=== PATIENT | female | born 1990 | race Caucasian/White ===

== ENCOUNTER → 2017-03-31 19:13 | Outpatient (CLI) | payer OTHER, SELFPAY ==
[2017-03-31 21:05] LABS: Group B Strep DNA By PCR POSITIVE (Negative); Probe Check PASS
== END ==
PROVIDERS: Visit Provider Obstetrics & Gynecology
DX: Z34.83 Encounter for supervision of other normal pregnancy, third trimester (principal)
CPT/HCPCS: 87653

== ENCOUNTER 2017-04-21 09:40 | Inpatient (IN) | payer OTHER, SELFPAY ==
[2017-04-21 09:59] VITALS: BMI 30.4
[2017-04-21 10:29] LABS: ROM Internal Control Test YES-OK TO RESULT pt. (Internal QC)
[2017-04-21 10:32] LABS: ROM Patient Test POSITIVE (Negative)
[2017-04-21] MEDS: Lactated Ringers 1,000 ML 50 ML IV ×3 (10:45→18:14)
--- NOTE | 2017-04-21 11:00 | NURSING ---
Patient would like to pump and bottlefeed.
[2017-04-21 11:22] LABS: Hematocrit 35.6 % (37-47); Mean Corp Hgb Conc 33.7 g/gl (32-36); Mean Corpuscular Hgb 32.3 pg (27.0-32.0); Platelet Count 158 K/mm3 (150-450); RBC Distribution Width CV 13.5 % (11.6-14.6); RBC Distribution Width SD 46.6 fl (35.1-43.9); Red Blood Count 3.71 M/mm3 (4.2-5.4); White Blood Count 9.8 K/mm3 (4.4-11.0)
[2017-04-21 11:23] LABS: Scan Indicated on CBC? Y/N NO
[2017-04-21] MEDS: Oxytocin 30 units/NS 500 ml 30 UNITS/500 ML IV.SOLN IV (16:27)
--- NOTE | 2017-04-21 19:32 | PCM.PN.BLA ---
Progress Note LABOR PROGRESS NOTE No complaints. Notes epidural test dose is wearing off. AVSS GEN - NAD, AAO x 3 FHR 120, moderate variability, + accelerations, no decelerations TOCO 3-4/10 min SVE 4/60/-2 per RN Malcolm Simon A/P: 27yo @ 40wga, TOLAC in latent labor, Cat I FHR -Continue pitocin as tolerated by mother and fetus, IUPC in situ - and maternal statuses reassuring -Continue PCN for GBS ppx.
--- NOTE | 2017-04-21 20:46 | PCM.PN.BLA ---
Progress Note LABOR PROGRESS NOTE Contraction are more intense. AVSS GEN - NAD, AAO x 3 FHR 120, moderate variability, + accelerations, no decelerations TOCO 4/10 min SVE 5.5-6/80/-2, forebag present A/P: 27yo @ 40wga, TOLAC in active labor, Cat I FHR -Pitocin augmentation - continue pitocin as tolerated by mother and fetus -IUPC removed, amniotomy performed and IUPC replaced -Maternal and statuses reassuring
--- NOTE | 2017-04-21 22:35 | PCM.PN.BLA ---
Progress Note LABOR PROGRESS NOTE Feels pressure intermittently. AVSS GEN - NAD, AAO x 3 FHR 120, moderate variability, no accelerations, no deceleration, some loss of contact TOCO 4/10 min SVE 8/90/0 A/P: 27yo @ 40wga, TOLAC in active labor on pitocin, Cat I FHR -Continue pitocin as tolerated by mother and fetus -Maternal and statuses overall reassuring
--- NOTE | 2017-04-21 23:43 | PCM.PN.BLA ---
Progress Note LABOR PROGRESS NOTE C/O significant pressure and shaking AVSS GEN - NAD, AAO x 3 FHR 120, moderate variability, + accelerations, no decelerations TOCO 4/10 min SVE FD/+2 station, cephalic A/P: 27yo @ 40wga, TOLAC in active labor, Cat I FHR -Will start pushing given patient discomfort and low station -Maternal and statuses reassuring
[2017-04-22] MEDS: Ondansetron 4 MG/2 ML Vial IV (00:51)
--- NOTE | 2017-04-22 02:41 | PCM.PN.BLA ---
Progress Note LABOR PROGRESS NOTE 27yo @ 40 1/7wga, TOLAC in second stage. Patient pushing with good maternal effort x approximately 2 hours when I arrived to bedside. I pushed with her for 30 minutes and SVE FD/+3 station, direct OA. Cat I-II FHR with moderate variability, overall reassuring. Pushed in dorsal lithotomy and then repositioned into left lateral decubitus with peanut ball. Will continue pushing with this positioning and reassess in 30 minutes.
--- NOTE | 2017-04-22 03:48 | PLAC_PTH ---
PATIENT: ALBERTO BEACH LOC: [facility] U#:[id number] AGE/SX: 27/F ROOM: WP011 RE04/21/[address]: Dr. Layla Pelaez MD : 1990 BED: 1 DIS: 04/23/2017 SPEC #: [id number] RECD: 04/22/17 07:40 STATUS: MYRIAM REMaureen #: [id number] KATHY: 04/22/17 03:[address]: Layla Nelson DEPT: SURGICAL PATHOLOGY RECD BY: Mekhi Amador ENTERED: 04/22/17 09:18 SP TYPE: PLACENTA OTHR DR: No Primary Care Phys Tissues: Placenta, NOS Procedures: Surgery Specimen Level V HEADER OPERATION: Vaginal delivery PRE-OP DIAGNOSIS: GBS positive, TISSUE SUBMITTED: Placenta MICROSCOPIC DIAGNOSIS Placenta: Placental disc - third trimester placenta (514 gm). Membranes ? mild acute chorioamnionitis. Umbilical cord - three blood vessels and no pathologic diagnosis. :elma 04/26/17 MICROSCOPIC DESCRIPTION Slides are reviewed. GROSS DESCRIPTION SPECIMEN: PLACENTA / CLINICAL INFORMATION: A. Weight: 3.293 kg B. Gestational Age: 40 weeks C. Sex: Male PLACENTAL WEIGHT (POST FIXATION): 514 gm PLACENTAL DIMENSIONS: 18 x 18 x 3 cm PLACENTAL SHAPE: Usual ovoid PLACENTAL WEIGHT FOR GESTATIONAL AGE: Within 10-99th percentile MEMBRANES - Present A. Insertion: Marginal B. Site of rupture from edge: At edge of placental disc C. Color of membrane: Arredondo-omalley D. Abnormalities: None UMBILICAL CORD - Present A. Color: Arredondo-omalley B. Insertion: Central C. Length: 30 cm D. Diameter: 1.3 cm E. Number of vessels: Three F. Abnormalities: None PLACENTAL DISC - Present A. Color of surface: Arredondo-omalley B. surface abnormalities: None C. Maternal cotyledons: Intact with minimal tears D. Attached retro placental clot: No clot E. Cut surface: Dark red and spongy F. Lesions: None G. Separate clot: Absent SECTIONS SUBMITTED: 1. Membrane roll 2. Cord, maternal end 3. Cord, end 4. Placental disc, and maternal surfaces 5. Placental disc, and maternal surfaces 6. Placental disc, and maternal surfaces JAH:elma 04/25/17 TC:2 CPT: 49308
[2017-04-22] MEDS: Oxytocin 30 units/NS 500 ml 30 UNITS/500 ML IV.SOLN 334 UNITS IV (03:58)
[2017-04-22] MEDS: Methylergonovine 0.2 MG/ML Ampul IM (04:00)
[2017-04-22] MEDS: Oxytocin 30 units/NS 500 ml 30 UNITS/500 ML IV.SOLN 167 UNITS IV (04:28)
--- NOTE | 2017-04-22 04:32 | PCM.OB.VAG ---
- Problem List (1) (vaginal after ) Status: Acute (2) 40 weeks gestation of Status: Acute Vaginal Delivery Maternal Presentation: Spontaneous Rupture of Membranes Pitocin augmentation Method of Induction: Pitocin Amniotic Membrane Rupture Type: Spontaneous at home Rupture of Membrane time: 04/21/17 0830h Amniotic Fluid Description: Clear Final ALMA: 04/21/17 Final ALMA Source: US <20 weeks Gestational age: 40 Weeks and 1 Days [place] doctor who attended delivery (if requested by OB): Hallie James Date of Procedure: 04/22/17 Pre-Operative Diagnosis: 40 1/7wga, GBS positive, TOLAC Post-Operative Diagnosis: 40 1/7wga, GBS positive, Surgery/ Procedure Performed: Vacuum Assisted Vaginal Delivery, - - VAGINAL AFTER SECTION Anesthesiologist: Calvin Molina Type of Anesthesia: Epidural Description of Procedure: Exam FD/+3 station in direct OA and pt had pushed for approximately 3.5 hours with waning energy. FHR was Cat I. I offered patient vacuum extraction at this time with review of risks including maternal laceration, scalp laceration with subsequent infection, hematoma, subgaleal hemorrhage, retinal vascular hemorrhage, edema and potential for failure; however, given my assessment, there was high success of vaginal delivery. Also discussed proceeding as section as an alternative. Patient and desired to proceed with vacuum extraction. The vacuum was placed at the flexion point and 500mmHg suction applied at 0329h. The patient pushed over 7 contractions to deliver the head. There were no pop-offs and there were 5 pulls. There was a prolonged deceleration with continued descent. The vacuum suction was released at approximately 0347h. The patient pushed to deliver the infant shoulders with ease to reveal a male at 0348h. The infant was placed on the maternal abdomen and further attended by the nursery personnel. The cord was doubly clamped and cut and the passed to the waiting Pediatric Hospitalist. Cord gases were obtained. The placenta delivered spontaneously and appeared intact on inspection. IV pitocin administered. The uterus was atonic without hemorrhage, thus intrauterine exam done with retrieval of scant membranes. IM Methergine given and fundal massage performed with improved tone. Left labial minoral laceration repaired with 3-0 Vicryl rapide. 1st degree perineal laceration repaired with 3-0 Vicryl Rapide. Sponge counts were correct x 2. with cleft lip and palate. Presentation: Vertex Placental Delivery Description: Spontaneous Placenta Disposition: Routine to Lab Cord Vessel Description: 3 Vessels Cord Gases drawn per routine: ABG, VBG Cord Entanglement: None Drain: Helm to straight drain Estimated Blood Loss: 400 A gender: Male (1 minute): 8 (5 minute): 9 Episiotomy Description: None Laceration: Midline, Perineal Extension/lac, 1st degree Medications given after delivery: IV Pitocin, IM Methergin Complications: None
--- NOTE | 2017-04-22 04:53 | OP.PCM_ITS ---
- Problem List (1) (vaginal after ) Status: Acute (2) 40 weeks gestation of Status: Acute Vaginal Delivery Maternal Presentation: Spontaneous Rupture of Membranes Pitocin augmentation Method of Induction: Pitocin Amniotic Membrane Rupture Type: Spontaneous at home Rupture of Membrane time: 04/21/17 0830h Amniotic Fluid Description: Clear Final ALMA: 04/21/17 Final ALMA Source: US <20 weeks Gestational age: 40 Weeks and 1 Days [place] doctor who attended delivery (if requested by OB): Hallie James Date of Procedure: 04/22/17 Pre-Operative Diagnosis: 40 1/7wga, GBS positive, TOLAC Post-Operative Diagnosis: 40 1/7wga, GBS positive, Surgery/ Procedure Performed: Vacuum Assisted Vaginal Delivery, - - VAGINAL AFTER SECTION Anesthesiologist: Calvin Molina Type of Anesthesia: Epidural Description of Procedure: Exam FD/+3 station in direct OA and pt had pushed for approximately 3.5 hours with waning energy. FHR was Cat I. I offered patient vacuum extraction at this time with review of risks including maternal laceration, scalp laceration with subsequent infection, hematoma, subgaleal hemorrhage, retinal vascular hemorrhage, edema and potential for failure; however, given my assessment, there was high success of vaginal delivery. Also discussed proceeding as section as an alternative. Patient and desired to proceed with vacuum extraction. The vacuum was placed at the flexion point and 500mmHg suction applied at 0329h. The patient pushed over 7 contractions to deliver the head. There were no pop-offs and there were 5 pulls. There was a prolonged deceleration with continued descent. The vacuum suction was released at approximately 0347h. The patient pushed to deliver the shoulders with ease to reveal a male infant at 0348h. The infant was placed on the maternal abdomen and further attended by the nursery personnel. The cord was doubly clamped and cut and the passed to the waiting Pediatric Hospitalist. Cord gases were obtained. The placenta delivered spontaneously and appeared intact on inspection. IV pitocin administered. The uterus was atonic without hemorrhage, thus intrauterine exam done with retrieval of scant membranes. IM Methergine given and fundal massage performed with improved tone. Left labial minoral laceration repaired with 3-0 Vicryl rapide. 1st degree perineal laceration repaired with 3-0 Vicryl Rapide. Sponge counts were correct x 2. with cleft lip and palate. Presentation: Vertex Placental Delivery Description: Spontaneous Placenta Disposition: Routine to Lab Cord Vessel Description: 3 Vessels Cord Gases drawn per routine: ABG, VBG Cord Entanglement: None Drain: Helm to straight drain Estimated Blood Loss: 400 Infant A gender: Male (1 minute): 8 (5 minute): 9 Episiotomy Description: None Laceration: Midline, Perineal Extension/lac, 1st degree Medications given after delivery: IV Pitocin, IM Methergin Complications: None
--- NOTE | 2017-04-22 05:01 | DCINST_ITS ---
Discharge Diet: No Restrictions Discharge Activity: Return to Normal Activity, May not drive while taking narcotic pain medications., May Shower May resume sexual activity in: 6 weeks Lifting Restrictions: 20 lb Call your doctor if your incision/area has: Continuous Slow Oozing, Sudden Increased Bleeding, Increased Pain/ Swelling, Increased Redness, Foul Smelling Discharge Call your doctor if you observe: Fever of 101 or Higher, Inability to urinate, Inability to have a bowel movement, Using more than one pad per hour, Shortness of breath, Chest pain, Calf discomfort, Uncontrolled pain Suture Line Care: Avoid Pulling/Pushing Cleanse incision/area with: Soap & Water Additional Instructions: If you experience any of the following, contact your healthcare provider. * Bleeding that soaks a pad every hour for 2 hours * Fever 100.4 or higher * Unrelieved incision or abdominal pain * Swelling, redness, discharge or bleeding from your incision or episiotomy site * Your incision begins to separate * Problems urinating (including inability to urinate or burning while urinating) . * Visual changes * Severe headache * Flu-like symptoms * Pain or redness in one of both of your breasts * Pain, warmth, tenderness or swelling in your legs, especially the calf area * Frequent nausea and vomiting * Symptoms of depression or anxiety If you experience any of the following, call 911 or go to the nearest Emergency Room. * Chest pain * Problems breathing * Seizure activity * Partial or complete paralysis of a body part, slurred speech, weakness or drooping of the face, or a sudden inability to walk or hold your balance Allergies/Adverse Reactions: Allergies No Known Allergies Allergy (Verified 11/21/15 12:21) Medications to take at Discharge Vit No.130/Iron/FA [ Vitamins] 1 each PO DAILY 11/21/15 Diphenhydramine HCl [Unisom] 30 ml PO QHS PRN 04/21/17 Docusate Sodium [Colace] 100 mg PO BID PRN PRN #60 cap 04/22/17 Ibuprofen 800 mg PO TID PRN #30 tab 04/22/17 The following prescriptions were given: Docusate Sodium [Colace] 100 mg PO BID PRN PRN #60 cap PRN Reason: Constipation Ibuprofen 800 mg PO TID PRN #30 tab PRN Reason: Pain Orders to be completed after discharge: Electric breast pump Location: None Selected Please Follow Up With: Layla Noguera MD When: 6 weeks Primary Care Physician: Care Physician,No Primary [Primary Care Provider] -
[2017-04-22 08:30] VITALS: BP 117/70; PULSE 90; RESP 16; TEMP 36.3
[2017-04-22] MEDS: Senna/Docusate Sodium 1 Tablet PO (09:03)
[2017-04-22] MEDS: Ibuprofen 600 MG Tablet PO ×3 (09:03→23:56)
[2017-04-22] MEDS: Dibucaine 30 GM Tube 1 APPLIC TOPICAL (09:04)
[2017-04-22 11:22] VITALS: BP 108/64; PULSE 90; RESP 16; TEMP 36.4
[2017-04-22 16:00] VITALS: BP 114/70; PULSE 90; RESP 16; TEMP 36.4
[2017-04-22 20:20] VITALS: BP 123/60; PULSE 81; RESP 16; TEMP 36.6; O2SAT 98
[2017-04-22] MEDS: Acetaminophen 500 MG Tablet 1000 MG PO (20:31)
[2017-04-23] VITALS: BP 99/59; PULSE 80; RESP 16; TEMP 36.3; O2SAT 97
[2017-04-23 04:31] VITALS: BP 111/62; PULSE 82; RESP 18; TEMP 36.6; O2SAT 97
[2017-04-23] MEDS: Acetaminophen 500 MG Tablet 1000 MG PO (04:36)
[2017-04-23] MEDS: Ibuprofen 600 MG Tablet PO ×2 (07:40→14:58)
[2017-04-23 07:59] VITALS: BP 108/62; PULSE 81; RESP 16; TEMP 36.4
--- NOTE | 2017-04-23 10:50 | PCM.PN.OB ---
Patient Problems: Active and Suspected Problems (vaginal after ) (Acute) Subjective: Patient without complaints. Minimal vaginal bleeding. Pumping as baby has cleft palate. Wants to go home. - Physical Exam Vital Signs AF, VSS Temp Pulse Resp BP Pulse Ox 97.6 F L 81 16 108/62 97 04/23/17 07:59 04/23/17 07:59 04/23/17 07:59 04/23/17 07:59 04/23/17 04:31 Oxygen Delivery Method Room Air Weight: 200 lb 6.403 oz Body Mass Index (BMI) 30.4 Intake and Output for Last 24 Hours 04/21/17 04/22/17 04/23/17 23:59 23:59 23:59 Intake Total 3721 / 3721 4562 / 4562 Output Total 753 / 753 3100 / 3100 Balance 2968 / 2968 1462 / 1462 Assessment/Plan Active and Suspected Problems (vaginal after ) (Acute) Doing well. Will release to home with routine instructions. Follow-up in 6 weeks.
[2017-04-23] MEDS: Dibucaine 30 GM Tube 1 APPLIC TOPICAL (14:58)
[2017-04-26 14:12] LABS: Pathology Specimen OB SEE PATHOLOGY REPORT
== END 2017-04-23 15:35 | disposition home or self-care (01) | DRG 775 ==
PROVIDERS: Admitting Provider Obstetrics & Gynecology; Visit Provider Obstetrics & Gynecology
DX: O34.211 Maternal care for low transverse scar from previous cesarean delivery (principal); O41.1230 Chorioamnionitis, third trimester, not applicable or unspecified; O35.3XX0 Maternal care for (suspected) damage to fetus from viral disease in mother, not applicable or unspecified; O42.02 Full-term premature rupture of membranes, onset of labor within 24 hours of rupture; O99.824 Streptococcus B carrier state complicating childbirth; O70.0 First degree perineal laceration during delivery; Z37.0 Single live birth; Z3A.40 40 weeks gestation of pregnancy
CPT/HCPCS: 59025; 59050; 84112; 85027; 86850; 86900; 88307; 99218; J7120; G0378; J2405

== ENCOUNTER → 2018-06-15 13:43 | Outpatient (CLI) | payer OTHER, SELFPAY ==
[2018-06-19 12:49] LABS: HPV Reflexed? NOT INDICATED
== END ==
PROVIDERS: Visit Provider Obstetrics & Gynecology
DX: Z12.4 Encounter for screening for malignant neoplasm of cervix (principal)
CPT/HCPCS: 88175; G0145

== ENCOUNTER 2018-11-23 20:21 | Emergency (ER) | payer OTHER, SELFPAY ==
[2018-11-23 20:23] VITALS: BP 131/79; PULSE 56; RESP 16; TEMP 36.6; O2SAT 100; BMI 23.6
--- NOTE | 2018-11-23 20:41 | CT_ITS ---
STUDY: CT ABDOMEN AND PELVIS WITH CONTRAST REASON FOR EXAM: Female, 28 years old. Right lower quadrant pain RADIATION DOSAGE (If Supplied By Facility): CTDIvol = ( 13.46 ) mGy, DLP = ( 688.90 ) mGycm TECHNIQUE: Transaxial images were obtained from the dome of the diaphragm to the symphysis pubis without oral contrast. Oral and amp; IV Gastrografin and amp; 100mL Isovue-300 100ML was administered. Sagittal and coronal images were reconstructed. Individualized dose optimization techniques were used for this CT. COMPARISON: None. FINDINGS: The visualized lung bases are unremarkable. Mild pericardial effusion. Normal liver. Normal gallbladder and extrahepatic biliary system. Normal spleen. Normal pancreas. Normal bilateral adrenal glands. Normal right kidney. 2 cm upper pole cyst in the left kidney. Normal visualized stomach. Normal small intestine. Normal colon. The appendix is visualized and appears normal. Normal abdominal aorta. Normal inferior vena cava. Normal retroperitoneum. Normal urinary bladder. Mild pelvic fluid. Normal uterus. Possible 1.2 cm right adnexal cystic nodule. Small fatty umbilical hernia. Normal osseous structures. CT/Abdomen/Pelvis WITH Contrast IMPRESSION: Mild pericardial effusion. Mild pelvic fluid. Small fatty umbilical hernia. Normal appendix. Possible small right adnexal cyst. Left renal cyst. Electronically Signed: Jeramie Maurice DO at 22:39 EDT Tel [phone], Service support ,
[2018-11-23] MEDS: 0.9% Normal Saline 1,000 ML 125 ML IV (20:56)
[2018-11-23 21:09] LABS: Absolute Lymphocyte Count 2.63 X10^3/uL (0.83-4.51); Absolute Neutrophil Count 3.6 X10^3/uL (2.0-7.7); Basophil# 0.03 X10^3/uL; Basophil% 0.4 % (0-1); Eosinophil# 0.09 X10^3/uL; Eosinophils% 1.3 % (0-5); Hematocrit 37.6 % (37-47); Hemoglobin 12.5 g/dL (12.0-15.0); Lymphocyte # 2.63 X10^3/ul (4.0); Lymphocyte % 37.9 % (19-41); Mean Corp Hgb Conc 33.2 g/dL (32-36); Mean Corpuscular Hgb 33.1 pg (27.0-32.0); Mean Corpuscular Volume 99.5 fL (81-99); Mean Platelet Vol. 10.3 fl (6.2-12.0); Monocyte% 8.6 % (0-10); NRBC Flagged by Analyzer 0 % (0-5); Neutrophil # 3.58 X10^3/uL (2.7-7.7); Neutrophil % 51.7 % (47-70); Platelet Count 273 K/mm3 (150-450); RBC Distribution Width CV 12.6 % (11.6-14.6); RBC Distribution Width SD 46.6 fl (35.1-43.9); Red Blood Count 3.78 M/mm3 (4.2-5.4); White Blood Count 6.9 K/mm3 (4.4-11.0)
[2018-11-23 21:13] LABS: Anion Gap 5 (5-15); BUN 15 mg/dL (7-18); BUN/Creat Ratio 24.9 RATIO (10-20); Chloride 110 mmol/L (98-107); EST Glomerular Filtration Rate 127 mL/min (>60); Est Glom Filt Rate - Afr Amer 154 mL/min (>60); Estimated Creatinine Clearance 143.33 ml/min; Glucose 87 mg/dL (74-106); Potassium 4.1 mmol/L (3.5-5.1); Sodium Level 144 mmol/L (136-145)
[2018-11-23 21:29] LABS: Bacteria 0 SEEN /hpf (None Seen); Mucous, Urine 0 SEEN /hpf (<or=2+); Red Blood Cells-Urine 0 SEEN /hpf (0-5)
[2018-11-23 21:31] LABS: Color, Urine Yellow (Yellow); Glucose, Dipstick Normal (Normal); Ketone-Dipstick Negative (Negative); Leukocyte Esterase-Dipstick 100 /ul (Negative); Nitrite-Dipstick Negative (Negative); Occult Blood-Urine 10 /ul (Negative); Protein-Dipstick 15 mg/dl (Negative); Specific Gravity, Urine 1.015 (1.002-1.030); Urine Bilirubin Dipstick Negative (Negative); Urine Clarity Sl. Cloudy (Clear); Urine Urobilinogen Normal (Normal); Urine pH 6.5 (5.0 - 8.0)
[2018-11-23 21:35] LABS: Internal QC Validated? YES +Cl - CLEAR BKGD; Pregnancy, Serum, hCG Quali. NEGATIVE Negative
[2018-11-23 21:37] LABS: Squamous Epithelial Cells - UA 0-5 SEEN /hpf (5-10); White Blood Cells 0-5 SEEN /hpf (0-5)
--- NOTE | 2018-11-23 22:32 | ED.VIS.GI ---
History of Present Illness Chief Complaint: Abd Pain Narrative: Patient presenting for evaluation secondary to abdominal pain. Patient states that she has had abdominal pain over the course of the last 2 days. Its been continuous, and waxing and waning. She states that it is located just to the right and below her bellybutton. She states it has been associated with some nausea but no vomiting. She denies any diarrhea. She denies any urinary signs or symptoms. No vaginal discharge or bleeding. Patient does have a past surgical history of a section in the past. Review of systems otherwise negative. Past Medical History - Allergies and Home Meds Allergies/Adverse Reactions: Allergies No Known Allergies Allergy (Verified 11/23/18 20:22) Primary Care Physician: Care Physician,No Primary [Primary Care Provider] - Past Medical History: - - C section Smoking Status: Never smoker Review of Systems All systems negative except as indicated Gastrointestinal: Reports: Abdominal pain, Nausea Physical Exam Vital Signs/Narrative: Vital Signs Temp Pulse Resp BP Pulse Ox 11/23/18 20:23 97.8 F 56 L 16 131/79 H 100 Inital Vital Signs reviewed: Yes General: Well nourished, Well developed, No Acute Distress Head: Normocephalic, Atraumatic Eyes: Perrl, EOMI ENT: Moist mucous membranes, No rhinorrhea Neck: Supple, Nontender Cardiovascular: Regular rate, Regular rhythm, No murmurs Respiratory: No distress, CTA bilaterally, Chest nontender Abdomen: Soft, Nondistended, Normal bowel sounds, Tender - Tenderness just inferiorly and to the right of the patient's umbilicus. No pain over the pelvis, adnexa, or McBurney's point no guarding or rebound. Back: Nontender, Normal Inspection Extremities: Nontender, No edema Skin: Normal color, No rash Neurological: Alert, Oriented x3, Cranial nerves II-XII grossly intact, Normal Strength, Normal Sensation Psychological: Normal affect, Normal Mood Diagnostic/Tx/Re-eval - Medical Decision Making Patient presented secondary to abdominal pain. IV was established patient was given Toradol Zofran and fluids. CBC chemistry urinalysis and test were found to be unremarkable. CT abdomen and pelvis showed some pelvic free fluid, a small right adnexal ovarian cyst, normal appendix, and a small pericardial effusion. Patient at this point does not have significant etiology causing her abdominal pain. She was informed about her findings on her CT, was recommended follow-up with primary care. She was given signs and symptoms which return. Patient will be discharged with a course of Naprosyn and Zofran. Disposition: Home ED Disposition - Plan for ED Patient: Disposition: Home or Assisted Living Diagnosis: Abdominal pain Instructions: ABDOMINAL PAIN, Unknown Cause, (Female) Prescriptions: Naproxen [Naprosyn] 500 mg PO BID PRN #20 tab Prescription Printed Ondansetron [Zofran Odt] 4 mg PO Q8H PRN PRN #10 tab PRN Reason: Nausea Prescription Printed Referrals: Jaclyn Carlos DO [STAFF PHYSICIAN] - As Needed
[2018-11-23 22:35] VITALS: BP 106/65; PULSE 55; RESP 16; O2SAT 95
[2018-11-23 23:07] VITALS: BP 107/75; PULSE 56; RESP 16; O2SAT 96
== END 2018-11-23 23:08 | disposition home or self-care (01) ==
PROVIDERS: Emergency Provider Emergency Medicine
DX: R10.9 Unspecified abdominal pain (principal); R11.0 Nausea
CPT/HCPCS: 74177; 80048; 81001; 84703; 85025; 96360; 96361; 99282; J7030; Q9967; A4216

== ENCOUNTER → 2019-03-07 15:41 | Outpatient (CLI) | payer OTHER, SELFPAY ==
[2019-03-07 17:55] LABS: Hematocrit 34.6 % (37-47); Hemoglobin 11.6 g/dL (12.0-15.0); Mean Corp Hgb Conc 33.5 g/dL (32-36); Mean Corpuscular Hgb 32.4 pg (27.0-32.0); Mean Corpuscular Volume 96.6 fL (81-99); Mean Platelet Vol. 11.2 fl (6.2-12.0); Platelet Count 229 K/mm3 (150-450); RBC Distribution Width CV 12.3 % (11.6-14.6); RBC Distribution Width SD 43.7 fl (35.1-43.9); Red Blood Count 3.58 M/mm3 (4.2-5.4); White Blood Count 4.6 K/mm3 (4.4-11.0)
[2019-03-07 18:25] LABS: ALB/GLOB Ratio 0.8 RATIO (0.9-2.4); AST(SGOT) 9 U/L (15-37); Alanine Aminotransfer ALT/SGPT 19 U/L (13-56); Albumin, Serum 3.5 g/dL (3.2-5.0); Alkaline Phosphatase 46 U/L (45-117); Anion Gap 3 (5-15); BUN 11 mg/dL (7-18); BUN/Creat Ratio 17.2 RATIO (10-20); Calcium,Total 9.1 mg/dL (8.5-10.1); Chloride 109 mmol/L (98-107); Creatinine, Serum 0.64 mg/dL (0.55-1.02); EST Glomerular Filtration Rate 118 mL/min (>60); Est Glom Filt Rate - Afr Amer 143 mL/min (>60); Globulin 4.2 g/dL (2.2-4.2); Glucose 100 mg/dL (74-106); Potassium 3.7 mmol/L (3.5-5.1); Protein, Total 7.7 g/dL (6.4-8.2); Sodium Level 139 mmol/L (136-145); Total Bilirubin < 0.10 mg/dL (0.20-1.00)
[2019-03-07 20:06] LABS: Chlamydia Trachomatis by PCR Negative (Negative); Neisserai gonorrhoeae by PCR Negative (Negative); Probe Check PASS; Sample Adequacy Control PASS; Specimen Processing Control PASS
[2019-03-09 15:12] LABS: HSV 1 IgG < 0.91 index (0.00-0.90); HSV 2 IgG < 0.91 index (0.00-0.90)
== END ==
PROVIDERS: Visit Provider Obstetrics & Gynecology
DX: R10.9 Unspecified abdominal pain (principal); R50.9 Fever, unspecified
CPT/HCPCS: 36415; 80053; 85027; 86695; 86696; 87491; 87591

== ENCOUNTER → 2020-08-07 09:11 | Outpatient (CLI) | payer SELFPAY ==
[2020-08-07 10:32] LABS: hCG Titer Quant., Serum < 1 mIU/mL (1-3)
[2020-08-07 12:15] LABS: Hematocrit 34.4 % (37-47); Hemoglobin 11.4 g/dL (12.0-15.0); Mean Corp Hgb Conc 33.1 g/dL (32-36); Mean Corpuscular Volume 99.7 fL (81-99); Mean Platelet Vol. 11.2 fl (6.2-12.0); Platelet Count 242 K/mm3 (150-450); RBC Distribution Width CV 12.5 % (11.6-14.6); RBC Distribution Width SD 45.6 fl (35.1-43.9); Red Blood Count 3.45 M/mm3 (4.2-5.4); White Blood Count 4.3 K/mm3 (4.4-11.0)
== END ==
PROVIDERS: Obstetrics & Gynecology; Visit Provider Obstetrics & Gynecology
DX: O20.0 Threatened abortion (principal); Z3A.00 Weeks of gestation of pregnancy not specified
CPT/HCPCS: 36415; 84702; 85027

== ENCOUNTER → 2020-10-11 11:06 | Outpatient (CLI) | payer SELFPAY ==
[2020-10-11 12:39] LABS: hCG Titer Quant., Serum < 1 mIU/mL (1-3)
== END ==
PROVIDERS: Referring Provider Obstetrics & Gynecology; Visit Provider Obstetrics & Gynecology
DX: N91.2 Amenorrhea, unspecified (principal)
CPT/HCPCS: 36415; 84702

== ENCOUNTER → 2022-01-05 | Outpatient (CLI) | payer MEDICAID, SELFPAY ==
[2022-01-05 14:19] LABS: Absolute Lymphocyte Count 1.57 X10^3/uL (0.83-4.51); Absolute Neutrophil Count 6.7 X10^3/uL (2.0-7.7); Basophil# 0.02 X10^3/uL; Basophil% 0.2 % (0-1); Eosinophil# 0.08 X10^3/uL; Eosinophils% 0.9 % (0-5); Hematocrit 31.7 % (37-47); Lymphocyte # 1.57 X10^3/ul (0.83-4.51); Lymphocyte % 17.5 % (19-41); Mean Corp Hgb Conc 34.7 g/dL (32-36); Mean Corpuscular Hgb 33.5 pg (27.0-32.0); Mean Corpuscular Volume 96.6 fL (81-99); Mean Platelet Vol. 9.7 fl (6.2-12.0); Monocyte% 5.6 % (0-10); NRBC Flagged by Analyzer 0 % (0-5); Neutrophil # 6.69 X10^3/uL (2.7-7.7); Neutrophil % 74.8 % (47-70); Platelet Count 216 K/mm3 (150-450); RBC Distribution Width CV 13.2 % (11.6-14.6); RBC Distribution Width SD 46.2 fl (35.1-43.9); Red Blood Count 3.28 M/mm3 (4.2-5.4)
[2022-01-05 15:31] LABS: Glucose Challenge Gest 1H 50g 124 mg/dL (70-140)
== END | disposition home or self-care (01) ==
LOC: WOBLAB 14:05
PROVIDERS: Visit Provider Obstetrics & Gynecology
DX: Z34.82 Encounter for supervision of other normal pregnancy, second trimester (principal)
CPT/HCPCS: 36415; 82950; 85025

== ENCOUNTER 2022-01-08 09:56 | Emergency (ER) | payer MEDICAID, SELFPAY ==
[2022-01-08 09:57] VITALS: BP 106/80; PULSE 90; RESP 18; TEMP 36.6; O2SAT 98; BMI 26.6
[2022-01-08] MEDS: Acetaminophen 500 MG Tablet 1000 MG PO (10:24)
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
[2022-01-08 10:39] VITALS: BP 95/68; PULSE 82; RESP 16; O2SAT 100
== END 2022-01-08 10:43 | disposition home or self-care (01) ==
LOC: ED 10:38
PROVIDERS: Emergency Provider Emergency Medicine; Visit Provider Emergency Medicine
DX: S06.0X0A Concussion without loss of consciousness, initial encounter (principal); O9A.212 Injury, poisoning and certain other consequences of external causes complicating pregnancy, second trimester; O99.891 Other specified diseases and conditions complicating pregnancy; S00.83XA Contusion of other part of head, initial encounter; R51.9 Headache, unspecified; V89.0XXA Person injured in unspecified motor-vehicle accident, nontraffic, initial encounter; Z3A.26 26 weeks gestation of pregnancy
CPT/HCPCS: 99283

== ENCOUNTER → 2022-03-17 | Outpatient (CLI) | payer MEDICAID, SELFPAY ==
[2022-03-17 16:07] LABS: Absolute Lymphocyte Count 1.46 X10^3/uL (0.83-4.51); Absolute Neutrophil Count 8.7 X10^3/uL (2.0-7.7); Basophil# 0.04 X10^3/uL; Basophil% 0.4 % (0-1); Eosinophils% 0.9 % (0-5); Hematocrit 33.9 % (37-47); Hemoglobin 11.3 g/dL (12.0-15.0); Lymphocyte # 1.46 X10^3/ul (0.83-4.51); Lymphocyte % 13.1 % (19-41); Mean Corp Hgb Conc 33.3 g/dL (32-36); Mean Corpuscular Hgb 32.8 pg (27.0-32.0); Mean Corpuscular Volume 98.5 fL (81-99); Mean Platelet Vol. 10.4 fl (6.2-12.0); Monocyte# 0.73 X10^3/uL; Monocyte% 6.5 % (0-10); NRBC Flagged by Analyzer 0 % (0-5); Neutrophil # 8.72 X10^3/uL (2.7-7.7); Neutrophil % 78.2 % (47-70); Platelet Count 247 K/mm3 (150-450); RBC Distribution Width CV 13.1 % (11.6-14.6); RBC Distribution Width SD 46.3 fl (35.1-43.9); Red Blood Count 3.44 M/mm3 (4.2-5.4); White Blood Count 11.2 K/mm3 (4.4-11.0)
[2022-03-17 16:52] LABS: Syphilis Antibodies Non-reactive
== END | disposition home or self-care (01) ==
PROVIDERS: Visit Provider Obstetrics & Gynecology
DX: Z34.83 Encounter for supervision of other normal pregnancy, third trimester (principal)
CPT/HCPCS: 36415; 85025; 86780

== ENCOUNTER 2022-04-03 22:45 | Inpatient (IN) | payer MEDICAID, SELFPAY ==
[2022-04-03 22:16] VITALS: BP 116/79; PULSE 105
[2022-04-03 22:17] VITALS: PULSE 95; O2SAT 98
[2022-04-03 22:18] VITALS: TEMP 36.2
[2022-04-03 22:20] VITALS: BMI 30.7
[2022-04-03 22:41] LABS: ROM Internal Control Test YES-OK TO RESULT pt. (Internal QC); ROM Patient Test POSITIVE (Negative)
[2022-04-03 23:02] LABS: Absolute Lymphocyte Count 2.27 X10^3/uL (0.83-4.51); Absolute Neutrophil Count 7.9 X10^3/uL (2.0-7.7); Basophil# 0.03 X10^3/uL; Basophil% 0.3 % (0-1); Eosinophil# 0.09 X10^3/uL; Eosinophils% 0.8 % (0-5); Hematocrit 32.8 % (37-47); Hemoglobin 11.1 g/dL (12.0-15.0); Lymphocyte # 2.27 X10^3/ul (0.83-4.51); Lymphocyte % 20.7 % (19-41); Mean Corp Hgb Conc 33.8 g/dL (32-36); Mean Corpuscular Hgb 32.8 pg (27.0-32.0); Mean Platelet Vol. 10.1 fl (6.2-12.0); Monocyte# 0.55 X10^3/uL; NRBC Flagged by Analyzer 0 % (0-5); Neutrophil # 7.85 X10^3/uL (2.7-7.7); Neutrophil % 71.5 % (47-70); Platelet Count 247 K/mm3 (150-450); RBC Distribution Width CV 12.8 % (11.6-14.6); RBC Distribution Width SD 45.2 fl (35.1-43.9); Red Blood Count 3.38 M/mm3 (4.2-5.4)
[2022-04-03] MEDS: Lactated Ringers 1,000 ML 50 ML IV (23:09)
--- NOTE | 2022-04-03 23:27 | PCM.HP.BLA ---
History and Physical Date of Admission: 04/03/22 Chief complaint: Leakage of fluid History present illness: 32-year-old at 39 weeks and 0 days with ALMA 04/10/2022 arrives with leakage of clear fluid at 1500. Denies headache, vision changes, chest pain, shortness of breath, nausea vomit, right upper quadrant pain. Patient states good movement. is complicated by history of section desires [place] Obstetric history: G1: 41-week primary section for failure to progress 8 pounds 3 ounce male G2: 40-week 7 pound 7 ounces male G3: SAB G4: Current Past medical history: None Medications: vitamin Past surgical history: section Allergies: No known drug allergies Family history: Denies history DVT or PE Social history: Denies smoking, alcohol use, drug use Review of systems: Besides above pertinent positives a full review of systems was performed and found to be negative Physical exam: Vitals: Blood pressure 116/79 pulse 95 General: Normal-appearing no acute distress HEENT: Normocephalic/atraumatic no cervical lymphadenopathy Cardiac/respiratory: No use of accessory muscles, nonlabored breathing Abdomen: Soft, nontender, gravid Extremities: No peripheral edema normal peripheral pulses Psych: Normal affect, demeanor nonpressured speech Labs: White blood cell count 11, hemoglobin 11.1 hematocrit 32.8% platelets 247. ROM positive Bedside ultrasound: Cephalic Assessment plan: 32-year-old G4, P2 at 39 weeks and 0 days arrives with PROM. SROM at 1500, cervix unchanged from office exam according to nursing. Educated patient on PROM, discussed starting Pitocin. Patient desires to , risk benefits alternatives discussed. Patient states understanding wish to proceed. All questions were answered and consent was signed. Admit labor and delivery CEFM GBS negative Pitocin augmentation Routine orders
[2022-04-03] MEDS: Oxytocin 15 Units/NS 250ml 15 UNITS/250 ML IV.SOLN 2 UNITS IV (23:36)
[2022-04-03 23:43] VITALS: BP 116/71; PULSE 93
[2022-04-03 23:44] VITALS: BP 116/71; TEMP 36.6
[2022-04-04] VITALS (48 sets, daily range): BP systolic 82–125; BP diastolic 46–79; PULSE 70–98; RESP 16; TEMP 36.1–36.7; O2SAT 91–100
[2022-04-04] MEDS: fentaNYL 100 MCG/2 ML Ampul IV (00:53)
[2022-04-04] MEDS: LACTATED RINGERS 500 ML 999 ML IV (02:09)
[2022-04-04] MEDS: Ondansetron 4 MG/2 ML Vial IV (02:46)
[2022-04-04] MEDS: fentaNYL-bupivacaine (epidural) 100 ML BAG EPIDURAL ×2 (03:15→08:14)
[2022-04-04] MEDS: proCHLORPERazine 10 MG/2 ML Vial IV (03:33)
--- NOTE | 2022-04-04 04:57 | PCM.PN.OB ---
Subjective Subjective Comfortable with epidural Objective Data Objective Data Vital Signs: Vital Signs Temp Pulse BP Pulse Ox 97.7 F L 93 103/55 L 99 04/04/22 01:47 04/04/22 03:35 04/04/22 03:35 04/04/22 03:32 Weight: 201 lb 12.8 oz Body Mass Index (BMI) 30.7 Intake & Output: Intake and Output for Last 24 Hours 04/02/22 04/03/22 04/04/22 23:59 23:59 23:59 Intake Total 730.77 / 730.77 Balance 730.77 / 730.77 Lab / Micro Data Result Diagrams: 04/03/22 22:45 Labs: Laboratory Results - last 24 hr 04/03/22 22:25: Vag Amniotic Fld Detect POSITIVE H 04/03/22 22:45: WBC 11.0, RBC 3.38 L, Hgb 11.1 L, Hct 32.8 L, MCV 97.0, MCH 32.8 H, MCHC 33.8, RDW Std Deviation 45.2 H, RDW Coeff of Christopher 12.8, Plt Count 247, MPV 10.1, Immature Gran % (Auto) 1.700 H, Neut % (Auto) 71.5 H, Lymph % (Auto) 20.7, Claiborne % (Auto) 5.0, Eos % (Auto) 0.8, Baso % (Auto) 0.3, Absolute Neuts (auto) 7.9 H, Absolute Lymphs (auto) 2.27, Nucleated RBC % 0 04/03/22 22:45: Blood Type O POSITIVE, Antibody Screen NEGATIVE Physical Exam Const alert, oriented x3, no apparent distress, average body habitus, healthy appearing and well nourished HEENT normocephalic and moist oral mucous membranes Eyes PERRL Neck full ROM Resp normal respiratory effort, no retractions and no use of accessory muscles Narrative: Cervical exam: 10/100/+1 Psych mental status grossly normal, affect normal, speech normal and activity/motor behavior normal Assessment & Plan (1) : PLAN: Called by nursing for delivery. Arrived to room, prepared for delivery. Pushed with patient for nearly 1 hour. Patient feels mentally exhausted and needs break. Discussed laboring down versus continue pushing. Discussed baby's progress and delivery. Patient overall feels she needs a mental break and will restart pushing. To labor down
[2022-04-04] MEDS: Lactated Ringers 1,000 ML 200 ML IV (05:09)
--- NOTE | 2022-04-04 10:11 | EX.PCM.OBRPT ---
Vaginal Delivery Findings Description of Procedure: Normal spontaneous vaginal delivery of a viable female infant, vertex LOP. Head and shoulders delivered with ease. Cord clamped and cut. Baby handed off to patient. Placenta delivered via cord traction and fundal massage, intact. IM Pitocin and IV Pitocin given per protocol. Prophylactic IM Methergine with prolonged second stage of labor given. Left labial laceration hemostatic without repair. EBL 300 cc Apgars 8/9
[2022-04-04] MEDS: Ibuprofen 600 MG Tablet PO ×2 (13:58→20:11)
[2022-04-04] MEDS: Acetaminophen 500 MG Tablet 1000 MG PO ×2 (17:12→23:26)
[2022-04-05 02:55] VITALS: BP 104/67; PULSE 78
[2022-04-05] MEDS: Ibuprofen 600 MG Tablet PO (02:56)
[2022-04-05 02:57] VITALS: BP 104/67; PULSE 78; RESP 16; TEMP 36.3
--- NOTE | 2022-04-05 07:06 | DS.PCM_ITS ---
Discharge Summary Date of Admission: 04/03/22 Date of Discharge: 04/05/22 Summary: Patient arrived on 04/03/2022 with spontaneous rupture of membranes/premature rupture membranes. Patient desired trial of labor after section. Labor was augmented with Pitocin. Patient subsequently delivered via on 04/04/2022. Routine recovery. Patient discharged home on 04/05/2022 Meaningful Use Info Meaningful Use Diagnoses (Choose all that apply): None applicable Discharge Plan Admission Admit Date/Time: 04/03/22 22:45 Primary Reason for Your Visit: Spontaneous rupture of membranes Attending Provider: Catracho Burt Primary Care Provider: Josephine Cardenas Primary Instructions Additional Instructions / Restrictions: Regular diet. Weightbearing as tolerated. Okay to shower. No intercourse for 4 to 6 weeks. Call if fevers, chills, chest pain, shortness of breath. Follow- up 4 to 6 weeks Discharge Orders/Prescriptions Prescriptions: No Action 1 mg Tablet 1 tab PO DAILY Unisom (doxylamine) 25 mcg PO.IVFORM PRN PRN (Reason: sleep aide) Referrals / Follow Up: Care Physician,Josephine Primary [Primary Care Provider] - Disposition Disposition (needs filled in before D/C Order can be placed): Home, Self Care
--- NOTE | 2022-04-05 07:07 | PCM.PN.OB ---
Subjective Subjective No overnight complaints Objective Data Objective Data Vital Signs: Vital Signs Temp Pulse Resp BP Pulse Ox O2 Del Method 97.4 F L 78 16 104/67 100 Room Air 04/05/22 02:57 04/05/22 02:57 04/05/22 02:57 04/05/22 02:57 04/04/22 12:12 04/05/22 02:57 Oxygen Delivery Method Room Air Weight: 201 lb 12.8 oz Body Mass Index (BMI) 30.7 Intake & Output: Intake and Output for Last 24 Hours 04/03/22 04/04/22 04/05/22 23:59 23:59 23:59 Intake Total 2100.73 / 2100.73 Output Total 2700 / 2700 Balance -599.27 / -599.27 Lab / Micro Data Result Diagrams: 04/03/22 22:45 Physical Exam Const alert, oriented x3, no apparent distress, average body habitus, healthy appearing and well nourished HEENT normocephalic and moist oral mucous membranes Eyes PERRL Neck full ROM Resp normal respiratory effort, no retractions and no use of accessory muscles GI GI Narrative: Soft, nontender, uterus firm and below umbilicus Extremity normal to inspection, full ROM and no clubbing, cyanosis or edema Neuro moves all extremities and no focal motor deficits Psych mental status grossly normal, affect normal, speech normal and activity/motor behavior normal Assessment & Plan (1) (vaginal after ): PLAN: day 1 status post . Breast-feeding. Pain well controlled. Okay to discharge home today if okay with kitchen utility associate
[2022-04-05 08:13] VITALS: BP 105/62; BP 105/64; PULSE 92; RESP 16; TEMP 36.4
[2022-04-05] MEDS: Acetaminophen 500 MG Tablet 1000 MG PO (08:29)
[2022-04-05 13:29] VITALS: BP 117/69; PULSE 90; RESP 16; TEMP 36.3
[2022-04-05 13:32] VITALS: BP 117/69; PULSE 90
[2022-04-05] MEDS: FLU VACC QS2022-23(6MOS UP)/PF 60 MCG/0.5 ML SYRINGE IM (13:49)
== END 2022-04-05 14:45 | disposition home or self-care (01) | DRG 560 ==
LOC: WP 22:46 → WPOUT 04-05 11:07
PROVIDERS: Admitting Provider Obstetrics & Gynecology; Visit Provider Obstetrics & Gynecology
DX: O34.219 Maternal care for unspecified type scar from previous cesarean delivery (principal); Z37.0 Single live birth; O42.92 Full-term premature rupture of membranes, unspecified as to length of time between rupture and onset of labor; Z3A.39 39 weeks gestation of pregnancy; O70.0 First degree perineal laceration during delivery; O75.81 Maternal exhaustion complicating labor and delivery; Z87.59 Personal history of other complications of pregnancy, childbirth and the puerperium
CPT/HCPCS: 59025; 59050; 76815; 84112; 85025; 86850; 86900; 86901; 99221; J7120; 90686; G0378; J2405

== ENCOUNTER 2023-09-18 19:52 | Inpatient (IN) | payer MEDICAID, SELFPAY ==
--- NOTE | 2023-09-18 19:49 | PCM.HP.OB ---
HPI - General General Date of Admission: 09/18/23 Date of Service: 09/18/23 Chief Complaint: demise HPI Narrative ALBERTO BEACH, is a 33 F who presents 5 para 3-0-1-3 who presents at 20 weeks gestation with EDC of 01/30/2024 at approximately 20-6/7 weeks gestation with 17 weeks size demise. She denies any gross vaginal bleeding or leaking of fluid. No fevers or chills. No abdominal pain. No contractions. Maternal Data Information Final ALMA: 01/30/24 Gestational age: 20 6/7 [facility] Medical History (Updated 09/18/23 @ 19:[address] Elham Easton MD) Vaginal after Home Medications ?Medication ?Instructions ?Recorded ?Last Taken ?Type Unisom (doxylamine) 25 mcg PO.IVFORM PRN PRN sleep aide 04/03/22 04/02/22 History [id number] 1 mg 1 tab PO DAILY 04/03/22 04/02/22 20:00 History tablet Allergy/AdvReac Type Severity Reaction Status Date / Time No Known Allergies Allergy Verified 01/08/22 10:00 Surgical History (Updated 09/18/23 @ 19:[address] Elham Easton MD) Previous section Social History Smoking Status: Smoker, status unknown History Elective abortions Hx Para 2 Spontaneous abortions Hx # Term Pregnancies Ectopic pregnancies Hx # Pregnancies Multiple births # of living children ROS Constitutional Constitutional: Denies fatigue, fever(s) or malaise Eyes Eyes: Denies change in vision ENT HEENT: Denies dizziness or headache(s) Cardiovascular Cardiovascular: Denies chest pain, dyspnea or lightheadedness Respiratory/Chest Respiratory/Chest: Denies cough or dyspnea Gastrointestinal Gastrointestinal: Denies change in bowel habits Genitourinary Genitourinary: Denies burning urination or genital lesions Integumentary Integumentary: Denies rash Neurologic Neurologic: Denies confusion, dizziness, headache(s), numbness or weakness Labs Labs Labs: Blood Type O POSITIVE Antibody Screen NEGATIVE Hct 32.8 % (37-47) L Hgb 11.1 g/dL (12.0-15.0) L Syphilis Total Ab Non-reactive VZV IgG Antibody 156 index (Immune >165) L Rubella IgG Antibody 240.5 IU/mL Hep Bs Antigen Negative (Negative) Hepatitis C Ab (EIA) <0.1 s/co ratio (0.0-0.9) Glucose 1 Hr 50 gm 124 mg/dL (70-140) Group B Strep DNA POSITIVE (Negative) H Rhogam given: No Miscellaneous Test Assessment & Plan (1) 20 weeks gestation of : (2) IUFD (intrauterine ): (3) Previous delivery affecting : PLAN: 33-year-old female with 21-week demise 17 weeks size fetus. I discussed with the patient risk benefits and alternatives to induction for expectant management of vaginal delivery versus a D&E. Patient elects for induction. Would like genetic studies but not an autopsy of the fetus. Will give high-dose Cytotec vaginally. May have epidural or IV pain medications as needed. May use other routine labor pain medications as needed.
[2023-09-18 20:02] VITALS: BMI 27.7
[2023-09-18 20:15] VITALS: BP 110/70; PULSE 85; PULSE 91; O2SAT 97
[2023-09-18 20:16] VITALS: RESP 16; TEMP 36.8
[2023-09-18] MEDS: Lactated Ringers 1,000 ML 50 ML IV (20:25)
[2023-09-18 20:43] LABS: Absolute Lymphocyte Count 2.25 X10^3/uL (0.83-4.51); Absolute Neutrophil Count 4.9 X10^3/uL (2.0-7.7); Basophil# 0.03 X10^3/uL; Basophil% 0.4 % (0-1); Eosinophils% 1.3 % (0-5); Lymphocyte # 2.25 X10^3/ul (0.83-4.51); Lymphocyte % 29.1 % (19-41); Mean Corp Hgb Conc 36.4 g/dL (32-36); Mean Corpuscular Hgb 34.5 pg (27.0-32.0); Mean Corpuscular Volume 94.8 fL (81-99); Mean Platelet Vol. 10.8 fl (6.2-12.0); Monocyte% 5.2 % (0-10); NRBC Flagged by Analyzer 0 % (0-5); Neutrophil # 4.92 X10^3/uL (2.7-7.7); Neutrophil % 63.7 % (47-70); Platelet Count 230 K/mm3 (150-450); RBC Distribution Width CV 12.8 % (11.6-14.6); RBC Distribution Width SD 43.8 fl (35.1-43.9); Red Blood Count 3.48 M/mm3 (4.2-5.4); White Blood Count 7.7 K/mm3 (4.4-11.0)
[2023-09-18 20:53] VITALS: BP 105/59; PULSE 84
[2023-09-18 20:54] VITALS: PULSE 107; PULSE 80; O2SAT 81; O2SAT 98
[2023-09-18 20:55] VITALS: RESP 16; TEMP 37
[2023-09-18 20:57] LABS: Prothrombin Time (Protime)PT. 13.2 SECONDS (11.7-14.9)
[2023-09-18 20:58] LABS: Fibrinogen 369 mg/dl (203-444)
[2023-09-18] MEDS: miSOPROStol 200 MCG Tablet VAGINAL (21:12)
[2023-09-18 21:15] LABS: Syphilis Antibodies Non-reactive
[2023-09-19] VITALS (91 sets, daily range): BP systolic 79–144; BP diastolic 48–92; PULSE 56–100; RESP 16–17; TEMP 36.2–37.2; O2SAT 69–100
[2023-09-19] MEDS: HYDROmorphone 1 MG/ML Syringe IV ×3 (01:30→05:11)
[2023-09-19] MEDS: 0.9% Saline Lock 10 ML Syringe IV ×2 (01:31→05:12)
[2023-09-19] MEDS: miSOPROStol 200 MCG Tablet 400 MCG VAGINAL (01:44)
--- NOTE | 2023-09-19 03:41 | PCM.PN.BLA ---
Progress Note Called by RN as pt feels pressure and on RN exam BBOW palpated. Pt reports pressure and ctx's q 1-2 min. Some bloody show. Assessment & Plan Assessment/Plan (1) Previous delivery affecting : (2) IUFD (intrauterine ): PLAN: BBOW palpated on exam with bloody show noted, and membranes were incidentally ruptured during exam for bloody-clear fluid. Cvx 2 cm and no parts palpated. Pt now comfortable and does not have pressure. She declines epidural at this time and wishes to continue with Dilaudid for pain control. (3) 20 weeks gestation of : (4) Vaginal after :
--- NOTE | 2023-09-19 04:42 | PCM.PN.BLA ---
Progress Note Called for bleeding. At bedside to examine pt. She offers no complaints at this time. Denies fevers, chills. Denies increased pain. Pain is well controlled and she describes pain as contractions when she does have it. Having vaginal bleeding. No additional pressure. Physical Exam Const alert and no apparent distress General Appearance: comfortable GI soft to palpation, non-tender and non-distended GI Narrative: Non acute Narrative: No parts palpated vaginally with digital exam. Anterior lip of cervix palpated and possibly the edge of the placenta palpated posteriorly. Current pad without blood present. Several small blood clots palpated in vaginal vault. No heavy bleeding at this time. Assessment & Plan Assessment/Plan (1) Previous delivery affecting : (2) IUFD (intrauterine ): PLAN: Patient has received 1 dose of 200 mcg Cytotec and 1 dose of 400 mcg Cytotec. Vaginal bleeding noted on exam. Bedside TAUS performed showing non viable fetus in transverse position within the uterus and uterus appears intact. Abdominal exam unremarkable. No evidence of infection. Will place second IV and check CBC with coags. Continue to closely monitor bleeding and wait for labs at this time. (3) 20 weeks gestation of : (4) Vaginal after :
[2023-09-19 05:17] LABS: Absolute Lymphocyte Count 2.05 X10^3/uL (0.83-4.51); Absolute Neutrophil Count 4.6 X10^3/uL (2.0-7.7); Basophil# 0.02 X10^3/uL; Basophil% 0.3 % (0-1); Eosinophil# 0.07 X10^3/uL; Hematocrit 32.5 % (37-47); Lymphocyte # 2.05 X10^3/ul (0.83-4.51); Lymphocyte % 28.6 % (19-41); Mean Corp Hgb Conc 33.8 g/dL (32-36); Mean Corpuscular Hgb 32.2 pg (27.0-32.0); Mean Platelet Vol. 10.4 fl (6.2-12.0); Monocyte# 0.36 X10^3/uL; NRBC Flagged by Analyzer 0 % (0-5); Neutrophil # 4.62 X10^3/uL (2.7-7.7); Neutrophil % 64.5 % (47-70); Platelet Count 198 K/mm3 (150-450); RBC Distribution Width CV 12.8 % (11.6-14.6); RBC Distribution Width SD 44.5 fl (35.1-43.9); Red Blood Count 3.42 M/mm3 (4.2-5.4); White Blood Count 7.2 K/mm3 (4.4-11.0)
[2023-09-19 05:30] LABS: Prothrombin Time (Protime)PT. 13.5 SECONDS (11.7-14.9)
[2023-09-19 05:31] LABS: Partial Thromboplast Time 32.8 Seconds (24.1-36.2)
[2023-09-19 05:32] LABS: Fibrinogen 332 mg/dl (203-444)
[2023-09-19] MEDS: Lactated Ringers 1,000 ML 999 ML IV (06:10)
--- NOTE | 2023-09-19 06:34 | PN_ITS ---
Progress Note Delay entry. Patient continues to have vaginal bleeding. She offers no complaints. Nursing staff has been weighing pads and EBL about 1 L at this time. Assessment & Plan Assessment/Plan (1) Previous delivery affecting : PLAN: S/p 2 doses of Cytotec. EBL about 1 L. On exam large blood clots present in vaginal vault, and vagina continues to fill with blood clots. Unable to palpate cervix or parts. Hgb 11 from 12. Second IV placed and IVF bolus gi britney. Labs reviewed. Multiple calls placed to [facility] [place] and spoke with MFM precision instrument maker and repairer regarding D&E, however not every provider is able to perform a D&E. Given patient's continued bleeding, concern that she is not stable for transport. Dr. Easton called and evaluated patient at bedside as well for another opinion. Discussed r/b/a exploratory laparotomy, evacuation of uterine contents, possible hysterotomy, possible hysterectomy with patient and she desires to proceed. Discussed procedure in detail and questions answered. Discussed need for a section with future pregnancies. (2) IUFD (intrauterine ): (3) 20 weeks gestation of : (4) Vaginal after :
[2023-09-19] MEDS: TRANEXAMIC ACID 1,000 MG in 0.9% Normal Saline (100mL Bag) 100 ML 440 MG IV (06:50)
--- NOTE | 2023-09-19 07:04 | PRE.ANES_ITS ---
ASA Classification* ASA Classification ASA Classification: 3 and E Assessment & Plan Anesthesia* Anesthesia Assessment Anesthesia Assessment: Discussed sedation and/or anesthesia options, risks, benefits, and alternatives with patient/parents/legal guardian/POA. Questions invited. The patient/parents/legal guardian/POA seems to understand and agrees to proceed with anesthesia plan. Reviewed the physical assessment, medical history, allergy history and patient home medications list prior to surgery/procedure/anesthetic and documented any changes. Performed airway and anesthesia risk assessments. Anesthesia Type Anesthesia Type: General Anesthesia Focused Assessment* Temperature: 98.3 F Pulse Rate: 77 Blood Pressure: 99/71 Respiratory Rate: 16 Pulse Ox: 99 Airway Assessment Mouth opens: >3 cm Mallampati Score: II Focused Labs Anesthesia Preop lab: CBC WBC 7.2 K/mm3 (4.4-11.0) 09/19/23 04:55 RBC 3.42 M/mm3 (4.2-5.4) L 09/19/23 04:55 Hgb 11.0 g/dL (12.0-15.0) L 09/19/23 04:55 Hct 32.5 % (37-47) L 09/19/23 04:55 Plt Count 198 K/mm3 (150-450) 09/19/23 04:55 CHEMISTRY Potassium 3.7 mmol/L (3.5-5.1) 03/07/19 15:45 Sodium 139 mmol/L (136-145) 03/07/19 15:45 BUN 11 mg/dL (7-18) 03/07/19 15:45 Creatinine 0.64 mg/dL (0.55-1.02) 03/07/19 15:45 Glucose 100 mg/dL (74-106) 03/07/19 15:45 TSH 0.64 uIU/mL (0.358-3.74) 09/13/16 15:36 COAG PT 13.5 SECONDS (11.7-14.9) 09/19/23 04:55 HCG, Quant < 1 mIU/mL (1-3) 10/11/20 11:18 Pre-Assessment Diagnosis/Proposed Procedure Planned Operative Procedure(s): exp Laparoscopy Anesthesia History 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 When Was Last Pacemaker Check QUESTION #4 FULL TEXT: You/Your Family Experience fever (hyperthermia) with Anesthesia Last Oral Intake Last Oral intake: Last Oral Intake NPO since Meds taken in AM with sips of water? Meds patient instructed to take am of surgery PONV PONV - optical effects camera operator: PONV - optical effects camera operator Female HX of Motion Sickness HX of N/V After Surgery Non-Smoker Duration of Surgery greater than 60 minutes Number of Risk Factors PONV Score Height & Weight Height & Weight: Anesthesia: Height & Weight Height 5 ft 8 in 09/18/23 20:02 Weight: 82.645 kg 09/18/23 20:02 Body Mass Index (BMI) 27.7 09/18/23 20:02 Respiratory Assessment Respiratory Assessment - optical effects camera operator: Respiratory Tract Infection Hx - optical effects camera operator Hx Respiratory Tract Infection STOP Sleep Apnea STOP Sleep Apnea - optical effects camera operator: STOP Sleep Apnea - optical effects camera operator Hx Hypertension Hx Sleep Apnea CPAP BIPAP Do you snore loudly (louder than talking or can be heard Do you often feel tired/ fatigued/ sleepy during daytime? Has anyone observed you stop breathing during sleep? STOP Results QUESTION #5 FULL TEXT : Do you snore loudly (louder than talking or can be heard through closed doors)? 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 Specify any problems Hx of Preganancy in last 3 Months Nurse Filling Out Transfusion & Questions: Date: Time: Patient unable to answer at this time (ie. confused, unrespo /Reproduction History /Reproductive History - optical effects camera operator: /Reproductive Hx- optical effects camera operator Hx Now Gestational Age (in weeks): 20 09/18/23 20:03 EDC: 01/30/24 09/18/23 20:03 Hx 4 09/18/23 20:03 Hx Para 3 09/18/23 20:03 Hx Section SAB 0 09/18/23 20:03 Yes 04/09/22 06:36 Active Medications Active Medications: Current Medications Generic Name Dose Route Start Last Admin Trade Name Freq PRN Reason Stop Dose Admin Acetaminophen 500 - 1,000 mg 09/18/23 19:52 Acetaminophen 500 Mg Tablet PO Q6H PRN PRN Pain Score 1-3 Al Hydrox/Mg Hydrox/Simethicone 15 - 30 ml 09/18/23 19:52 Mag /Aluminum/Simeth Wch Udc 30 Ml Oral.Susp PO Q4H PRN PRN INDIGESTION Carboprost Tromethamine 250 mcg 09/18/23 19:52 Carboprost Tromethamine 250 Mcg/Ml Ampul IM X1 PRN Provider Request Citric Acid/Sodium Citrate 30 ml 09/18/23 19:52 Sodium Citrate/Citric Acid 30 Ml Udc PO X1 PRN Section Fentanyl Citrate 25 - 50 mcg 09/18/23 19:52 Fentanyl 100 Mcg/2 Ml Ampul IV Q2H PRN PRN Pain Score 4-10 Hydromorphone HCl 1 mg 09/18/23 19:48 09/19/23 05:11 Hydromorphone 1 Mg/Ml Syringe IV 1 mg Q2H PRN PRN Administration severe pain Oxytocin/Sodium Chloride 15 units in 250 mls @ 334 mls/hr 09/18/23 19:52 IV .Q45M PRN Post Vaginal Delivery Lactated Ringer's 1,000 mls @ 999 mls/hr 09/18/23 19:52 IV .Q1H1M PRN Epidural Placement Lactated Ringer's 500 mls @ 999 mls/hr 09/18/23 19:52 Lactated Ringers IV .Q31M PRN Corrective Measures Lactated Ringer's 1,000 mls @ 50 mls/hr 09/18/23 20:00 IV .Q20H KARLENE Lactated Ringer's 1,000 mls @ 999 mls/hr 09/19/23 06:15 09/19/23 06:10 IV 09/19/23 07:15 999 mls/hr .Q1H1M KARLENE Administration Lidocaine HCl 0 ml 09/18/23 19:52 Lidocaine 1% (20 Ml Mdv) 20 Ml Vial INFILT X1 PRN Provider Request Methylergonovine Maleate 0.2 mg 09/18/23 19:52 Methylergonovine 0.2 Mg/Ml Ampul IM X1 PRN Provider Request Misoprostol 1,000 mcg 09/18/23 19:52 Misoprostol 200 Mcg Tablet RC X1 PRN Provider Request Misoprostol 400 mcg 09/19/23 00:00 09/19/23 01:44 Misoprostol 200 Mcg Tablet VAGINAL 400 mcg Q6 KARLENE Administration Ondansetron HCl 4 mg 09/18/23 19:52 Ondansetron 4 Mg/2 Ml Vial IV Q4H PRN PRN NAUSEA Oxytocin 10 units 09/18/23 19:52 Oxytocin 10 Units/Ml Vial IM X1 PRN Post Vaginal Delivery Prochlorperazine Edisylate 10 mg 09/18/23 19:52 Prochlorperazine 10 Mg/2 Ml Vial IV Q6H PRN PRN NAUSEA Sodium Chloride 10 - 40 ml 09/18/23 19:52 09/19/23 05:12 0.9% Saline Lock 10 Ml Syringe IV 10 ml X1 PRN Administration SALINE FLUSH PFSH Medical History (Updated 09/18/23 @ 19:[address] Elham Easton MD) Vaginal after Home Medications ?Medication ?Instructions ?Recorded ?Last Taken ?Type kacrvvpv-frg-Bn-FA 1 mg 1 tab PO DAILY 04/03/22 04/02/22 20:00 History tablet Allergy/AdvReac Type Severity Reaction Status Date / Time No Known Allergies Allergy Verified 09/18/23 20:01 Surgical History (Updated 09/18/23 @ 20:14 by Eva Hernandez) History of surgery Previous section Social History Smoking Status: Never smoker Review of Systems (Anesthesia) ROS Narrative System reviewed and no additional complaints, except as documented.
[2023-09-19] MEDS: Cefazolin 2 GM in 0.9% Normal Saline (100mL Bag) 100 ML IV (07:22)
--- NOTE | 2023-09-19 08:00 | POC_PTH ---
PATIENT: ALBERTO BEACH LOC: WP U#:[id number] AGE/SX: 33/F ROOM: WP021 RE09/18/[address]: Dr. Elham Easton MD : 1990 BED: 1 DIS: 09/19/2023 SPEC #: [id number] RECD: 09/19/23 08:51 STATUS: MYRIAM REMaureen #: [id number] KATHY: 09/19/23 08:[address]: Elham Easton DEPT: SURGICAL PATHOLOGY RECD BY: Maryann Aponte ENTERED: 09/19/23 10:10 SP TYPE: PROD CONC OTHR DR: No Primary Care Phys Tissues: Product of conception, NOS Procedures: Surgery Specimen Level IV HEADER OPERATION: Suction D&C PRE-OP DIAGNOSIS: 20 weeks gestation of , intrauterine , previous delivery affecting TISSUE SUBMITTED: Products of conception for Anora testing MICROSCOPIC DIAGNOSIS Products of conception: Placental disc- Immature placenta (115gm), disrupted. Membranes- No pathologic diagnosis. Umbilical cord- Three vessels and no pathologic diagnosis. SJ/mr 09/20/2023 COMMENT Sample for Anora testing was taken by Dr. Mcfarland. Results will be reported as an addendum. MICROSCOPIC DESCRIPTION Slides are reviewed. GROSS DESCRIPTION Received without fixative in one container labeled with the patient's name and designated Products of conception- Anora testing. PLACENTAL WEIGHT (POST FIXATION): 115 gm PLACENTAL DIMENSIONS: 11.0 x 11.0 x 2.5cm PLACENTAL SHAPE: Multiple pieces (largest piece ovoid) PLACENTAL WEIGHT FOR GESTATIONAL AGE: Within 10-99th percentile MEMBRANES - Present A. Insertion: Marginal B. Site of rupture from edge: Membranes are fragmented, distance of rupture cannot be assessed C. Color of membrane: Arredondo-omalley D. Abnormalities: None UMBILICAL CORD - Present A. Color: Dusky and macerated B. Insertion: Central C. Length: 41.0 cm D. Diameter: 0.5 cm E. Number of vessels: Three F. Abnormalities: None PLACENTAL DISC - Present A. Color of surface: Arredondo-omalley B. surface abnormalities: None C. Maternal cotyledons: Disrupted, completeness of placenta cannot not be assessed D. Attached retro placental clot: No clot E. Cut surface: [place], red F. Lesions: None G. Separate clot: Weighs 30gm and measures in aggregate 7.0 x 5.5 x 2.0cm. SECTIONS SUBMITTED: (6 cassettes) 1. Cord, maternal end 2. Cord, end 3. Membrane roll 4. Placental disc, and maternal surfaces 5. Placental disc, and maternal surfaces 6. Placental disc, and maternal surfaces CPT:64331 / 09/19/2023 TC:5 ADDENDUM ADDENDUM ADDENDUM ADDENDUM ADDENDUM ADDENDUM ADDENDUM ADDENDUM ADDENDUM 10/06/2023 08:41 ADDENDUM 10/06/2023 08:41 ADDENDUM 10/06/2023 08:41 ADDENDUM 10/06/2023 08:41 ADDENDUM 10/06/2023 08:41 ANORA MICROARRAY CHROMOSOME ANALYSIS WITH PARENTAL SUPPORT RESULT: Normal female MICROARRAY RESULT: arr (1-22,X)x2 CLINICAL INTERPRETATION: Normal female result. Maternal cell contamination has been ruled out. Please see complete report in e-chart or EMR
[2023-09-19] MEDS: miSOPROStol 200 MCG Tablet 1000 MCG RC (08:20)
[2023-09-19] MEDS: Methylergonovine 0.2 MG/ML Ampul IM (08:20)
[2023-09-19] MEDS: Carboprost Tromethamine 250 MCG/ML Ampul IM (08:20)
--- NOTE | 2023-09-19 08:26 | PCM.POST.ANE ---
Anesthesia: Postop Eval I Current Vital Signs Temperature: 97.2 F Pulse Rate: 66 Blood Pressure: 110/75 Respiratory Rate: 16 Pulse Ox: 100 Oxygen Delivery Method: Room Air Assessment Airway patent: Yes Spontaneous unlabored respirations: Yes Mental status: Awake and Calm nausea: No Vomiting: No Anesthesia Complication: No Fluid Hydration Crystalloid volume administer (ml): 900 Blood Product volume administered (ml): 650 Total IV fluid infused: 1,550 Progress Note Anesthesia document: Postop Eval 1 completed: Yes
--- NOTE | 2023-09-19 08:34 | PCM.OPRPT ---
Problems Associated Problem List Diagnoses (1) Previous delivery affecting : (2) IUFD (intrauterine ): (3) Hemorrhage: Report of Operation Date of Procedure: 09/19/23 Pre-Operative Diagnosis: IUFD measuring 17 week gestation, induction of labor planned, vaginal bleeding with hemorrhage Post-Operative Diagnosis: As above Surgery/Procedure Performed:: Suction D&E under ultrasound guidance Description of Surgical Findings:: Enlarged uterus with demised fetus. Cervix 3 cm dilated Surgeon: Genie Fatima jacquard lace weaver: Elham Easton Type of Anesthesia: General Special Medications: None Specimen's removed: Fetus and placenta Drains: Helm Estimated Blood Loss (mL): 800 Fluids Replaced: See anesthesia record Description of Procedure: The patient was taken back to the operating room where general anesthesia was induced. A vaginal exam was performed and about 500 cc of blood and blood clot were manually removed from the vagina. The cervix was palpated to be 3 cm dilated and parts palpated on exam. Bedside TAUS performed showing a skull measuring about 3 cm in diameter. A called was placed to a complex family production planning manager with [facility] to consult. The decision was made to proceed with a D&E under ultrasound guidance. The patient was prepped and draped in dorsal lithotomy position using yellow fin stirrups. A weighted speculum was placed in the vagina to expose the cervix. A tenaculum was placed on the anterior lip of the cervix. A ring forcep was inserted and the placenta and cord were grasped and removed from the uterus. The ring forcep was inserted under ultrasound guidance and the body of the fetus was removed from the uterus and brought into the vagina. Next the head of the fetus was grasped with a ring forcep under ultrasound guidance and delivered. The demised fetus was delivered intact. A size 16 suction curettage was then used to perform additional passes until no tissue was noted. A sharp curettage was performed along the anterior uterus wall and tissue was noted. At this point Dr. Easton used a size 12 suction curettage to perform additional passes to remove tissue. She then performed a sharp curettage along all uterine millard for a good uterine cry. Ultrasound was performed showing no remaining tissue. Pitocin, Methergine, Hemabate and Cytotec were given at the end of the case. Patient was taken to recovery room in stable condition Dr. Easton was present for the entire procedure and assisted with ultrasound guidance and suction D&E. Grafts/Implants Used: None Complications None Admit VTE Documentation VTE Present on Admission: No VTE Mechan Device Prophylaxis: SCD's
[2023-09-19] MEDS: Oxytocin 15 Units/NS 250ml 15 UNITS/250 ML IV.SOLN 334 UNITS IV (09:19)
--- NOTE | 2023-09-19 09:23 | PCM.POSTANE2 ---
Anesthesia Postop Eval I Sum Postop Eval Completion status Anesthesia document: Postop Eval 1 completed: Yes Anesthesia Postop Eval I Summary Anesthesia Postop Eval I Summary: Anesthesia Postop Eval I: Assessment Summary Airway patent Yes 09/19/23 08:29 Spontaneous unlabored Yes 09/19/23 08:29 respirations Mental status Awake,Calm 09/19/23 08:29 nausea No 09/19/23 08:29 Vomiting No 09/19/23 08:29 Anesthesia Postop Eval I: Fluid Summary Crystalloid volume administer 900 09/19/23 08:29 (ml) Colloids volume administered ( ml) Blood Product volume 650 09/19/23 08:29 administered (ml) Total IV fluid infused 1,550 09/19/23 08:29 Anesthesia Postop Eval I: Summary Notes Anesthesia Complication No 09/19/23 08:29 Anesthesia Complication Comment: Post-operative progress note Anesthesia: Postop Eval II Evaluation Mental status: Awake Pain Level: 0 nausea: No Vomiting: No Complications Anesthesia Complication: No
[2023-09-19 09:43] LABS: Hematocrit 33.1 % (37-47); Hemoglobin 11.2 g/dL (12.0-15.0); Mean Corp Hgb Conc 33.8 g/dL (32-36); Mean Corpuscular Hgb 31.7 pg (27.0-32.0); Mean Corpuscular Volume 93.8 fL (81-99); Mean Platelet Vol. 10.7 fl (6.2-12.0); Platelet Count 184 K/mm3 (150-450); RBC Distribution Width CV 13.5 % (11.6-14.6); RBC Distribution Width SD 46.3 fl (35.1-43.9); Red Blood Count 3.53 M/mm3 (4.2-5.4); White Blood Count 11.7 K/mm3 (4.4-11.0)
[2023-09-19] MEDS: Oxytocin 15 Units/NS 250ml 15 UNITS/250 ML IV.SOLN 83 UNITS IV (09:50)
[2023-09-19 10:09] LABS: International Normalized Ratio 1.1; Partial Thromboplast Time 28.2 Seconds (24.1-36.2); Prothrombin Time (Protime)PT. 14.3 SECONDS (11.7-14.9)
[2023-09-19 10:52] LABS: Fibrinogen 301 mg/dl (203-444)
[2023-09-19 13:50] LABS: Absolute Lymphocyte Count 1.38 X10^3/uL (0.83-4.51); Basophil# 0.03 X10^3/uL; Basophil% 0.2 % (0-1); Eosinophil# 0.01 X10^3/uL; Eosinophils% 0.1 % (0-5); Hematocrit 31.4 % (37-47); Hemoglobin 10.7 g/dL (12.0-15.0); Lymphocyte # 1.38 X10^3/ul (0.83-4.51); Lymphocyte % 10.6 % (19-41); Mean Corp Hgb Conc 34.1 g/dL (32-36); Mean Corpuscular Hgb 31.7 pg (27.0-32.0); Mean Corpuscular Volume 92.9 fL (81-99); Mean Platelet Vol. 10.7 fl (6.2-12.0); Monocyte% 4.6 % (0-10); NRBC Flagged by Analyzer 0 % (0-5); Neutrophil # 10.96 X10^3/uL (2.7-7.7); Platelet Count 206 K/mm3 (150-450); RBC Distribution Width CV 13.9 % (11.6-14.6); RBC Distribution Width SD 47.3 fl (35.1-43.9); Red Blood Count 3.38 M/mm3 (4.2-5.4)
--- NOTE | 2023-09-19 15:50 | NURSING ---
infant weight obained - 90grams, 3.2 oz; length - 18cm; head circumference - 2 1/4cm
[2023-09-19] MEDS: Acetaminophen 500 MG Tablet 1000 MG PO (17:20)
[2023-09-19] MEDS: Ibuprofen 600 MG Tablet PO (18:14)
--- NOTE | 2023-09-19 19:08 | DS.PCM_ITS ---
Providers Date of Admission: 09/18/23 Primary Care Physician: No Primary Care Phys Reason For Visit: INDUCTION/ DEMISE Diagnosis Discharge Diagnosis (1) Previous delivery affecting : Status: Acute Code(s): O34.219 - Maternal care for unspecified type scar from previous delivery Plan: 33-year-old female with 21-week demise 17 weeks size fetus. I discussed with the patient risk benefits and alternatives to induction for expectant management of vaginal delivery versus a D&E. Patient elects for induction. Would like genetic studies but not an autopsy of the fetus. Will give high-dose Cytotec vaginally. May have epidural or IV pain medications as needed. May use other routine labor pain medications as needed. (2) IUFD (intrauterine ): Status: Acute (3) Hemorrhage: Status: Acute Code(s): R58 - Hemorrhage, not elsewhere classified Medications at Discharge Home Medications [id number] 1 mg tablet 1 tab PO DAILY 04/03/22 Hospital Course Operations - (Suction D&E ) Procedures None Summary of Care Provided Minutes Spent on Discharge: 22 Hospital Course: 33 YOF multigravida presented for Cytotec induction for 20 and 6 weeks intrauterine demise on 09/18/2023. On 09/19/2023 at 21 weeks gestation she started to hemorrhage. She had lost enough blood that it was not possible to transfer her for an emergent D&E. Ilia Ojeda called for the OR team to prep the patient for hysterotomy. However in the interim she continued to have an significant amount of bleeding. 2 units of packed red blood cells were brought up and taken to the OR for the patient. When the patient was placed under anesthesia and her legs were placed in stirrups she was found to be 3-1/2 cm dilated. Decision was made to proceed with D&E. Under ultrasound guidance this was performed. Ultrasound guidance confirmed endometrial stripe present. There is no active bleeding at the end of the procedure. Patient was transferred back to labor and delivery where she received 1 additional unit of blood. Her coags, blood count and vitals were stable. She not had any significant bleeding in 12 hours. Patient desired discharge home 09/19/2023 with routine pain control measures with [id number] medications and follow-up in the office in 1 to 2 weeks or as needed. ANORA testing was sent for chromosome analysis. Physical Exam Narrative Awake, alert, no acute distress Skin warm dry and intact, good color Abdomen soft nondistended minimal tenderness, uterus firm and very very low in the pelvis. Weight / BMI Weight Weight: 82.645 kg Body Mass Index (BMI) 27.7 ABG / Lab / Microbiology Data 09/19/23 13:15 Laboratory: Laboratory Results - last 24 hr 09/18/23 20:25: WBC 7.7, RBC 3.48 L, Hgb 12.0, Hct 33.0 L, MCV 94.8, MCH 34.5 H, MCHC 36.4 H, RDW Std Deviation 43.8, RDW Coeff of Christopher 12.8, Plt Count 230, MPV 10.8, Immature Gran % (Auto) 0.300, Neut % (Auto) 63.7, Lymph % (Auto) 29.1, [place] % (Auto) 5.2, Eos % (Auto) 1.3, Baso % (Auto) 0.4, Absolute Neuts (auto) 4.9, Absolute Lymphs (auto) 2.25, Nucleated RBC % 0, PT 13.2, INR 1.0, APTT 31.0, Fibrinogen 369, Syphilis Total Ab Non-reactive, Blood Type O POSITIVE, Antibody Screen NEGATIVE, Crossmatch See Detail 09/19/23 04:55: WBC 7.2, RBC 3.42 L, Hgb 11.0 L, Hct 32.5 L, MCV 95.0, MCH 32.2 H, MCHC 33.8 D, RDW Std Deviation 44.5 H, RDW Coeff of Christopher 12.8, Plt Count 198, MPV 10.4, Immature Gran % (Auto) 0.600, Neut % (Auto) 64.5, Lymph % (Auto) 28.6, [place] % (Auto) 5.0, Eos % (Auto) 1.0, Baso % (Auto) 0.3, Absolute Neuts (auto) 4.6, Absolute Lymphs (auto) 2.05, Nucleated RBC % 0, PT 13.5, INR 1.0, APTT 32.8, Fibrinogen 332 09/19/23 09:30: WBC 11.7 H, RBC 3.53 L, Hgb 11.2 L, Hct 33.1 L, MCV 93.8, MCH 31.7, MCHC 33.8, RDW Std Deviation 46.3 H, RDW Coeff of Christopher 13.5, Plt Count 184, MPV 10.7, PT 14.3, INR 1.1, APTT 28.2, Fibrinogen 301 09/19/23 13:15: WBC 13.0 H, RBC 3.38 L, Hgb 10.7 L, Hct 31.4 L, MCV 92.9, MCH 31.7, MCHC 34.1, RDW Std Deviation 47.3 H, RDW Coeff of Christopher 13.9, Plt Count 206, MPV 10.7, Immature Gran % (Auto) 0.500, Neut % (Auto) 84.0 H, Lymph % (Auto) 10.6 L, [place] % (Auto) 4.6, Eos % (Auto) 0.1, Baso % (Auto) 0.2, Absolute Neuts (auto) 11.0 H, Absolute Lymphs (auto) 1.38, Nucleated RBC % 0, PT Cancelled, INR Cancelled, APTT Cancelled, Fibrinogen Cancelled D/C Instructions May shower in (days): 1 May resume sexual activity in: 4 weeks Please Follow Up With: Elham Easton MD When: Follow up with our office in approximately 2 weeks. [phone]. Call or send a Nala message with nonemergent questions Meaningful Use Info Meaningful Use Meaningful Use Diagnoses (Choose all that apply): None applicable Ischemic Stroke Statin Dosing Therapy Reference: STATIN DOSE THERAPY REFERENCE: * Patients > 75 years receive moderate or high dose statin therapy. * Patients 75 years or YOUNGER should receive HIGH intensity statin dose unless contraindicated. You will be required to document reason for non-treatment if statin daily dose does not meet guidelines. HIGH DOSE STATIN THERAPY DAILY Atorvastatin > than or = to 40 mg Rosuvastatin > than or = to 20 mg Amlodipine + Atorvastatin > than or = to 2.5/40 mg Ezetimibe + Simvastatin 10/80 mg Simvastatin 80mg Discharge Plan Admission Admit Date/Time: 09/18/23 19:52 Primary Reason for Your Visit: 21 week loss with dilation and evacuation Attending Provider: Elham Easton Primary Care Provider: Care Physician,No Primary Discharge Orders/Prescriptions Prescriptions: No Action 1 mg Tablet 1 tab PO DAILY Referrals / Follow Up: Care Physician,No Primary [Primary Care Provider] - Disposition Disposition (needs filled in before D/C Order can be placed): Home, Self Care
[2023-09-19 19:38] LABS: Absolute Lymphocyte Count 1.76 X10^3/uL (0.83-4.51); Absolute Neutrophil Count 7.1 X10^3/uL (2.0-7.7); Basophil# 0.02 X10^3/uL; Basophil% 0.2 % (0-1); Eosinophil# 0.05 X10^3/uL; Eosinophils% 0.5 % (0-5); Hematocrit 31.2 % (37-47); Hemoglobin 10.9 g/dL (12.0-15.0); Lymphocyte # 1.76 X10^3/ul (0.83-4.51); Lymphocyte % 18.5 % (19-41); Mean Corp Hgb Conc 34.9 g/dL (32-36); Mean Corpuscular Hgb 31.3 pg (27.0-32.0); Mean Corpuscular Volume 89.7 fL (81-99); Mean Platelet Vol. 10.3 fl (6.2-12.0); Monocyte# 0.53 X10^3/uL; Monocyte% 5.6 % (0-10); NRBC Flagged by Analyzer 0 % (0-5); Neutrophil # 7.06 X10^3/uL (2.7-7.7); Neutrophil % 74.5 % (47-70); Platelet Count 194 K/mm3 (150-450); RBC Distribution Width CV 14.1 % (11.6-14.6); RBC Distribution Width SD 46.2 fl (35.1-43.9); Red Blood Count 3.48 M/mm3 (4.2-5.4); White Blood Count 9.5 K/mm3 (4.4-11.0)
--- NOTE | 2023-09-19 21:20 | NURSING ---
2119- IBCLC at bedside to review after loss information. Options reviewed, and pt plans to dry her milk up. IBCLC reviewed use of ice packs to the breasts as needed, avoiding breast stimulation, wearing a snug fitting bra with no underwire, and turning away from heat in the shower. Family verbalized understanding of teaching. Pt. questioned if she should pump if she ever feels full, IBCLC shared information on minimal hand expression as needed if she is having more severe engorgement, but to try to avoid stimulation as much as possible. Primary RN Tata gave this IBCLC RN pt's discharge paperwork and instructions that were reviewed with pt. and FOB. Family denied questions or concerns at this time. Pt requesting to spend more time, and will call out when they are ready for discharge. Encouragement and support given.
--- NOTE | 2023-09-19 22:30 | NURSING ---
no education charted for care due to demise.
[2023-09-21 06:01] LABS: Pathology Specimen OB SEE PATHOLOGY REPORT
== END 2023-09-19 22:25 | disposition home or self-care (01) | DRG 560 ==
PROVIDERS: Obstetrics & Gynecology; Admitting Provider Obstetrics & Gynecology; Referring Provider Obstetrics & Gynecology; Visit Provider Obstetrics & Gynecology
PROC: 0UT90ZZ Resection of Uterus, Open Approach (ICD-10-PCS; CPT 58150; principal; 2023-09-19 07:40)
DX: O36.4XX0 Maternal care for intrauterine death, not applicable or unspecified (principal); Z37.1 Single stillbirth; O34.219 Maternal care for unspecified type scar from previous cesarean delivery; Z3A.20 20 weeks gestation of pregnancy; O67.9 Intrapartum hemorrhage, unspecified
CPT/HCPCS: 59050; 85025; 85027; 85384; 85610; 85730; 86780; 86850; 86900; 86901; 86920; 88305; J7120; P9016; A4216; J2405

== ENCOUNTER 2025-02-07 19:20 | Outpatient (CLI) | payer MEDICAID, SELFPAY ==
[2025-02-07 19:50] VITALS: BP 122/76; PULSE 86; PULSE 88; TEMP 36.8; O2SAT 96
[2025-02-07 20:09] VITALS: BMI 32.8
[2025-02-07 20:35] LABS: ROM Internal Control Test YES-OK TO RESULT pt. (Internal QC); ROM Patient Test Negative (Negative); Record Kit Lot#, ROM+ K3607
--- NOTE | 2025-02-08 02:16 | OB.TRI.HP_ITS ---
HPI - General HPI Narrative ALBERTO BEACH, is a 35 F who presents to r/o SROM and decreased FM PFSH PFSH Medical History (Updated 02/08/25 @ 02:[address] Adrianne Kearney MD) IUFD (intrauterine ) Vaginal after Home Medications ?Medication ?Instructions ?Recorded ?Last Taken ?Type tqjminwp-yds-[id number]-FA 1 mg 1 tab PO DAILY pregna ncy 04/03/22 02/07/25 History tablet Allergy/AdvReac Type Severity Reaction Status Date / Time No Known Allergies Allergy Verified 02/07/25 20:02 Surgical History (Updated 09/27/23 @ 00:01 by Risa Limon) History of surgery Previous section Social History Smoking Status: Never smoker History Elective abortions Hx Para 3 Spontaneous abortions Hx # Term Pregnancies Ectopic pregnancies Hx # Pregnancies Multiple births # of living children NST FHR Rate Baby A Baseline: 125 Variability:: Moderate Accelerations:: 15 x 15 Decelerations:: None NST Reactive:: Yes FHR Category:: Category I Uterine Activity:: 2-10min mild per patient Assessment & Plan (1) 39 weeks gestation of : (2) Intact amniotic membranes: (3) False labor: PLAN: Plan @ 39 weeks - r/o SROM and decreased fm 1) NST reactive and reassuring 2) SROM was negative 3) dc home
== END 2025-02-07 20:47 | disposition home or self-care (01) ==
LOC: WPOUT 19:22 → WP 19:24
PROVIDERS: Visit Provider Obstetrics & Gynecology
DX: O47.1 False labor at or after 37 completed weeks of gestation (principal); Z3A.39 39 weeks gestation of pregnancy
CPT/HCPCS: 59025; 59050; 84112; G0378 ×2; 99221

== ENCOUNTER 2025-02-09 07:36 | Inpatient (IN) | payer MEDICAID, SELFPAY ==
[2025-02-09] VITALS (42 sets, daily range): BP systolic 95–176; BP diastolic 54–99; PULSE 76–99; RESP 14–18; TEMP 36.2–36.9; O2SAT 90–100; BMI 32.7
--- OUTSIDE RECORDS SUMMARY | 2025-02-09 07:36 | XMS RPT_ITS | CCD ---
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 minutes contractions, then once she stopped walking, they stopped. C/o A lot of movement. Has felt dizzy since 10am, but only about 10 seconds long. Pt describes weird abdominal pain as feeling more of a queasiness, cannot pinpoint a certain location. Denies vomiting. Denies that anyone else in household being sick. Pt reports just not feeling well. Pt is more so concerned d/t the incident today where she felt like she was going to pass out and hx of IUFD. Pt denies having felt this way in past pregnancies. 1 HR gtt WNL. Pt advised to continue to stay hydrated (advised Pt to try candie tea or add liquid IV stick to water for electrolyte replacement), monitor for movement 6-10 kicks per hr (advised Pt we are concerned with decreased movement and are happy with a moving baby), rest as much as possible, advised her that she may take Immodium for 24 hrs only, AND that message would be routed to [facility] AND if any additional guidance is needed, we would call her. Next OB appt 11/30/24. GERSON Rice Jessica, APRN.CNM 11/20/2024 2:04 PM Signed [facility] go to [facility] as [facility] is full right now. Would recommend further evaluation if she is feeling the contractions, dehydration and GI upset. HARRISON Worthy Trisha, RN 11/20/2024 2:36 PM Signed Patient notified. Marcy Oconnell RN Allergies As of Date: 11/20/2024 Noted Allergy Reaction PENICILLINS 06/16/2023 14 - Other: See Comments Comments: childhood reaction-pt unaware of reaction type Date Reviewed: 11/15/2024 Reviewed by: Albin Putnam LPN - Fully Assessed Reason for Visit: Diarrhea [35] Dizziness [36] Prescriptions as of 11/20/2024 - vitamin D3-folic acid 125 mcg (5,000 unit)-1 mg tab Take by mouth once daily. - VIT 35-TZMF-GYFNM-DHA ORAL Take 1 tablet by mouth once daily. - acetaminophen (TYLENOL) 325 mg cap Take by mouth every 6 hours as needed for pain. 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 History of section [Z98.891] 07/28/2023 History of [Z98.891] 07/28/2023 Family history of breast cancer [Z80.3] 05/24/2024 Encounter for supervision of normal i*07/05/2024 History of intrauterine , currently *07/05/2024 Palpitations [R00.2] 09/20/2024 Encounter Status:Closed by MARCY OCONNELL on 11/20/24 Normal [facility] CBC panel Auto (Bld)on 11-15 Erythrocyte distribution width (RBC) [Ratio] 13.0 % Normal 11.5-15.0 [facility] Comment on above: Order Comment: Speci men Type: BLOOD SPECIMENOrdering Facility: [facility] Address: [address] [place] [address] Performed By: #### 5 8410-2 ####[facility] HIRAMCOLPMIGDALIALIA [id number] [place] [address] [place] Hematocrit (Bld) [Volume fraction] 31.1 % Low 36.0-46.0 [facility] Comment on above: Order Comment: Speci men Type: BLOOD SPECIMENOrdering Facility: [facility] Address: [address] [place] [address] Performed By: #### 5 8410-2 ####[facility] [id number] [place] [address] [place] Hemoglobin (Bld) [Mass/Vol] 11.0 g/dL Low 11.5-15.5 [facility] Comment on above: Order Comment: Speci men Type: BLOOD SPECIMENOrdering Facility: [facility] Address: [address] [place] [address] Performed By: #### 5 8410-2 ####[facility] [id number] [place] [address] [place] MCH (RBC) [Entitic mass] 33.2 pg Normal 26.0-34.0 [facility] Comment on above: Order Comment: Speci men Type: BLOOD SPECIMENOrdering Facility: [facility] Address: [address] [place] [address] Performed By: #### 5 8410-2 ####[facility] HOSPITALLIA [id number] [place] [address] [place] MCHC (RBC) [Mass/Vol] 35.4 g/dL Normal 30.5-36.0 [facility] Comment on above: Order Comment: Speci men Type: BLOOD SPECIMENOrdering Facility: [facility] Address: [address] [place] [address] Performed By: #### 5 8410-2 ####[facility] [id number] [place] [address] [place] MCV (RBC) [Entitic vol] 94.0 fL Normal 80.0-100.0 [facility] Comment on above: Order Comment: Speci men Type: BLOOD SPECIMENOrdering Facility: [facility] Address: [address] [place] [address] Performed By: #### 5 8410-2 ####[facility] HIRAMCOLPRITA [id number] [place] [address] [place] Nucleated RBC (Bld) [#/Vol] 10*3/uL Normal <0.01 [facility] Comment on above: Order Comment: Speci men Type: BLOOD SPECIMENOrdering Facility: [facility] Address: [address] [place] [address] Performed By: #### 5 8410-2 ####[facility] [id number] [place] [address] [place] Platelet mean volume (Bld) [Entitic vol] 9.7 fL Normal 9.0-12.7 [facility] Comment on above: Order Comment: Speci men Type: BLOOD SPECIMENOrdering Facility: [facility] Address: [address] [place] [address] Performed By: #### 5 8410-2 ####[facility] HIRAMCOLPANAA [id number] [place] [address] [place] Platelets (Bld) [#/Vol] 181 10*3/uL Normal 150-400 [facility] Comment on above: Order Comment: Speci men Type: BLOOD SPECIMENOrdering Facility: [facility] Address: [address] [place] [address] Performed By: #### 5 8410-2 ####[facility]ARDNCLIA [id number] [place] [address] [place] RBC (Bld) [#/Vol] 3.31 10*6/uL Low 3.90-5.20 [facility] Comment on above: Order Comment: Speci men Type: BLOOD SPECIMENOrdering Facility: [facility] Address: [address] [place] [address] Performed By: #### 5 8410-2 ####[facility] [id number] [place] [address] [place] WBC (Bld) [#/Vol] 8.23 10*3/uL Normal 3.70-11.00 [facility] Comment on above: Order Comment: Speci men Type: BLOOD SPECIMENOrdering Facility: [facility] Address: [address] [place] [address] Performed By: #### 5 8410-2 ####[facility] [id number] [place] [address] [place] GESTATIONAL GLUCOSE SCREEN, 1-HOUR, 50 GRAM, NON-FASTINGon 11-15-2024 Glucose [Mass/Vol] 125 mg/dL Normal 74-134 [facility] Comment on above: Order Comment: Speci men Type: BLOOD SPECIMENOrdering Facility: [facility] Address: [address] [place] [address] Result Comment: er [facility] Congress of Obstetricians and Gynecologists (Montano/Pavel) guidelines state a gestational diabetes mellitus positive screen is made, in women not previously diagnosed with overt diabetes, when the 1 hr plasma glucose level is equal to or above 140 mg/dL. The [facility] [employer] [facility] [place] recommends a 135 mg/dL cutoff. Performed By: #### G LTGST ####[facility] [id number] [place] [address] [place] Reagin and Treponema pallidu m IgG and IgM [Interp]on 11-15-2024 T. pallidum IgG+IgM IA Ql (S) Non-Reactive Normal Nonreactive [facility] Comment on above: Order Comment: Speci men Type: BLOOD SPECIMENOrdering Facility: [facility] Address: [address] [place] [address] Performed By: #### 7 3752-8 ####[facility] LABCLIA [id number] [place] [address] [place] Reagin+T pallidum IgG+IgM Se rPl-Impon 11-15-2024 Reagin and Treponema pallidum IgG and IgM [Interp] Cannot exclude recent Treponemal infection if specimen collected within 7-10 days after appearance of suspect lesions or 2-3 weeks after an exposure. Clinical correlation is required. Normal [facility] Comment on above: Order Comment: Speci men Type: BLOOD SPECIMENOrdering Facility: [facility] Address: [address] [place] [address] Performed By: #### 7 3752-8 ####[facility] LABCLIA [id number] [place] [id number] [place] [facility] ALBERTO WHITAKER ([id number]) 1990 F Date Time Provider Department 11/09/24 RISA OLIVARES OBAPRIL During your visit today, we recorded the following information about you: Risa Parrish, GERSON 11/09/2024 8:53 AM Signed 26w3d Patient called with c/o bilateral pitting edema in her feet the last 2 days. She will experience a few moments of nausea the last 2 days too. Had a HATFIELD that woke her up on Tuesday night and took Tylenol. Denies any further HATFIELD, vision changes, or pain. Inquired about her water intake. Reports that she hasn't been drinking enough water. [place] and [place] her [place]. Recommended patient push fluids, limit sodium, elevated feet while sitting and wear compression socks when possible. Please advise. GERSON Mackey Jennifer, MD 11/09/2024 10:40 AM Signed Agree with given advice Marcy Oconnell RN 11/09/2024 10:48 AM Signed Patient notified. Marcy Oconnell RN Allergies As of Date: 11/09/2024 Noted Allergy Reaction PENICILLINS 06/16/2023 14 - Other: See Comments Comments: childhood reaction-pt unaware of reaction type Date Reviewed: 10/18/2024 Reviewed by: Risa Olivares MD - Fully Assessed Reason for Visit: OB Edema [Other] Prescriptions as of 11/09/2024 - vitamin D3-folic acid 125 mcg (5,000 unit)-1 mg tab Take by mouth once daily. - VIT 90-LXFQ-JOEGJ-DHA ORAL Take 1 tablet by mouth once daily. - acetaminophen (TYLENOL) 325 mg cap Take by mouth every 6 hours as needed for pain. 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 History of section [Z98.891] 07/28/2023 History of [Z98.891] 07/28/2023 Family history of breast cancer [Z80.3] 05/24/2024 Encounter for supervision of normal i*07/05/2024 History of intrauterine , currently *07/05/2024 Palpitations [R00.2] 09/20/2024 Encounter Status:Closed by MARCY OCONNELL on 11/09/24 Normal [facility] Bacteria Ur Culton Bacteria identified Cx Nom (U) CULTURE, URINE: No growth (<1,000 CFU/ml) Normal [facility] Comment on above: Performed By: #### 6 30-4 ####[facility] LABCLIA [id number] [address] [place] UA DIP, URINE (POC)on 2024 BILIRUBIN UA (POCT) Negative Negative [facility] CLARITY UA (POCT) Clear [facility] COLOR UA (POCT) Yellow [facility] GLUCOSE UA (POCT) Negative Negative mg/dL [facility] Hemoglobin Ql (U) Negative Negative [facility] KETONE UA (POCT) Negative Negative mg/dL [facility] LEUKOCYTES UA (POCT) Negative Negative [facility] NITRITE UA (POCT) Negative Negative [facility] PH UA (POCT) 6.5 4.5 - 8.0 [facility] Protein Ql (U) Negative Negative mg/dL [facility] SPECIFIC GRAVITY UA (POCT) 1.010 1.005 - 1.030 [facility] UROBILINOGEN UA (POCT) 0.2 Normal E.U./dL [facility] Location:[facility], [address], [place], [place], [id number] [place] [address] POINT OF CARE [facility] CNPLynn 10-09-2024 [facility] BHUPENDRAALBERTO FUENTES ([id number]) 1990 F Date Time Provider Department 10/09/24 ALEXANDRA PÉREZ During your visit today, we recorded the following information about you: Marcy Oconnell RN 10/09/2024 3:13 PM Signed 22w0d Calling c/o spotting that started last night. Originally was pink in color and now is brown. Only notices with wiping. Last night for 1-2 hours she felt her abdomen was tight like angel goss, but none since. No pain or cramping today. Has h/o 21 week loss, so she is anxious. No available openings today or tomorrow morning. Can we add her on somewhere? GERSON Bowen Karmon, MD 10/09/2024 4:16 PM Signed Please add on to open spot on CP schedule tomorrow. MD Zachary Sims Trisha, GERSON 10/09/2024 4:27 PM Signed Patient notified. She declined appt now. She started feeling a lot more movement since previous phone call. She will call back if she changes her mind. GERSON Bowen Tara, RN 10/10/2024 9:57 AM Signed Pt called stating she is still really crampy this morning, still has slight spotting-light brown in color, has only had a few movements since being up since 5:30am. Pt states she can be to office by 11am. Pt scheduled for NST/OB at 11am with CP. Bianca Larkin RN Allergies As of Date: 10/09/2024 Noted Allergy Reaction PENICILLINS 06/16/2023 14 - Other: See Comments Comments: childhood reaction-pt unaware of reaction type Date Reviewed: 09/20/2024 Reviewed by: Amanda Carrillo MA - Fully Assessed Reason for Visit: OB spotting [Other] Prescriptions as of 10/10/2024 - aspirin, enteric coated (ECOTRIN LOW STRENGTH) 81 mg EC tablet Take 1 tablet by mouth once daily. - vitamin D3-folic acid 125 mcg (5,000 unit)-1 mg tab Take by mouth once daily. - VIT 92-JXSG-CHDPW-DHA ORAL Take 1 tablet by mouth once daily. - acetaminophen (TYLENOL) 325 mg cap Take by mouth every 6 hours as needed for pain. 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 - Single, live, intrauterine . - biometry is consistent with the established gestational age. - No malformations were visualized on a complete detailed anatomic survey. - The amniotic fluid volume is normal amount. - The placenta is posterior, fundal. - The Transabdominal cervical length measures 35.9 mm with no evidence of funneling or other dynamic changes. - Not all structural malformations can be detected by ultrasound examination. Recommendations Additional follow-up as clinically indicated. Maternal Assessment Height 173 cm Height (ft) 5 ft Height (in) 8 in Physical Exam Initial weight (lb) 170 lb Initial BMI 25.85 kg/m Maternal assessment other: 6 Para 3 REMOTE READ Method Transabdominal ultrasound examination. View: Suboptimal view: limited by position Tavarez . Number of fetuses: 1 Dating LMP on: 05/08/2024 GA by LMP 19 w + 2 d ALMA by LMP: 02/12/2025 GA by prior assessment 19 w + 2 d ALMA by prior assessment: 02/12/2025 Ultrasound examination on: 09/20/2024 GA by U/S based upon: AC, BPD, Femur, HC GA by U/S 19 w + 3 d ALMA by U/S: 02/11/2025 Assigned: based on stated ALMA, selected on 09/20/2024 Assigned GA 19 w + 2 d Assigned ALMA: 02/12/2025 General Evaluation Cardiac activity present. FHR 133 bpm. movements: present. Presentation: cephalic Placenta: Placental site: posterior, fundal Umbilical cord: Cord vessels: 3 vessel cord Amniotic fluid: Amount of AF: normal amount. MVP 4.5 cm Growth Overview Exam date GA BPD (mm) HC (mm) AC (mm) FL (mm) HL (mm) EFW (g) 09/20/2024 19w 2d 42.6 33% 162.1 39% 146.8 68% 31.4 80% 29.5 65% 308 69% Biometry Standard BPD 42.6 mm 18w 6d 33% Hadlock OFD 57.4 mm 18w 6d 51% Nicolaides HC 162.1 mm 18w 6d 39% Andrew Cerebellum tr 20.7 mm 19w 5d 73% Hill Nuchal fold 4.5 mm AC 146.8 mm 20w 0d 68% Hadlock Femur 31.4 mm 19w 6d 80% Andrew Humerus 29.5 mm 19w 4d 65% Andrew EFW 308 g 19w 4d 69% Hadlock EFW (lb) 0 lb EFW (oz) 11 oz EFW by: Hadlock (HC-AC-FL) Extended [employer] 8.8 mm CM 4.1 mm 27% Nicolaides Extremities / Bony Struc FL / HC 0.19 78% Hadlock Other Structures FHR 133 bpm Anatomy Cranium: normal Lateral ventricles: normal Choroid plexus: normal Midline falx: normal Cavum septi pellucidi: normal Cerebellum: normal Cisterna magna: normal Head / Neck Vermis: normal Neck: normal Nuchal fold: normal Lips: normal Profile: normal Nose: normal Face Maxilla: normal Mandible: normal Orbits: normal Lens: normal 4-chamber view: normal RVOT view: normal LVOT view: normal 3-vessel view: normal 0-vrfoxc-hebvqrf view: normal Heart / Thorax Situs: situs solitus (normal) Aortic arch view: normal SVC: normal IVC: normal Cardiac axis: normal Rt lung: normal Lt lung: normal Diaphragm: normal Cord insertion: normal Stomach: normal Kidneys: normal Bladder: normal Genitals: normal Abdomen Abdom. wall: normal Cervical spine: normal Thoracic spine: normal Lumbar spine: normal Sacral spine: normal Arms: normal Legs: normal Rt upper arm: normal Rt forearm: normal Rt hand: normal Rt fingers: normal Lt upper arm: normal Lt forearm: normal Lt hand: normal Lt fingers: normal Rt upper leg: normal Rt lower leg: normal Rt foot: normal Lt upper leg: normal Lt lower leg: normal Lt foot: normal Gender: Unspecified Wants to know sex: no Maternal Structures Uterus / Cervix Uterus: Visualized Cervix: Visualized Approach: Transabdominal Cervical length 35.9 mm Other: Patient declined transvaginal ultrasound for cervical length. Ovaries / Tubes / Adnexa Rt ovary: Visualized Lt ovary: Visualized Performed By: Chela Park RDMS, RVT Read By: Macy Welch M.D. MATERNAL MEDICINE [facility] Radiology Study observation (narrative) [facility] Bacteria identifiedon 2024 Bacteria identified Cx Nom (U) Test: Urine Culture Specimen Source: Clean Catch/Voided Specimen Type: Urine Specimen Date: 09/01/20241834 Result Date: 09/03/2024653 Result Status: Final result Abnormal: No Resulting Lab: [facility] [address] [place] [address] CULTURE Clinically insignificant growth based on current clinical standards. Normal [facility] Comment on above: Performed By: #### 6 30-4 ####TONIE Vanessa ([id number])[facility] ([facility])[address] [address] CBC W Auto Differential pane l (Bld)on 09-01-2024 Basophils (Bld) [#/Vol] 0.01 x10*3/uL Normal 0.00-0.10 [facility] Comment on above: Performed By: #### 5 7021-8 #### ANKUSH SANABRIA ([id number]) [facility] ([facility]) [address] [place] [address] Basophils/100 WBC (Bld) 0.2 % Normal 0.0-2.0 [facility] Comment on above: Performed By: #### 5 7021-8 #### ANKUSH SANABRIA ([id number]) [facility] ([facility]) [address] [place] [address] Eosinophils (Bld) [#/Vol] 0.00 x10*3/uL Normal 0.00-0.70 [facility] Comment on above: Performed By: #### 5 7021-8 #### ANKUSH SANABRIA ([id number]) [facility] ([facility]) [address] [place] [address] Eosinophils/100 WBC (Bld) 0.0 % Normal 0.0-6.0 [facility] Comment on above: Performed By: #### 5 7021-8 #### ANKUSH SANABRIA ([id number]) [facility] ([facility]) [address] [place] [address] Erythrocyte distribution width (RBC) [Ratio] 13.0 % Normal 11.5-14.5 [facility] Comment on above: Performed By: #### 5 7021-8 #### ANKUSH SANABRIA ([id number]) [facility] ([facility]) [address] [place] [address] Hematocrit (Bld) [Volume fraction] 32.0 % Low 36.0-46.0 [facility] Comment on above: Performed By: #### 5 7021-8 #### ANKUSH SANABRIA ([id number]) [facility] ([facility]) [address] [place] [address] Hemoglobin (Bld) [Mass/Vol] 11.2 g/dL Low 12.0-16.0 [facility] Comment on above: Performed By: #### 5 7021-8 #### ANKUSH SANABRIA ([id number]) [facility] ([facility]) [address] [place], [place] [id number] Immature granulocytes (Bld) [#/Vol] 0.03 x10*3/uL Normal 0.00-0.70 [facility] Comment on above: Performed By: #### 5 7021-8 #### ANKUSH SANABRIA ([id number]) [facility] ([facility]) [address] [place], [place] [id number] Immature granulocytes/100 WBC (Bld) 0.5 % Normal 0.0-0.9 [facility] Comment on above: Result Comment: Rafaela ture Granulocyte Count (IG) includes promyelocytes, myelocytes and metamyelocytes but does not include bands. Percent differential counts (%) should be interpreted in the context of the absolute cell counts (cells/UL). Performed By: #### 5 7021-8 #### ANKUSH SANABRIA ([id number]) [facility] ([facility]) [address] [place] [address]96[address] Lymphocytes (Bld) [#/Vol] 0.37 x10*3/uL Low 1.20-4.80 [facility] Comment on above: Performed By: #### 5 7021-8 #### ANKUSH SANABRIA ([id number]) [facility] ([facility]) [address] [place] [address] Lymphocytes/100 WBC (Bld) 5.6 % Normal 13.0-44.0 [facility] Comment on above: Performed By: #### 5 7021-8 #### ANKUSH SANABRIA ([id number]) [facility] ([facility]) [address] [place] [address] 27211 MCH (RBC) [Entitic mass] 33.1 pg Normal 26.0-34.0 [facility] Comment on above: Performed By: #### 5 7021-8 #### ANKUSH SANABRIA ([id number]) [facility] ([facility]) [address] [place] [address] 48695 MCHC (RBC) [Mass/Vol] 35.0 g/dL Normal 32.0-36.0 [facility] Comment on above: Performed By: #### 5 7021-8 #### ANKUSH SANABRIA ([id number]) [facility] ([facility]) [address] [place] [address] 30213 MCV (RBC) [Entitic vol] 95 fL Normal 80-100 [facility] Comment on above: Performed By: #### 5 7021-8 #### ANKUSH SANABRIA ([id number]) [facility] ([facility]) [address] [place] [address]1971 Monocytes (Bld) [#/Vol] 0.23 x10*3/uL Normal 0.10-1.00 [facility] Comment on above: Performed By: #### 5 7021-8 #### ANKUSH SANABRIA ([id number]) [facility] ([facility]) [address] [place] [address] 24047 Monocytes/100 WBC (Bld) 3.5 % Normal 2.0-10.0 [facility] Comment on above: Performed By: #### 5 7021-8 #### ANKUSH SANABRIA ([id number]) [facility] ([facility]) [address] [place] [address]287 Neutrophils (Bld) [#/Vol] 5.91 x10*3/uL Normal 1.20-7.70 [facility] Comment on above: Result Comment: Perc ent differential counts (%) should be interpreted in the context of the absolute cell counts (cells/uL). Performed By: #### 5 7021-8 #### ANKUSH SANABRIA ([id number]) [facility] ([facility]) [address] [place] [address] 33024 Neutrophils/100 WBC (Bld) 90.2 % Normal 40.0-80.0 [facility] Comment on above: Performed By: #### 5 7021-8 #### ANKUSH SANABRIA ([id number]) [facility] ([facility]) [address] [place] [address] 04344 Nucleated RBC/100 WBC (Bld) [Ratio] 0.0 /100 WBCs Normal 0.0-0.0 [facility] Comment on above: Performed By: #### 5 7021-8 #### ANKUSH SANABRIA ([id number]) [facility] ([facility]) [address] [place] [address] 82208 Platelets (Bld) [#/Vol] 149 x10*3/uL Low 150-450 [facility] Comment on above: Performed By: #### 5 7021-8 #### ANKUSH SANABRIA ([id number]) [facility] ([facility]) [address] [place] [address] 63223 RBC (Bld) [#/Vol] 3.38 x10*6/uL Low 4.00-5.20 [facility] Comment on above: Performed By: #### 5 7021-8 #### ANKUSH SANABRIA ([id number]) [facility] ([facility]) [address] [place] [address] 00990 WBC (Bld) [#/Vol] 6.6 x10*3/uL Normal 4.4-11.3 [facility] Comment on above: Performed By: #### 5 7021-8 #### ANKUSH SANABRIA ([id number]) [facility] ([facility]) [address] [place] [address] 28284 Comprehensive metabolic 2000 panelon 09-01-2024 Albumin BCP dye [Mass/Vol] 3.6 g/dL Normal 3.4-5.0 [facility] Comment on above: Performed By: #### 2 4323-8 #### ANKUSH SANABRIA ([id number]) [facility] ([facility]) [address] [place] [address] ALP [Catalytic activity/Vol] 38 U/L Normal 33-110 [facility] Comment on above: Performed By: #### 2 432-8 #### ANKUSH SANABRIA ([id number]) [facility] ([facility]) [address] [place] [address] ALT With P-5'-P [Catalytic activity/Vol] 13 U/L Normal 7-45 [facility] Comment on above: Result Comment: Ondina ents treated with Sulfasalazine may generate falsely decreased results for ALT. Performed By: #### 2 432-8 #### ANKUSH SANABRIA ([id number]) [facility] ([facility]) [address] [place] [address] Anion gap [Moles/Vol] 11 mmol/L Normal 10-20 [facility] Comment on above: Performed By: #### 2 4323-8 #### ANKUSH SANABRIA ([id number]) [facility] ([facility]) [address] [place] [address] 31921 AST With P-5'-P [Catalytic activity/Vol] 12 U/L Normal 9-39 [facility] Comment on above: Performed By: #### 2 4323-8 #### ANKUSH SANABRIA ([id number]) [facility] ([facility]) [address] [place] [address] 54591 Bilirubin [Mass/Vol] 0.5 mg/dL Normal 0.0-1.2 [facility] Comment on above: Performed By: #### 2 4323-8 #### ANKUSH SANABRIA ([id number]) [facility] ([facility]) [address] [place] [address] 29145 Calcium [Mass/Vol] 8.1 mg/dL Low 8.6-10.3 [facility] Comment on above: Performed By: #### 2 4323-8 #### ANKUSH SANABRIA ([id number]) [facility] ([facility]) [address] [place] [address] 13136 Chloride [Moles/Vol] 105 mmol/L Normal 98-107 [facility] Comment on above: Performed By: #### 2 4323-8 #### ANKUSH SANABRIA ([id number]) [facility] ([facility]) [address] [place] [address] 87578 CO2 [Moles/Vol] 21 mmol/L Normal 21-32 [facility] Comment on above: Performed By: #### 2 4323-8 #### ANKUSH SANABRIA ([id number]) [facility] ([facility]) [address] [place] [address] 35719 Creatinine [Mass/Vol] 0.39 mg/dL Low 0.50-1.05 [facility] Comment on above: Performed By: #### 2 4323-8 #### ANKUSH SANABRIA ([id number]) [facility] ([facility]) [address] [place] [address] 23164 GFR/1.73 sq M.predicted MDRD (S/P/Bld) [Vol rate/Area] mL/min/{1.73_m2} Normal >60 [facility] Comment on above: Result Comment: Calc ulations of estimated GFR are performed using the 2020 CKD-EPI Study Refit equation without the race variable for the IDMS-Traceable creatinine methods. https://jasn.asnjournals.org/content/early/ASN.34771558 88 Performed By: #### 2 4323-8 #### ANKUSH SANABRIA ([id number]) [facility] ([facility]) [address] [place] [address] 42871 Glucose [Mass/Vol] 93 mg/dL Normal 74-99 [facility] Comment on above: Performed By: #### 2 4323-8 #### ANKUSH SANABRIA ([id number]) [facility] ([facility]) [address] [place] [address] 33715 Potassium [Moles/Vol] 3.3 mmol/L Low 3.5-5.3 [facility] Comment on above: Performed By: #### 2 4323-8 #### ANKUSH SANABRIA ([id number]) [facility] ([facility]) [address] [place] [address] Protein [Mass/Vol] 6.3 g/dL Low 6.4-8.2 [facility] Comment on above: Performed By: #### 2 4323-8 #### ANKUSH SANABRIA ([id number]) [facility] ([facility]) [address] [place] [address] 27710 Sodium [Moles/Vol] 134 mmol/L Low 136-145 [facility] Comment on above: Performed By: #### 2 4323-8 #### ANKUSH SANABRIA ([id number]) [facility] ([facility]) [address] [place] [address] 93677 Urea nitrogen [Mass/Vol] 12 mg/dL Normal 6-23 [facility] Comment on above: Performed By: #### 2 4323-8 #### ANKUSH SANABRIA ([id number]) [facility] ([facility]) [address] [place] [address] 01179 ECG 12-LEADon 09-01-2024 ECG 12-LEAD Ventricular Rate 104 Atrial Rate 104 P-R Interval 168 QRS Duration 80 Q-T Interval 356 QTC Calculation(Bazett) 468 P [place] 57 R [place] 81 T [place] 22 QRS Count 17 Q Onset 220 P Onset 136 P Offset 188 T Offset 398 QTC Fredericia 427 Diagnosis Sinus tachycardia Otherwise normal ECG No previous ECGs available See ED provider note for full interpretation and clinical correlation Confirmed by Jen Gleason ([id number]) on 09/05/2024 12:15:20 PM Normal [facility] FLUAV and FLUBV RNA MATTHEW+prob e Nom (Unsp spec)on 09-01-2024 FLUAV RNA MATTHEW+probe Ql (Resp) Not detected Normal Not Detected [facility] Comment on above: Order Comment: This assay is an in vitro diagnostic multiplex nucleic acid amplification test for the detection and discrimination of Influenza A & B from nasopharyngeal specimens, and has been validated for use at [facility]. Negative results do not preclude Influenza A/B infections, and should not be used as the sole basis for diagnosis, treatment, or other management decisions. If Influenza A/B and RSV PCR results are negative, testing for Parainfluenza virus, Adenovirus and Metapneumovirus is routinely performed for [facility] pediatric oncology and intensive care inpatients, and is available on other patients by placing an add-on request. Performed By: #### 4 8509-4 ####ANKUSH SANABRIA ([id number])[facility] ([facility])[address] [place], [place] [address] FLUBV RNA MATTHEW+probe Ql (Resp) Not detected Normal Not Detected [facility] Comment on above: Order Comment: This assay is an in vitro diagnostic multiplex nucleic acid amplification test for the detection and discrimination of Influenza A & B from nasopharyngeal specimens, and has been validated for use at [facility]. Negative results do not preclude Influenza A/B infections, and should not be used as the sole basis for diagnosis, treatment, or other management decisions. If Influenza A/B and RSV PCR results are negative, testing for Parainfluenza virus, Adenovirus and Metapneumovirus is routinely performed for [facility] pediatric oncology and intensive care inpatients, and is available on other patients by placing an add-on request. Performed By: #### 4 8509-4 ####ANKUSH SANABRIA ([id number])[facility] ([facility])[address] [place] [address] 10885 Fibrin D-dimer FEUon 09-01-2 025 Fibrin D-dimer FEU (PPP) [Mass/Vol] 545 ng/mL FEU High <=500 [facility] Comment on above: Order Comment: The V TE Exclusion D-Dimer assay is reported in ng/mL Fibrinogen Equivalent Units (FEU). Per public works laborer's instructions for use, a value of less than 500 ng/mL (FEU) may help to exclude DVT or PE in outpatients when the assay is used with a clinical pretest probability assessment.(AEMR must utilize and document eCalc 'Wells Score Deep Vein Thrombosis Risk' for DVT exclusion only. Emergency Department should utilize Guidelines for Emergency Department Use of the VTE Exclusion D-Dimer and Clinical Pretest probability assessment model for DVT or PE exclusion.) Performed By: #### 4 8065-7 #### ANKUSH SANABRIA ([id number]) [facility] ([facility]) [address] [place] [address] Magnesiumon 09-01-2024 Magnesium [Mass/Vol] 1.55 mg/dL Low 1.60-2.40 [facility] Comment on above: Performed By: #### 1 9123-9 #### ANKUSH SANABRIA ([id number]) [facility] ([facility]) [address] [place] [address] Natriuretic peptide B [Mass/ Vol]on 09-01-2024 Natriuretic peptide B (Bld) [Mass/Vol] 33 pg/mL Normal 0-99 [facility] Comment on above: Order Comment: <100 pg/mL - Heart failure unlikely 100-299 pg/mL - Intermediate probability of acute heart failure exacerbation. Correlate with clinical context and patient history. >=300 pg/mL - Heart Failure likely. Correlate with clinical context and patient history. BNP testing is performed using different testing methodology at [facility] than at [facility]. Direct result comparisons should only be made within the same method. Performed By: #### 3 0934-4 #### ANKUSH SANABRIA ([id number]) [facility] ([facility]) [address] [place] [address] SARS coronavirus 2 RNAon SARS-CoV-2 (COVID-19) RNA MATTHEW+probe Ql (Resp) Not detected Normal Not Detected [facility] Comment on above: Order Comment: This assay is an FDA-cleared, in vitro diagnostic nucleic acid amplification test for the qualitative detection and differentiation of SARS CoV-2 from nasopharyngeal specimens collected from individuals with signs and symptoms of respiratory tract infections, and has been validated for use at [facility]. Negative results do not preclude COVID-19 infections and should not be used as the sole basis for diagnosis, treatment, or other management decisions. Testing for SARS CoV-2 is recommended only for patients who meet current clinical and/or epidemiological criteria defined by federal, state, or local public health directives. Performed By: #### 9 4500-6 ####ANKUSH SANABRIA ([id number])[facility] ([facility])[address] [place] [address] 01597 Troponin I.cardiac panelon 0 09-01-2024 Tropinin I.cardiac panel High sensitivity method <3 Normal 0-13 [facility] Comment on above: Order Comment: Less than 99th percentile of normal range cutoff- Female and children under 18 years old <14 ng/L; Male <21 ng/L: Negative Repeat testing should be performed if clinically indicated. Female and children under 18 years old 14-50 ng/L; Male 21-50 ng/L: Consistent with possible cardiac damage and possible increased clinical risk. Serial measurements may help to assess extent of myocardial damage. >50 ng/L: Consistent with cardiac damage, increased clinical risk and myocardial infarction. Serial measurements may help assess extent of myocardial damage. NOTE: Children less than 1 year old may have higher baseline troponin levels and results should be interpreted in conjunction with the overall clinical context. NOTE: Troponin I testing is performed using a different testing methodology at [facility] than at other legacy [facility]. Direct result comparisons should only be made within the same method. Performed By: #### 8 9577-1 #### ANKUSH SANABRIA ([id number]) [facility] ([facility]) [address] [place] [address] 19545 Urinalysis complete W Reflex Culture panel (U)on 09-01-2024 Appearance (U) Turbid Normal Clear [facility] Comment on above: Performed By: #### 5 8077-9 #### ANKUSH SANABRIA ([id number]) [facility] ([facility]) [address] [place] [address] 29634 Bilirubin (U) [Mass/Vol] Negative Normal NEGATIVE [facility] Comment on above: Performed By: #### 5 8077-9 #### ANKUSH SANABRIA ([id number]) [facility] ([facility]) [address] [place] [address] 90372 Color (U) Yellow Normal Light-Yellow, Yellow, Dark-Yellow [facility] Comment on above: Performed By: #### 5 8077-9 #### ANKUSH SANABRIA ([id number]) [facility] ([facility]) [address] [place] [address] 89391 Glucose Auto test strip (U) [Mass/Vol] Normal Normal Normal [facility] Comment on above: Performed By: #### 5 8077-9 #### ANKUSH SANABRIA ([id number]) [facility] ([facility]) [address] [place] [address] 91800 Ketones (U) [Mass/Vol] 10 (1+) Abnormal NEGATIVE [facility] Comment on above: Performed By: #### 5 8077-9 #### ANKUSH SANABRIA ([id number]) [facility] ([facility]) [address] [place] [address] Leukocyte esterase Auto test strip Ql (U) 75 [place]/uL Abnormal NEGATIVE [facility] Comment on above: Performed By: #### 5 8077-9 #### ANKUSH SANABRIA ([id number]) [facility] [place] [address] Nitrite Auto test strip Ql (U) Negative Normal NEGATIVE [facility] Comment on above: Performed By: #### 5 8077-9 #### ANKUSH SANABRIA ([id number]) [facility] ([facility]) [address] [place] [address] 15656 pH (U) 6.0 [pH] Normal 5.0, 5.5, 6.0, 6.5, 7.0, 7.5, 8.0 [facility] Comment on above: Performed By: #### 5 8077-9 #### ANKUSH SANABRIA ([id number]) [facility] ([facility]) [address] [place] [address] 36412 Protein (U) [Mass/Vol] 30 (1+) Abnormal NEGATIVE, 10 (TRACE), 20 (TRACE) [facility] Comment on above: Performed By: #### 5 8077-9 #### ANKUSH SANABRIA ([id number]) [facility] ([facility]) [address] [place] [address] 49079 RBC (U) [#/Vol] Negative Normal NEGATIVE [facility] Comment on above: Performed By: #### 5 8077-9 #### ANKUSH SANABRIA ([id number]) [facility] ([facility]) [address] [place] [address] Specific gravity (U) [Rel density] 1.033 Normal 1.005-1.035 [facility] Comment on above: Performed By: #### 5 8077-9 #### ANKUSH SANABRIA ([id number]) [facility] ([facility]) [address] [place] [address] Urobilinogen (U) [Mass/Vol] Normal Normal Normal [facility] Comment on above: Performed By: #### 5 8077-9 #### ANKUSH SANABRIA ([id number]) [facility] ([facility]) [address] [place] [address] Urinalysis microscopic panel Auto Ql (U)on 09-01-2024 Epithelial cells.squamous Auto (Urine sed) [#/Area] 1-9 (SPARSE) Normal Reference range not established. [facility] Comment on above: Performed By: #### 5 3315-8 #### ANKUSH SANABRIA ([id number]) [facility] ([facility]) [address] [place] [address] Mucus Auto (Urine sed) [#/Area] 3+ /LPF Normal Reference range not established. [facility] Comment on above: Performed By: #### 5 3315-8 #### ANKUSH SANABRIA ([id number]) [facility] ([facility]) [address] [place] [address] RBC Auto (Urine sed) [#/Area] 1-2 Normal NONE, 1-2, 3-5 [facility] Comment on above: Performed By: #### 5 3315-8 #### ANKUSH SANABRIA ([id number]) [facility] ([facility]) [address] [place] [address] WBC Auto (Urine sed) [#/Area] 1-5 Normal 1-5, NONE [facility] Comment on above: Performed By: #### 5 3315-8 #### ANKUSH SANABRIA ([id number]) [facility] ([facility]) [address] [place] [address] XR CHEST 1 VIEWon 09-01-2024 XR CHEST 1 VIEW Interpreted By: Donny Bateman, STUDY: XR CHEST 1 VIEW; 09/01/2024 5:40 pm INDICATION: Signs/Symptoms:SOB. COMPARISON: 02/08/2024 ACCESSION NUMBER(S): [id number] ORDERING CLINICIAN: ERICH KESSLER FINDINGS: CARDIOMEDIASTINAL SILHOUETTE: Cardiomediastinal silhouette is normal in size and configuration. LUNGS: Lungs are clear. ABDOMEN: No remarkable upper abdominal findings. BONES: No acute osseous changes. IMPRESSION: 1. No evidence of acute cardiopulmonary process. MACRO: None Signed by: Donny Au 09/01/2024 5:54 PM Dictation workstation: [id number] [facility] UA DIP, URINE (POC)on 2024 BILIRUBIN UA (POCT) Negative Negative [facility] CLARITY UA (POCT) Clear [facility] COLOR UA (POCT) Yellow [facility] GLUCOSE UA (POCT) Negative Negative mg/dL [facility] Hemoglobin Ql (U) Negative Negative [facility] KETONE UA (POCT) Negative Negative mg/dL [facility] LEUKOCYTES UA (POCT) Negative Negative [facility] NITRITE UA (POCT) Negative [facility] PH UA (POCT) 6.5 4.5 - 8.0 [facility] Protein Ql (U) Negative Negative mg/dL [facility] SPECIFIC GRAVITY UA (POCT) 1.015 1.005 - 1.030 [facility] UROBILINOGEN UA (POCT) 0.2 Normal E.U./dL [facility] Location:[facility], [address], [place], [id number] [place] [address] POINT OF CARE [facility] CBC W Auto Differential pane l (Bld)on 08-09-2024 Basophils (Bld) [#/Vol] 0.03 10*3/uL Normal <0.11 [facility] Comment on above: Order Comment: Speci men Type: BLOOD SPECIMENOrdering Facility: [facility] Address: [address] [place] [address] Performed By: #### 5 7021-8 ####[facility] [id number] [place] [address] [place] Basophils/100 WBC (Bld) 0.4 % Normal [facility] Comment on above: Order Comment: Speci men Type: BLOOD SPECIMENOrdering Facility: [facility] Address: [address] [place] [address] Performed By: #### 5 7021-8 ####[facility] [id number] [place] [address] [place] Differential cell count method Nom (Bld) Auto Normal [facility] Comment on above: Order Comment: Speci men Type: BLOOD SPECIMENOrdering Facility: [facility] Address: [address] [place] [address] Performed By: #### 5 7021-8 ####[facility] [id number] [place] [address] [place] Eosinophils (Bld) [#/Vol] 0.06 10*3/uL Normal <0.46 [facility] Comment on above: Order Comment: Speci men Type: BLOOD SPECIMENOrdering Facility: [facility] Address: [address] [place] [address] Performed By: #### 5 7021-8 ####[facility] [id number] [place] [address] [place] Eosinophils/100 WBC (Bld) 0.8 % Normal [facility] Comment on above: Order Comment: Speci men Type: BLOOD SPECIMENOrdering Facility: [facility] Address: [address] [place] [address] Performed By: #### 5 7021-8 ####[facility] [id number] [place] [address] [place] Erythrocyte distribution width (RBC) [Ratio] 12.8 % Normal 11.5-15.0 [facility] Comment on above: Order Comment: Speci men Type: BLOOD SPECIMENOrdering Facility: [facility] Address: [address] [place] [address] Performed By: #### 5 7021-8 ####[facility] [id number] [place] [address] [place] Hematocrit (Bld) [Volume fraction] 32.7 % Low 36.0-46.0 [facility] Comment on above: Order Comment: Speci men Type: BLOOD SPECIMENOrdering Facility: [facility] Address: [address] [place] [address] Performed By: #### 5 7021-8 ####[facility] BOULEVARDANAIlan [id number] [place] [address] [place] Hemoglobin (Bld) [Mass/Vol] 11.4 g/dL Low 11.5-15.5 [facility] Comment on above: Order Comment: Speci men Type: BLOOD SPECIMENOrdering Facility: [facility] Address: [address] [place] [address] Performed By: #### 5 7021-8 ####[facility]ARDANAIlan [id number] [place] [address] [place] Immature granulocytes (Bld) [#/Vol] 10*3/uL Normal <0.10 [facility] Comment on above: Order Comment: Speci men Type: BLOOD SPECIMENOrdering Facility: [facility] Address: [address] [place] [address] Performed By: #### 5 7021-8 ####[facility] HIRAMCOLPMIGDALIALIA [id number] [place] [address] [place] Immature granulocytes/100 WBC (Bld) 0.3 % Normal [facility] Comment on above: Order Comment: Speci men Type: BLOOD SPECIMENOrdering Facility: [facility] Address: [address] [place] [address] Performed By: #### 5 7021-8 ####[facility] [id number] [place] [address] [place] Lymphocytes (Bld) [#/Vol] 1.81 10*3/uL Normal 1.00-4.00 [facility] Comment on above: Order Comment: Speci men Type: BLOOD SPECIMENOrdering Facility: [facility] Address: [address] [place] [address] Performed By: #### 5 7021-8 ####[facility] [id number] [place] [address] [place] Lymphocytes/100 WBC (Bld) 24.5 % Normal [facility] Comment on above: Order Comment: Speci men Type: BLOOD SPECIMENOrdering Facility: [facility] Address: [address] [place] [address] Performed By: #### 5 7021-8 ####[facility] [id number] [place] [address] [place] MCH (RBC) [Entitic mass] 32.7 pg Normal 26.0-34.0 [facility] Comment on above: Order Comment: Speci men Type: BLOOD SPECIMENOrdering Facility: [facility] Address: [address] [place] [address] Performed By: #### 5 7021-8 ####[facility] [id number] [place] [address] [place] MCHC (RBC) [Mass/Vol] 34.9 g/dL Normal 30.5-36.0 [facility] Comment on above: Order Comment: Speci men Type: BLOOD SPECIMENOrdering Facility: [facility] Address: [address] [place] [address] Performed By: #### 5 7021-8 ####[facility] B[facility]ARDNCLI [id number] [place] [address] [place] MCV (RBC) [Entitic vol] 93.7 fL Normal 80.0-100.0 [facility] Comment on above: Order Comment: Speci men Type: BLOOD SPECIMENOrdering Facility: [facility] Address: [address] [place] [address] Performed By: #### 5 7021-8 ####[facility] [id number] [place] [address] [place] Monocytes (Bld) [#/Vol] 0.42 10*3/uL Normal <0.87 [facility] [facility] Comment on above: Order Comment: Speci men Type: BLOOD SPECIMENOrdering Facility: [facility] Address: [address] [place] [address] Performed By: #### 5 7021-8 ####[facility] [id number] [place] [address] [place] Monocytes/100 WBC (Bld) 5.7 % Normal [facility] Comment on above: Order Comment: Speci men Type: BLOOD SPECIMENOrdering Facility: [facility] Address: [address] [place] [address] Performed By: #### 5 7021-8 ####[facility] [id number] [place] [address] [place] Neutrophils (Bld) [#/Vol] 5.06 10*3/uL Normal 1.45-7.50 [facility] Comment on above: Order Comment: Speci men Type: BLOOD SPECIMENOrdering Facility: [facility] Address: [address] [place] [address] Performed By: #### 5 7021-8 ####[facility] [id number] [place] [address] [place] Neutrophils/100 WBC (Bld) 68.3 % Normal [facility] Comment on above: Order Comment: Speci men Type: BLOOD SPECIMENOrdering Facility: [facility] Address: [address] [place] [address] Performed By: #### 5 7021-8 ####[facility] XAVINCBONA [id number] [place] [address] [place] Nucleated RBC (Bld) [#/Vol] 10*3/uL Normal <0.01 [facility] Comment on above: Order Comment: Speci men Type: BLOOD SPECIMENOrdering Facility: [facility] Address: [address] [place] [address] Performed By: #### 5 7021-8 ####[facility] [id number] [place] [address] [place] Nucleated RBC/100 WBC (Bld) [Ratio] 0.0 /100 WBC Normal [facility] Comment on above: Order Comment: Speci men Type: BLOOD SPECIMENOrdering Facility: [facility] Address: [address] [place] [address] Performed By: #### 5 7021-8 ####[facility]ARDNCLIA [id number] [place] [address] [place] Platelet mean volume (Bld) [Entitic vol] 10.0 fL Normal 9.0-12.7 [facility] Comment on above: Order Comment: Speci men Type: BLOOD SPECIMENOrdering Facility: [facility] Address: [address] [place] [address] Performed By: #### 5 7021-8 ####[facility]ARDNCLIA [id number] [place] [address] [place] Platelets (Bld) [#/Vol] 218 10*3/uL Normal 150-400 [facility] Comment on above: Order Comment: Speci men Type: BLOOD SPECIMENOrdering Facility: [facility] Address: [address] [place] [address] Performed By: #### 5 7021-8 ####[facility]ARDMIGDALIAA [id number] [place] [address] [place] RBC (Bld) [#/Vol] 3.49 10*6/uL Low 3.90-5.20 [facility] Comment on above: Order Comment: Speci men Type: BLOOD SPECIMENOrdering Facility: [facility] [place] Address: [address] [place] [address] Performed By: #### 5 7021-8 ####[facility] HRIAMMETHODIST HOSPITALSBONA [id number] [place] [address] [place] WBC (Bld) [#/Vol] 7.40 10*3/uL Normal 3.70-11.00 [facility] Comment on above: Order Comment: Speci men Type: BLOOD SPECIMENOrdering Facility: [facility] Address: [address] [place] [address] Performed By: #### 5 7021-8 ####[facility] HIRAMMETHODIST HOSPITALSFRANCISCO [id number] [place] [address] [place] Examination level ultrasound on 08-09-2024 Indication First trimester anatomic survey Impression REMOTE READ The patient is referred for a first trimester anatomy scan including nuchal translucency measurement as clinically indicated. - Single, live, intrauterine . - Hardy rump length measurement is consistent with the established gestational age. - A qualitative screen of the nuchal translucency and other anatomic structures was unremarkable on a complete first trimester anatomic assessment. - Not all structural malformations can be detected by ultrasound examination. - An anatomic survey at 18-20 weeks is recommended given no identified risk factors. Recommendations - An anatomic survey at 18-20 weeks given no identified risk factors. - Additional follow up as clinically indicated. Maternal Assessment Height 173 cm Height (ft) 5 ft Height (in) 8 in Physical Exam Initial weight (lb) 170 lb Initial BMI 25.85 kg/m Method Transabdominal ultrasound examination Tavarez . Number of fetuses: 1 Dating LMP on: 05/08/2024 GA by LMP 13 w + 2 d ALMA by LMP: 02/12/2025 Ultrasound examination on: 08/09/2024 GA by U/S based upon: CRL GA by U/S 13 w + 4 d ALMA by U/S: 02/10/2025 Assigned: based on the LMP, selected on 07/05/2024 Assigned GA 13 w + 2 d Assigned ALMA: 02/12/2025 General Evaluation Cardiac activity present Placenta: posterior Cord vessels: 3 vessel cord Amniotic fluid: normal amount Biometry Standard FHR 149 bpm CRL 74.2 mm 13w 4d 63% [facility]lock First Trimester Anatomy Calvarium: normal Falx cerebri: normal Choroid plexus: normal Profile: normal Nasal bone: normal Retronasal triangle: normal Maxilla: normal Mandible: normal Nuchal translucency: Unremarkable Situs: normal Cardiac position: normal Cardiac axis: normal 4-chamber view: normal 4-chamber view with color: normal 7-iutvip-mpwajza view: normal Abdominal cord insertion: normal Stomach: normal Kidneys: normal Color doppler of renal vessels: normal Bladder: normal Color doppler of perivesical umbilical arteries: normal Vertebral alignment: normal Arms: normal Hands: normal Legs: normal Feet: normal Maternal Structures Uterus / Cervix Uterus: Visualized Ovaries / Tubes / Adnexa Rt ovary: Visualized Lt ovary: Visualized Performed By: Jannette Fournier RDMS Read By: Comfort Washington M.D. MATERNAL MEDICINE [facility] Radiology Study observation (narrative) [facility] HBV surface Ag Ser Qlon 07-22 HBV surface Ag Ql (S) Negative Normal Negative [facility] Comment on above: Order Comment: Speci men Type: BLOOD SPECIMENOrdering Facility: [facility] Address: [address] [place] [address] Performed By: #### 5 195-3, 02925-6, 27309-0 ####[facility] LABCLIA [id number] [address] [place] HCV Ab Ser Qlon 08-09-2024 HCV Ab Ql (S) Negative Normal Negative [facility] Comment on above: Order Comment: Speci men Type: BLOOD SPECIMENOrdering Facility: [facility] Address: [address] [place] [address] Result Comment: The result suggests no evidence of infection with Hepatitis C virus. Should recent infection be suspected, repeat testing may be considered 4-6 weeks after this draw. Performed By: #### 1 6128-1 ####[facility] LABIA [id number] [place] [address] [place] HIV 1+2 Ab IA Qlon 5 HIV 1 and 2 Ab IA.rapid Nom (S/P/Bld) Normal [facility] Comment on above: Order Comment: Speci men Type: BLOOD SPECIMENOrdering Facility: [facility] Address: [address] [place] [address] Result Comment: Test not indicated. Performed By: #### 5 195-3, 81787-7, 73958-1 ####[facility] [id number] [address] [place] HIV 1+2 Ab+HIV1 p24 Ag IA Ql Non-Reactive Normal Nonreactive [facility] Comment on above: Order Comment: Speci men Type: BLOOD SPECIMENOrdering Facility: [facility] Address: [address] [place] [address] Performed By: #### 5 195-3, 38565-1, 68840-3 ####[facility] [id number] [address] [place] HIV immunoassay testing algorithm interpretation (S/P/Bld) [Interp] Normal [facility] Comment on above: Order Comment: Speci men Type: BLOOD SPECIMENOrdering Facility: [facility] Address: [address] [place] [address] Result Comment: No e vidence of HIV-1 or HIV-2 infection. Should recent infection be suspected, repeat testing may be considered 2-3 weeks after this draw. [place] Rev. Code 3701.243(E): This information has been disclosed to you from confidential records protected from disclosure by state law. You shall make no further disclosure of this information without the specific, written, and informed release of the individual to whom it pertains or as otherwise permitted by state law. A general authorization for the release of medical or other information is not sufficient for the purpose of the release of HIV test results or diagnoses. Performed By: #### 5 195-3, 94298-7, 97622-8 ####[facility] [id number] [address] [place] HbA1c (Bld)on 08-09-2024 Average glucose Estimated from glycated hemoglobin (Bld) [Mass/Vol] 85 mg/dL Normal [facility] Comment on above: Order Comment: Speci men Type: BLOOD SPECIMENOrdering Facility: [facility] Address: [address] [place] [address] Result Comment: eAG: (Estimated average glucose) is a calculated value from HgbA1c and is medicare sales representative of the average blood glucose level in the last 2-3 month period. Performed By: #### 5 5454-3 ####[facility] [id number] [address] [place] [facility] HbA1c (Bld) [Mass fraction] 4.6 % Normal 4.3-5.6 [facility] Comment on above: Order Comment: Speci men Type: BLOOD SPECIMENOrdering Facility: [facility] Address: [address] [place] [address] Result Comment: Amer ican Diabetes Association guidelines indicate that patients with HgbA1c in the range 5.7-6.4% are at increased risk for development of diabetes, and intervention by lifestyle modification may be beneficial. HgbA1c greater or equal to 6.5% is considered diagnostic of diabetes. Performed By: #### 5 5454-3 ####[facility] [id number] [place] [id number] [place] [id number] PLUSon 08-09-2024 Cell-free DNA./Cell-free DNA.total Dosage of chromosome-specific cfDNA (cfDNA) [Molar fraction] 20% Normal [facility] Comment on above: Order Comment: Speci men Type: BLOOD SPECIMENOrdering Facility: [facility] Address: [address] [place] [address] Performed By: #### M AT21 ####[facility] LABCLIA [id number] [place] [address] Chr 13+18+21+X+Y aneuploidy Dosage of chromosome-specific cfDNA Ql (cfDNA) Negative Normal [facility] Comment on above: Order Comment: Speci men Type: BLOOD SPECIMENOrdering Facility: [facility] Address: [address] [place] [address] Performed By: #### M AT21 ####[facility] LABCLIA [id number] [place] [address] Chr 21 trisomy Dosage of chromosome-specific cfDNA Ql (cfDNA) Negative Normal [facility] Comment on above: Order Comment: Speci men Type: BLOOD SPECIMENOrdering Facility: [facility] Address: [address] [place] [address] Performed By: #### M AT21 ####[facility] LABCLIA [id number] [place] [address] Chr X and Y aneuploidy risk Sequencing Ql (cfDNA) [Interp] Not detected Normal [facility] Comment on above: Order Comment: Speci men Type: BLOOD SPECIMENOrdering Facility: [facility] Address: [address] [place] [address] Result Comment: Not Detected Not Detected Performed By: #### M AT21 ####[facility] LABCLIA [id number] [place] [address] Citation Javid (Reference lab test) Comment Normal [facility] Comment on above: Order Comment: Speci men Type: BLOOD SPECIMENOrdering Facility: [facility] Address: [address] [place] [address] Result Comment: 1. P reyes LE, et al. Bailey Med. 2012;14(3):296-305. 2. Carlos GRANT et al. Prenat Diag. 2013;33(6):591-597. 3. Joel C et al. Clin Chem. 2015 Apr;61(4):608-616. 4. Irlanda LE, et al. Bailey Med. 2011;13(11):913-920. 5. ACOG/SMFM Practice Bulletin No. 226, Nov 2019. Performed By: #### M AT21 ####[facility] LABCLIA [id number] [place] [address] Gestational age Estimated from conception date Tavarez Normal [facility] Comment on above: Order Comment: Speci men Type: BLOOD SPECIMENOrdering Facility: [facility] Address: [address] [place] [address] Performed By: #### M AT21 ####[facility] LABCLIA [id number] [place] [address] GESTATIONALAGE AGE > OR = 9W Yes Normal [facility] Comment on above: Order Comment: Speci men Type: BLOOD SPECIMENOrdering Facility: [facility] Address: [address] [place] [address] Performed By: #### M AT21 ####[facility] LABCLIA [id number] [place] [id number] Laboratory comment Javid (Report) Comment Normal [facility] Comment on above: Order Comment: Speci men Type: BLOOD SPECIMENOrdering Facility: [facility] Address: [address] [place] [address] Result Comment: The MaterniT(R) 21 PLUS laboratory-developed test (LDT) analyzes circulating cell-free DNA from a maternal blood sample. This test is used for screening purposes and not diagnostic. Clinical correlation is recommended. Validation data on twin pregnancies is limited and the ability of this test to detect aneuploidy in higher multiple gestations has not yet been validated. Performed By: #### M AT21 ####[facility] LABCLIA [id number] [place] [address] director software development name Nom (Provider) Comment Normal [facility] Comment on above: Order Comment: Speci men Type: BLOOD SPECIMENOrdering Facility: [facility] Address: [address] [place] [address] Result Comment: This specimen showed an expected representation of chromosome 21, 18 and 13 material. Clinical correlation is suggested. Comment José Miguel Haskins MD, PhD, Director, [employer] Performed By: #### M AT21 ####[facility] LABCLIA [id number] [place] [address] LIMITATIONS OF THE TEST Comment Normal [facility] Comment on above: Order Comment: Speci men Type: BLOOD SPECIMENOrdering Facility: [facility] Address: [address] [place] [address] Result Comment: Kaitlynn irwin the results of these tests are highly reliable, discordant results, including inaccurate sex prediction, may occur due to placental, maternal, or mosaicism or neoplasm; vanishing twin; prior maternal organ transplant; or other causes. These tests are screening tests and not diagnostic; they do not replace the accuracy and precision of diagnosis with CVS or amniocentesis. A patient with a positive test result should be referred for genetic counseling and offered invasive diagnosis for confirmation of test results.[5] The results of this testing, including the benefits and limitations, should be discussed with a qualified healthcare provider. management decisions, including termination of the , should not be based on the results of these tests alone. The healthcare provider is responsible for the use of this information in the management of their patient. Sex chromosomal aneuploidies are not reportable for known multiple gestations. A negative result does not ensure an unaffected nor does it exclude the possibility of other chromosomal abnormalities or defects which are not a part of these tests. An uninformative result may be reported, the causes of which may include, but are not limited to, insufficient sequencing coverage, noise or artifacts in the region, amplification or sequencing bias, or insufficient fraction. These tests are not intended to identify pregnancies at risk for neural tube defects or ventral wall defects. Testing for whole chromosome abnormalities (including sex chromosomes) and for subchromosomal abnormalities could lead to the potential discovery of both and maternal genomic abnormalities that could have major, minor, or no, clinical significance. Evaluating the significance of a positive or a non-reportable result may involve both invasive testing and additional studies on the mother. Such investigations may lead to a diagnosis of maternal chromosomal or subchromosomal abnormalities, which on occasion may be associated with benign or malignant maternal neoplasms. These tests may not accurately identify triploidy, balanced rearrangements, or the precise location of subchromosomal duplications or deletions; these may be detected by diagnosis with CVS or amniocentesis. The ability to report results may be impacted by maternal BMI, maternal weight, maternal systemic lupus erythematosus (SLE) and/or by certain pharmaceutical agents such as low molecular weight heparin (for example: Lovenox(R), Xaparin(R), Clexane(R) and Fragmin(R)). Performed By: #### M AT21 ####[facility] LABCLIA [id number] [place] [address] Monosomy X risk Dosage of chromosome-specific cfDNA Ql (Plasma cell-free+WBC DNA) [Interp] Not detected Normal [facility] Comment on above: Order Comment: Laurel garcia Type: BLOOD SPECIMENOrdering Facility: [facility] Address: [address] [place] [address] Performed By: #### M AT21 ####[facility] LABCLIA [id number] [place] [address] NEGATIVE PREDICTIVE VALUE Note Normal [facility] Comment on above: Order Comment: Laurel garcia Type: BLOOD SPECIMENOrdering Facility: [facility] Address: [address] [place] [address] Result Comment: The Negative Predictive Value (NPV) for trisomy 21, 18, and 13 is greater than 99%. The NPV for SCA and ESS cannot be calculated as SCA and ESS are only reported when an abnormality is detected. Performed By: #### M AT21 ####[facility] LABCLIA [id number] [place] [address] PERFORMANCE CHARACTERISTICS Note Normal [facility] Comment on above: Order Comment: Laurel garcia Type: BLOOD SPECIMENOrdering Facility: [facility] Address: [address] [place] [address] Result Comment: ! Sex ! Accuracy: 99.4% ! ! ! ! Region (associated syndrome) ! Est. Sens# ! Est. Spec ! ! ! ! Trisomy 21 (Down Syndrome) ! 99.1% ! 99.9% ! ! ! ! Trisomy 18 (Hummel Syndrome) ! >99.9% ! 99.6% ! ! ! ! Trisomy 13 (Patau Syndrome) ! 91.7% ! 99.7% ! ! ! ! Sex Chromosome Aneuploidies## ! 96.2% ! 99.7% ! ! ! * As reported in [facility] database nstd37 [https://www.ncbi.nlm.nih.gov/dbvar/studies/nstd37/ ] # Estimated Sensitivity. Sensitivity estimated across the observed size distribution of each syndrome [per ISCA database nstd37] and across the range of fractions observed in routine clinical NIPT. Actual sensitivity can also be influenced by other factors such as the size of the event, total sequence counts, amplification bias, or sequence bias. ## Tavarez gestation only. Performed By: #### M AT21 ####[facility] LABCLIA [id number] [place] [address] POSITIVE PREDICTIVE VALUE N/A Normal [facility] Comment on above: Order Comment: Speci men Type: BLOOD SPECIMENOrdering Facility: [facility] Address: [address] [place] [address] Performed By: #### M AT21 ####[facility] LABCLIA [id number] [place] [id number] Reference Lab Test Method Comment Normal [facility] Comment on above: Order Comment: Speci men Type: BLOOD SPECIMENOrdering Facility: [facility] Address: [address] [place] [address] Result Comment: See Notes Circulating cell-free DNA was purified from the plasma component of maternal blood. The extracted DNA was then converted into a genomic DNA library for aneuploidy analysis of chromosomes 21, 18, and 13 via next generation sequencing.[1] Optional findings based on the test order include sex chromosome aneuploidy (SCA)[2], and enhanced sequencing series (ESS)[3], which will only be reported on as an additional finding when an abnormality is detected. SCA testing includes information on X and Y representation, while ESS testing includes deletions in selected regions (22q, 15q, 11q, 8q, 5p, 4p, 1p) and trisomy of chromosomes 16 and 22. Performed By: #### M AT21 ####[facility] LABCLIA [id number] [place] [address] Service comment (Unsp spec) [Interp] Comment Normal [facility] Comment on above: Order Comment: Speci men Type: BLOOD SPECIMENOrdering Facility: [facility] Address: [address] [place] [address] Result Comment: See Notes [employer] is a subsidiary of [employer], using the brand [employer]. This test was developed and its performance characteristics determined by [employer]. It has not been cleared or approved by the Food and Drug Administration. This laboratory is certified under the Clinical Laboratory Improvement Amendments (CLIA) as qualified to perform high complexity clinical laboratory testing and accredited by the [employer] ([employer]). If there is future clinical need for adding MaterniT GENOME testing, this specimen will be available until term. [facility] samples will not be retained beyond [address] [facility] patients will have to send a new sample for re-sequencing ([facility] Test Code: 378480). Performed By: #### M AT21 ####[facility] LABCLIA [id number] [place] [address] Sex Dosage of chromosome-specific cfDNA Nom (cfDNA) Comment Normal [facility] Comment on above: Order Comment: Speci men Type: BLOOD SPECIMENOrdering Facility: [facility] Address: [address] [place] [address] Result Comment: Cons istent with Female Performed By: #### M AT21 ####[facility] LABCLIA [id number] [place] [address] Test performance information Javid (Unsp spec) Comment Normal [facility] Comment on above: Order Comment: Speci men Type: BLOOD SPECIMENOrdering Facility: [facility] Address: [address] [place] [address] Result Comment: The performance characteristics of the MaterniT(R) 21 PLUS laboratory-developed test (LDT) have been determined in a clinical validation study with women at increased risk for chromosomal aneuploidy.[1-4] Performed By: #### M AT21 ####[facility] LABCLIA [id number] [place] [address] Trisomy 13 risk Dosage of chromosome-specific cfDNA Ql (cfDNA) [Interp] Negative Normal [facility] Comment on above: Order Comment: Speci men Type: BLOOD SPECIMENOrdering Facility: [facility] Address: [address] [place] [address] Performed By: #### M AT21 ####[facility] LABCLIA [id number] [place] [address] Trisomy 18 risk Dosage of chromosome-specific cfDNA Ql (Plasma cell-free+WBC DNA) [Interp] Negative Normal [facility] Comment on above: Order Comment: Speci men Type: BLOOD SPECIMENOrdering Facility: [facility] Address: [address] [place] [address] Performed By: #### M AT21 ####[facility] LABCLIA [id number] [place] [address] RUBELLA IGG ANTIBODYon 08-09 RUBELLA IGG AB, QUAL Positive Normal Positive [facility] Comment on above: Order Comment: Speci men Type: BLOOD SPECIMENOrdering Facility: [facility] Address: [address] [place] [address] Result Comment: The result suggests recent or past exposure to Rubella virus or history of Rubella vaccination. Positive result may also be seen due to presence of passively-transferred antibodies. Please correlate with patient's history. Performed By: #### R UBIGG ####[facility] LABCLIA [id number] [place] [address] [place] Reagin and Treponema pallidu m IgG and IgM [Interp]on 08-09-2024 T. pallidum IgG+IgM IA Ql (S) Non-Reactive Normal Nonreactive [facility] Comment on above: Order Comment: Speci men Type: BLOOD SPECIMENOrdering Facility: [facility] Address: [address] [place] [address] Performed By: #### 5 195-3, 61752-7, 94631-8 ####[facility] LABCLIA [id number] [place] [address] [place] Reagin+T pallidum IgG+IgM Se rPl-Impon 08-09-2024 Reagin and Treponema pallidum IgG and IgM [Interp] Cannot exclude recent Treponemal infection if specimen collected within 7-10 days after appearance of suspect lesions or 2-3 weeks after an exposure. Clinical correlation is required. Normal [facility] Comment on above: Order Comment: [facility] Type: BLOOD SPECIMENOrdering Facility: [facility] Address: [address] [place] [address] Performed By: #### 5 195-3, 34310-0, 48720-3 ####[facility] LABCLIA [id number] [place] [address] [place] TYPE + SCREEN PRENATALon ABO O Normal [facility] Comment on above: Order Comment: Speci men Type: BLOOD SPECIMENOrdering Facility: [facility] Address: [address] [place] [address] Performed By: #### T SPN ####CC [facility] BLOOD BANKIA [id number] [place] [address] [place] Rh Nom (Bld) Positive Normal [facility] Comment on above: Order Comment: Speci men Type: BLOOD SPECIMENOrdering Facility: [facility] Address: [address] [place] [address] Result Comment: Jessica ected result: Previously reported as Invalid on 08/09/2024 at 8:07 PM EDT. Performed By: #### T SPN ####CC [facility] BLOOD BANKIA [id number] [place] [address] [place] TYPE AND SCREEN EXPIRATION 08/12/2024 23:59 Normal [facility] Comment on above: Order Comment: Speci men Type: BLOOD SPECIMENOrdering Facility: [facility] Address: [address] [place] [address] Performed By: #### T SPN ####CC [facility] BLOOD BANKCLIA [id number] [place] [address] [place] Bacteria Ur Culton 5 Bacteria identified Cx Nom (U) ORGANISM ID: 1 10,000 -<50,000 CFU/ml Normal urogenital debra Normal [facility] Comment on above: Performed By: #### 6 30-4 ####[facility] LABCLIA [id number] [place] [address] [place] C. trachomatis+N. gonorrhoea e DNA MATTHEW+probe Ql (Unsp spec)on 07-05-2024 C. trachomatis rRNA MATTHEW+probe Ql (Unsp spec) Not detected Normal Not detected [facility] Comment on above: Order Comment: Speci men Type: SWABOrdering Facility: [facility] Address: [address] [place] [address] Performed By: #### T RVAMP, 00884-0 ####[facility] LABCLIA [id number] [address] N. gonorrhoeae rRNA MATTHEW+probe Ql (Unsp spec) Not detected Normal Not detected [facility] Comment on above: Order Comment: Speci men Type: SWABOrdering Facility: [facility] Address: [address] [place] [address] Performed By: #### T RVAMP, 05479-2 ####[facility] LABCLIA [id number] [address] OF [facility] Kwame 07-05-2024 YUDI Telephone (OBGYWM) -- ALBERTO WHITAKER ([id number]) 1990 F Date Time Provider Department 07/05/24 NOEMI AIKEN OBJACQUELINEWRichard During your visit today, we recorded the following information about you: Bianca Larkin RN 07/05/2024 10:48 AM Signed Anatomy US pending. Please file and will sent to PSS to contact Pt to get scheduled as PSS (Kelle as spot on hold for Pt). GERSON Rice Renee, APRN.CNP 07/05/2024 11:13 AM Signed Order filed. SHRUTHI Enamorado Tara, RN 07/05/2024 11:15 AM Signed PSS notified order is entered and scheduled.Bianca Larkin RN Allergies As of Date: 07/05/2024 Noted Allergy Reaction PENICILLINS 06/16/2023 14 - Other: See Comments Comments: childhood reaction-pt unaware of reaction type Date Reviewed: 07/05/2024 Reviewed by: Kaykay Jarrett LPN - Fully Assessed Reason for Visit: Orders [681] Primary Visit Diagnosis:Encounter for supervision of normal in multigravida (HCC) [Z34.80] Order(s):OBSTETRIC ULTRASOUND [facility] [[id number]] Order #: [id number]: 1 FUTURE Prescriptions as of 07/05/2024 - aspirin, enteric coated (ECOTRIN LOW STRENGTH) 81 mg EC tablet Take 1 tablet by mouth once daily. - vitamin D3-folic acid 125 mcg (5,000 unit)-1 mg tab Take by mouth once daily. - VIT 55-BJGA-SODZZ-DHA ORAL Take 1 tablet by mouth once daily. - acetaminophen (TYLENOL) 325 mg cap Take by mouth every 6 hours as needed for pain. 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 Confirmation of intrauterine . Confirmation of cardiac activity. Estimation of gestational age Impression cardiac activity is visualized, CRL is appropriate for clinical dates, corresponding to ALMA 02/12/25 Recommendations Follow up for 1st Trimester Anatomy with Nuchal Translucency as clinically indicated if desired. Method Transvaginal ultrasound examination. View: Adequate visualization Tavarez . Number of embryos: 1 Dating LMP on: 05/08/2024 GA by LMP 8 w + 2 d ALMA by LMP: 02/12/2025 Ultrasound examination on: 07/05/2024 GA by U/S based upon: CRL GA by U/S 8 w + 1 d ALMA by U/S: 02/13/2025 Assigned: based on the LMP, selected on 07/05/2024 Assigned GA 8 w + 2 d Assigned ALMA: 02/12/2025 Biometry Standard FHR 159 bpm CRL 16.8 mm 8w 1d 55% Hadlock Assessment Gestational sac: visualized Location: intrauterine Yolk sac: visualized Embryo: visualized CRL 16.8 mm 8w 1d 55% Hadlock Cardiac activity: present FHR 159 bpm General Evaluation Cardiac activity present. FHR 159 bpm Performed By: Noemi Aiken CNP Read By: Noemi Aiken CNP MATERNAL MEDICINE [facility] Radiology Study observation (narrative) [facility] TRICHOMONAS VAGINALIS NAATon 07-05-2024 T. vaginalis DNA MATTHEW+probe Ql (Unsp spec) Not detected Normal Not detected [facility] Comment on above: Order Comment: Speci men Type: SWABOrdering Facility: [facility] Address: [address] [place] [address] Performed By: #### T RVAMP, 21712-4 ####[facility] LABCLIA [id number] [place] [address] [place] 25(OH)D3 [facility]-ncon 2024 25-hydroxyvitamin D3 [Mass/Vol] 34.0 ng/mL Normal 31.0-80.0 [facility] Comment on above: Order Comment: Speci men Type: BLOOD SPECIMENOrdering Facility: [facility] Address: [address] [place] [address] Result Comment: Clas sification of 25 [place] Vitamin D status: Deficiency/Insufficiency: < or = 30 ng/ml. Sufficiency/Optimal Levels: 31-80 ng/mL Toxicity: > 100 ng/mL. Test performed by chemiluminescent immunoassay. Performed By: #### 1 989-3 ####[facility] LABCLIA [id number] [address] [address] [place] B-[facility]CG [facility] HCG.beta subunit Qn m[IU]/mL Normal <5.0 [facility] Comment on above: Order Comment: Speci men Type: BLOOD SPECIMENOrdering Facility: [facility] Address: [address] [place] [address] Result Comment: Negilan tianastasia Performed By: #### 2 1198-7 ####[facility] LABCLIA [id number] [place] SHERIFF [id number] [place] [address] CNOVon 05-24-2024 CNOV Office Visit (OBGYWM ) -- ALBERTO WHITAKER ([id number]) 1990 F Date Time Provider Department 05/24/24 2:45 PM RAMÓN SNYDER OBGYWM During your visit today, we recorded the following information about you: Blood pressure Weight Height Last Period 114 78.5 kg 1.727 m 05/08/24 Ramón Snyder APRN.ELECTRONICS TECHNOLOGY DEPARTMENT CHAIR 05/24/2024 3:38 PM Signed Project Leader offered: Patient declines. Alberto is a 34 year old who presents for an annual gynecologic exam without complaints. Had an episode of bleeding for 26 consecutive days in March - flow ranging from light to moderate. Last 2 cycles were normal. Recently graduated from [employer]. Working at [employer] in [employer]. Had loss around 17 weeks gestation - Usama. Wants to become again. Still get period: Yes LMP: 05/08/2024 Menses: cycles every 30 days and 5-6 days of flow Menstrual flow: Moderate Bleeding amount bothersome: No Bleeding between periods: Yes, 1 episode of AUB in March Sexually active: Yes Contraception: None HPV vaccine: No HPV:N/A Last pap smear: 09/23/2021 normal History of abnormal pap: Yes Colposcopy: Yes Bothersome pelvic pain: No Last mammogram: never OB History Gravida5 Para4 Term3 Preterm1 AB1 Living3 SAB1 IAB0 Ectopic0 Multiple0 Live Births3 FAMILY HISTORY Problem Relation Age of Onset Breast Cancer Mother 52 No Known Problems Father No Known Problems Sister No Known Problems Brother Breast Cancer Maternal Grandmother 70 No Known Problems Maternal Grandfather No Known Problems Paternal Grandmother No Known Problems Paternal Grandfather No Known Problems Son No Known Problems Son No Known Problems Daughter SOCIAL HISTORY Social History Tobacco Use Smoking status: Never Smokeless tobacco: Never Vaping Use Vaping status: Never Used Substance Use Topics Alcohol use: Not Currently Drug use: Never REVIEW OF SYSTEMS Abdomen: No abdominal pain, nausea, vomiting, diarrhea, or constipation. No bloating, early satiety, indigestion, or increased flatulence. Bladder: No dysuria, gross hematuria, urinary frequency, urinary urgency, or incontinence. Breast: No breast lumps, nipple d/c, overlying skin changes, redness or skin retraction. Allergies and current medication updated:Yes SENSITIVE EXAM: The sensitive examination was discussed with the Patient or Patient's Authorized Phlebotomy Services Technician. As applicable, any other physician, advance practice provider, medical student, or other health professional student that will be observing or involved in the sensitive examination for educational or training purposes was discussed with the Patient or Authorized Phlebotomy Services Technician. The Patient or Authorized Phlebotomy Services Technician has agreed to proceed with the sensitive examination. (Sensitive examination includes inspection and/or palpation of the breasts, pelvis, prostate and anorectal regions). EXAM: BP 114/62 Ht 5' 8 (1.73m) Wt 173 lb (78.5kg) LMP 05/08/2024 BMI 26.31 kg/(m2). GENERAL: pleasant, female in no apparent distress HEENT: Normocephalic, atraumatic, mucus membranes moist, and no lesions NECK: Supple, full range of motion, no adenopathy, and thyroid normal DERMATOLOGY: Normal, without lesions, non-icteric, and non-hirsute BREAST: soft, non-tender, symmetric, no dominant mass, normal nipple-areolar complex, no lymphadenopathy, and no nipple discharge CHEST: Normal inspiratory effort ABDOMEN: soft, non-tender, and no masses PELVIC: external genitalia normal, normal Bartholin's glands, urethra, Brimfield's glands, no vulvar lesions, no cervical lesions, good vaginal support, physiologic discharge present, normal appearing perineal body and perianal region BIMANUAL: uterus normal size, shape and consistency, no adnexal masses, and non-tender RECTOVAGINAL: deferred. NEURO: alert and oriented x3,exam grossly non-focal EXTREMITIES: normal ASSESSMENT/PLAN: 1) Health maintenance: Pap done with HPV. Mammogram starting age 40. Nutrition, exercise and routine health maintenance exams reviewed. HPV vaccine: completed series 2) Contraception: none. Contraceptive options reviewed and information provided. 3) STD screening: Declined STD check. 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 Normal [facility] HIGH RISK HUMAN PAPILLOMA JIMENA (HPV), PCR FOR DETECTION AND GENOTYPINGon 05-24-2024 HPV 16 Ag Ql (Unsp spec) Not detected Normal Not detected [facility] Comment on above: Order Comment: Speci men Type: FLUID SPECIMENOrdering Facility: [facility] Address: [address] [place] [address] Performed By: #### H PVHRT ####[facility] LABCLIA [id number] [place] [address] [place] HPV 18 Ag Ql (Unsp spec) Not detected Normal Not detected [facility] Comment on above: Order Comment: Speci men Type: FLUID SPECIMENOrdering Facility: [facility] Address: [address] [place] [address] Performed By: #### H PVHRT ####[facility] LABCLIA [id number] [place] [address] [place] HPV 31+33+35+39+45+51+5 2+56+58+59+66+68 DNA MATTHEW+probe Ql (Cvx) Not detected Normal Not detected [facility] Comment on above: Order Comment: Speci men Type: FLUID SPECIMENOrdering Facility: [facility] Address: [address] [place] [address] Result Comment: High Risk HPV Other Type includes HPV types 31, 33, 35, 39, 45, 51, 52, 56, 58, 59, 66 and 68. Performed By: #### H PVHRT ####[facility] LABIA [id number] [address] OF [place] HbA1c (Bld)on 05-24-2024 Average glucose Estimated from glycated hemoglobin (Bld) [Mass/Vol] 97 mg/dL Normal [facility] Comment on above: Order Comment: Speci men Type: BLOOD SPECIMENOrdering Facility: [facility] Address: [address] [place] [address] Result Comment: eAG: (Estimated average glucose) is a calculated value from HgbA1c and is medicare sales representative of the average blood glucose level in the last 2-3 month period. Performed By: #### 5 5454-3 ####[facility] LABIA [id number] [address] STATES OF [facility] HbA1c (Bld) [Mass fraction] 5.0 % Normal 4.3-5.6 [facility] Comment on above: Order Comment: Speci men Type: BLOOD SPECIMENOrdering Facility: [facility] Address: [address] [place] [address] Result Comment: Amer [place] Diabetes Association guidelines indicate that patients with HgbA1c in the range 5.7-6.4% are at increased risk for development of diabetes, and intervention by lifestyle modification may be beneficial. HgbA1c greater or equal to 6.5% is considered diagnostic of diabetes. Performed By: #### 5 5454-3 ####[facility] LABCLIA [id number] [address] [place] [address] [place] PAP TESTon 05-24-2024 ADEQUACY Normal [facility] Comment on above: Order Comment: Speci men Type: FLUID SPECIMENOrdering Facility: [facility] Address: [address] [place] [address] Result Comment: Sati sfactory for interpretation. Obscuring inflammation Transformation zone present Performed By: #### L [id number] ####[facility] LABCLIA [id number] [address] [place] [address] [place] CASE REPORT Normal [facility] Comment on above: Order Comment: Speci men Type: FLUID SPECIMENOrdering Facility: [facility] Address: [address] [place] [address] Result Comment: Gyne cologic Cytology Report Case: [id number] Authorizing Provider: Ramón Snyder APRN.ELECTRONICS TECHNOLOGY DEPARTMENT CHAIR Collected: 05/24/2024 03:26 PM Ordering Location: OB/Gynecology Received: 05/24/2024 04:37 PM First Screen: Aramouni, Neha, CT, ASCP Specimen: Pap Test, ThinPrep, Cervix Performed By: #### L [id number] ####[facility] LABCLIA [id number] [address] [place] [address] [place] CLINICAL HISTORY, CYTOLOGY, CREDIT ASSOCIATE Routine Exam Normal [facility] Comment on above: Order Comment: Speci men Type: FLUID SPECIMENOrdering Facility: [facility] Address: [address] [place] [address] Performed By: #### L [id number] ####[facility] LABCLIA [id number] [address] [place] [address] [place] FINAL PERFORMING LAB Normal [facility] Comment on above: Order Comment: Speci men Type: FLUID SPECIMENOrdering Facility: [facility] Address: [address] [place] [address] Result Comment: Tech nical component, quality assurance consultant screening performed at [facility], [facility] [place] [address] CLIA# [id number] Diagnostic interpretation performed at [facility], [address] [place], [place] [address] CLIA# [id number] Services Program Manager: Vasquez Dejesus M.D. Performed By: #### L [id number] ####[facility] LABCLIA [id number] [place] [id number] [place] INTERPRETATION, CYTOLOGY, CREDIT ASSOCIATE Normal [facility] Comment on above: Order Comment: Speci men Type: FLUID SPECIMENOrdering Facility: [facility] Address: [address] [place] [address] Result Comment: Nega tive for intraepithelial lesion or malignancy. at 0748 EDT Performed By: #### L [id number] ####[facility] LABCLIA [id number] [place] [address] [place] LMP 05/08/2024 Normal [facility] Comment on above: Order Comment: Speci men Type: FLUID SPECIMENOrdering Facility: [facility] Address: [address] [place] [address] Performed By: #### L [id number] ####[facility] LABCLIA [id number] [place] [id number] [place] PAP DISCLAIMER COMMENT The Pap Smear is a screening test for cervical cancer. False negative results occur with all screening tests, emphasizing the need for rescreening at recommended intervals, and clinical correlation. Normal [facility] Comment on above: Order Comment: Speci men Type: FLUID SPECIMENOrdering Facility: [facility] Address: [address] [place] [address] Performed By: #### L [id number] ####[facility] LABCLIA [id number] [place] [id number] [place] TSH SerPl-aCncon 05-24-2024 TSH Qn 1.030 m[IU]/L Normal 0.270-4.200 [facility] Comment on above: Order Comment: Speci men Type: BLOOD SPECIMENOrdering Facility: [facility] Address: [address] [place] [address] Result Comment: If t he patient is , TSH reference range varies by gestational period: First Trimester (weeks 9-12): 0.180-2.990 mIU/L Second Trimester: 0.110-3.980 mIU/L Third Trimester: 0.480-4.710 mIU/L Jefferson Vanessa et al. A Practical Approach for the Verifications and Determination of Site- and Trimester-Specific Reference Intervals for Thyroid Function tests in . Thyroid, 2019:29:3:412-420. Rupesh Irwin et al. 2017 Guidelines of the [place] Thyroid Association for the Diagnosis and Management of Thyroid Disease during and the . Thyroid, 2017:27:3:315-389. Performed By: #### 3 016-3 ####[facility] LABCLIA [id number] [place] [address] [place] POCT SARS-COV-2/FLU/RSV PCR SYMPTOMATIC manually resultedon 02-08-2024 FLUAV RNA MATTHEW+probe Ql (Resp) Not detected Not Detected [facility] Work Phone: FLUBV RNA MATTHEW+probe Ql (Resp) Not detected Not Detected [facility] Work Phone: Interpretation and review of laboratory results Normal [facility] Work Phone: RSV RNA MATTHEW+probe Ql (Resp) Not detected Not Detected [facility] Work Phone: SARS-CoV-2 (COVID-19) RNA MATTHEW+probe Ql (Resp) Not detected Not Detected [facility] Work Phone: [facility] Work Phone: XR CHEST 2 VIEWSon 4 XR CHEST 2 VIEWS Interpreted By: Donny Bateman, STUDY: XR CHEST 2 VIEWS; 02/08/2024 11:49 am INDICATION: Signs/Symptoms:cough. ,R05.1 Acute cough COMPARISON: None. ACCESSION NUMBER(S): [id number] ORDERING CLINICIAN: JEANETTE ALBARRAN FINDINGS: CARDIOMEDIASTINAL SILHOUETTE: Cardiomediastinal silhouette is normal in size and configuration. LUNGS: Lungs are clear. ABDOMEN: No remarkable upper abdominal findings. BONES: No acute osseous changes. IMPRESSION: 1. No evidence of acute cardiopulmonary process. MACRO: None Signed by: Donny Au 02/08/2024 12:53 PM Dictation workstation: [id number] [facility] XR Chest 2 Viewson 4 1. No evidence of ac med cardiopulmonary process. MACRO: None Signed by: Donny Au 02/08/2024 12:53 PM Dictation workstation: [id number] MMODAL Interpreted By: Donny Bateman, STUDY: XR CHEST 2 VIEWS; 02/08/2024 11:49 am INDICATION: Signs/Symptoms:cough. ,R05.1 Acute cough COMPARISON: None. ACCESSION NUMBER(S): [id number] ORDERING CLINICIAN: JEANETTE ALBARRAN FINDINGS: CARDIOMEDIASTINAL SILHOUETTE: Cardiomediastinal silhouette is normal in size and configuration. LUNGS: Lungs are clear. ABDOMEN: No remarkable upper abdominal findings. BONES: No acute osseous changes. [facility] MMODAL Donny Au MD - 02/08/2024 Interpreted By: Donny Au, STUDY: XR CHEST 2 VIEWS; 02/08/2024 11:49 am INDICATION: Signs/Symptoms:cough. ,R05.1 Acute cough COMPARISON: None. ACCESSION NUMBER(S): [id number] ORDERING CLINICIAN: JEANETTE ALBARRAN FINDINGS: CARDIOMEDIASTINAL SILHOUETTE: Cardiomediastinal silhouette is normal in size and configuration. LUNGS: Lungs are clear. ABDOMEN: No remarkable upper abdominal findings. BONES: No acute osseous changes. IMPRESSION: 1. No evidence of acute cardiopulmonary process. MACRO: None Signed by: Donny Au 02/08/2024 12:53 PM Dictation workstation: [id number] [facility] Work Phone: Radiology Study observation (narrative) [facility] Work Phone: XR Chest 2 ViewsOrdered By: Donny Au on 02-08-2024 [facility] Work Phone: Pathology Specimen OBon - PATH. Spec OB SEE PATHOLOGY REPORT Normal [facility] Comment on above: Order Comment: REDRA W. PREVIOUS SPECIMEN REJECTED DUE TO QNS. 09/19/23 1354 Haleigh Valdes. Result Comment: Spec imen submitted to Anatomical Pathology Department for testing. Performed By: #### L 300.3900 #### [facility] [address] [place], [address] CBC W/Diff, Automatedon - Absolute Lymph 1.76 X10 3/uL Normal 0.83-4.51 [facility] Comment on above: Performed By: #### L 100.0100 #### [facility] [address] [place], [address] Absolute Neut 7.1 X10 3/uL Normal 2.0-7.7 [facility] Comment on above: Performed By: #### L 100.0100 #### [facility] [address] [place], [address] Basophils/100 WBC (Bld) 0.2 % Normal 0-1 [facility] Comment on above: Performed By: #### L 100.0100 #### [facility] [address] [place], [address] Eosinophils/100 WBC (Bld) 0.5 % Normal 0-5 [facility] Comment on above: Performed By: #### L 100.0100 #### [facility] [address] [place], [address] Erythrocyte distribution width (RBC) [Ratio] 14.1 % Normal 11.6-14.6 [facility] Comment on above: Performed By: #### L 100.0100 #### [facility] [address] [place], [address] Hematocrit (Bld) [Volume fraction] 31.2 % Low 37-47 [facility] Comment on above: Performed By: #### L 100.0100 #### [facility] [address] [place], [address] Hemoglobin (Bld) [Mass/Vol] 10.9 g/dL Low 12.0-15.0 [facility] Comment on above: Performed By: #### L 100.0100 #### [facility] [address] [place], [address] IG% 0.700 Normal 0.0-0.9 [facility] Comment on above: Result Comment: IG% - Immature Granulocytes (promyelocytes, myelocytes and metamyelocytes) > 1% indicates that a LEFT SHIFT is Present. Performed By: #### L 100.0100 #### [facility] [address] [place], [address] Lymphocytes/100 WBC (Bld) 18.5 % Low 19-41 [facility] Comment on above: Performed By: #### L 100.0100 #### [facility] [address] [place], [address] MCH (RBC) [Entitic mass] 31.3 pg Normal 27.0-32.0 [facility] Comment on above: Performed By: #### L 100.0100 #### [facility] [address] [place], [address] MCHC (RBC) [Mass/Vol] 34.9 g/dL Normal 32-36 [facility] Comment on above: Performed By: #### L 100.0100 #### [facility] [address] [place], [address] MCV (RBC) [Entitic vol] 89.7 fL Normal 81-99 [facility] Comment on above: Performed By: #### L 100.0100 #### [facility] [address] [place], [address] Monocytes/100 WBC (Bld) 5.6 % Normal 0-10 [facility] Comment on above: Performed By: #### L 100.0100 #### [facility] [address] [place], [address] Neutrophils/100 WBC (Bld) 74.5 % High 47-70 [facility] Comment on above: Performed By: #### L 100.0100 #### [facility] [address] [place], [address] Nucleated RBC (Bld) [#/Vol] 0 10*3/uL Normal 0-5 [facility] Comment on above: Performed By: #### L 100.0100 #### [facility] [address] [place], [address] Platelet mean volume (Bld) [Entitic vol] 10.3 fL Normal 6.2-12.0 [facility] Comment on above: Performed By: #### L 100.0100 #### [facility] [address] [place], [address] Platelets (Bld) [#/Vol] 194 10*3/uL Normal 150-450 [facility] Comment on above: Performed By: #### L 100.0100 #### [facility] [address] [place], [address] RBC (Bld) [#/Vol] 3.48 10*6/uL Low 4.2-5.4 [facility] Comment on above: Performed By: #### L 100.0100 #### [facility] [address] [place], [address] RDW SD 46.2 fl High 35.1-43.9 [facility] Comment on above: Performed By: #### L 100.0100 #### [facility] [address] [place], [address] WBC (Bld) [#/Vol] 9.5 10*3/uL Normal 4.4-11.0 [facility] Comment on above: Performed By: #### L 100.0100 #### [facility] [address] [place], [address] Absolute Lymph 1.38 X10 3/uL Normal 0.83-4.51 [facility] Comment on above: Performed By: #### L 300.3900 #### [facility] [address] [place], [address] Absolute Neut 11.0 X10 3/uL High 2.0-7.7 [facility] Comment on above: Performed By: #### L 300.3900 #### [facility] [place], [address] Basophils/100 WBC (Bld) 0.2 % Normal 0-1 [facility] Comment on above: Performed By: #### L 300.3900 #### [facility] [address] [place], [address] Eosinophils/100 WBC (Bld) 0.1 % Normal 0-5 [facility] Comment on above: Performed By: #### L 300.3900 #### [facility] [address] [place], [address] Erythrocyte distribution width (RBC) [Ratio] 13.9 % Normal 11.6-14.6 [facility] Comment on above: Performed By: #### L 300.3900 #### [facility] [address] [place], [address] Hematocrit (Bld) [Volume fraction] 31.4 % Low 37-47 [facility] Comment on above: Performed By: #### L 300.3900 #### [facility] [address] [place], [address] Hemoglobin (Bld) [Mass/Vol] 10.7 g/dL Low 12.0-15.0 [facility] Comment on above: Performed By: #### L 300.3900 #### [facility] [address] [place], [address] IG% 0.500 Normal 0.0-0.9 [facility] Comment on above: Result Comment: IG% - Immature Granulocytes (promyelocytes, myelocytes and metamyelocytes) > 1% indicates that a LEFT SHIFT is Present. Performed By: #### L 300.3900 #### [facility] [address] [place], [address] Lymphocytes/100 WBC (Bld) 10.6 % Low 19-41 [facility] Comment on above: Performed By: #### L 300.3900 #### [facility] [address] [place], [address] MCH (RBC) [Entitic mass] 31.7 pg Normal 27.0-32.0 [facility] Comment on above: Performed By: #### L 300.3900 #### [facility] [address] [place], [address] MCHC (RBC) [Mass/Vol] 34.1 g/dL Normal 32-36 [facility] Comment on above: Performed By: #### L 300.3900 #### [facility] [address] [place], [address] MCV (RBC) [Entitic vol] 92.9 fL Normal 81-99 [facility] Comment on above: Performed By: #### L 300.3900 #### [facility] [address] [place], [address] Monocytes/100 WBC (Bld) 4.6 % Normal 0-10 [facility] Comment on above: Performed By: #### L 300.3900 #### [facility] [address] [place], [address] Neutrophils/100 WBC (Bld) 84.0 % High 47-70 [facility] Comment on above: Performed By: #### L 300.3900 #### [facility] [address] [place], [address] Nucleated RBC (Bld) [#/Vol] 0 10*3/uL Normal 0-5 [facility] Comment on above: Performed By: #### L 300.3900 #### [facility] [address] [place], [address] Platelet mean volume (Bld) [Entitic vol] 10.7 fL Normal 6.2-12.0 [facility] Comment on above: Performed By: #### L 300.3900 #### [facility] [address] [place], [address] Platelets (Bld) [#/Vol] 206 10*3/uL Normal 150-450 [facility] Comment on above: Performed By: #### L 300.3900 #### [facility] [address] [place], [address] RBC (Bld) [#/Vol] 3.38 10*6/uL Low 4.2-5.4 [facility] Comment on above: Performed By: #### L 300.3900 #### [facility] [address] [place], [address] RDW SD 47.3 fl High 35.1-43.9 [facility] Comment on above: Performed By: #### L 300.3900 #### [facility] [address] [place], [address] WBC (Bld) [#/Vol] 13.0 10*3/uL High 4.4-11.0 [facility] Comment on above: Performed By: #### L 300.3900 #### [facility] [address] [place], [address] Absolute Neut Normal 2.0-7.7 [facility] Comment on above: Result Comment: Canc elled via OM: Order edited - Discontinuing original order Performed By: #### L 300.3900 #### [facility] [address] [place], [address] HCT Normal 37-47 [facility] Comment on above: Result Comment: Canc elled via OM: Order edited - Discontinuing original order Performed By: #### L 300.3900 #### [facility] [address] [place], [address] HGB Normal 12.0-15.0 [facility] Comment on above: Result Comment: Canc elled via OM: Order edited - Discontinuing original order Performed By: #### L 300.3900 #### [facility] [address] [place], [address] MCH Normal 27.0-32.0 [facility] Comment on above: Result Comment: Canc elled via OM: Order edited - Discontinuing original order Performed By: #### L 300.3900 #### [facility] [address] [place], [address] MCHC Normal 32-36 [facility] Comment on above: Result Comment: Canc elled via OM: Order edited - Discontinuing original order Performed By: #### L 300.3900 #### [facility] [address] [place], [address] MCV Normal 81-99 [facility] Comment on above: Result Comment: Canc elled via OM: Order edited - Discontinuing original order Performed By: #### L 300.3900 #### [facility] [address] [place], [address] NEUT% Normal 47-70 [facility] Comment on above: Result Comment: Canc elled via OM: Order edited - Discontinuing original order Performed By: #### L 300.3900 #### [facility] [address] [place], [address] PLT Normal 150-450 [facility] Comment on above: Result Comment: Canc elled via OM: Order edited - Discontinuing original order Performed By: #### L 300.3900 #### [facility] [address] [place], [address] RBC Normal 4.2-5.4 [facility] Comment on above: Result Comment: Canc elled via OM: Order edited - Discontinuing original order Performed By: #### L 300.3900 #### [facility] [address] [place], [address] RDW CV Normal 11.6-14.6 [facility] Comment on above: Result Comment: Canc elled via OM: Order edited - Discontinuing original order Performed By: #### L 300.3900 #### [facility] [address] [place], [address] RDW SD Normal 35.1-43.9 [facility] Comment on above: Result Comment: Canc elled via OM: Order edited - Discontinuing original order Performed By: #### L 300.3900 #### [facility] [address] [place], [address] WBC Normal 4.4-11.0 [facility] Comment on above: Result Comment: Canc elled via OM: Order edited - Discontinuing original order Performed By: #### L 300.3900 #### [facility] [address] [place], [address] Absolute Neut Normal 2.0-7.7 [facility] Comment on above: Result Comment: DUPL ICATE ORDER Performed By: #### L 300.3900 #### [facility] [address] [place], [address] HCT Normal 37-47 [facility] Comment on above: Result Comment: DUPL ICATE ORDER Performed By: #### L 300.3900 #### [facility] [address] [place], [address] HGB Normal 12.0-15.0 [facility] Comment on above: Result Comment: DUPL ICATE ORDER Performed By: #### L 300.3900 #### [facility] [address] [place], [address] MCH Normal 27.0-32.0 [facility] Comment on above: Result Comment: DUPL ICATE ORDER Performed By: #### L 300.3900 #### [facility] [address] [place], [address] MCHC Normal 32-36 [facility] Comment on above: Result Comment: DUPL ICATE ORDER Performed By: #### L 300.3900 #### [facility] [address] [place], [address] MCV Normal 81-99 [facility] Comment on above: Result Comment: DUPL ICATE ORDER Performed By: #### L 300.3900 #### [facility] [address] [place], [address] NEUT% Normal 47-70 [facility] Comment on above: Result Comment: DUPL ICATE ORDER Performed By: #### L 300.3900 #### [facility] [address] [place], [address] PLT Normal 150-450 [facility] Comment on above: Result Comment: DUPL ICATE ORDER Performed By: #### L 300.3900 #### [facility] [address] [place], [address] RBC Normal 4.2-5.4 [facility] Comment on above: Result Comment: DUPL ICATE ORDER Performed By: #### L 300.3900 #### [facility] [address] [place], [address] RDW CV Normal 11.6-14.6 [facility] Comment on above: Result Comment: DUPL ICATE ORDER Performed By: #### L 300.3900 #### [facility] [address] [place], [address] RDW SD Normal 35.1-43.9 [facility] Comment on above: Result Comment: DUPL ICATE ORDER Performed By: #### L 300.3900 #### [facility] [address] [place], [address] WBC Normal 4.4-11.0 [facility] Comment on above: Result Comment: DUPL ICATE ORDER Performed By: #### L 300.3900 #### [facility] [address] [place], [address] Absolute Lymph 2.05 X10 3/uL Normal 0.83-4.51 [facility] Comment on above: Performed By: #### L 300.3900 #### [facility] [address] [place], [address] Absolute Neut 4.6 X10 3/uL Normal 2.0-7.7 [facility] Comment on above: Performed By: #### L 300.3900 #### [facility] [address] [place], [address] Basophils/100 WBC (Bld) 0.3 % Normal 0-1 [facility] Comment on above: Performed By: #### L 300.3900 #### [facility] [address] [place], [address] Eosinophils/100 WBC (Bld) 1.0 % Normal 0-5 [facility] Comment on above: Performed By: #### L 300.3900 #### [facility] [address] [place], [address] Erythrocyte distribution width (RBC) [Ratio] 12.8 % Normal 11.6-14.6 [facility] Comment on above: Performed By: #### L 300.3900 #### [facility] [address] [place], [address] Hematocrit (Bld) [Volume fraction] 32.5 % Low 37-47 [facility] Comment on above: Performed By: #### L 300.3900 #### [facility] [address] [place], [address] Hemoglobin (Bld) [Mass/Vol] 11.0 g/dL Low 12.0-15.0 [facility] Comment on above: Performed By: #### L 300.3900 #### [facility] [address] [place], [address] IG% 0.600 Normal 0.0-0.9 [facility] Comment on above: Result Comment: IG% - Immature Granulocytes (promyelocytes, myelocytes and metamyelocytes) > 1% indicates that a LEFT SHIFT is Present. Performed By: #### L 300.3900 #### [facility] [address] [place], [address] Lymphocytes/100 WBC (Bld) 28.6 % Normal 19-41 [facility] Comment on above: Performed By: #### L 300.3900 #### [facility] [address] [place], [address] MCH (RBC) [Entitic mass] 32.2 pg High 27.0-32.0 [facility] Comment on above: Performed By: #### L 300.3900 #### [facility] [address] [place], [address] MCHC (RBC) [Mass/Vol] 33.8 g/dL Normal 32-36 [facility] Comment on above: Performed By: #### L 300.3900 #### [facility] [address] [place], [address] MCV (RBC) [Entitic vol] 95.0 fL Normal 81-99 [facility] Comment on above: Performed By: #### L 300.3900 #### [facility] [address] [place], [address] Monocytes/100 WBC (Bld) 5.0 % Normal 0-10 [facility] Comment on above: Performed By: #### L 300.3900 #### [facility] [place], [address] Neutrophils/100 WBC (Bld) 64.5 % Normal 47-70 [facility] Comment on above: Performed By: #### L 300.3900 #### [facility] [address] [place], [address] Nucleated RBC (Bld) [#/Vol] 0 10*3/uL Normal 0-5 [facility] Comment on above: Performed By: #### L 300.3900 #### [facility] [address] [place], [address] Platelet mean volume (Bld) [Entitic vol] 10.4 fL Normal 6.2-12.0 [facility] Comment on above: Performed By: #### L 300.3900 #### [facility] [address] [place], [address] Platelets (Bld) [#/Vol] 198 10*3/uL Normal 150-450 [facility] Comment on above: Performed By: #### L 300.3900 #### [facility] [address] [place], [address] RBC (Bld) [#/Vol] 3.42 10*6/uL Low 4.2-5.4 [facility] Comment on above: Performed By: #### L 300.3900 #### [facility] [address] [place], [address] RDW SD 44.5 fl High 35.1-43.9 [facility] Comment on above: Performed By: #### L 300.3900 #### [facility] [address] [place], [address] WBC (Bld) [#/Vol] 7.2 10*3/uL Normal 4.4-11.0 [facility] Comment on above: Performed By: #### L 300.3900 #### [facility] [address] [place], [address] CBC-Complete Blood Cnt No Di ffon 09-19-2023 Erythrocyte distribution width (RBC) [Ratio] 13.5 % Normal 11.6-14.6 [facility] Comment on above: Performed By: #### L 300.4310, L300.3900, L100.0500, L300.4700 #### [facility] [address] [place], [address] Hematocrit (Bld) [Volume fraction] 33.1 % Low 37-47 [facility] Comment on above: Performed By: #### L 300.4310, L300.3900, L100.0500, L300.4700 #### [facility] [address] [place], [address] Hemoglobin (Bld) [Mass/Vol] 11.2 g/dL Low 12.0-15.0 [facility] Comment on above: Performed By: #### L 300.4310, L300.3900, L100.0500, L300.4700 #### [facility] [address] [place], [address] MCH (RBC) [Entitic mass] 31.7 pg Normal 27.0-32.0 [facility] Comment on above: Performed By: #### L 300.4310, L300.3900, L100.0500, L300.4700 #### [facility] [address] [place], [address] MCHC (RBC) [Mass/Vol] 33.8 g/dL Normal 32-36 [facility] Comment on above: Performed By: #### L 300.4310, L300.3900, L100.0500, L300.4700 #### [facility] [address] [place], [address] MCV (RBC) [Entitic vol] 93.8 fL Normal 81-99 [facility] Comment on above: Performed By: #### L 300.4310, L300.3900, L100.0500, L300.4700 #### [facility] [address] [place], [address] Platelet mean volume (Bld) [Entitic vol] 10.7 fL Normal 6.2-12.0 [facility] Comment on above: Performed By: #### L 300.4310, L300.3900, L100.0500, L300.4700 #### [facility] [address] [place], [address] Platelets (Bld) [#/Vol] 184 10*3/uL Normal 150-450 [facility] Comment on above: Performed By: #### L 300.4310, L300.3900, L100.0500, L300.4700 #### [facility] [address] [place], [address] RBC (Bld) [#/Vol] 3.53 10*6/uL Low 4.2-5.4 [facility] Comment on above: Performed By: #### L 300.4310, L300.3900, L100.0500, L300.4700 #### [facility] [address] [place], [address] RDW SD 46.3 fl High 35.1-43.9 [facility] Comment on above: Performed By: #### L 300.4310, L300.3900, L100.0500, L300.4700 #### [facility] [address] [place], [address] WBC (Bld) [#/Vol] 11.7 10*3/uL High 4.4-11.0 [facility] Comment on above: Performed By: #### L 300.4310, L300.3900, L100.0500, L300.4700 #### [facility] [address] [place], [address] Fibrinogenon 09-19-2023 FIBRINOGEN 301 mg/dl Normal 203-4 [facility] Comment on above: Performed By: #### L 300.3900 #### [facility] [address] [place], [address] FIBRINOGEN 332 mg/dl Normal 203-4 [facility] Comment on above: Performed By: #### L 300.4700, L300.3900, L300.4310 #### [facility] [address] [place], [address] MR/POSTOP.ANEon 09-19-2023 MR/POSTOP.ANE [facility] Medical Records Department [address] [place] [address] Anesthesia Postop Eval I 09/19/23 0826 MR#: [id number] Acct: [id number] Name: ALBERTO WHITAKER Rep #: [id number] : 1990 33 From: Rashaad Hayward MD PCP: Care Physician,No Primary Status:ADM IN Y Race: C Location: [place] [address] Anesthesia: Postop Eval I Current Vital Signs Temperature: 97.2 F Pulse Rate: 66 Blood Pressure: 110/75 Respiratory Rate: 16 Pulse Ox: 100 Oxygen Delivery Method: Room Air Assessment Airway patent: Yes Spontaneous unlabored respirations: Yes Mental status: Awake and Calm nausea: No Vomiting: No Anesthesia Complication: No Fluid Hydration Crystalloid volume administer (ml): 900 Blood Product volume administered (ml): 650 Total IV fluid infused: 1,550 Progress Note Anesthesia document: Postop Eval 1 completed: Yes 09/19/23829 Date Rashaad Hayward MD Cosigner Signature: Date CC: Signed Normal [facility]/[id number] 09-19-2023 [facility] Medical Records Department [address] [place] [address] Anesthesia Postop Eval II 09/19/23922 MR#: [id number] Acct: [id number] Name: ALBERTO WHITAKER Rep #: [id number] : 1990 33 From: James Morrow MD PCP: Care Physician,No Primary Status:ADM IN Y Race: C Location: [place] [address] Anesthesia Postop Eval I Sum Postop Eval Completion status Anesthesia document: Postop Eval 1 completed: Yes Anesthesia Postop Eval I Summary Anesthesia Postop Eval I Summary: Anesthesia Postop Eval I: Assessment Summary Airway patent Yes 09/19/23 08:29 Spontaneous unlabored Yes 09/19/23 08:29 respirations Mental status Awake,Calm 09/19/23 08:29 nausea No 09/19/23 08:29 Vomiting No 09/19/23 08:29 Anesthesia Postop Eval I: Fluid Summary Crystalloid volume administer 900 09/19/23 08:29 (ml) Colloids volume administered ( ml) Blood Product volume 650 09/19/23 08:29 administered (ml) Total IV fluid infused 1,550 09/19/23 08:29 Anesthesia Postop Eval I: Summary Notes Anesthesia Complication No 09/19/23 08:29 Anesthesia Complication Comment: Post-operative progress note Anesthesia: Postop Eval II Evaluation Mental status: Awake Pain Level: 0 nausea: No Vomiting: No Complications Anesthesia Complication: No 09/19/23 0924 Date James Spain Signature: Date CC: Signed Normal [facility] Operative Reporton 4 Operative Report [facility] Medical Records Department [address] [place] [address] Operative Report 09/19/23 0834 MR#: [id number] Acct: [id number] Name: ALBERTO WHITAKER Rep #: [id number] : 1990 33 From: Aparna Fatima DO PCP: Care Physician,No Primary Status:ADM IN Location: [place] [id number] Problems Associated Problem List Diagnoses (1) Previous delivery affecting : (2) IUFD (intrauterine ): (3) Hemorrhage: Report of Operation Date of Procedure: 09/19/23 Pre-Operative Diagnosis: IUFD measuring 17 week gestation, induction of labor planned, vaginal bleeding with hemorrhage Post-Operative Diagnosis: As above Surgery/Procedure Performed:: Suction D E under ultrasound guidance Description of Surgical Findings:: Enlarged uterus with demised fetus. Cervix 3 cm dilated Surgeon: Aparna Fatima crm technical lead: Javid Starr Type of Anesthesia: General Special Medications: None Specimen's removed: Fetus and placenta Drains: Helm Estimated Blood Loss (mL): 800 Fluids Replaced: See anesthesia record Description of Procedure: The patient was taken back to the operating room where general anesthesia was induced. A vaginal exam was performed and about 500 cc of blood and blood clot were manually removed from the vagina. The cervix was palpated to be 3 cm dilated and parts palpated on exam. Bedside TAUS performed showing a skull measuring about 3 cm in diameter. A called was placed to a complex family business planning analyst with [facility] to consult. The decision was made to proceed with a D E under ultrasound guidance. The patient was prepped and draped in dorsal lithotomy position using yellow fin stirrups. A weighted speculum was placed in the vagina to expose the cervix. A tenaculum was placed on the anterior lip of the cervix. A ring forcep was inserted and the placenta and cord were grasped and removed from the uterus. The ring forcep was inserted under ultrasound guidance and the body of the fetus was removed from the uterus and brought into the vagina. Next the head of the fetus was grasped with a ring forcep under ultrasound guidance and delivered. The demised fetus was delivered intact. A size 16 suction curettage was then used to perform additional passes until no tissue was noted. A sharp curettage was performed along the anterior uterus wall and tissue was noted. At this point Dr. Starr used a size 12 suction curettage to perform additional passes to remove tissue. She then performed a sharp curettage along all uterine millard for a good uterine cry. Ultrasound was performed showing no remaining tissue. Pitocin, Methergine, Hemabate and Cytotec were given at the end of the case. Patient was taken to recovery room in stable condition Dr. Starr was present for the entire procedure and assisted with ultrasound guidance and suction D E. Grafts/Implants Used: None Complications None Admit VTE Documentation VTE Present on Admission: No VTE Mechan Device Prophylaxis: SCD's 09/19/23 0811 Cosigner Signature (if applicable): CC: Dr. Javid Starr MD; Dr. Aparna Fatima, DO; No Primary Care Physician Signed Normal [facility] Partial Thromboplast Timeon 09-19-2023 aPTT Coag (Bld) [Time] 28.2 s Normal 24.1-36.2 [facility] Comment on above: Performed By: #### L 593.2374 #### [facility] [place], [address] aPTT Coag (Bld) [Time] 32.8 s Normal 24.1-36.2 [facility] Comment on above: Performed By: #### L 300.4700, L300.3900, L300.4310 #### [facility] [address] [place], [address] Prothrombin Time w/INRon INR Normal [facility] Comment on above: Result Comment: PT D IS. Performed By: #### L 300.3900 #### [facility] [address] [place], [address] Order Comment: REDRA W. PREVIOUS SPECIMEN REJECTED DUE TO QNS. 09/19/23 1354 Haleigh Valdes. Result Comment: DUPL ICATE Result Comment: Canjuan elled via OM: Order edited - Discontinuing original order Result Comment: This specimen has been REJECTED due to Laboratory criteria: Quanity Not Sufficient. SUN has been notified of need of recollection. 09/19/23 1353 Haleigh Valdes PROTIME Normal 11.7-14.9 [facility] Comment on above: Result Comment: PT D IS. Performed By: #### L 300.3900 #### [facility] [address] [place], [address] Order Comment: REDRA W. PREVIOUS SPECIMEN REJECTED DUE TO QNS. 09/19/23 1354 Haleigh Valdes. Result Comment: DUPL ICATE Result Comment: Manuel elled via OM: Order edited - Discontinuing original order Result Comment: This specimen has been REJECTED due to Laboratory criteria: Quanity Not Sufficient. SUN has been notified of need of recollection. 09/19/23 1353 Haleigh Valdes INR Coag (PPP) [Relative time] 1.1 {INR} Normal [facility] Comment on above: Performed By: #### L 300.4310, L300.3900, L100.0500, L300.4700 #### [facility] [address] [place], [address] PT Coag (PPP) [Time] 14.3 s Normal 11.7-14.9 [facility] Comment on above: Performed By: #### L 300.4310, L300.3900, L100.0500, L300.4700 #### [facility] [address] [place], [place], [address] INR Coag (PPP) [Relative time] 1.0 {INR} Normal [facility] Comment on above: Performed By: #### L 300.4700, L300.3900, L300.4310 #### [facility] [address] [place], [place], [id number] PT Coag (PPP) [Time] 13.5 s Normal 11.7-14.9 [facility] Comment on above: Performed By: #### L 300.4700, L300.3900, L300.4310 #### [facility] [address] [place], [place], [id number] Surgery Specimen Level Fabian 09-19-2023 Surgery Specimen Level IV Patient Age/Sex Location Account Attending Physician ALBERTO WHITAKER / [id number] Dr. Jvaid Starr MD Specimen: [id number] Received: 09/19/23 Status: MYRIAM Che Num: [id number] Spec Type: PROD CONC Subm Dr: Dr. Javid Starr MD HEADER OPERATION: Suction D C PRE-OP DIAGNOSIS: 20 weeks gestation of , intrauterine , previous delivery affecting TISSUE SUBMITTED: Products of conception for Anora testing MICROSCOPIC DIAGNOSIS Products of conception: Placental disc- Immature placenta (115gm), disrupted. Membranes- No pathologic diagnosis. Umbilical cord- Three vessels and no pathologic diagnosis. SJ/ 09/20/2023 COMMENT Sample for Anora testing was taken by Dr. Mcfarland. Results will be reported as an addendum. MICROSCOPIC DESCRIPTION Slides are reviewed. GROSS DESCRIPTION Received without fixative in one container labeled with the patient's name and designated Products of conception- Anora testing. PLACENTAL WEIGHT (POST FIXATION): 115 gm PLACENTAL DIMENSIONS: 11.0 x 11.0 x 2.5cm PLACENTAL SHAPE: Multiple pieces (largest piece ovoid) PLACENTAL WEIGHT FOR GESTATIONAL AGE: Within 10-99th percentile MEMBRANES - Present A. Insertion: Marginal B. Site of rupture from edge: Membranes are fragmented, distance of rupture cannot be assessed C. Color of membrane: Arredondo-omalley D. Abnormalities: None UMBILICAL CORD - Present A. Color: Dusky and macerated B. Insertion: Central C. Length: 41.0 cm D. Diameter: 0.5 cm Patient Age/Sex Location Account Attending Physician ALBERTO WHITAKER [id number] Dr. Javid Starr MD E. Number of vessels: Three F. Abnormalities: None PLACENTAL DISC - Present A. Color of surface: Arredondo-omalley B. surface abnormalities: None C. Maternal cotyledons: Disrupted, completeness of placenta cannot not be assessed D. Attached retro placental clot: No clot E. Cut surface: Ethridge, red F. Lesions: None G. Separate clot: Weighs 30gm and measures in aggregate 7.0 x 5.5 x 2.0cm. SECTIONS SUBMITTED: (6 cassettes) 1. Cord, maternal end 2. Cord, end 3. Membrane roll 4. Placental disc, and maternal surfaces 5. Placental disc, and maternal surfaces 6. Placental disc, and maternal surfaces CPT:24552 JAH/ 09/19/2023 TC:5 ADDENDUM Addendum 1 Entered: 10/06/23 [facility] MICROARRAY CHROMOSOME ANALYSIS WITH PARENTAL SUPPORT RESULT: Normal female MICROARRAY RESULT: arr (1-22,X)x2 CLINICAL INTERPRETATION: Normal female result. Maternal cell contamination has been ruled out. Please see complete report in e-chart or EMR Addendum Signed (signature on file) Dr. Demar Mcclendon MD 10/06/23 0900 Patient Age/Sex Location Account Attending Physician ALBERTO WHITAKER [id number] Dr. Javid Starr MD Signed (signature on file) Dr. Demar Mcclendon MD 09/20/23 1045 Normal [facility] Comment on above: Performed By: #### L 300.3900 #### [facility] [address] [place], [place], [id number] BRCon 09-18-2023 RC Normal [facility] Comment on above: Result Comment: [id number] OP RC PRSMD TRFSD 09/19/23 0706 [id number] OP RC NOT AVAILABLE [id number] OP RC PRSMD TRFSD 09/19/23 0709 [id number] OP RC TRANSFUSED 09/19/23 1246 Performed By: #### L 300.3900 #### [facility] [address] [place], [address] CBC W/Diff, Automatedon 08-22 Absolute Lymph 2.25 X10 3/uL Normal 0.83-4.51 [facility] Comment on above: Performed By: #### L 300.3900 #### [facility] [address] [place], [address] Absolute Neut 4.9 X10 3/uL Normal 2.0-7.7 [facility] Comment on above: Performed By: #### L 300.3900 #### [facility] [address] [place], [address] Basophils/100 WBC (Bld) 0.4 % Normal 0-1 [facility] Comment on above: Performed By: #### L 300.3900 #### [facility] [address] [place], [address] Eosinophils/100 WBC (Bld) 1.3 % Normal 0-5 [facility] Comment on above: Performed By: #### L 300.3900 #### [facility] [address] [place], [address] Erythrocyte distribution width (RBC) [Ratio] 12.8 % Normal 11.6-14.6 [facility] Comment on above: Performed By: #### L 300.3900 #### [facility] [address] [place], [address] Hematocrit (Bld) [Volume fraction] 33.0 % Low 37-47 [facility] Comment on above: Performed By: #### L 300.3900 #### [facility] [address] [place], [address] Hemoglobin (Bld) [Mass/Vol] 12.0 g/dL Normal 12.0-15.0 [facility] Comment on above: Performed By: #### L 300.3900 #### [facility] [address] [place], [address] IG% 0.300 Normal 0.0-0.9 [facility] Comment on above: Result Comment: IG% - Immature Granulocytes (promyelocytes, myelocytes and metamyelocytes) > 1% indicates that a LEFT SHIFT is Present. Performed By: #### L 300.3900 #### [facility] [address] [place], [address] Lymphocytes/100 WBC (Bld) 29.1 % Normal 19-41 [facility] Comment on above: Performed By: #### L 300.3900 #### [facility] [address] [place], [address] MCH (RBC) [Entitic mass] 34.5 pg High 27.0-32.0 [facility] Comment on above: Performed By: #### L 300.3900 #### [facility] [address] [place], [address] MCHC (RBC) [Mass/Vol] 36.4 g/dL High 32-36 [facility] Comment on above: Performed By: #### L 300.3900 #### [facility] [address] [place], [address] MCV (RBC) [Entitic vol] 94.8 fL Normal 81-99 [facility] Comment on above: Performed By: #### L 300.3900 #### [facility] [address] [place], [address] Monocytes/100 WBC (Bld) 5.2 % Normal 0-10 [facility] Comment on above: Performed By: #### L 300.3900 #### [facility] [address] [place], [address] Neutrophils/100 WBC (Bld) 63.7 % Normal 47-70 [facility] Comment on above: Performed By: #### L 300.3900 #### [facility] [address] [place], [address] Nucleated RBC (Bld) [#/Vol] 0 10*3/uL Normal 0-5 [facility] Comment on above: Performed By: #### L 300.3900 #### [facility] [address] [place], [address] Platelet mean volume (Bld) [Entitic vol] 10.8 fL Normal 6.2-12.0 [facility] Comment on above: Performed By: #### L 300.3900 #### [facility] [address] [place], [address] Platelets (Bld) [#/Vol] 230 10*3/uL Normal 150-450 [facility] Comment on above: Performed By: #### L 300.3900 #### [facility] [address] [place], [address] RBC (Bld) [#/Vol] 3.48 10*6/uL Low 4.2-5.4 [facility] Comment on above: Performed By: #### L 300.3900 #### [facility] [address] [place], [address] RDW SD 43.8 fl Normal 35.1-43.9 [facility] Comment on above: Performed By: #### L 300.3900 #### [facility] [address] [place], [address] WBC (Bld) [#/Vol] 7.7 10*3/uL Normal 4.4-11.0 [facility] Comment on above: Performed By: #### L 300.3900 #### [facility] [address] [place], [address] Fibrinogenon 09-18-2023 FIBRINOGEN 369 mg/dl Normal 203-444 [facility] Comment on above: Performed By: #### L 300.3900 #### [facility] [address] [place], [address] H AND P Exam - OB/GYNon 08-22 H&P Exam - CASE TECHNICIAN [facility] Medical Records Department [address] [place] [address] H P Exam - CASE TECHNICIAN 09/18/231948 MR#: [id number] Acct: [id number] Name: ALBERTO WHITAKER Rep #: [id number] : 1990 33 From: Javid Starr MD PCP: Care Physician,No Primary Status:ADM IN Location: [id number] HPI - General General Date of Admission: 09/18/23 Date of Service: 09/18/23 Chief Complaint: demise HPI Narrative ALBERTO WHITAKER, is a 33 F who presents 5 para 3-0-1-3 who presents at 20 weeks gestation with EDC of 01/30/2024 at approximately 20-6/7 weeks gestation with 17 weeks size demise. She denies any gross vaginal bleeding or leaking of fluid. No fevers or chills. No abdominal pain. No contractions. Maternal Data Information Final ALMA: 01/30/24 Gestational age: 20 6/7 PFSH [facility] Medical History (Updated 09/18/23 @ 19:[address] Javid Starr MD) Vaginal after Home Medications ???Medication ???Instructions ???Recorded ???Last Taken ???Type Unisom (doxylamine) 25 mcg PO.IVFORM PRN PRN sleep aide 04/03/22 04/02/22 History iirktmop-nyr-Py-FA 1 mg 1 tab PO DAILY 04/03/22 04/02/22 20:00 History tablet Allergy/AdvReac Type Severity Reaction Status Date / Time No Known Allergies Allergy Verified 01/08/22 10:00 Surgical History (Updated 09/18/23 @ 19:[address] Javid Starr MD) Previous section Social History Smoking Status: Smoker, status unknown History Elective abortions Hx Para 2 Spontaneous abortions Hx # Term Pregnancies Ectopic pregnancies Hx # Pregnancies Multiple births # of living children ROS Constitutional Constitutional: Denies fatigue, fever(s) or malaise Eyes Eyes: Denies change in vision ENT HEENT: Denies dizziness or headache(s) Cardiovascular Cardiovascular: Denies chest pain, dyspnea or lightheadedness Respiratory/Chest Respiratory/Chest: Denies cough or dyspnea Gastrointestinal Gastrointestinal: Denies change in bowel habits Genitourinary Genitourinary: Denies burning urination or genital lesions Integumentary Integumentary: Denies rash Neurologic Neurologic: Denies confusion, dizziness, headache(s), numbness or weakness Labs Labs Labs: Blood Type O POSITIVE Antibody Screen NEGATIVE Hct 32.8 % (37-47) L Hgb 11.1 g/dL (12.0-15.0) L Syphilis Total Ab Non-reactive VZV IgG Antibody 156 index (Immune >165) L Rubella IgG Antibody 240.5 IU/mL Hep Bs Antigen Negative (Negative) Hepatitis C Ab (EIA) <0.1 s/co ratio (0.0-0.9) Glucose 1 Hr 50 gm 124 mg/dL (70-140) Group B Strep DNA POSITIVE (Negative) H Rhogam given: No Miscellaneous Test Assessment Plan (1) 20 weeks gestation of : (2) IUFD (intrauterine ): (3) Previous delivery affecting : PLAN: 33-year-old female with 21-week demise 17 weeks size fetus. I discussed with the patient risk benefits and alternatives to induction for expectant management of vaginal delivery versus a D E. Patient elects for induction. Would like genetic studies but not an autopsy of the fetus. Will give high-dose Cytotec vaginally. May have epidural or IV pain medications as needed. May use other routine labor pain medications as needed. 09/18/231952 Cosigner Signature (if applicable): CC: Dr. Javid Starr MD; No Primary Care Physician Signed Normal [facility] L509.8000on 09-18-2023 Syphilis Abs Non-Reactive Normal [facility] Comment on above: Performed By: #### L 509.8000 #### [facility] [address], [address] Partial Thromboplast Timeon 09-18-2023 aPTT Coag (Bld) [Time] 31.0 s Normal 24.1-36.2 [facility] Comment on above: Performed By: #### L 300.3900 #### [facility] [address] [place], [address] Prothrombin Time w/INRon INR Coag (PPP) [Relative time] 1.0 {INR} Normal [facility] Comment on above: Performed By: #### L 300.3900 #### [facility] [address] [place], [address] PT Coag (PPP) [Time] 13.2 s Normal 11.7-14.9 [facility] Comment on above: Performed By: #### L 300.3900 #### [facility] [address] [place], [place], [id number] Type AND Screenon 09-18-2023 Ab SCREEN GEL Negative Normal [facility] Comment on above: Order Comment: Labor Performed By: #### L 300.3900 #### [facility] [address] [place], [address] ABO and Rh group Nom (Bld) Blood group O Rh(D) positive Normal [facility] Comment on above: Order Comment: Labor Performed By: #### L 300.3900 #### [facility] [address] [place], [place], [id number] Examination level ultrasound on 09-16-2023 Indication Standard anatomic survey Impression REMOTE READ Single intrauterine with no cardiac activity Recommendations Results communicated to patient in office Additional follow-up as clinically indicated. Maternal Assessment Height 173 cm Height (ft) 5 ft Height (in) 8 in Physical Exam Initial weight (lb) 174 lb Initial BMI 26.46 kg/m Maternal assessment other: 5 Para 3 Method Transabdominal ultrasound examination. View: Adequate visualization Tavarez . Number of fetuses: 1 Dating LMP on: 04/25/2023 GA by LMP 20 w + 4 d ALMA by LMP: 01/30/2024 GA by prior assessment 20 w + 4 d ALMA by prior assessment: 01/30/2024 Ultrasound examination on: 09/16/2023 GA by U/S based upon: Femur GA by U/S 17 w + 0 d ALMA by U/S: 02/24/2024 Assigned: based on the LMP, selected on 06/23/2023 Assigned GA 20 w + 4 d Assigned ALMA: 01/30/2024 General Evaluation Cardiac activity absent. FHR 0 bpm. movements: absent. Presentation: cephalic Amniotic fluid: Amount of AF: normal amount Growth Overview Exam date GA BPD (mm) HC (mm) AC (mm) FL (mm) HL (mm) EFW (g) 09/16/2023 20w 4d 23.1 <1% Biometry Standard Femur 23.1 mm 17w 0d <1% Andrew EFW by: Hadlock (HC-AC-FL) Other Structures FHR 0 bpm Performed By: Chela Park RDMS, RVT Read By: Macy eWlch M.D. MATERNAL MEDICINE [facility] Radiology Study observation (narrative) [facility] CBC panel Auto (Bld)on 08-18 Erythrocyte distribution width (RBC) [Ratio] 13.0 % 11.5 - 15.0 % [facility] Hematocrit (Bld) [Volume fraction] 32.9 % Low 36.0 - 46.0 % [facility] Hemoglobin (Bld) [Mass/Vol] 11.4 g/dL Low 11.5 - 15.5 g/dL [facility] Interpretation and review of laboratory results Abnormal [facility] MCH (RBC) [Entitic mass] 32.9 pg 26.0 - 34.0 pg [facility] MCHC (RBC) [Mass/Vol] 34.7 g/dL 30.5 - 36.0 g/dL [facility] MCV (RBC) [Entitic vol] 94.8 fL 80.0 - 100.0 fL [facility] Nucleated RBC (Bld) [#/Vol] NINF [facility] Platelet mean volume (Bld) [Entitic vol] 10.4 fL 9.0 - 12.7 fL [facility] Platelets (Bld) [#/Vol] 197 10*3/uL [facility] RBC (Bld) [#/Vol] 3.47 10*6/uL Low 3.90 - 5.2 0 m/uL [facility] WBC (Bld) [#/Vol] 7.22 10*3/uL [facility] Comprehensive metabolic 2000 panelOrdered By: Tonie Reese on 08-19-2023 Albumin [Mass/Vol] 3.8 g/dL Low 3.9 - 4.9 g/dL [facility] ALP [Catalytic activity/Vol] 54 U/L 34 - 123 U/L [facility] ALT [Catalytic activity/Vol] 11 U/L 7 - 38 U/L [facility] Anion gap [Moles/Vol] 11 mmol/L 8 - 15 mmol/L [facility] AST [Catalytic activity/Vol] 12 U/L Low 13 - 35 U/L [facility] Bilirubin [Mass/Vol] mg/dL Low 0.2 - 1.3 mg/dL [facility] Calcium [Mass/Vol] 9.0 mg/dL 8.5 - 10. 2 mg/dL [facility] Chloride [Moles/Vol] 107 mmol/L 98 - 107 mmol/L [facility] CO2 [Moles/Vol] 19 mmol/L Low 22 - 30 mmol/L [facility] Creatinine [Mass/Vol] 0.38 mg/dL Low 0.58 - 0.96 mg/dL [facility] GFR/1.73 sq M.predicted among non-blacks MDRD (S/P/Bld) [Vol rate/Area] 138 mL/min/{1.73_m2} - PINF [facility] Comment on above: Estimated Glomerular Filtration Rate (eGFR) is calculated using the 2020 CKD-EPI creatinine equation. This equation utilizes serum creatinine, sex, and age as parameters. The creatinine assay has traceable calibration to isotope dilution-mass spectrometry. Refer to KDIGO guidelines for clinical interpretation. In patients with unstable renal function, e.g. those with acute kidney injury, the eGFR may not accurately reflect actual GFR. Glucose [Mass/Vol] 80 mg/dL 74 - 99 mg/dL [facility] Comment on above: The [place] Diabete s Association (ADA) provides guidance for cutoff values for fasting glucose and random glucose. The ADA defines fasting as no caloric intake for at least 8 hours. Fasting plasma glucose results between 100 to 125 mg/dL indicate increased risk for diabetes (prediabetes). Fasting plasma glucose results greater than or equal to 126 mg/dL meet the criteria for diagnosis of diabetes. In the absence of unequivocal hyperglycemia, results should be confirmed by repeat testing. In a patient with classic symptoms of hyperglycemia or hyperglycemic crisis, random plasma glucose results greater than or equal to 200 mg/dL meet the criteria for diagnosis of diabetes. Reference: Standards of Medical Care in Diabetes 2016, [place] [employer] Association. Diabetes Care. 2016.39(Suppl 1). Interpretation and review of laboratory results Abnormal [facility] Potassium [Moles/Vol] 4.0 mmol/L 3.7 - 5.1 mmol/L [facility] Protein [Mass/Vol] 6.4 g/dL 6.3 - 8.0 g/dL [facility] Sodium [Moles/Vol] 137 mmol/L 136 - 144 mmol/L [facility] Urea nitrogen [Mass/Vol] 12 mg/dL 7 - 21 mg/dL [facility] Chr 21 trisomy Cytogenetics Ql (Bld/Tiss)on 07-28-2023 Cell-free DNA./Cell-free DNA.total Dosage of chromosome-specific cfDNA (cfDNA) [Molar fraction] 4% [facility] Chr 13+18+21+X+Y aneuploidy Dosage of chromosome-specific cfDNA Ql (cfDNA) Negative [facility] Chr 21 trisomy Dosage of chromosome-specific cfDNA Ql (cfDNA) Negative [facility] Chr X and Y aneuploidy risk Sequencing Ql (cfDNA) [Interp] Not detected [facility] Citation Javid (Reference lab test) Comment [facility] Comment on above: 1. sofia Grant. Bailey Med. 2012;14(3):296-305. 2. Carlos GRANT et al. Prenat Diag. 2013;33(6):591-597. 3. Joel Young, et al. Clin Chem. 2015 May;61(4):608-616. 4. Irlanda LE et al. Bailey Med. 2011;13(11):913-920. 5. ACOG/SMFM Practice Bulletin No. 226, Nov 2019. Gestational age Estimated from conception date Tavarez [facility] GESTATIONALAGE>=9W Yes [facility] comment Javid (Report) Comment [facility] Comment on above: The MaterniT(R) 21 P BUNNY laboratory-developed test (LDT) analyzes circulating cell-free DNA from a maternal blood sample. This test is used for screening purposes and not diagnostic. Clinical correlation is recommended. Validation data on twin pregnancies is limited and the ability of this test to detect aneuploidy in higher multiple gestations has not yet been validated. director software development name Nom (Provider) Comment [facility] Comment on above: This specimen showed an expected representation of chromosome 21, 18 and 13 material. Clinical correlation is suggested. José Miguel Haskins MD , PhD, Director, [employer] Limitations of the Test Comment [facility] Comment on above: While the results of these tests are highly reliable, discordant results, including inaccurate sex prediction, may occur due to placental, maternal, or mosaicism or neoplasm; vanishing twin; prior maternal organ transplant; or other causes. These tests are screening tests and not diagnostic; they do not replace the accuracy and precision of diagnosis with CVS or amniocentesis. A patient with a positive test result should be referred for genetic counseling and offered invasive diagnosis for confirmation of test results.[5] The results of this testing, including the benefits and limitations, should be discussed with a qualified healthcare provider. management decisions, including termination of the , should not be based on the results of these tests alone. The healthcare provider is responsible for the use of this information in the management of their patient. Sex chromosomal aneuploidies are not reportable for known multiple gestations. A negative result does not ensure an unaffected nor does it exclude the possibility of other chromosomal abnormalities or defects which are not a part of these tests. An uninformative result may be reported, the causes of which may include, but are not limited to, insufficient sequencing coverage, noise or artifacts in the region, amplification or sequencing bias, or insufficient fraction. These tests are not intended to identify pregnancies at risk for neural tube defects or ventral wall defects. Testing for whole chromosome abnormalities (including sex chromosomes) and for subchromosomal abnormalities could lead to the potential discovery of both and maternal genomic abnormalities that could have major, minor, or no, clinical significance. Evaluating the significance of a positive or a non-reportable result may involve both invasive testing and additional studies on the mother. Such investigations may lead to a diagnosis of maternal chromosomal or subchromosomal abnormalities, which on occasion may be associated with benign or malignant maternal neoplasms. These tests may not accurately identify triploidy, balanced rearrangements, or the precise location of subchromosomal duplications or deletions; these may be detected by diagnosis with CVS or amniocentesis. The ability to report results may be impacted by maternal BMI, maternal weight, maternal systemic lupus erythematosus (SLE) and/or by certain pharmaceutical agents such as low molecular weight heparin (for example: Lovenox(R), Xaparin(R), Clexane(R) and Fragmin(R)). Monosomy X risk Dosage of chromosome-specific cfDNA Ql (Plasma cell-free+WBC DNA) [Interp] Not detected [facility] NEGATIVE PREDICTIVE VALUE Note [facility] Comment on above: The Negative Predict kalpana Value (NPV) for trisomy 21, 18, and 13 is greater than 99%. The NPV for SCA and ESS cannot be calculated as SCA and ESS are only reported when an abnormality is detected. Note Comment [facility] Comment on above: See Notes [employer] is a subsidiary of [employer], using the brand [employer]. This test was developed and its performance characteristics determined by [employer]. It has not been cleared or approved by the Food and Drug Administration. This laboratory is certified under the Clinical Laboratory Improvement Amendments (CLIA) as qualified to perform high complexity clinical laboratory testing and accredited by the [employer] (CAP). If there is future clinical need for adding MaterniT GENOME testing, this specimen will be available until term. [facility] samples will not be retained beyond [address] [facility] patients will have to send a new sample for re-sequencing ([facility] Test Code: 154430). PERFORMANCE CHARACTERISTICS Note [facility] Comment on above: ! Sex ! Accuracy: 99.4% ! ! ! ! Region (associated syndrome) ! Est. Sens# ! Est. Spec ! ! ! ! Trisomy 21 (Down Syndrome) ! 99.1% ! 99.9% ! ! ! ! Trisomy 18 (Hummel Syndrome) ! >99.9% ! 99.6% ! ! ! ! Trisomy 13 (Patau Syndrome) ! 91.7% ! 99.7% ! ! ! ! Sex Chromosome Aneuploidies## ! 96.2% ! 99.7% ! ! ! * As reported in [facility] database nstd37 [https://www.ncbi.nlm.nih.gov/dbvar/studies/nstd37/ ] # Estimated Sensitivity. Sensitivity estimated across the observed size distribution of each syndrome [per [facility] database nstd37] and across the range of fractions observed in routine clinical NIPT. Actual sensitivity can also be influenced by other factors such as the size of the event, total sequence counts, amplification bias, or sequence bias. ## Tavarez gestation only. Positive Predictive Value N/A [facility] Reference Lab Test Method Comment [facility] Comment on above: See Notes Circulating cell-free DNA was purified from the plasma component of maternal blood. The extracted DNA was then converted into a genomic DNA library for aneuploidy analysis of chromosomes 21, 18, and 13 via next generation sequencing.[1] Optional findings based on the test order include sex chromosome aneuploidy (SCA)[2], and enhanced sequencing series (ESS)[3], which will only be reported on as an additional finding when an abnormality is detected. SCA testing includes information on X and Y representation, while ESS testing includes deletions in selected regions (22q, 15q, 11q, 8q, 5p, 4p, 1p) and trisomy of chromosomes 16 and 22. Sex Dosage of chromosome-specific cfDNA Nom (cfDNA) Comment [facility] Comment on above: Consistent with Fema le Test performance information Javid (Unsp spec) Comment [facility] Comment on above: The performance agusto acteristics of the MaterniT(R) 21 PLUS laboratory-developed test (LDT) have been determined in a clinical validation study with women at increased risk for chromosomal aneuploidy.[1-4] Trisomy 13 risk Dosage of chromosome-specific cfDNA Ql (cfDNA) [Interp] Negative [facility] Trisomy 18 risk Dosage of chromosome-specific cfDNA Ql (Plasma cell-free+WBC DNA) [Interp] Negative [facility] Performed at: - [facility] [facility] [address] [place], [place] [id number] Track Machine Operator Repairer: José Miguel Young, Phone: [phone] [facility] C. trachomatis+N. gonorrhoea e DNA MATTHEW+probe Ql (Unsp spec)on 06-23-2023 C. trachomatis rRNA MATTHEW+probe Ql (Unsp spec) Negative Negative for Chlamydia trachomatis by amplificaton [facility] Interpretation and review of laboratory results Normal [facility] N. gonorrhoeae rRNA MATTHEW+probe Ql (Unsp spec) Negative Negative for Neisseria gonorrhoeae by amplification [facility] POC SPRING COILING MACHINE SETTER ULTRASOUNDon 06-23-19 Indication Confirmation of intrauterine . Confirmation of cardiac activity Impression 1. Single, live, intrauterine . 2. An intrauterine gestational sac with a yolk sac and pole are present. 3. Hardy rump length measurement is consistent with the established gestational age. 4. heart tones are within normal limits. Recommendations Follow up as clinically indicated. Method Transvaginal ultrasound examination. View: Adequate visualization Tavarez . Number of embryos: 1 Dating LMP on: 04/25/2023 GA by LMP 8 w + 3 d ALMA by LMP: 01/30/2024 Ultrasound examination on: 06/23/2023 GA by U/S based upon: CRL GA by U/S 8 w + 0 d ALMA by U/S: 02/02/2024 Assigned: based on the LMP, selected on 06/23/2023 Assigned GA 8 w + 3 d Assigned ALMA: 01/30/2024 Biometry Standard FHR 163 bpm CRL 15.8 mm 8w 0d 15% Hadlock Assessment Gestational sac: visualized Location: intrauterine Yolk sac: visualized Embryo: visualized CRL 15.8 mm 8w 0d 15% [place] Cardiac activity: present FHR 163 bpm General Evaluation Cardiac activity present. FHR 163 bpm Performed By: Noemi Aiken CNP Read By: Noemi Aiken CNP MATERNAL MEDICINE [facility] Radiology Study observation (narrative) [facility] [place] [address].0 m[IU]/mL High NINF [facility] Comment on above: QUANTITATIVE HCG NOR MAL RANGES Weeks of Gestation (Weeks Since LMP) 3 Weeks (5.8-71.2 mIU/mL) 4 Weeks (9.5-750 mIU/mL) 5 Weeks (217-7138 mIU/mL) 6 Weeks (158-30359 mIU/mL) 7 Weeks (3697-962050 mIU/mL) 8 Weeks (44258-480886 mIU/mL) 9 Weeks (16062-078538 mIU/mL) 10 Weeks (20405-513277 mIU/mL) 12 Weeks (80929-774055 mIU/mL) Referenced to 4th IS of [facility] HCG.beta subunit Qnon 2023 Interpretation and review of laboratory results Abnormal [facility] XR FOOT LEFT 3+ VIEWS (STAND ABDULLAHI)on 02-04-2023 XR FOOT LEFT 3+ VIEWS (STANDARD) Mild forefoot edema present though no traditional breakdown across the third and fourth metatarsal necks. Dictated by: BRENT MEJIA on TueFeb 04, 2023 11:36:58 AM EST Transcribed by: BRENT MEJIA on TueFeb 04, 2023 11:36:58 AM EST Finalized by: BRENT MEJIA on TueFeb 04, 2023 11:36:58 AM EST Normal [facility] Comment on above: Order Comment: Injur y/Trauma or Illness?:Injury/Trauma How long have you had these symptoms (acute/chronic)?:Chronic Reason for exam?:foot injury History of cancer?:. Surgeries, chemotherapy, or radiation?:. Type of Exam?:Subsequent/Follow-up Mechanism of injury?:box jumps at gym XR FOOT LEFT 3+ VIEWS (STAND ABDULLAHI)on 01-05-2023 XR FOOT LEFT 3+ VIEWS (STANDARD) No obvious fractures dislocation or subluxation seen. Does have mild to moderate forefoot edema surrounding her fifth fourth and third metatarsal shafts. If concern for fracture otherwise consider repeat radiographs or advanced imaging CT versus MRI. Dictated by: BRENT MEJIA on TueJan 05, 2023 4:56:34 PM EST Transcribed by: BRENT MEJIA on TueJan 05, 2023 4:56:34 PM EST Finalized by: BRENT MEJIA on TueJan 05, 2023 4:56:34 PM EST Normal [facility] Comment on above: Order Comment: Injur y/Trauma or Illness?:Illness/Other How long have you had these symptoms (acute/chronic)?:Acute Reason for exam?:foot pain History of cancer?:. Surgeries, chemotherapy, or radiation?:. Type of Exam?:Subsequent/Follow-up Additional signs and symptoms?:swelling XR ANKLE LEFT 3+ VIEWS (GEORGINA BRONSON)on 12-22-2022 XR ANKLE LEFT 3+ VIEWS (STANDARD) EXAMINATION: XR ANKLE LEFT 3+ VIEWS (STANDARD) 12/22/2022 11:47 am HISTORY: ORDERING SYSTEM PROVIDED HISTORY: ankle pain, TECHNOLOGIST PROVIDED HISTORY: Illness/Other Reason for exam: L ankle pain Cancer History: . Surgery, RadiationHistory: . Encounter Type: Initial Additional signs and symptoms: left foot pain and swelling after doing box jumps at the gym approx one week ago. ORDERING SYSTEM PROVIDED DIAGNOSIS CODES: COMPARISON: None. FINDINGS: Three views of the left ankle were obtained. There is no acute fracture or dislocation. Ankle mortise is intact and congruent. There is soft tissue swelling surrounding the ankle, most prominent anteriorly. There is a small posterior tibiotalar joint effusion. Osseous structures are appropriately mineralized. No radiopaque foreign body. IMPRESSION: 1. Soft tissue swelling at the ankle without acute osseous abnormality. 2. Small posterior tibiotalar joint effusion. RPS/ges Workstation ID: [id number] Dictated by: JUMA WILHELM on TueDec 22, 2022 12:09:36 PM EDT Transcribed by: YIMI CORTES on TueDec 22, 2022 12:27:36 PM EDT Finalized by: JUMA WILHELM on TueDec 22, 2022 12:29:22 PM EDT [facility] Comment on above: Order Comment: Injur y/Trauma or Illness?:Illness/Other How long have you had these symptoms (acute/chronic)?:Acute Reason for exam?:L ankle pain History of cancer?:. Surgeries, chemotherapy, or radiation?:. Type of Exam?:Initial Additional signs and symptoms?:left foot pain and swelling after doing box jumps at the gym approx one week ago. XR FOOT LEFT 3+ VIEWS (STAND ABDULLAHI)on 12-22-2022 XR FOOT LEFT 3+ VIEWS (STANDARD) EXAMINATION: XR FOOT LEFT 3+ VIEWS (STANDARD) HISTORY: foot pain COMPARISON: None. IMPRESSION: FINDINGS/ 1. No acute fracture or dislocation. 2. No significant joint degeneration. 3. No ankle joint effusion. 4. Subcutaneous soft tissue edema about the forefoot. Subcutaneous soft tissue edema about the ankle. Workstation ID: [id number] Dictated by: SOFIA JONES on TueDec 22, 2022 11:49:28 AM EDT Transcribed by: SOFIA JONES on TueDec 22, 2022 11:49:28 AM EDT Finalized by: SOFIA JONES on TueDec 22, 2022 11:49:28 AM EDT [facility] Comment on above: Order Comment: Injur y/Trauma or Illness?:Illness/Other How long have you had these symptoms (acute/chronic)?:Acute Reason for exam?:L foot pain History of cancer?:. Surgeries, chemotherapy, or radiation?:. Type of Exam?:Initial Additional signs and symptoms?:left foot pain and swelling after doing box jumps at the gym approx one week ago Absolute lymphocyte countOrd ered By: Dr. Burt on 04-03-2022 Lymphocytes Auto (Unsp spec) [#/Vol] 2.27 10*3/uL 0.83-4.51 [facility] Basophil percentageOrdered B y: Dr. Burt on 04-03-2022 Basophils/100 WBC (Bld) 0.3 % 0-1 [facility] Eosinophils/100 WBC (Bld) 0.8 % 0-5 [facility] Neutrophils (Bld) [#/Vol] 7.9 10*3/uL 2.0-7.7 [facility] Neutrophils/100 WBC (Bld) 71.5 % 47-70 [facility] WBC (Bld) [#/Vol] 11.0 10*3/uL 4.4-11.0 [facility] Blood erythrocytes count (nu mber/volume)Ordered By: Dr. Burt on 04-03-2022 RBC (Bld) [#/Vol] 3.38 10*6/uL 4.2-5.4 [facility] Blood hemoglobin measurement (mass/volume)Ordered By: Dr. Burt on 04-03-2022 Hemoglobin (Bld) [Mass/Vol] 11.1 g/dL 12.0-15.0 [facility] Blood lymphocytes/100 leukoc ytesOrdered By: Dr. Burt on 04-03-2022 Lymphocytes/100 WBC (Bld) 20.7 % 19-41 [facility] Blood monocytes/100 leukocyt esOrdered By: Dr. Burt on 04-03-2022 Monocytes/100 WBC (Bld) 5.0 % 0-10 [facility] Blood platelet mean volumeOr dered By: Dr. Burt on 04-03-2022 Platelet mean volume (Bld) [Entitic vol] 10.1 fL 6.2-12.0 [facility] Determination of erythrocyte mean corpuscular volume (MCV)Ordered By: Dr. Burt on 04-03-2022 MCV (RBC) [Entitic vol] 97.0 fL 81-99 [facility] Hematocrit Auto (Bld) [Volum e fraction]Ordered By: Dr. Burt on 04-03-2022 Hematocrit (Bld) [Volume fraction] 32.8 % 37-47 [facility] Laboratory - Hematology and Cell countsOrdered By: Dr. Burt on 04-03-2022 Erythrocyte distribution width (RBC) [Entitic vol] 45.2 fL 35.1-43.9 [facility] Erythrocyte distribution width (RBC) [Ratio] 12.8 % 11.6-14.6 [facility] Immature granulocytes/100 WBC (Bld) 1.700 % 0.0-0.9 [facility] Comment on above: IG% - Immature Granu locytes (promyelocytes, myelocytes and metamyelocytes) > 1% indicates that a LEFT SHIFT is Present. MCH (RBC) [Entitic mass] 32.8 pg 27.0-32.0 [facility] Nucleated RBC/100 WBC (Bld) [Ratio] 0 % 0-5 [facility] MCHC Auto (RBC) [Mass/Vol]Or dered By: Dr. Burt on 04-03-2022 MCHC (RBC) [Mass/Vol] 33.8 g/dL 32-36 [facility] No Panel InformationOrdered By: Dr. Burt on 04-03-2022 Vaginal Amniotic Fluid Detection Positive Negative [facility] Comment on above: Amniotic fluid prese nt indicates rupture of Membranes. RESULTS CALLED TO [facility] 04/03/22 2241 Carin Rendon.REPORT READ BACK BY SAME . Platelets bldOrdered By: Dr. Burt on 04-03-2022 Platelets (Bld) [#/Vol] 247 10*3/uL 150-450 [facility] Absolute lymphocyte countOrd ered By: Dr. Burt on 03-17-2022 Lymphocytes Auto (Unsp spec) [#/Vol] 1.46 10*3/uL 0.83-4.51 [facility] Basophil percentageOrdered B y: Dr. Burt on 03-17-2022 Basophils/100 WBC (Bld) 0.4 % 0-1 [facility] Eosinophils/100 WBC (Bld) 0.9 % 0-5 [facility] Neutrophils (Bld) [#/Vol] 8.7 10*3/uL 2.0-7.7 [facility] Neutrophils/100 WBC (Bld) 78.2 % 47-70 [facility] WBC (Bld) [#/Vol] 11.2 10*3/uL 4.4-11.0 [facility] Blood erythrocytes count (nu mber/volume)Ordered By: Dr. Burt on 03-17-2022 RBC (Bld) [#/Vol] 3.44 10*6/uL 4.2-5.4 [facility] Blood hemoglobin measurement (mass/volume)Ordered By: Dr. Burt on 03-17-2022 Hemoglobin (Bld) [Mass/Vol] 11.3 g/dL 12.0-15.0 [facility] Blood lymphocytes/100 leukoc ytesOrdered By: Dr. Burt on 03-17-2022 Lymphocytes/100 WBC (Bld) 13.1 % 19-41 [facility] Blood monocytes/100 leukocyt esOrdered By: Dr. Burt on 01-25-2023 Monocytes/100 WBC (Bld) 6.5 % 0-10 [facility] Blood platelet mean volumeOr dered By: Dr. Burt on 03-17-2022 Platelet mean volume (Bld) [Entitic vol] 10.4 fL 6.2-12.0 [facility] Determination of erythrocyte mean corpuscular volume (MCV)Ordered By: Dr. Burt on 03-17-2022 MCV (RBC) [Entitic vol] 98.5 fL 81-99 [facility] Hematocrit Auto (Bld) [Volum e fraction]Ordered By: Dr. Burt on 03-17-2022 Hematocrit (Bld) [Volume fraction] 33.9 % 37-47 [facility] Laboratory - Hematology and Cell countsOrdered By: Dr. Burt on 03-17-2022 Erythrocyte distribution width (RBC) [Entitic vol] 46.3 fL 35.1-43.9 [facility] Erythrocyte distribution width (RBC) [Ratio] 13.1 % 11.6-14.6 [facility] Immature granulocytes/100 WBC (Bld) 0.900 % 0.0-0.9 [facility] Comment on above: IG% - Immature Granu locytes (promyelocytes, myelocytes and metamyelocytes) > 1% indicates that a LEFT SHIFT is Present. MCH (RBC) [Entitic mass] 32.8 pg 27.0-32.0 [facility] Nucleated RBC/100 WBC (Bld) [Ratio] 0 % 0-5 [facility] MCHC Auto (RBC) [Mass/Vol]Or dered By: Dr. Burt on 03-17-2022 MCHC (RBC) [Mass/Vol] 33.3 g/dL 32-36 [facility] Platelets bldOrdered By: Dr. Burt on 03-17-2022 Platelets (Bld) [#/Vol] 247 10*3/uL 150-450 [facility] Serum Treponema species anti body detectionOrdered By: Dr. Burt on 03-17-2022 Treponema sp Ab Ql (S) Non-Reactive [facility] Absolute lymphocyte countOrd ered By: Dr. Burt on 01-05-2022 Lymphocytes Auto (Unsp spec) [#/Vol] 1.57 10*3/uL 0.83-4.51 [facility] Basophil percentageOrdered B y: Dr. Burt on 01-05-2022 Basophils/100 WBC (Bld) 0.2 % 0-1 [facility] Eosinophils/100 WBC (Bld) 0.9 % 0-5 [facility] Neutrophils (Bld) [#/Vol] 6.7 10*3/uL 2.0-7.7 [facility] Neutrophils/100 WBC (Bld) 74.8 % 47-70 [facility] WBC (Bld) [#/Vol] 9.0 10*3/uL 4.4-11.0 [facility] Blood erythrocytes count (nu mber/volume)Ordered By: Dr. Burt on 01-05-2022 RBC (Bld) [#/Vol] 3.28 10*6/uL 4.2-5.4 [facility] Blood hemoglobin measurement (mass/volume)Ordered By: Dr. Burt on 01-05-2022 Hemoglobin (Bld) [Mass/Vol] 11.0 g/dL 12.0-15.0 [facility] Blood lymphocytes/100 leukoc ytesOrdered By: Dr. Burt on 01-05-2022 Lymphocytes/100 WBC (Bld) 17.5 % 19-41 [facility] Blood monocytes/100 leukocyt esOrdered By: Dr. Burt on 01-05-2022 Monocytes/100 WBC (Bld) 5.6 % 0-10 [facility] Blood platelet mean volumeOr dered By: Dr. Burt on 01-05-2022 Platelet mean volume (Bld) [Entitic vol] 9.7 fL 6.2-12.0 [facility] Determination of erythrocyte mean corpuscular volume (MCV)Ordered By: Dr. Burt on 01-05-2022 MCV (RBC) [Entitic vol] 96.6 fL 81-99 [facility] Gestational diabetes screen 1-hour screen with 50g oral glucose loadOrdered By: Dr. Burt on 01-05-2022 Glucose 1 Hr post 50 g glucose PO [Mass/Vol] 124 mg/dL 70-140 [facility] Hematocrit Auto (Bld) [Volum e fraction]Ordered By: Dr. Burt on 01-05-2022 Hematocrit (Bld) [Volume fraction] 31.7 % 37-47 [facility] Laboratory - Hematology and Cell countsOrdered By: Dr. Burt on 01-05-2022 Erythrocyte distribution width (RBC) [Entitic vol] 46.2 fL 35.1-43.9 [facility] Erythrocyte distribution width (RBC) [Ratio] 13.2 % 11.6-14.6 [facility] Immature granulocytes/100 WBC (Bld) 1.000 % 0.0-0.9 [facility] Comment on above: IG% - Immature Granu locytes (promyelocytes, myelocytes and metamyelocytes) > 1% indicates that a LEFT SHIFT is Present. MCH (RBC) [Entitic mass] 33.5 pg 27.0-32.0 [facility] Nucleated RBC/100 WBC (Bld) [Ratio] 0 % 0-5 [facility] MCHC Auto (RBC) [Mass/Vol]Or dered By: Dr. Burt on 01-05-2022 MCHC (RBC) [Mass/Vol] 34.7 g/dL 32-36 [facility] Platelets bldOrdered By: Dr. Burt on 01-05-2022 Platelets (Bld) [#/Vol] 216 10*3/uL 150-450 [facility] No Panel Informationon 11-16 Normal [place] [address] [employer] Work Phone: Cult, Urineon 09-23-2021 Bacteria identified Cx Nom (U) [place] [address] [employer] Work Phone: GC + Chlamydia By Amplified Detectionon 09-23-2021 C. trachomatis rRNA MATTHEW+probe Ql (Unsp spec) Negative Negative [address] Work Phone: Comment on above: The APTIMA Combo 2 a ssay is FDA-approved for Chlamydia trachomatis and Neisseria gonorrhoeae testing on female endocervical and vaginal swabs, ThinPrep liquid pap samples, male urine samples and urethral swabs. Performance characteristics for Chlamydia trachomatis and Neisseria gonorrhoeae testing on specific vhg-[id number]-[id number] sample types (female urine samples) have been validated by [facility]. This laboratory is certified by CLIA to perform high complexity testing. Samples from all other sites are not validated for this method. N. gonorrhoeae rRNA MATTHEW+probe Ql (Unsp spec) Negative Negative [place] [address] [employer] Work Phone: Comment on above: SOURCE: Urine The AP CAMILO Combo 2 assay is FDA-approved for Chlamydia trachomatis and Neisseria gonorrhoeae testing on female endocervical and vaginal swabs, ThinPrep liquid pap samples, male urine samples and urethral swabs. Performance characteristics for Chlamydia trachomatis and Neisseria gonorrhoeae testing on specific amg-CLX-ssmlxpys sample types (female urine samples) have been validated by [facility]. This laboratory is certified by CLIA to perform high complexity testing. Samples from all other sites are not validated for this method. HIV 1/2 ANTIGEN/ANTIBODY SCR EEN WITH REFLEX TO CONFIRMATIONon 09-23-2021 HIV 1+2 Ab Qn (S) Non-Reactive See Below [place] [address] [employer] Work Phone: Comment on above: SOURCE: Reference Ra nge: NONREACTIVE HIV Ag/Ab screen is performed using the Siemens Mir Vracha HIV Ag/Ab Combo assay which detects the presence of HIV p24 antigen as well as antibodies to HIV-1 (Group M and O) and HIV-2..No laboratory evidence of HIV infection. If acute HIV infection is suspected, consider testing for HIV RNA by PCR (viral load). Hepatitis B Surface Antigeno n 09-23-2021 Hepatitis B Surface Antigen Non-Reactive See Below [place] [address] [employer] Work Phone: Comment on above: SOURCE: Reference Ra nge: NONREACTIVE Biotin interference may cause falsely decreased results. Patients taking a Biotin dose of up to 5 mg/day should refrain from taking Biotin for 24 hours before sample collection. Providers may contact their local laboratory for further information. SOURCE: Reference Ra nge: NONREACTIVE Results from patients taking biotin supplements or receiving high-dose biotin therapy should be interpreted with caution due to possible interference with this test. Providers may contact their local laboratory for further information. Laboratory - Cytologyon Cytology report Cyto stain.thin prep Doc (Cvx/Vag) [place] [address] [employer] Work Phone: Rubella IgG Antibodyon 09-23 Rubella virus IgG IA Ql Positive [employer] Phone: Comment on above: INTERPRETATIVE COMME NT NEGATIVE: No IgG antibodies specific to Rubella detected. It is likely that the patient has not had a previous exposure to Rubella through infection or vaccination. Alternatively, the patient may have been exposed to Rubella but a failure to respond may indicate immunodeficiency. EQUIVOCAL:Equivocal results; obtain additional sample for retesting. POSITIVE: IgG antibody to Rubella detected. This may indicate that the patient was exposed to Rubella through infection or vaccination.The interpretation of serological tests should take into accountthe immunological status of the patient. Test results forpatients, including immunocompromised patients, neonates, andpediatric patients, reflect their capacity to respondimmunologically to the virus as well as their exposure to thepathogen. Patients treated with IVIG may demonstrate alteredresults in serological assays. SYPHILIS SCREENING WITH REFL EXon 09-23-2021 T. pallidum IgG+IgM IA Ql (S) Non-Reactive See Below [employer] Work Phone: Comment on above: Reference Range: NON REACTIVENo significant level of Treponema pallidum antibody detected. Repeat testing in 2 to 4 weeks may be considered if early infection or incubating syphilis infection is suspected. IO HCG, Urine Test on 09-02-2021 HCG ( test) Ql (U) Positive [employer] Phone: LMPon 09-02-2021 Last menstrual period start date 04Jul2021 [employer] Work Phone: CASE TECHNICIAN - Office Visiton 08-21 CASE TECHNICIAN - Office Visit Diagnoses/Problems Assessed Multigravida in first trimester (V22.1) (Z34.81) Maternal care for low transverse scar from previous delivery (654.21) (O34.211) Threatened (640.00) (O20.0) 8 weeks gestation of (V22.2) (Z3A.08) Positive urine test (V72.42) (Z32.01) Orders IO HCG, Urine Test; Status:Resulted - Requires Verification,Retrospective Authorization; Done: [id number] 09:36AM Provider Impressions 1)Threaten ab- bleeding has stopped and no subchorionic hemorrhage appreciated. Reviewed pelvic rest in the first trimester. Lifestyle modification discussed at length. Ultrasound from emergency room scan today consistent with last menstrual period. Reviewed last menstrual period for dating. Chief Complaint PT IS HERE TODAY FOR AMENORRHEA. FEELS NAUSEOUS BUT DENIES ANY VOMITING. HAS NO CONCERNS. SEEN IN ER X'S 1 WEEK FOR BLEEDING AND DID AN U/S AND SAW A HEARTBEAT. HAS HAD NO BLEEDING SINCE. HAD MILD CRAMPING. DID HAVE BREAST TENDERNESS. LMP: 07/04/2021 History of Present Ssowtee60-kirb-ile G3, P2 presents for follow-up for threatened AB. Patient had episode of heavy vaginal bleeding and was sent to emergency room and was scanned and showed a live IUP. Patient's bleeding is basically stopped. Patient doing pelvic rest. Patient has nausea but taken B6 and doxylamine like she did prior pregnancies. Patient is breast tenderness. Patient is no acute concerns Review of Systems Constitutional: No fevers, chills Eye:no vision changes Respiratory: no SOB Cardiovascular: no chest pain Breast: Tenderness Gastrointestinal: No nausea, vomiting, diarrhea, constipation, abdominal pain Genitourinary:no dysuria Gynecology: See HPI Endocrine: No heat or cold intolerance Musculoskeletal: No decreased ROM Skin:No rash Neurologic: No numbness tingling Psychiatric: No anxiety, depression All other: all other systems reviewed and negative for complaint Active Problems Problems 8 weeks gestation of (V22.2) (Z3A.08) Abnormal uterine bleeding (AUB) (626.9) (N93.9) Maternal care for low transverse scar from previous delivery (654.21) (O34.211) Multigravida in first trimester (V22.1) (Z34.81) PCOS (polycystic ovarian syndrome) (256.4) (E28.2) Positive urine test (V72.42) (Z32.01) Threatened (640.00) (O20.0) Past Medical History Problems History of Delivery of by section (669.70) (O82) 11/22/15 40weeks Male 8lbs 3oz History of vaginal delivery following previous delivery (V45.89) (Z98.891) 04/22/17 40 WEEKS 1 DAY MALE 7LB 7OZ VAGINAL History of Menstruation Age 14 Surgical History Problems History of section 2016 Family History Mother Family history of malignant neoplasm of breast (V16.3) (Z80.3) Family history of Irregular heartbeat Father Family history of hypertension (V17.49) (Z82.49) Grandmother Family history of malignant neoplasm of breast (V16.3) (Z80.3) Social History Problems Consumes alcohol weekly (V49.89) (Z78.9) Does not use illicit drugs (V49.89) (Z78.9) Never a smoker Sexually active Allergies Medication No Known Drug Allergies Recorded By: Robin Stuart; 05/06/2021 9:48:23 AM Current Meds Medication NameInstruction Biotin TBDP CoQ10 CAPS Folate TABS Letrozole 2.5 MG Oral TabletTAKE 1 TABLET DAILY starting on day 3-5 of your cycle for 5 dyas PNV Plus Multivitamin 27-1 MG TABS Unisom TABS Vitamin B6 TABS Vitamin D TABS Vitals Vital Signs Recorded: [id number] 09:41AM [id number] Drjgaflvb19 Height5 ft 8 in Vgmqlj524 lb 8 oz BMI Okezfxphww29.4 kg/m2 BSA Calculated1.86 [id number] Physical Exam General: None acute distress Eye: Intraocular movements are intact HEENT: Normocephalic Cardiovascular: Regular rate rhythm Respiratory: Lungs are clear to auscultation, respirations are nonlabored Breast: No masses no tenderness no discharge no adenopathy or skin changes Gastrointestinal: Soft nontender nondistended normal bowel sounds Musculoskeletal: Normal range of motion Skin: Warm and dry Neurologic: Alert and oriented x3 Psychiatric: Cooperative appropriate mood and affect. Results/Data IO HCG, Urine [id number] 09:36Harlan Collins MEDLINE LOT: [id number] EXP: 11/20/2022 Test NameResultFlagReference IO Urine hCGPositive Ultrasound Pelvis OB Transabdominal With [id number] 02:43PMNon Ambulatory, Provider Ordering Provider: JEN KOEHLER [id number] Test NameResultFlagReference Ultrasound Pelvis OB Transabdominal With Transvaginal(Report) FINAL REPORT Interpreted by: ELOY GOLDSTEIN CHRISTOPHER, MD 08/26/21 15:02 Patient Name: ALBERTO BLACKWOOD STUDY: US PELVIS OB TRANSABDOMINAL WITH TRANSVAGINAL 08/26/2021 2:43 pm INDICATION: 31 y/o F with , LLQ abd pain . LMP: Unknown. COMPARISON: None. ACCESSION NUMBER(S): [id number] ORDERING CLINICIAN: HERNÁN (more content not included)... Normal [facility] BASIC METABOLIC PANELon 07-0 Anion gap [Moles/Vol] 11 mmol/L Normal 10 - 20 [facility] Comment on above: Performed By: #### B MP #### [address] [address] Calcium [Mass/Vol] 9.1 mg/dL Normal 8.6 - 10.3 [facility] Comment on above: Performed By: #### B MP #### [address] [address] Chloride [Moles/Vol] 106 mmol/L Normal 98 - 107 [facility] Comment on above: Performed By: #### B MP #### [address] [address] Creatinine [Mass/Vol] 0.47 mg/dL Low 0.50 - 1.05 [facility] Comment on above: Performed By: #### B MP #### [address] [address] eGFR FEMALE >90 Normal >90 [facility] Comment on above: Result Comment: CALC ULATIONS OF ESTIMATED GFR ARE PERFORMED USING THE 2020 CKD-EPI STUDY REFIT EQUATION WITHOUT THE RACE VARIABLE FOR THE IDMS-TRACEABLE CREATININE METHODS. https://jasn.asnjournals.org/content//ASN.96200923 88 Performed By: #### B MP #### [address] [address] Glucose [Mass/Vol] 84 mg/dL Normal 74 - 99 [facility] Comment on above: Performed By: #### B MP #### [address] [address] HCO3 (Bld) [Moles/Vol] 23 mmol/L Normal 21 - 32 [facility] Comment on above: Performed By: #### B MP #### [address] [address] Potassium [Moles/Vol] 3.6 mmol/L Normal 3.5 - 5.3 [facility] Comment on above: Performed By: #### B MP #### [address] [address] Sodium [Moles/Vol] 136 mmol/L Normal 136 - 145 [facility] Comment on above: Performed By: #### B MP #### [address] [address] Urea nitrogen [Mass/Vol] 12 mg/dL Normal 6 - 23 [facility] Comment on above: Performed By: #### B MP #### [address] [address] CBC AND DIFFERENTIALon 08-26 Basophils (Bld) [#/Vol] 0.00 10*3/uL Normal 0.00 - 0.10 [facility] Comment on above: Performed By: #### C BCDF #### [address] [address] Eosinophils (Bld) [#/Vol] 0.10 10*3/uL Normal 0.00 - 0.70 [facility] Comment on above: Performed By: #### C BCDF #### [address] [address] Eosinophils/100 WBC (Bld) 0.9 % Normal 0.0 - 6.0 [facility] Comment on above: Performed By: #### C BCDF #### [address] [address] Lymphocytes (Bld) [#/Vol] 1.50 10*3/uL Normal 1.20 - 4.80 [facility] Comment on above: Performed By: #### C BCDF #### [address] [address] Monocytes (Bld) [#/Vol] 0.60 10*3/uL Normal 0.10 - 1.00 [facility] Comment on above: Performed By: #### C BCDF #### [address] [address] Neutrophils (Bld) [#/Vol] 4.60 10*3/uL Normal 1.20 - 7.70 [facility] Comment on above: Result Comment: Perc ent differential counts (%) should be interpreted in the context of the absolute cell counts (cells/L). Performed By: #### C BCDF #### [address] [address] RBC 3.54 x10E12/L Low 4.00 - 5.20 [facility] Comment on above: Performed By: #### C BCDF #### [address] [address] Complete Blood Count + Diffe rentialon 08-26-2021 Basophils/100 WBC (Bld) 0.4 % Normal 0.0 - 2.0 [place] [address] [employer] Work Phone: Comment on above: Performed By: #### C BCDF #### [address] [address] Erythrocyte distribution width (RBC) [Ratio] 12.7 % Normal 11.5 - 14.5 [place] [address] [employer] Work Phone: Comment on above: Reference Range: 11. 5 - 14.5 Performed By: #### C BCDF #### [address] [address] Hematocrit (Bld) [Volume fraction] 33.3 % Low 36.0 - 46.0 [place] [address] [employer] Work Phone: Comment on above: Reference Range: 36. 0 - 46.0 Performed By: #### C BCDF #### [address] [address] Hemoglobin (Bld) [Mass/Vol] 11.8 g/dL Low 12.0 - 16.0 [place] [address] [employer] Work Phone: [phone] Comment on above: Reference Range: 12. 0 - 16.0 Performed By: #### C BCDF #### [address] [address] Lymphocytes/100 WBC (Bld) 21.5 % Normal 13.0 - 44.0 [place] [address] [employer] Work Phone: [phone] Comment on above: Reference Range: 13. 0 - 44.0 Performed By: #### C BCDF #### [address] [address] MCHC (RBC) [Mass/Vol] 35.6 g/dL Normal 32.0 - 36.0 [place] [address] [employer] Work Phone: [phone] Comment on above: Reference Range: 32. 0 - 36.0 Performed By: #### C BCDF #### [address] [address] MCV (RBC) [Entitic vol] 94 fL Normal 80 - 100 [place] [address] [employer] Work Phone: [phone] Comment on above: Performed By: #### C BCDF #### [address] [address] Monocytes/100 WBC (Bld) 8.5 % Normal 2.0 - 10.0 [place] [address] [employer] Work Phone: [phone] Comment on above: Performed By: #### C BCDF #### [address] [address] Neutrophils/100 WBC (Bld) 68.7 % Normal 40.0 - 80.0 [place] [address] [employer] Work Phone: [phone] Comment on above: Reference Range: 40. 0 - 80.0 Performed By: #### C BCDF #### [address] [address] Platelets (Bld) [#/Vol] 204 10*3/uL Normal 150 - 450 [facility] [address] [employer] Work Phone: Comment on above: Performed By: #### C BCDF #### [place] [id number] [place] [address] RBC (Bld) [#/Vol] 3.54 {x10E12/L} below low threshold See Below [facility] [employer] Work Phone: Comment on above: Reference Range: 4.0 0 - 5.20 WBC (Bld) [#/Vol] 6.7 10*3/uL Normal 4.4 - 11.3 [facility] [place] [address] [employer] Work Phone: Comment on above: Performed By: #### C BCDF #### [address] [address] Complete Blood Count + Differential 0.00 {x10E9/L} See Below [facility] [address] [employer] Work Phone: Comment on above: Reference Range: 0.0 0 - 0.10 Complete Blood Count + Differential 0.10 {x10E9/L} See Below [facility] [place] [address] [employer] Work Phone: Comment on above: Reference Range: 0.0 0 - 0.70 Complete Blood Count + Differential 0.60 {x10E9/L} See Below [facility] [place] [address] [employer] Work Phone: Comment on above: Reference Range: 0.1 0 - 1.00 Complete Blood Count + Differential 1.50 {x10E9/L} See Below [facility] [employer] Work Phone: Comment on above: Reference Range: 1.2 0 - 4.80 Complete Blood Count + Differential 4.60 {x10E9/L} See Below [facility] [address] [employer] Work Phone: Comment on above: Reference Range: 1.2 0 - 7.70 Percent differential counts (%) should be interpreted in the context of the absolute cell counts (cells/L). Complete Blood Count + Differential 0.9 % 0.0 - 6.0 [facility] [employer] Work Phone: HCG, Beta Quantitativeon HCG.beta subunit Qn [id number] m[IU]/mL Abnormal [place] [address] [employer] Work Phone: Comment on above: Low-level positive H CG results can be seen in early , in nisha- or post-menopausal females due to normal pituitary HCG production, or with analytic interference. Repeat testing in 48-72 hours can aid in assessing for as results should double in this time period. FSH measurement is recommended in nisha- or post-menopausal females as concurrent elevation of FSH can support pituitary production as the source of the HCG elevation.. Total HCG measurement is performed using the Keily Untangle Access Immunoassay which detects intact HCG and free beta HCG subunit. This test is not indicated for use as a tumor marker. HCG testing is performed using a different test methodology at [facility] than other legacy [facility]. Direct result comparison should only be made within the same method. REF VALUESNON FEMALE <5MALES <5 HCG,BETA-QUANTITATIVEon 07-0 HCG,BETA-QUANTITATI [place] [id number] mIU/mL Abnormal [facility] Comment on above: Result Comment: Low- level positive HCG results can be seen in early , in nisha- or post-menopausal females due to normal pituitary HCG production, or with analytic interference. Repeat testing in 48-72 hours can aid in assessing for as results should double in this time period. FSH measurement is recommended in nisha- or post-menopausal females as concurrent elevation of FSH can support pituitary production as the source of the HCG elevation. . Total HCG measurement is performed using the Keily Rena Access Immunoassay which detects intact HCG and free beta HCG subunit. This test is not indicated for use as a tumor marker. HCG testing is performed using a different test methodology at [facility] than other legacy [facility]. Direct result comparison should only be made within the same method. REF VALUES NON FEMALE <5 MALES <5 Performed By: #### H CGQU #### [id number] [place] [address] Laboratory - Blood bankon ABO group Nom (Bld) O [facility] [employer] Work Phone: Blood group antibody screen Ql Negative [employer] Work Phone: Rh immune globulin screen (Bld) [Interp] Positive [employer] Work Phone: Laboratory - Chemistry and C hemistry - challengeon 08-26-2021 Anion gap [Moles/Vol] 11 mmol/L 10 - 20 [employer] Work Phone: Calcium [Mass/Vol] 9.1 mg/dL 8.6 - 10.3 [facility] [employer] Work Phone: Chloride [Moles/Vol] 106 mmol/L 98 - 107 [employer] Work Phone: CO2 [Moles/Vol] 23 mmol/L 21 - 32 [employer] Work Phone: Creatinine [Mass/Vol] 0.47 mg/dL below low threshold See Below [employer] Work Phone: Comment on above: Reference Range: 0.5 0 - 1.05 Glucose [Mass/Vol] 84 mg/dL 74 - 99 [facility] [employer] Work Phone: Potassium [Moles/Vol] 3.6 mmol/L 3.5 - 5.3 [employer] Work Phone: Sodium [Moles/Vol] 136 mmol/L 136 - 145 [facility] [employer] Work Phone: Urea nitrogen [Mass/Vol] 12 mg/dL 6 - 23 [employer] Work Phone: No Panel Informationon 08-26 Normal [employer] Work Phone: >90 >90 [employer] Work Phone: Comment on above: CALCULATIONS OF JOE MATED GFR ARE PERFORMED USING THE 2020 CKD-EPI STUDY REFIT EQUATION WITHOUT THE RACE VARIABLE FOR THE IDMS-TRACEABLE CREATININE METHODS.https://jasn.asnjournals.org/content//ASN. 9181257923 Provider Note - ED v3on 07-0 Provider Note - ED v3 Provider Note: Chart Review: ED NOTES ED NOTES: ====HPI==== Patient is a 31-year-old female who presents to the emergency department with a chief complaint of vaginal bleeding in . She states that she is about 7 weeks . She states that yesterday evening after having sexual intercourse she began bleeding. She states that the bleeding stopped last night but she continues to have pain to her left lower quadrant. She states that she has not been seen by her OB yet. She states that she called Dr. Ding's office and they told her to go to the emergency department. She states that she is a G3, P2. She denies any fever or chills. No additional symptoms. PMHX: PCOS, PSHX: Social HX: Denies TOBACCO Occasional ETOH Denies DRUGS ====Review of Systems==== 10 point system review is negative except for those specifically mentioned in history of present illness ====Physical Exam==== Constitutional/General: Alert and oriented x3, well appearing, nontoxic, and in NAD. Head: Normocephalic and atraumatic. Eyes: EOMI, conjunctive normal, sclera nonicteric, subconjunctival layer is pink. Respiratory: Lungs clear to auscultation bilaterally, no wheezes, rales, or rhonchi, not in respiratory distress. Cardiovascular: Regular rate, regular rhythm, no murmurs, gallops, or rubs, 2+ distal pulses. Chest: normal chest wall movement GI: Abdomen soft, nontender, nondistended, no organomegaly, no palpable masses, no rebound, guarding, or rigidity. Musculoskeletal: Moves all extremities x4, warm and well perfused, no clubbing, cyanosis, or edema, cap refill <3 seconds Integument: Skin warm and dry, no rashes. Neurologic: No focal deficits Psychiatric: Normal affect. ====ED Course and Medical Decision Making==== See MDM section for review of findings & plan of care. Portions of this note were dictated by speech recognition. An attempt at proof reading was made to minimize errors. Minor errors in physician office specialist may be present. Please call if questions.. HISTORY OF PRESENTING ILLNESS ALBERTO is a 31 year old Female and was seen by me at 26-Aug-2021 12:59 for a chief complaint of vaginal bleeding (pt states she is about 7 weeks , she noticed a moderate about of bleeding with clots last night after having sex. There was jut one episode of bleeding, and she tried to see Dr Ding today but can't get in until Tuesday. She is also having left sided cramping like a period.) . Triage Information: Most recent Vital Sign Value Date Temp (F): 99.1 08-26-2021 13:23 Temp (C): 37.2 08-26-2021 13:23 Heart Rate (beats/min): 87 08-26-2021 13:23 Respirations (breaths/min): 16 08-26-2021 13:23 SpO2 (%): 98 08-26-2021 13:23 BP Systolic (mm Hg): 103 08-26-2021 13:23 BP Diastolic (mm Hg): 78 08-26-2021 13:23 PAST MEDICAL HISTORY ALLERGIES/INTOLERANCES: No Known Allergies HEALTH HISTORY: No documented data. OUTPATIENT MEDICATIONS: Home Medications Review Status for Reconciliation: N/A Med Status: N/A No documented data. SIGNIFICANT EVENTS: Past Medical History Description:PCOS Description: Past Surgical History Description: Section CRITICAL CARE RESULTS: Recent Lab Results: I have reviewed these laboratory results: Urinalysis with Culture if Indicated 26-Aug-2021 14:46:00 ResultValue Color, Urine Yellow Reference Range: STRAW,YELLOW Appearance, Urine CLEAR Specific [place], Urine 1.013 pH, Urine 6.0 Protein, Urine NEGATIVE Glucose, Urine NEGATIVE Blood, Urine SMALL(1+) A Ketones, Urine NEGATIVE Bilirubin, Urine NEGATIVE Urobilinogen, Urine <2.0 Nitrite, Urine Negative Leukocyte Esterase, Urine NEGATIVE Urinalysis, Microscopic 26-Aug-2021 14:46:00 ResultValue White Cells 1 Red Blood Cells <1 Epithelial Cells, Squamous <1 Bacteria, Urine 1+ A Mucous 1+ Complete Blood Count + Differential 26-Aug-2021 13:46:00 ResultValue White Blood Cell Count 6.7 Red Blood Cell Count 3.54 L HGB 11.8 L HCT 33.3 L MCV 94 MCHC 35.6 PLT 204 RDW-CV 12.7 Neutrophil % 68.7 Lymphocyte % 21.5 Monocyte % 8.5 Eosinophil % 0.9 Basophil % 0.4 Neutrophil Count 4.60 Lymphocyte Count 1.50 Monocyte Count 0.60 Eosinophil Count 0.10 Basophil Count 0.00 Basic Metabolic Panel 26-Aug-2021 13:46:00 ResultValue Glucose, Serum 84 NA 136 K 3.6 CL 106 Bicarbonate, Serum 23 Anion Gap, Serum 11 BUN 12 CREAT 0.47 L GFR Female >90 Calcium, Serum 9.1 HCG, Beta Quantitative 26-Aug-2021 13:46:00 ResultValue HCG, Beta Quantitative [id number] A Radiology Results: Impression: 1. Single live intrauterine . 2. Estimated gestational age: 7 weeks 6 days + / -3 days. Ultrasound Trans Vag Preg Uterus [Aug 26 2021 3:04PM] Impression: Ultrasound Trans Vag Preg Uterus [Aug 26 2021 2:53PM] VITAL SIGNS: T (more content not included)... Normal [facility] Risk Screen - Adult Emergenc n 08-26-2021 Risk Screen - Adult Emergency Preferred Language: Preferred Language: Preferred Language for Discussing Health Care (patient/designee)Hungarian Advanced Directives: Advance Directive/DNRno Family Violence Adult: Abuse Screen: Are you or have you been threatened or abused physically, emotionally, or sexually by anyoneno Learning Assessment (Patient): Learning Assessment (Patient): Patient is Able to be Assessed for Learningyes Factors Influencing Readiness to Learnacuteness of illness Factors that Impact Ability to Learnnone Devices/Methods Used to Communicatenone Learning Preferencesaudio Cultural Considerationsnone Developmental Considerationsnone Cheondoism Considerationsnone Learning Assessment (Other Learner): Learning Assessment (Other Learner): Other learner availableno Pressure Injury/TB/Substance: Pressure Injury: Do you have a coughno Smoking Statusnever smoker Alcohol Useoccasionally Drug Usedenies Admission Risk Screen: Significant IndicatorsComplete CAGE: CAGE: Is this an injured patient at a Trauma Center ([facility]/[place]): no Electronic Signatures: Arleen Javier (RN) (Signed 26-Aug-2021 13:29) Authored: Preferred Language, Advanced Directives, Family Violence Adult, Learning Assessment (Patient), Learning Assessment (Other Learner), Pressure Injury/TB/Substance, Pressure Injury, CAGE Last Updated: 26-Aug-2021 13:29 by Arleen Javier (RN) [facility] TYPE + SCREENon 08-26-2021 ABO TYPE O [facility] Comment on above: Performed By: #### T +S #### [place] [address] RH TYPE Positive [facility] Comment on above: Performed By: #### T +S #### [place] [id number] Triage - EDon 08-26-2021 Triage - ED Quick Triage: Are You yes Have You Given In The Last 6 Weeksno Are You Currently Breastfeedingno Chart Review: ARRIVAL INFORMATION Mode of Arrival: private vehicle CHIEF COMPLAINT ALBERTO BLACKWOOD is a Female patient with a chief complaint of vaginal bleeding (pt states she is about 7 weeks , she noticed a moderate about of bleeding with clots last night after having sex. There was jut one episode of bleeding, and she tried to see Dr Ding today but can't get in until Tuesday. She is also having left sided cramping like a period.). Triage Date/Time: 26-Aug-2021 13:23 CARL: 3V Pain Rating (0-10): 5 = Moderate Pain location: left LQ Vital Signs: Temperature: 99.1F ( 37.2C) taken temporal Blood Pressure: 103/78 Mean: Heart Rate: 87 Respiratory Rate: 16 Pulse Oximetry: 98% on room air, no respiratory support. Height: 5 feet 8.00 inches. 172.7 CM Weight: 154.3 pounds. Calculated 70.0 kg. (stated) Calculated BMI (kg/m2): 23.470 Calculated BSA (m2) 1.83 [place] Coma Scale: Best Eye Response: (E4) spontaneous Best Motor Response: (M6) obeys commands Best Verbal Response: (V5) oriented [place] Score: 15 CASE TECHNICIAN History: Patient has homicidal thoughts: no Symptoms Are POSITIVE For: abdominal cramp and vaginal bleeding. Symptoms Are Negative For: back pain, edema, fever, vaginal itching, nausea and vaginal discharge. Risk Screens Suicide Risk Screen In the Past Month: Have you wished you were or wished you could go to sleep and not wake up no In the Past Month: Have you had any actual thoughts of killing yourself no In Your Lifetime: Have you ever done anything, started to do anything, or prepared to do anything to end your life no Interventions: [place] Fall Interventions: LOW INTERVENTIONS: *patient oriented to surroundings and call system, * patient/family falls education completed and documented, *patients fall status communicated during bedside handoff, *whiteboard updated, *mode of toileting discussed with patient, *bed in low position with brakes locked, *call light in reach, * non-skid footwear TRAVEL HISTORY Travel History Coronavirus Screening: no exposure or symptoms Travel Exposure History: NO travel to International locations in the past 30 days PAIN Pain Scale Used: EMILY Pain Rating (0-10): 5 = Moderate Past Medical History: Past Medical History Reviewedyes Section: Past Surgical History, Active : Past Medical History, Active PCOS: Past Medical History, Active Electronic Signatures: Arleen Javier (GERSON) (Signed 26-Aug-2021 13:28) Entered: Risk Screens, Pain, Travel History, Chart Review, Scores, Past Medical History Authored: Quick Triage, Risk Screens, Pain, Travel History, Chart Review, Scores, Past Medical History Last Updated: 26-Aug-2021 13:28 by Arleen Javier (GERSON) Normal [facility] UA MICROSCOPICon 08-26-2021 BACTERIA 1+ /HPF Abnormal [facility] Comment on above: Performed By: #### U AMIC #### [address] [address] Mucus Ql (Urine sed) 1+ /LPF Normal [facility] Comment on above: Performed By: #### U AMIC #### [address] [address] RBC (U) [#/Vol] /uL Normal 0-5 [facility] Comment on above: Performed By: #### U AMIC #### [place] [address] SQUAMOUS EPITH. CELLS <1 Normal [facility] Comment on above: Performed By: #### U AMIC #### [place] [id number] WBC 1 /HPF Normal 0-5 [facility] Comment on above: Performed By: #### U AMIC #### [place] [address] URINALYSIS WITH CULTURE IF I NDICATEDon 08-26-2021 Appearance (U) CLEAR Normal CLEAR [facility] Comment on above: Performed By: #### U ARFX #### [place] [address] Bilirubin Ql (U) Negative Normal NEGATIVE [facility] Comment on above: Performed By: #### U ARFX #### [place] [address] Color (U) Yellow Normal STRAW,YELLOW [facility] Comment on above: Performed By: #### U ARFX #### [place] [address] Glucose Ql (U) Negative Normal NEGATIVE [facility] Comment on above: Performed By: #### U ARFX #### [place] [id number] Hemoglobin Ql (U) SMALL(1+) Abnormal NEGATIVE [facility] Comment on above: Performed By: #### U ARFX #### [place] [address] Ketones Ql (U) Negative Normal NEGATIVE [facility] Comment on above: Performed By: #### U ARFX #### [place] [id number] Leukocyte esterase Test strip Ql (U) Negative Normal NEGATIVE [facility] Comment on above: Performed By: #### U ARFX #### [address] [address] Nitrite Ql (U) Negative Normal NEGATIVE [facility] Comment on above: Performed By: #### U ARFX #### [address] [address] pH (U) 6.0 [pH] Normal 5.0 - 8.0 [facility] Comment on above: Performed By: #### U ARFX #### [address] [address] Protein Ql (U) Negative Normal NEGATIVE [facility] Comment on above: Performed By: #### U ARFX #### [address] [address] Specific gravity (U) [Rel density] 1.013 Normal 1.005 - 1.035 [facility] Comment on above: Performed By: #### U ARFX #### [address] [address] Urobilinogen (U) [Mass/Vol] mg/dL Normal 0.0 - 1.9 [facility] Comment on above: Performed By: #### U ARFX #### [address] [address] Color (U) Yellow See Below [facility] [employer] Work Phone: Comment on above: Reference Range: STR AW,YELLOW Glucose Ql (U) Negative NEGATIVE [facility] [employer] Work Phone: Ketones Ql (U) Negative NEGATIVE [facility] [employer] Work Phone: Leukocyte esterase Test strip Ql (U) Negative NEGATIVE [facility] [employer] Work Phone: pH (U) 6.0 [pH] 5.0 - 8.0 [facility] [employer] Work Phone: Protein (U) [Mass/Vol] Negative NEGATIVE [facility] [employer] Work Phone: RBC (U) [#/Vol] SMALL(1+) Abnormal NEGATIVE [facility] [employer] Work Phone: Specific gravity (U) [Rel density] 1.013 1 See Below [facility] Work Phone: Comment on above: Reference Range: 1.0 05 - 1.035 URINALYSIS WITH CULTURE IF INDICATED Negative NEGATIVE [employer] Work Phone: URINALYSIS WITH CULTURE IF INDICATED <2.0 0.0 - 1.9 [employer] Work Phone: URINALYSIS WITH CULTURE IF INDICATED CLEAR CLEAR [employer] Work Phone: US PELVIS OB TRANSABDOMINAL W TRANSVAGINAL UP TO 1st TRIMESTERon 08-26-2021 US PELVIS OB TRANSABDOMINAL W TRANSVAGINAL UP TO 1st TRIMESTER Patient Name: ALBERTO BLACKWOOD STUDY: US PELVIS OB TRANSABDOMINAL WITH TRANSVAGINAL 08/26/2021 2:43 pm INDICATION: 31 y/o F with , LLQ abd pain . LMP: Unknown. COMPARISON: None. ACCESSION NUMBER(S): [id number] ORDERING CLINICIAN: JEN KOEHLER TECHNIQUE: Multiple grayscale ultrasonographic images were obtained through the pelvis utilizing transabdominal and endovaginal imaging. FINDINGS: UTERUS AND GESTATIONAL SAC: There is a single intrauterine gestational sac identified. Within the gestational sac, a yolk sac and pole are visualized. The crown-rump length measures 15 mm. This corresponds to a gestational age of 7 weeks, 6 days + / -3 days. The estimated gestational age by last menstrual period was 7 weeks, 4 days, which is concordant with ultrasound dating. The heart rate measures at 157 beats per minute. The uterus measures at 9.3 cm in length and 5.4 x 7.6 cm in AP and in transverse diameters. The cervix is closed. ADNEXA/OVARIES: No discrete adnexal mass seen. RIGHT OVARY: Right ovary: Grossly unremarkable in appearance. Right ovary size: 2.9 x 2.2 x 3.0 cm LEFT OVARY: Left ovary: A corpus luteum is seen in the left ovary, measuring up to 2.7 x 2.0 x 2.8 cm. Left ovary size: 4.7 x 2.7 x 3.3 cm FREE FLUID: None. IMPRESSION: 1. Single live intrauterine . 2. Estimated gestational age: 7 weeks 6 days + / -3 days. Electronically signed by: ELOY GOLDSTEIN MD Normal [facility] Urinalysis, Microscopicon Urinalysis, Microscopic 1+ Abnormal [facility] Work Phone: Urinalysis, Microscopic <1 0-5 [facility] Work Phone: Urinalysis, Microscopic 1 {/HPF} 0-5 [facility] [employer] Work Phone: 17-Hydroxyprogesterone, Seru mon 07-08-2021 17-Hydroxyprogester one [Mass/Vol] 40 ng/dL [facility] [employer] Work Phone: Comment on above: Unable to flag a bnormal result(s), please refer to reference range(s) below: Adult Female Reference Ranges for 17-Hydroxyprogesterone: Pre-Menopausal Mid Follicular: 23 - 102 ng/dL Pre-Menopausal Surge: 67 - 349 ng/dL Pre-Menopausal Mid Luteal: 139 - 431 ng/dL Postmenopausal Phase: < or = 45 ng/dL Female Kennedy Stages: II - III Females: 18 - 220 ng/dL IV - V Females: 36 - 200 ng/dL Includes data from J Clin Endocrinol Metab. 1991;73:674-686; J Clin Endocrinol Metab. 1989;69;4476-0176; J Clin Endocrinol Metab. 1994;78:226-270. Pediatr Res 1988;23:525-529. MedLinePlus (accessed 08/06/13). This test was developed and its analytical performancecharacteristics have been determined by [facility] [place]. It hasnot been cleared or approved by the U.S. Food and DrugAdministration. This assay has been validated pursuantto the CLIA regulations and is used for clinicalpurposes. DHEA Sulfate, Serumon 2021 DHEA-S [Mass/Vol] 195 ug/dL 65 - 395 [facility] [employer] Work Phone: Comment on above: MATURITY-BASED REFER ENCE RANGES: PUBERTAL (KENNEDY) STAGE MALE FEMALE I 5 - 265 5 - 125 II 15 - 380 15 - 150 III 60 - 505 20 - 535 IV 65 - 560 35 - 485 V 165 - 500 75 - 530 Biotin interference may cause falsely elevated results. Patients taking a Biotin dose of up to 5 mg/day should refrain from taking Biotin for 24 hours before sample collection. Providers may contact their local laboratoryfor further information. Hemoglobin A1Con 07-08-2021 Glucose [Mass/Vol] 88 mg/dL [facility] [employer] Phone: HbA1c (Bld) [Mass fraction] 4.7 % [employer] Work Phone: Comment on above: Diagnosis of Diabete s-Adults Non-Diabetic: < or = 5.6% Increased risk for developing diabetes: 5.7-6.4% Diagnostic of diabetes: > or = 6.5%. Monitoring of Diabetes Age (y) Therapeutic Goal (%) Adults: >18 <7.0 Pediatrics: 13-18 <7.5 7-12 <8.0 0- 6 7.5-8.5 [place] [employer]. Diabetes Care 33(S1), Feb 2009. Lipid Panelon 07-08-2021 Cholesterol [Mass/Vol] 135 mg/dL 0 - 199 [employer] Work Phone: Comment on above: . AGE DESIRABLE BORD JUNO HIGH HIGH 0-19 Y 0 - 169 170 - 199 >/= 200 20-24 Y 0 - 189 190 - 224 >/= 225 >24 Y 0 - 199 200 - 239 >/= 240 All ranges are based on fasting samples. Specific therapeutic targets will vary based on patient-specific cardiac risk.. Pediatric guidelines reference:Pediatrics 2011, 128(S5). Adult guidelines reference: NCEP ATPIII Guidelines, PERLA 2001, 258:2486-97. Venipuncture immediately after or during the administration of Metamizole may lead to falsely low results. Testing should be performed immediately prior to Metamizole dosing. Cholesterol in HDL [Mass/Vol] 48.0 mg/dL [employer] Phone: Comment on above: . AGE VERY LOW LOW N ORMAL HIGH 0-19 Y < 35 < 40 40-45 ---- 20- 24 Y ---- < 40 >45 ---- >24 Y ---- < 40 40-60 >60. Cholesterol in LDL [Mass/Vol] 76 mg/dL 0 - 99 [employer] Work Phone: Comment on above: . NEAR BORD AGE JERI RABLE OPTIMAL HIGH HIGH VERY HIGH 0-19 Y 0 - 109 --- 110-129 >/= 130 ---- 20-24 Y 0 - 119 --- 120-159 >/= 160 ---- >24 Y 0 - 99 100-129 130-159 160-189 >/=190. Cholesterol.total/C holesterol in HDL [Mass ratio] 2.8 {ratio} [employer] Work Phone: Comment on above: REF VALUESDESIRABLE < 3.4HIGH RISK > 5.0 Triglyceride [Mass/Vol] 53 mg/dL 0 - 149 [employer] Phone: Comment on above: . AGE DESIRABLE BORD JUNO HIGH HIGH VERY HIGH 0 D-90 D 19 - 174 ---- ---- ----91 D- 9 Y 0 - 74 75 - 99 >/= 100 ---- 10-19 Y 0 - 89 90 - 129 >/= 130 ---- 20-24 Y 0 - 114 115 - 149 >/= 150 ---- >24 Y 0 - 149 150 - 199 200- 499 >/= 500. Venipuncture immediately after or during the administration of Metamizole may lead to falsely low results. Testing should be performed immediately prior to Metamizole dosing. Lipid Panel 11 mg/dL 0 - 40 [employer] Work Phone: Progesterone, Serumon 2021 Progesterone [Mass/Vol] Canceled [employer] Phone: Comment on above: REF VALUESMALE <0.3- 1.2 FOLLICULAR PHASE <0.3- 1.4 LUTEAL PHASE 3.3-25.6 MID-LUTEAL PHASE 4.4-28.0POSTMENOPAUSAL <0.3- 0.7 FEMALES: 1ST TRIMESTER 11.2- 90.0 2ND TRIMESTER 25.6- 89.4 3RD TRIMESTER 48.4-422.5 .Patients receiving DHEA-S supplements may show false elevation ofprogesterone for results near 1.0 ng/mL. Contact laboratory [phone] if alternative testing is needed. LMPon 07-01-2021 Last menstrual period start date 02Jun2021 [employer] Work Phone: CASE TECHNICIAN - Office Visiton 06-21 CASE TECHNICIAN - Office Visit Diagnoses/Problems Assessed PCOS (polycystic ovarian syndrome) (256.4) (E28.2) Orders 17-Hydroxyprogesterone, Serum; Status:Active; Requested for:[id number]; Follow-up PRN Outpatient Follow-up Status: Active Requested for: 01Jul2021 DHEA Sulfate, Serum; Status:Active; Requested for:[id number]; Hemoglobin A1C; Status:Active; Requested for:01Jul2021; Lipid Panel; Status:Active; Requested for:[id number]; Provider Impressions 1) PCOS-patient has irregular cycles as well as ovarian tissue consistent with PCOS per [place] criteria. Discussed the diagnosis and associated symptoms. Discussed finishing the work-up with screening for metabolic syndrome as well as other genetic potential components. Discussed management diet exercise weight loss. Discussed risk of unopposed estrogen breast cancer and uterine cancer. Discussed potential ovulation induction and management for fertility goals which patient is interested in. Reviewed potentially letrozole with next cycle if not . Discussed the risk of twins. Reviewed teratogenicity and needing test before. Discussed times to take letrozole time intimacy progesterone level and follow-up. All questions answered at length. Patient voiced understanding agreed to proceed Chief Complaint PT IS HERE TODAY TO GO OVER U/S AND BLOOD WORK RESULTS. HAS NO NEW CONCERNS. LMP: 06/02/2021 History of Present Kclgayl53-ythd-bhy multigravida presents for results review. Patient notes that she ovulated around day 14 with positive kit and felt like she ovulated this time. Patient expecting her period to start or potentially in the near future. Patient has no other acute concerns. Review of Systems Constitutional: No fevers, chills Eye:no vision changes Respiratory: no SOB Cardiovascular: no chest pain Gastrointestinal: No nausea, vomiting, diarrhea, constipation, abdominal pain Genitourinary:no dysuria Gynecology: See HPI Active Problems Problems Abnormal uterine bleeding (AUB) (626.9) (N93.9) Secondary amenorrhea (626.0) (N91.1) Past Medical History Problems History of Delivery of by section (669.70) (O82) 11/22/15 40weeks Male 8lbs 3oz History of vaginal delivery following previous delivery (V45.89) (Z98.891) 04/22/17 40 WEEKS 1 DAY MALE 7LB 7OZ History of Menstruation Age 14 Surgical History Problems History of section 2016 Family History Mother Family history of malignant neoplasm of breast (V16.3) (Z80.3) Family history of Irregular heartbeat Father Family history of hypertension (V17.49) (Z82.49) Grandmother Family history of malignant neoplasm of breast (V16.3) (Z80.3) Social History Problems Consumes alcohol weekly (V49.89) (Z78.9) Does not use illicit drugs (V49.89) (Z78.9) Never a smoker Sexually active Allergies Medication No Known Drug Allergies Recorded By: Robin Stuart; 05/06/2021 9:48:23 AM Current Meds Medication NameInstruction PNV Plus Multivitamin 27-1 MG TABS Vitamin D TABS Vitals Vital Signs Recorded: 01Jul2021 01:32PM [id number] Vnhhnppgy32 Height5 ft 8 in Ovxuhw098 lb 2.74 oz BMI Rhwhndwgid99.2 kg/m2 BSA Calculated1.85 [id number] Physical Exam General: None acute distress Eye: Intraocular movements are intact HEENT: Normocephalic Cardiovascular: Regular rate Respiratory: Respirations are nonlabored Gastrointestinal: Nondistended Musculoskeletal: Normal range of motion Neurologic: Alert and oriented x3 Psychiatric: Cooperative appropriate mood and affect. Results/Data Ultrasound Pelvis Transabdominal With [id number] 11:56Harlan Collins Test NameResultFlagReference Ultrasound Pelvis Transabdominal With Transvaginal(Report) FINAL REPORT Interpreted by: BRUCE ALVARES KUMAR, MD 06/10/21 14:17 Patient Name: ALBERTO BLACKWOOD STUDY: US PELVIS TRANSABDOMINAL WITH TRANSVAGINAL; 06/10/2021 11:56 am INDICATION: aub 45 day cycles. ?pcos N93.9: Abnormal uterine bleeding (AUB). COMPARISON: None. ACCESSION NUMBER(S): [id number] ORDERING CLINICIAN: HARLAN DING TECHNIQUE: Multiple multiplanar static omalley scale, color and spectral waveform sonographic images of the pelvis were obtained. Transabdominal and endovaginal ultrasound was performed. FINDINGS: UTERUS: The uterus measures 6.8 x 3.7 x 4.6 cm with an endometrial thickness of 1.4 mm. Nabothian cysts are present. The myometrial echogenicity is normal. RIGHT ADNEXA: Right ovary measures 4.2 x 1.8 x 3 9 cm with normal flow. Multiple follicles are present at the periphery of the ovary. LEFT ADNEXA: The left ovary measures 3.4 x 2 x 3.5 cm with normal flow. Multiple follicles are present at the periphery of the ovary. CUL DE SAC: No free fluid. IMPRESSION: 1. Normal pelvic ultrasound. Numerous bilateral ovarian follicles at the periphery of both ovaries. Possible PCOS. Electronically signed by: BRUCE ALVARES 06/10/21 14:17 TSH - Thyroid Stimulating Hormone, Se (more content not included)... Normal [employer] No Panel Informationon 06-10 Normal [employer] Work Phone: LMPon 06-03-2021 Last menstrual period start date 02Jun2021 [employer] Work Phone: Laboratory - Hematology and Cell countson 06-03-2021 Erythrocyte distribution width (RBC) [Ratio] 12.6 % See Below [employer] Work Phone: Comment on above: Reference Range: 11. 5 - 14.5 Hematocrit (Bld) [Volume fraction] 34.7 % below low threshold See Below [employer] Work Phone: Comment on above: Reference Range: 36. 0 - 46.0 Hemoglobin (Bld) [Mass/Vol] 11.6 g/dL below low threshold See Below [employer] Work Phone: Comment on above: Reference Range: 12. 0 - 16.0 MCHC (RBC) [Mass/Vol] 33.3 g/dL See Below [employer] Work Phone: Comment on above: Reference Range: 32. 0 - 36.0 MCV (RBC) [Entitic vol] 97 fL 80 - 100 [facility] [employer] Work Phone: Platelets (Bld) [#/Vol] 280 10*3/uL 150 - 450 [employer] Phone: RBC (Bld) [#/Vol] 3.59 {x10E12/L} below low threshold See Below [employer] Work Phone: Comment on above: Reference Range: 4.0 0 - 5.20 WBC (Bld) [#/Vol] 8.8 10*3/uL 4.4 - 11.3 [facility] [employer] Work Phone: CASE TECHNICIAN - Office Visiton 05-22 CASE TECHNICIAN - Office Visit Diagnoses/Problems Assessed Abnormal uterine bleeding (AUB) (626.9) (N93.9) Orders Follow-up visit in 3 weeks Outpatient Follow-up Status: Hold For - Scheduling Requested for: 03Jun2021 Complete Blood Count; Status:Resulted - Requires Verification; Done: 03Jun2021 03:19PM Testosterone, Level; Status:In Progress - Specimen/Data Collected; Done: 03Jun2021 TSH - Thyroid Stimulating Hormone, Serum; Status:In Progress - Specimen/Data Collected; Done: [id number] Ultrasound Pelvis Transabdominal With Transvaginal; Status:Active; Requested for:[id number]; Radiologist to Determine Optimal Study : Y What are the patient's signs and symptoms? : aub 45 day cycles. ?pcos Provider Impressions 1) abnormal uterine bleeding-plan to initiate a work-up we will get a CBC type and screen ultrasound to evaluate for irregular menstrual cycles more in the oligomenorrhea side. Discussed potentially letrozole in the future. Discussed briefly what that would look like. Further management to follow. All questions answered at length. Patient has vitamins Chief Complaint PT IS HERE TODAY FOR IRREGULAR PERIODS. STATES HAS BEEN GETTING POSITIVE TEST AT HOME AND NEGATIVE TEST WHEN SHE GETS HER BLOOD DRAWN. LMP: 06/02/2021 History of Present Qcrrszq55-cskr-snl -0-1-2 presents for follow-up. Patient is called and realized that her tests are always in the same type with the false positives and since she switched to a different type it was negative shortly after she had the blood test was negative. Patient notes her last 2 cycles were 40 weeks which is irregular for her and she would like to discuss that she is interested in fertility. Patient has no other acute concerns Review of Systems Constitutional: No fevers, chills Eye:no vision changes Respiratory: no SOB Cardiovascular: no chest pain Gastrointestinal: No nausea, vomiting, diarrhea, constipation, abdominal pain Genitourinary:no dysuria Gynecology: See HPI Active Problems Problems Abnormal uterine bleeding (AUB) (626.9) (N93.9) Secondary amenorrhea (626.0) (N91.1) Past Medical History Problems History of Delivery of by section (669.70) (O82) 11/22/15 40weeks Male 8lbs 3oz History of vaginal delivery following previous delivery (V45.89) (Z98.891) 04/22/17 40 WEEKS 1 DAY MALE 7LB 7OZ History of Menstruation Age 14 Surgical History Problems History of section 2015 Family History Mother Family history of malignant neoplasm of breast (V16.3) (Z80.3) Family history of Irregular heartbeat Father Family history of hypertension (V17.49) (Z82.49) Grandmother Family history of malignant neoplasm of breast (V16.3) (Z80.3) Social History Problems Consumes alcohol weekly (V49.89) (Z78.9) Does not use illicit drugs (V49.89) (Z78.9) Never a smoker Sexually active Allergies Medication No Known Drug Allergies Recorded By: Robin Stuart; 05/06/2021 9:48:23 AM Current Meds Medication NameInstruction PNV Plus Multivitamin 27-1 MG TABS Vitamin D TABS Vitals Vital Signs Recorded: 03Jun2021 02:19PM Zqsiwpqn075 Psefopouh76 Height5 ft 8 in Goadqk334 lb 11.36 oz BMI Fhlxiawlyo81.44 kg/m2 BSA Calculated1.86 [id number] Physical Exam General: None acute distress Eye: Intraocular movements are intact HEENT: Normocephalic Cardiovascular: Regular rate Respiratory: Respirations are nonlabored Gastrointestinal: Nondistended Musculoskeletal: Normal range of motion Neurologic: Alert and oriented x3 Psychiatric: Cooperative appropriate mood and affect. Results/Data Complete Blood [id number] 03:19PMHarlan Ding Test NameResultFlagReference White Blood Cell Count8.8 x10E9/L4.4 - 11.3 Red Blood Cell Count3.59 x10E12/LLSee Below Reference Range: 4.00 - 5.20 Agwquhmktd00.6 g/dLLSee Below Reference Range: 12.0 - 16.0 HCT34.7 %LSee Below Reference Range: 36.0 - 46.0 MCV97 fL80 - 100 MCHC33.3 g/dLSee Below Reference Range: 32.0 - 36.0 Platelet Opwvc987 x10E9/L150 - 450 RDW-CV12.6 %See Below Reference Range: 11.5 - 14.5 Signatures Electronically signed by : Harlan Ding DO; Jun 03 2021 4:26PM EST (Author) Normal [employer] TSH - Thyroid Stimulating Ho rmone, Serumon 06-03-2021 TSH Qn 0.84 m[IU]/L See Below [facility] [address] [employer] Work Phone: Comment on above: Reference Range: 0.4 4 - 3.98 TSH testing is performed using different testing methodology at [facility] than at other legacy [facility]. Direct result comparisons should only be made within the same method. Testosterone, Levelon 2021 Testosterone [Mass/Vol] ng/dL 0 - [facility] Work Phone: Comment on above: Nandrolone decanoate , 11 Beta-hydroxytestosterone, androstenedione, testosterone propionate and 61-hygv-rqjgjtztjpmk strongly cross react with this test method. Biotin interference may cause falsely elevated results. Patients taking a Biotin dose of up to 5 mg/day should refrain from taking Biotin for 24 hours before sample collection. Providers may contact their local laboratory for further information. Testing by a more sensitive method (Testosterone Total LC-MS/MS) is recommended for accurate quantification of testosterone levels less than 60 ng/dL. HCG, Beta Quantitativeon HCG.beta subunit Qn m[IU]/mL [facility] [employer] Work Phone: Comment on above: Low-level positive H CG results can be seen in early , in nisha- or post-menopausal females due to normal pituitary HCG production, or with analytic interference. Repeat testing in 48-72 hours can aid in assessing for as results should double in this time period. FSH measurement is recommended in nisha- or post-menopausal females as concurrent elevation of FSH can support pituitary production as the source of the HCG elevation.. Total HCG measurement is performed using the [employer] Rena Access Immunoassay which detects intact HCG and free beta HCG subunit. This test is not indicated for use as a tumor marker. HCG testing is performed using a different test methodology at [facility] than other legacy [facility]. Direct result comparison should only be made within the same method. REF VALUESNON FEMALE <5MALES <5 HCG, Beta Quantitativeon HCG.beta subunit Qn m[IU]/mL [facility] [employer] Work Phone: Comment on above: Low-level positive H CG results can be seen in early , in nisha- or post-menopausal females due to normal pituitary HCG production, or with analytic interference. Repeat testing in 48-72 hours can aid in assessing for as results should double in this time period. FSH measurement is recommended in nisha- or post-menopausal females as concurrent elevation of FSH can support pituitary production as the source of the HCG elevation.. Total HCG measurement is performed using the [employer] Rena Access Immunoassay which detects intact HCG and free beta HCG subunit. This test is not indicated for use as a tumor marker. HCG testing is performed using a different test methodology at [facility] than other [facility]. Direct result comparison should only be made within the same method. REF VALUESNON FEMALE <5MALES <5 CASE TECHNICIAN - Office Visiton 04-21 CASE TECHNICIAN - Office Visit Diagnoses/Problems Assessed Abnormal uterine bleeding (AUB) (626.9) (N93.9) Orders Tobacco Use Screening; Status:Complete; Done: 06May2021 Provider Impressions 1)aub-unclear etiology with talking with the patient if recurrent miscarriages versus just long cycle at 3840 weeks with potentially false positives. I thinking this because patient notes she is had a couple blood test with her prior CASE TECHNICIAN that were negative which were conflicting with her at-home tests. Discussed with patient the positive minuses of false positives at home test versus blood draws for positivity. 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 Overall discussed the work-up that both would involve. Patient unsure consistently either she is wants to consult out. Shared decision that she is had 3 regular cycles and no positive test. Significant other has fathered a previous child. Shared decision was to continue to monitor at this time and see what the next few cycles would look like given the volume and trying since September. Patient has any faint positive at home I instructed strongly to call and we will put an order for blood quant draw to confirm whether she is positive on that day which is was a discrepancy with her previous care patient stated be couple days before they would draw the blood. Additionally I will collect the records which I discussed with patient to see what it happened previously and see if any other work-up was done. Discussed that if not improving over the next couple cycles we may need to initiate further work-up which patient was okay with. All questions answered at length. Patient has vitamins. Further management to follow. Chief Complaint PT here today, states shes been trying to get since September of 2020, PT states she has been using the ovulation kits and about 14-17 days in she is positive. Pt states she thinks shes had some early losses at least six times, and has had some faint positive test. Pt also has regular periods every 29-30 days. Pt also has two boys. LMP 04/19/21 History of Present [id number] G2, P2 presents to my office with concern for fertility and miscarriages. Patient has 2 prior pregnancies and deliveries with her ask. Patient has a new relationship since basically 2019. Patient notes she has irregular cycles when she started having cycles been on control for a while prior to her 2 pregnancies. Patient notes since then she had regular cycles. Patient on episode back in 2019 where she was late in her cycle 3 days she had a faint positive or 2 and then a couple days later her test would be negative and then she would start her. She was like 35 to 40 days cycle that cycle. Patient was seeing a previous CASE TECHNICIAN who ran blood test summer afterwards which was negative. Patient proceeded to have this happen again a couple other times throughout 2020, with varying help from her prior CASE TECHNICIAN which to satisfy the patient. She noted a better interaction with her previous RN at their office and when to come in here for evaluation. Patient notes she cycles regularly unless she has a really long cycle where these faint positives come in prior to her bleeding which could be up to 38-40 days and cycle length. Denies any history of STDs. Patient's new significant other has fathered a child with another woman. Patient has no other acute concerns Review of Systems Constitutional: No fevers, chills Eye:no vision changes Respiratory: no SOB Cardiovascular: no chest pain Breast: No lump/mass or discharge Gastrointestinal: No nausea, vomiting, diarrhea, constipation, abdominal pain Genitourinary:no dysuria Gynecology: See HPI Endocrine: No heat or cold intolerance Musculoskeletal: No decreased ROM Skin:No rash Neurologic: No numbness tingling Psychiatric: No anxiety, depression All other: all other systems reviewed and negative for complaint Past Medical History Problems History of Delivery of by section (669.70) (O82) 11/22/15 40weeks Male 8lbs 3oz History of vaginal delivery following previous delivery (V45.89) (Z98.891) 04/22/17 40 WEEKS 1 DAY MALE 7LB 7OZ History of Menstruation Age 14 Surgical History Problems History of section 2016 Family History Mother Family history of malignant neoplasm of breast (V16.3) (Z80.3) Family history of Irregular heartbeat Father Family history of hypertension (V17.49) (Z82.49) Grandmother Family history of malignant neoplasm of breast (V16.3) (Z80.3) Social History Problems Consumes alcohol weekly (V49.89) (Z78.9) Does not use illicit drugs (V49.89) (Z78.9) Never a smoker Sexually active Allergies Medication No Known Drug Allergies Recorded By: Robin Stuart; 05/06/2021 9:48:23 AM Current Meds Medication NameInstruction PNV Plus Multivitamin 27-1 MG TABS Vitamin D TABS V (more content not included)... Normal [facility] Tobacco Screening.on Last menstrual period start date 19Apr2021 [facility] [employer] Work Phone: Tobacco use status [facility] b) No [facility] Work Phone: Coding Summary.on 06-16-2017 Coding Summary. CODING DATE: 018 [facility] STATUS: PAYOR: Self Pay ADMIT DX: REASON FOR VISIT DX: Z39.1 Encounter for care and examination of lactating mother FINAL DX: PRINCIPAL: Z39.1 Encounter for care and examination of lactating mother SECONDARY: PROCEDURES DOCTOR NAME DATE NOTE: The code number assigned matches the documented diagnosis and / or procedure in the patient's chart. However, the narrative phrase printed from the coding software may appear abbreviated, or result in slightly different terminology. Coded By: Lisa Ortiz Date Saved: 06/16/2017 02:05 pm Normal [facility] Progress Noteon 03-17-2017 Margarine Churn Operator Authentication Interface Message Text Thank you for consulting us regarding this patient.I saw this patient in echocardiographic clinic on 03/17/2017Patient was referred to the echocardiographic clinic for a fetalechocardiogram since there was a cleft lip and palate and question/suspicion offetal abnormal three vessel view on OB ultrasound. 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 Atrioventricularand ventriculoarterial concordance seen.Atria:Normal left and right atrial size. There was a patent foramen ovale, [id number] shunt.Small to medium size atrial septal aneurysm, probably a normal variant.Tricuspid valve:Normal tricuspid valve. There was normal Doppler across the tricuspid valve.Mitral valve:Normal mitral valve. There was normal Doppler across the mitral valve.Right ventricle:There was normal size and systolic function.Left ventricle:There was normal size and systolic function.Aortic valve:Normal aortic valve. There was normal Doppler across the aortic valve seen.Pulmonary valve:Normal pulmonary valve. There was normal Doppler across the pulmonary valveseen.Ventricular septum:There was no obvious ventricular septal defect seen.Main pulmonary artery:Normal main pulmonary artery.Pulmonary arteries:Good size branch pulmonary arteries.Pulmonary veins:There were at least 2/4 pulmonary veins seen entering into the left atrium.Systemic venous return:There was normal systemic venous return seen.Aortic arch:Patent aortic arch.Ductal arch:Patent Ductal arch.3-vessel view:There was normal 3-vessel view.Ductus venosus:There was normal flow pattern seen in the ductus venosus.Umbilical artery and umbilical vein.There was normal pulse Doppler in umbilical artery and umbilical vein.Rhythm:There appeared to be a sinus rhythm. There was no arrhythmia noted.Impression and recommendations.1) Small to medium size atrial septal aneurysm, probably a normal variant,otherwise normal echocardiogram.2) I have discussed the limitations of echocardiographic examination, thatis likely to miss small ventricular septal defects as well as mild semilunarvalve stenosis. Patent foramen ovale and patent ductus arteriosus are normalfindings in utero. Coarctation of aorta is difficult to diagnose pre natally inthe presence of patent ductus arteriosus.3) I have also discussed echocardiographic findings in detail includingfetal circulation, pathophysiology of Patent foramen ovale and Patent ductusarteriosus, prognosis, treatments, follow up echocardiograms and newbornfollow ups.4) I would like to see in cardiology clinic here at [facility], 1-2 moths after the or earlier if cardiac condition/statuschanges in any way.Counseling and/or coordination of care was greater than 35 minutes which is morethan 50% of the total time of 60 minutes spent on the encounter. Normal [facility] Progress Noteon 02-10-2017 Margarine Churn Operator Authentication Interface Message Text Pt seen by Dr. Paige and craniofacial clinic due to cleft lip. Yordan SocialDefender [facility] unable to meet with pt today. Will see pt 03/[address] Hidalgo at 9:30, ultrasound for growth at 11:00 and consultation at 12:00 Normal [facility] Margarine Churn Operator Authentication Interface Message Text Alberto Blackwood is a 27 y.o. female with who is otherwise healthy, , whosefetal ultrasound was found to have evidence of a cleft lip and palate. She doesnot have a family history of clefting or craniofacial anomalies. Father does nothave a family history of clefting or craniofacial anomalies. She was not exposedto medications during conception or . There are no other environmentalthat may be implicated. Her main concerns are regarding 1. Feeding, 2. Timingofcorrection and 3. Overall health and development implications in the presenceof a cleft.Her previous records, including the 26-wk ultrasound were reviewed. It appearsthat their child will have a bilateral cleft lip and palate, although they didnot have imaging today. The rest of the visit was spent in counseling the familyregarding the issues mentioned above.The first step in the treatment of her child is to align the premaxilla with thelateral arches. This is a 2-step process: First we have to obtain an impressionof the palate and the arches. Based on this impression a custom dentofacialappliance will be obtained. I will refer this child to our pediatric dentist forthis process. After alignment of the arches the child will be ready forcorrection of the lip and nasal deformity. The lip correction is typicallyperformed around 4-5 months of age. Lastly, the palate is closed around 7-8months of age. This will be before speech development and will hopefully providethe best chance for normal speech. I reviewed this with the parents and alsoreviewed other patient photographs and they understand the plan of care.During the first 1-2 months we will continue to keep in close contact to assurethat the baby is feeding well and gaining weight. We also had her see ourcraniofacial coordinator so they can follow up with our Craniofacial Clinic fora multidisciplinary evaluation after . They met with our executive secretary social welfare gustavo. I spent a total of 45 minutes with this patient, of which, >25 minutes wasspent counseling and/or coordinating care. We discussed a summary of thetreatment plan with the patient and family including details on coordination ofcare. Our discussion included: timing and duration of surgery; intraoperativedetails; possible risks, benefits and surgical options; expected postoperativecourse and outcomes. Please contact me if you have any questions or concerns inregard to this patient. 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 Pt plans to deliver at [place] with Dr. Noguera. Likely repeat at39 weeks.Workforce Services Representative is Dr Junior ([facility]). Male fetus- name is yet to be decided.Method of feeding: BreastUltrasound findings today: See report in procedures for details.Plastics and consultants not available for appointment todayPt will follow up 1 month in [place] for reevaluation of growth.Plastics ([facility]), Craniofacial Clinic and on 02/10/17.Reinforced continued OB care with Vinny Gifford.Breast feeding pamphlet, cleft bottle information provided.The total patient time of the visit was 15 minutes, of which greater than 50% ofthe time was spent counseling and coordinating care. [facility] Margarine Churn Operator Authentication Interface Message Text The total patient time of the visit was 45 minutes, of which greater than 50% of the time was spent counseling and coordinating care. Normal [facility] Vital Signs Date Time Vital Sign Value Performing Clinician Facility 10-18-2024 09:040 Body mass index (BMI) [Ratio] 28.74 kg/m2 Risa Olivares MD Work Phone: [facility] 10-18-2024 09:040 Body weight 85.73 kg Risa Olivares MD Work Phone: [facility] 10-18-2024 09:26-0400 Diastolic blood pressure 64 mm[Hg] Risa Olivares MD Work Phone: [facility] 10-18-2024 09:26-0400 Systolic blood pressure 106 mm[Hg] Risa Olivares MD Work Phone: [facility] 10-10-2024 11:32-0400 Body mass index (BMI) [Ratio] 29.5 kg/m2 Ronna Plotts STRETCH MACHINE OPERATOR.CNM Work Phone: [facility] 10-10-2024 11:32-0400 Body weight 88 kg Ronna Plotts STRETCH MACHINE OPERATOR.CNM Work Phone: [facility] 10-10-2024 11:32-0400 Diastolic blood pressure 76 mm[Hg] Ronna Plotts STRETCH MACHINE OPERATOR.CNM Work Phone: [facility] 10-10-2024 11:32-0400 Systolic blood pressure 122 mm[Hg] Ronna Plotts STRETCH MACHINE OPERATOR.CNM Work Phone: [facility] 09-20-2024 15:21-0400 Body mass index (BMI) [Ratio] 28.43 kg/m2 Apanra Fatima MD Work Phone: [facility] 09-20-2024 15:21-0400 Body weight 84.82 kg Aparna Fatima MD Work Phone: [facility] 09-20-2024 15:21-0400 Diastolic blood pressure 72 mm[Hg] Aparna Fatima MD Work Phone: [facility] 09-20-2024 15:21-0400 Systolic blood pressure 102 mm[Hg] Aparna Fatima MD Work Phone: [facility] 08-30-2024 14:12-0400 Body mass index (BMI) [Ratio] 28.04 kg/m2 Ronna Plotts STRETCH MACHINE OPERATOR.CNM Work Phone: [facility] 08-30-2024 14:12-0400 Body weight 83.64 kg Ronna Salomon STRETCH MACHINE OPERATOR.CNM Work Phone: [facility] 08-30-2024 14:12-0400 Diastolic blood pressure 66 mm[Hg] Ronna Salomon STRETCH MACHINE OPERATOR.CNM Work Phone: [facility] 08-30-2024 14:12-0400 Systolic blood pressure 120 mm[Hg] Ronna Salomon STRETCH MACHINE OPERATOR.CNM Work Phone: [facility] 08-23-2024 09:14-0400 Body mass index (BMI) [Ratio] 27.37 kg/m2 Risa Olivares MD Work Phone: [facility] 08-23-2024 09:14-0400 Body weight 81.65 kg Risa Olivares MD Work Phone: [facility] 08-23-2024 09:14-0400 Diastolic blood pressure 70 mm[Hg] Risa Olivares MD Work Phone: [facility] 08-23-2024 09:14-0400 Systolic blood pressure 114 mm[Hg] Risa Olivares MD Work Phone: [facility] 08-09-2024 11:07-0400 Body mass index (BMI) [Ratio] 27 kg/m2 Aparna Fatima MD Work Phone: [facility] 08-09-2024 11:07-0400 Body weight 80.56 kg Aparna Fatima MD Work Phone: [facility] 08-09-2024 11:07-0400 Diastolic blood pressure 70 mm[Hg] Aparna Fatima MD Work Phone: [facility] 08-09-2024 11:07-0400 Systolic blood pressure 116 mm[Hg] Aparna Fatima MD Work Phone: [facility] 07-05-2024 08:23-0400 Body mass index (BMI) [Ratio] 26.79 kg/m2 Noemi Woods Cross STRETCH MACHINE OPERATOR.ELECTRONICS TECHNOLOGY DEPARTMENT CHAIR Work Phone: [facility] 07-05-2024 08:23-0400 Body weight 79.92 kg Noemi Attila STRETCH MACHINE OPERATOR.ELECTRONICS TECHNOLOGY DEPARTMENT CHAIR Work Phone: [facility] 07-05-2024 08:23-0400 Diastolic blood pressure 66 mm[Hg] Noemi Attila STRETCH MACHINE OPERATOR.ELECTRONICS TECHNOLOGY DEPARTMENT CHAIR Work Phone: [facility] 07-05-2024 08:23-0400 Systolic blood pressure 118 mm[Hg] Noemi Woods Cross STRETCH MACHINE OPERATOR.ELECTRONICS TECHNOLOGY DEPARTMENT CHAIR Work Phone: [facility] 05-24-2024 14:44-0400 Body height 172.7 cm Ramón Haury STRETCH MACHINE OPERATOR.ELECTRONICS TECHNOLOGY DEPARTMENT CHAIR Work Phone: [facility] 05-24-2024 14:44-0400 Body mass index (BMI) [Ratio] 26.3 kg/m2 Ramón Haury STRETCH MACHINE OPERATOR.ELECTRONICS TECHNOLOGY DEPARTMENT CHAIR Work Phone: [facility] 05-24-2024 14:44-0400 Body weight 78.47 kg Ramón Haury STRETCH MACHINE OPERATOR.ELECTRONICS TECHNOLOGY DEPARTMENT CHAIR Work Phone: [facility] 05-24-2024 14:44-0400 Diastolic blood pressure 62 mm[Hg] Ramón Haury STRETCH MACHINE OPERATOR.ELECTRONICS TECHNOLOGY DEPARTMENT CHAIR Work Phone: [facility] 05-24-2024 14:44-0400 Systolic blood pressure 114 mm[Hg] Ramón Haury STRETCH MACHINE OPERATOR.ELECTRONICS TECHNOLOGY DEPARTMENT CHAIR Work Phone: [facility] 02-08-2024 11:07-0500 Body height 172.7 cm Jeanette Albarran STRETCH MACHINE OPERATOR-ELECTRONICS TECHNOLOGY DEPARTMENT CHAIR Work Phone: [facility] 02-08-2024 11:07-0500 Body mass index (BMI) [Ratio] 25.7 kg/m2 Jeanette Albarran STRETCH MACHINE OPERATOR-ELECTRONICS TECHNOLOGY DEPARTMENT CHAIR Work Phone: [facility] 02-08-2024 11:07-0500 Body temperature 97.81 [degF] Jeanette Albarran STRETCH MACHINE OPERATOR-ELECTRONICS TECHNOLOGY DEPARTMENT CHAIR Work Phone: [facility] 02-08-2024 11:07-0500 Body weight 76.66 kg Jeanette Albarran STRETCH MACHINE OPERATOR-ELECTRONICS TECHNOLOGY DEPARTMENT CHAIR Work Phone: [facility] 02-08-2024 11:07-0500 Diastolic blood pressure 79 mm[Hg] Jeanettebrayan Albarran STRETCH MACHINE OPERATOR-ELECTRONICS TECHNOLOGY DEPARTMENT CHAIR Work Phone: [facility] 02-08-2024 11:07-0500 Heart rate 82 /min Jeanette Albarran STRETCH MACHINE OPERATOR-ELECTRONICS TECHNOLOGY DEPARTMENT CHAIR Work Phone: [facility] 02-08-2024 11:07-0500 Respiratory rate 18 /min Jeanette Albarran STRETCH MACHINE OPERATOR-ELECTRONICS TECHNOLOGY DEPARTMENT CHAIR Work Phone: [facility] 02-08-2024 11:07-0500 SaO2% (BldA) [Mass fraction] 97 % Jeanette Albarran STRETCH MACHINE OPERATOR-ELECTRONICS TECHNOLOGY DEPARTMENT CHAIR Work Phone: [facility] 02-08-2024 11:07-0500 Systolic blood pressure 111 mm[Hg] Jeanettebrayan Albarran STRETCH MACHINE OPERATOR-ELECTRONICS TECHNOLOGY DEPARTMENT CHAIR Work Phone: [facility] 10-05-2023 14:06-0400 Body mass index (BMI) [Ratio] 27.1 kg/m2 Javid Starr MD Work Phone: [facility] 10-05-2023 14:06-0400 Body weight 80.83 kg Javid Starr MD Work Phone: [facility] 10-05-2023 14:06-0400 Diastolic blood pressure 64 mm[Hg] Javid Starr MD Work Phone: [facility] 10-05-2023 14:06-0400 Heart rate 78 /min Javid Starr MD Work Phone: [facility] 10-05-2023 14:06-0400 Respiratory rate 16 /min Javid Starr MD Work Phone: [facility] 10-05-2023 14:06-0400 SaO2% (BldA) [Mass fraction] 99 % Javid Starr MD Work Phone: [facility] 10-05-2023 14:06-0400 Systolic blood pressure 98 mm[Hg] Javid Starr MD Work Phone: [facility] 08-19-2023 08:55-0400 Body mass index (BMI) [Ratio] 27.22 kg/m2 Ramón Haana STRETCH MACHINE OPERATOR.ELECTRONICS TECHNOLOGY DEPARTMENT CHAIR Work Phone: [facility] 08-19-2023 08:55-0400 Body weight 81.19 kg Ramón Haana STRETCH MACHINE OPERATOR.ELECTRONICS TECHNOLOGY DEPARTMENT CHAIR Work Phone: [facility] 08-19-2023 08:55-0400 Diastolic blood pressure 72 mm[Hg] Ramón Haury STRETCH MACHINE OPERATOR.ELECTRONICS TECHNOLOGY DEPARTMENT CHAIR Work Phone: [facility] 08-19-2023 08:55-0400 Heart rate 86 /min Ramón Haana STRETCH MACHINE OPERATOR.ELECTRONICS TECHNOLOGY DEPARTMENT CHAIR Work Phone: [facility] 08-19-2023 08:55-0400 Respiratory rate 14 /min Ramón Haana STRETCH MACHINE OPERATOR.ELECTRONICS TECHNOLOGY DEPARTMENT CHAIR Work Phone: [facility] 08-19-2023 08:55-0400 SaO2% (BldA) [Mass fraction] 98 % Ramón Snyder STRETCH MACHINE OPERATOR.ELECTRONICS TECHNOLOGY DEPARTMENT CHAIR Work Phone: [facility] 08-19-2023 08:55-0400 Systolic blood pressure 98 mm[Hg] Ramón Haury STRETCH MACHINE OPERATOR.ELECTRONICS TECHNOLOGY DEPARTMENT CHAIR Work Phone: [facility] 07-22-2023 10:38-0400 Body mass index (BMI) [Ratio] 26.61 kg/m2 Aparna Fatima MD Work Phone: [facility] 07-22-2023 10:38-0400 Body weight 79.38 kg Aparna Fatima MD Work Phone: [facility] 07-22-2023 10:38-0400 Diastolic blood pressure 70 mm[Hg] Aparna Fatima MD Work Phone: [facility] 07-22-2023 10:38-0400 Systolic blood pressure 106 mm[Hg] Aparna Fatima MD Work Phone: [facility] 06-23-2023 08:23-0400 Body height 172.7 cm Noemi Aiken APRN.ELECTRONICS TECHNOLOGY DEPARTMENT CHAIR Work Phone: [facility] 06-23-2023 08:23-0400 Body mass index (BMI) [Ratio] 27 kg/m2 Noemi Attila STRETCH MACHINE OPERATOR.ELECTRONICS TECHNOLOGY DEPARTMENT CHAIR Work Phone: [facility] 06-23-2023 08:23-0400 Body weight 80.56 kg Noemi Attila STRETCH MACHINE OPERATOR.ELECTRONICS TECHNOLOGY DEPARTMENT CHAIR Work Phone: [facility] 06-23-2023 08:23-0400 Diastolic blood pressure 60 mm[Hg] Noemi Attila STRETCH MACHINE OPERATOR.ELECTRONICS TECHNOLOGY DEPARTMENT CHAIR Work Phone: [facility] 06-23-2023 08:23-0400 Systolic blood pressure 102 mm[Hg] Noemi Attila STRETCH MACHINE OPERATOR.ELECTRONICS TECHNOLOGY DEPARTMENT CHAIR Work Phone: [facility] 02-04-2023 10:41-0500 Body temperature 98.4 [degF] Brent Roberto Jr., DPM Work Phone: [facility] 02-04-2023 10:41-0500 Diastolic blood pressure 74 mm[Hg] Brent Roberto Jr., DPM Work Phone: [facility] 02-04-2023 10:41-0500 Heart rate 66 /min Brent Roberto Jr., DPM Work Phone: [facility] 02-04-2023 10:41-0500 Systolic blood pressure 111 mm[Hg] Brent Roberto Jr., DPM Work Phone: [facility] 01-05-2023 15:57-0500 Diastolic blood pressure 72 mm[Hg] Brent Roberto Jr., DPM Work Phone: [facility] 01-05-2023 15:57-0500 Heart rate 64 /min Brent Roberto Jr., DPM Work Phone: [facility] 01-05-2023 15:57-0500 Systolic blood pressure 106 mm[Hg] Brent Roberto Jr., DPM Work Phone: [facility] 04-05-2022 08:13-0500 Body temperature 97.5 [degF] [facility] 04-05-2022 08:13-0500 Diastolic blood pressure 64 mm[Hg] [facility] 04-05-2022 08:13-0500 Heart rate 92 /min [facility] 04-05-2022 08:13-0500 Respiratory rate 16 /min [facility] 04-05-2022 08:13-0500 Systolic blood pressure 105 mm[Hg] [facility] 04-04-2022 12:12-0500 SaO2% (BldA) [Mass fraction] 100 % [facility] 04-03-2022 22:20-0500 Body height 172.72 cm [facility] 04-03-2022 22:20-0500 Body mass index (BMI) [Ratio] 30.7 kg/m2 [facility] 04-03-2022 22:20-0500 Body weight 91.53 kg [facility] 01-08-2022 10:39-0500 Diastolic blood pressure 68 mm[Hg] [facility] 01-08-2022 10:39-0500 Heart rate 82 /min [facility] 01-08-2022 10:39-0500 Respiratory rate 16 /min [facility] 01-08-2022 10:39-0500 SaO2% (BldA) [Mass fraction] 100 % [facility] 01-08-2022 10:39-0500 Systolic blood pressure 95 mm[Hg] [facility] 01-08-2022 09:57-0500 Body height 172.72 cm [facility] 01-08-2022 09:57-0500 Body mass index (BMI) [Ratio] 26.6 kg/m2 [facility] 01-08-2022 09:57-0500 Body temperature 97.9 [degF] [facility] 01-08-2022 09:57-0500 Body weight 79.37 kg [facility] 11-16-2021 13:27-0400 Body height 172.72 cm No PCP None [facility] [address] Work Phone: 11-16-2021 13:27-0400 Body mass index (BMI) [Ratio] 25.84 kg/m2 No PCP None [facility] [address] [place] Work Phone: 11-16-2021 13:27-0400 Body surface area Derived from formula 1.91 m2 No PCP None [facility] [address] [place] Work Phone: 11-16-2021 13:27-0400 Body weight 77.1 kg No PCP None [facility] [address] [place] Work Phone: 11-16-2021 13:27-0400 Diastolic blood pressure 70 mm[Hg] No PCP None [facility] [address] [place] Work Phone: 11-16-2021 13:27-0400 Systolic blood pressure 112 mm[Hg] No PCP None [facility] [address] [place] Work Phone: 10-19-2021 09:36-0400 Body height 172.72 cm No PCP None [facility] [address] [place] Work Phone: 10-19-2021 09:36-0400 Body mass index (BMI) [Ratio] 24.84 kg/m2 No PCP None [facility] [employer] [address] [place] Work Phone: 10-19-2021 09:36-0400 Body surface area Derived from formula 1.88 m2 No PCP None [facility] [address] [place] Work Phone: 10-19-2021 09:36-0400 Body weight 74.1 kg No PCP None [facility] [address] [place] Work Phone: 10-19-2021 09:36-0400 Diastolic blood pressure 70 mm[Hg] No PCP None [facility] [employer] [address] [place] Work Phone: 10-19-2021 09:36-0400 Systolic blood pressure 100 mm[Hg] No PCP None [facility] [employer] [address] [place] Work Phone: 09-23-2021 09:51-0400 Body height 172.72 cm No PCP None [facility] [address] Work Phone: 09-23-2021 09:51-0400 Body mass index (BMI) [Ratio] 23.97 kg/m2 No PCP None [facility] [address] [place] Work Phone: 09-23-2021 09:51-0400 Body surface area Derived from formula 1.85 m2 No PCP None [facility] [address] [place] Work Phone: 09-23-2021 09:51-0400 Body weight 71.5 kg No PCP None [facility] [address] [place] Work Phone: 09-23-2021 09:51-0400 Diastolic blood pressure 64 mm[Hg] No PCP None [facility] [address] [place] Work Phone: 09-23-2021 09:51-0400 Systolic blood pressure 100 mm[Hg] No PCP None [facility] [address] [place] Work Phone: 09-02-2021 09:41-0400 Body height 172.72 cm No PCP None [facility] [address] [place] Work Phone: 09-02-2021 09:41-0400 Body mass index (BMI) [Ratio] 24.4 kg/m2 No PCP None [facility] [address] [place] Work Phone: 09-02-2021 09:41-0400 Body surface area Derived from formula 1.86 m2 No PCP None [facility] [address] [place] Work Phone: 09-02-2021 09:41-0400 Body weight 72.8 kg No PCP None [facility] [address] [place] Work Phone: 09-02-2021 09:41-0400 Diastolic blood pressure 62 mm[Hg] No PCP None [facility] [place] Work Phone: 09-02-2021 09:41-0400 Systolic blood pressure 100 mm[Hg] No PCP None [facility] [address] [place] Work Phone: 07-01-2021 13:32-0400 Body height 172.72 cm No PCP None Thuy [address] [place] Work Phone: 07-01-2021 13:32-0400 Body mass index (BMI) [Ratio] 24.2 kg/m2 No PCP None Katja [address] [place] Work Phone: 07-01-2021 13:32-0400 Body surface area Derived from formula 1.85 m2 No PCP None Katja [address] [place] Work Phone: 07-01-2021 13:32-0400 Body weight 72.2 kg No PCP None Thuy [address] [place] Work Phone: 07-01-2021 13:32-0400 Diastolic blood pressure 70 mm[Hg] No PCP None Katja [address] [place] Work Phone: 07-01-2021 13:32-0400 Systolic blood pressure 100 mm[Hg] No PCP None Katja [address] [place] Work Phone: 06-03-2021 14:19-0400 Body height 172.72 cm No PCP None Thuy [address] [place] Work Phone: 06-03-2021 14:19-0400 Body mass index (BMI) [Ratio] 24.44 kg/m2 No PCP None Katja [address] [place] Work Phone: 06-03-2021 14:19-0400 Body surface area Derived from formula 1.86 m2 No PCP None Katja [address] [place] Work Phone: 06-03-2021 14:19-0400 Body weight 72.9 kg No PCP None Thuy [address] [place] Work Phone: 06-03-2021 14:19-0400 Diastolic blood pressure 68 mm[Hg] No PCP None Katja [address] [place] Work Phone: 06-03-2021 14:19-0400 Systolic blood pressure 100 mm[Hg] No PCP None [facility] [employer] [address] [place] Work Phone: 05-06-2021 10:04-0400 Body height 172.72 cm No PCP None [facility] [address] [place] Work Phone: 05-06-2021 10:04-0400 Body mass index (BMI) [Ratio] 24.67 kg/m2 No PCP None [facility] [address] Work Phone: 05-06-2021 10:04-0400 Body surface area Derived from formula 1.87 m2 No PCP None [facility] [employer] [address] [place] Work Phone: 05-06-2021 10:04-0400 Body weight 73.6 kg No PCP None [employer] [address] [place] Work Phone: 05-06-2021 10:04-0400 Diastolic blood pressure 60 mm[Hg] No PCP None [facility] [address] [place] Work Phone: 05-06-2021 10:04-0400 Systolic blood pressure 112 mm[Hg] No PCP [facility] [place] Work Phone: Encounters Encounter Date Encounter Type Care Provider Facility Start: 12-28-2024 End: 12-28-2024 ambulatory JAVID STARR Facility:[facility] Start: 12-14-2024 End: 12-14-2024 ambulatory RISA OLIVARES Facility:[facility] Start: 11-30-2024 End: 11-30-2024 ambulatory APARNA FATIMA Facility:[facility] Start: 11-27-2024 End: 11-27-2024 ambulatory PHYSICIAN [facility] Start: 11-15-2024 End: 11-15-2024 ambulatory RONNA SALOMON Facility:[facility] Start: 10-18-2024 End: 10-18-2024 ambulatory RISA OLIVARES Facility:[facility] Start: 10-18-2024 End: 10-18-2024 Patient encounter procedure Risa Olivares MD Work Phone: OB/Gynecology Comment on above: History of intrauter ine , currently (HCC) (Primary Dx); 23 weeks gestation of (HCC); Screening for diabetes mellitus; Supervision of high risk in second trimester (HCC) Start: 10-10-2024 End: 10-10-2024 ambulatory RONNA LEIGHABENEDICTO Facility:[facility] Start: 10-10-2024 End: 10-10-2024 Patient encounter procedure Ronna Leighabenedicto STRETCH MACHINE OPERATOR.CNM Work Phone: OB/Gynecology Comment on above: 22 weeks gestation o f (HCC) (Primary Dx); Encounter for supervision of normal in multigravida ([facility]); Cramping affecting , antepartum ([facility]) Start: 10-09-2024 End: 10-09-2024 Telephone encounter Alexandra Pérez MD Work Phone: OB/Gynecology Comment on above: OB spotting Start: 09-21-2024 End: 09-21-2024 ambulatory Aparna Fatima MD Work Phone: OB/Gynecology Comment on above: Ultrasound Start: 09-20-2024 End: 09-20-2024 ambulatory NOEMI AIKEN Facility:[facility] Start: 09-20-2024 End: 09-20-2024 ambulatory APARNA FATIMA Facility:[facility] Start: 09-20-2024 End: 09-20-2024 Patient encounter procedure Whi Tech 1 [employer] [facility] Comment on above: Encounter for anatomic survey (HCC) (Primary Dx); 19 weeks gestation of (HCC) Encounter for superv ision of normal in multigravida (HCC) (Primary Dx); 19 weeks gestation of (HCC); Palpitations; Shortness of breath Start: 09-01-2024 End: 09-01-2024 Emergency department patient visit NO ASSIGNED PCP GENERIC PROVIDER [facility] Start: 08-30-2024 End: 08-30-2024 ambulatory Aparna Fatima MD Work Phone: OB/Gynecology Comment on above: Cramping Start: 08-30-2024 End: 10-30-2024 Follow-up encounter Ronna Salomon APRN.CNM Work Phone: OB/Gynecology Start: 08-30-2024 End: 08-30-2024 Patient encounter procedure Ronna Salomon APRN.CNM Work Phone: OB/Gynecology Comment on above: Pelvic pain during p regnancy (HCC) (Primary Dx); Encounter for supervision of normal in multigravida ([facility]); History of intrauterine , currently ([facility]); 16 weeks gestation of ([facility]) Start: 08-23-2024 End: 08-23-2024 Patient encounter procedure Risa Olivares MD Work Phone: OB/Gynecology Comment on above: Encounter for superv ision of normal in multigravida ([facility]) (Primary Dx); History of intrauterine , currently ([facility]); 15 weeks gestation of ([facility]) Start: 08-23-2024 End: 08-23-2024 ambulatory RISA OLIVARES Facility:[facility] Start: 08-09-2024 End: 08-09-2024 ambulatory NOEMI ATTILA Facility:[facility] Start: 08-09-2024 End: 08-09-2024 ambulatory NOEMI NILES Facility:[facility] Start: 08-09-2024 End: 08-09-2024 Patient encounter procedure Whi Tech 1 Driller [facility]able [facility] Comment on above: Encounter for nuchal translucency testing ([facility]) [Z36.82] (Primary Dx); 8 weeks gestation of ([facility]) Encounter for superv ision of normal in multigravida (HCC) (Primary Dx); 13 weeks gestation of ([facility]) Start: 07-19-2024 End: 07-19-2024 ambulatory Noemi Attila SHRUTHI Work Phone: OB/Gynecology Comment on above: [id number] test Start: 07-05-2024 End: 09-04-2024 Follow-up encounter Noemi Aiken APRN.CNP Work Phone: OB/Gynecology Start: 07-05-2024 End: 07-05-2024 Telephone encounter Noemi Aiken APRN.CNP Work Phone: OB/Gynecology Comment on above: Orders Start: 07-05-2024 End: 07-05-2024 Patient encounter procedure Noemi Aiken APRN.ELECTRONICS TECHNOLOGY DEPARTMENT CHAIR Work Phone: OB/Gynecology Comment on above: Encounter for superv ision of normal in multigravida ([facility]) (Primary Dx); with uncertain dates in first trimester ([facility]); Screen for STD (sexually transmitted disease); 8 weeks gestation of ([facility]); History of intrauterine , currently ([facility]) Start: 07-05-2024 End: 07-05-2024 ambulatory NOEMI ATTILA Facility:[facility] Start: 06-14-2024 End: 06-14-2024 ambulatory NOEMI ATTILA Facility:[facility] Start: 06-05-2024 End: 06-05-2024 ambulatory Ramón Snyder APRN.ELECTRONICS TECHNOLOGY DEPARTMENT CHAIR Work Phone: OB/Gynecology Comment on above: Positive test Start: 05-25-2024 End: 07-25-2024 Follow-up encounter Ramón Snyder APRN.CNP Work Phone: OB/Gynecology Start: 05-24-2024 End: 05-24-2024 ambulatory RAMÓN SNYDER Facility:[facility] Start: 05-24-2024 End: 05-24-2024 Patient encounter procedure Ramón Snyder APRN.ELECTRONICS TECHNOLOGY DEPARTMENT CHAIR Work Phone: OB/Gynecology Comment on above: Encounter for gyneco logical examination (general) (routine) without abnormal findings (Primary Dx); Screening for cervical cancer; Encounter for screening for human papillomavirus (HPV); PCOS (polycystic ovarian syndrome); Abnormal uterine bleeding; Family history of breast cancer; History of IUFD; Desire for Start: 05-24-2024 End: 05-24-2024 Patient encounter status Ramón Snyder APRN.CNP Work Phone: [facility] Start: 02-08-2024 End: 02-08-2024 Subsequent hospital visit by physician Arash Gary 1 [facility] Comment on above: Acute cough Start: 02-08-2024 End: 02-08-2024 Patient encounter procedure Jeanette Albarran STRETCH MACHINE OPERATOR-ELECTRONICS TECHNOLOGY DEPARTMENT CHAIR Work Phone: [facility] Comment on above: Acute bacterial sinu sitis (Primary Dx); Acute cough Start: 02-08-2024 End: 02-08-2024 ambulatory JEANETTE ALBARRAN [facility] Start: 10-06-2023 Chart abstracting Javid aguero MD Work Phone: OB/Gynecology Comment on above: Results Start: 10-05-2023 End: 10-05-2023 Patient encounter procedure Javid Starr MD Work Phone: OB/Gynecology Comment on above: IUFD at 20 weeks or more of gestation (Primary Dx) Start: 09-27-2023 Chart abstracting Aparna Fatima MD Work Phone: OB/Gynecology Comment on above: Results (Anora) Start: 09-19-2023 ambulatory Aparna Adkins Work Phone: OB/Gynecology Comment on above: Ob Delivery Note Start: 09-18-2023 End: 09-19-2023 Evaluation and management of inpatient No Primary Care Physician Facility:[facility] Start: 09-16-2023 Telephone encounter Ramón madrigal APRN.ELECTRONICS TECHNOLOGY DEPARTMENT CHAIR Work Phone: OB/Gynecology Comment on above: IUFD Start: 09-16-2023 End: 09-16-2023 Patient encounter procedure Driller Portable [place] [facility] Work Phone: OB/Gynecology Comment on above: IUFD at 20 weeks or more of gestation (Primary Dx) IUFD at 20 weeks or more of gestation (Primary Dx); 20 weeks gestation of ; Encounter for supervision of high risk in second trimester, antepartum; History of section Start: 08-19-2023 End: 08-19-2023 Patient encounter procedure Ramón Snyder APRN.ELECTRONICS TECHNOLOGY DEPARTMENT CHAIR Work Phone: OB/Gynecology Comment on above: Encounter for superv ision of high risk in second trimester, antepartum (Primary Dx); 16 weeks gestation of ; History of section; History of ; HSV-1 infection; Heart palpitations Start: 07-22-2023 End: 07-22-2023 Patient encounter procedure Aparna Fatima MD Work Phone: OB/Gynecology Comment on above: 12 weeks gestation o f (Primary Dx); Encounter for supervision of normal first in second trimester; Family history of defect; HSV-1 infection; History of section; History of Start: 06-24-2023 Telephone encounter Sally Munoz RN Obstetrics/Gynecology Comment on above: PRAF (Initial PRAF) Start: 06-23-2023 End: 06-23-2023 Patient encounter procedure Noemi Eppscalf STRETCH MACHINE OPERATOR.ELECTRONICS TECHNOLOGY DEPARTMENT CHAIR Work Phone: OB/Gynecology Comment on above: with uncer tain dates in first trimester (Primary Dx); 8 weeks gestation of ; Encounter for supervision of normal in multigravida in first trimester; Family history of defect Start: 06-21-2023 Telephone encounter Alexandra petty MD Work Phone: OB/Gynecology Comment on above: Results Start: 06-16-2023 Telephone encounter Noemi hernandez STRETCH MACHINE OPERATOR.ELECTRONICS TECHNOLOGY DEPARTMENT CHAIR Work Phone: OB/Gynecology Comment on above: Appointment Start: 06-13-2023 Telephone encounter Risa farrar MD Work Phone: OB/Gynecology Comment on above: Early OB Bleeding Start: 02-04-2023 End: 02-08-2023 ambulatory BRENT MEJIA JR. [facility] Start: 02-04-2023 End: 02-04-2023 Office outpatient visit 15 minutes Brent Mejia DPM Work Phone: [facility] Comment on above: Stress fracture of l eft foot, initial encounter (Primary Dx) Start: 01-05-2023 End: 01-09-2023 ambulatory PHYSICIAN NO [facility] Start: 01-05-2023 End: 01-05-2023 Office outpatient new 30 minutes Brent Mejia DPM Work Phone: [facility] Comment on above: Stress fracture of l eft foot, initial encounter (Primary Dx) Start: 12-22-2022 End: 12-22-2022 Emergency department patient visit PHYSICIAN JOSEPHINE [facility] Start: 04-03-2022 End: 04-05-2022 [facility] Start: 03-17-2022 End: 03-17-2022 ambulatory [facility] Work Phone: Start: 03-17-2022 End: 03-17-2022 Patient encounter procedure [facility], [place] under cutter Off Start: 01-08-2022 End: 01-08-2022 Emergency department patient visit [facility] Start: 01-05-2022 End: 01-05-2022 Patient encounter procedure [facility], [place] under cutter Off Start: 11-17-2021 Chart Update No PCP None [facility] [address] Work Phone: Start: 11-16-[address] Harlan Nair y:[id number] Start: 10-19-2021 Office outpatient vi sit 10 minutes No PCP None [facility] [address] Work Phone: Start: 09-24-2021 Chart Update No PCP None [facility] [address] Work Phone: Start: 09-23-2021 Office outpatient vi sit 15 minutes No PCP None [facility] [address] Work Phone: Start: 09-02-2021 Office outpatient vi sit 15 minutes No PCP None [facility] [address] Work Phone: Start: 08-26-2021 End: 08-26-2021 Emergency department patient visit Ms. Jen Koehler [id number] Start: 07-13-2021 Chart Update No PCP None [facility] [address] Work Phone: Start: 07-08-2021 Chart Update No PCP None [facility] [address] Work Phone: Start: 07-06-2021 AUDIT No PCP None [facility] [address] Work Phone: Start: 07-01-2021 Office outpatient vi sit 15 minutes No PCP None [facility] Work Phone: Start: 06-10-[address] Harlan Nair y:[id number] Start: 06-04-2021 Chart Update No PCP None [facility] Work Phone: Start: 06-03-2021 Office outpatient vi sit 15 minutes No PCP None [facility] Work Phone: Start: 05-29-2021 AUDIT No PCP None [facility] Work Phone: Start: 05-21-2021 AUDIT No PCP None [facility] Work Phone: Start: 05-06-2021 Office outpatient ne w 30 minutes No PCP None [facility] [employer] Work Phone: Start: 04-21-2017 End: 07-04-2017 Ambulatory XXXX NONE Facility:[facility] Start: 03-17-2017 End: 03-17-2017 Ambulatory NO PRIMARY CARE [facility] Start: 03-17-2017 End: 03-17-2017 Ambulatory NO PRIMARY CARE [facility] Start: 02-10-2017 End: 02-10-2017 Ambulatory NO PRIMARY CARE [facility] Start: 02-10-2017 End: 02-10-2017 Ambulatory KYLE PAIGE [facility] Start: 02-03-2017 Ambulatory DOCTOR NOT ON FILE Susy [facility] Start: 01-17-2017 End: 01-17-2017 Ambulatory RISA OLIVER [facility] Start: 12-15-2016 End: 12-15-2016 Ambulatory JA CALVO [facility] Encounter for gynecological examination (general) (routine) without abnormal findings No PCP None [facility] Work Phone: Comment on above: 09/23/2021; NIL; Procedures Date Procedure Procedure Detail Performing Clinician Start: 10-10-2024 Urnls dip stick/tabl et rgnt auto w/o microscopy Ronna Plotbenedicto STRETCH MACHINE OPERATOR.CNM Work Phone: Start: 09-20-2024 Us preg uterus after 1st trimest 02/21 gestation Noemi Attila STRETCH MACHINE OPERATOR.ELECTRONICS TECHNOLOGY DEPARTMENT CHAIR Work Phone: Start: 08-30-2024 Urnls dip stick/tabl et rgnt auto w/o microscopy Ronna Umm STRETCH MACHINE OPERATOR.CNM Work Phone: Start: 08-09-2024 Antibody screen SCOOTER SALOMON Comment on above: Order Comment: Speci men Type: BLOOD SPECIMENOrdering Facility: [facility] Address: [address] [place] [address] Performed By: #### T SPN ####CC MAIN BLOOD BANKCLIA [id number] [address] OF [place] Start: 08-09-2024 Us preg uterus after 1st trimest 02/21 gestation Noemi Woods Cross STRETCH MACHINE OPERATOR.ELECTRONICS TECHNOLOGY DEPARTMENT CHAIR Work Phone: Start: 07-05-2024 Us uterus l imited 1/> fetuses Noemi [place] STRETCH MACHINE OPERATOR.ELECTRONICS TECHNOLOGY DEPARTMENT CHAIR Work Phone: Start: 02-08-2024 POCT SARS-COV-2/FLU/ RSV PCR SYMPTOMATIC Jeanette Albarran APRN-ELECTRONICS TECHNOLOGY DEPARTMENT CHAIR Work Phone: Start: 02-08-2024 Radiologic exam ches t 2 views Jeanette Albarran APRN-ELECTRONICS TECHNOLOGY DEPARTMENT CHAIR Work Phone: Start: 09-16-2023 Us preg uterus after 1st trimest 02/21 gestation Aparna Fatima MD Work Phone: Start: 07-28-2023 H/O: section History of section Aparna Fatima MD Work Phone: Start: 06-23-2023 Iadna chlamydia trac homatis amplified probe tq Noemi [place] STRETCH MACHINE OPERATOR.ELECTRONICS TECHNOLOGY DEPARTMENT CHAIR Work Phone: Start: 06-23-2023 Us uterus l imited 1/> fetuses Noemi [place] STRETCH MACHINE OPERATOR.ELECTRONICS TECHNOLOGY DEPARTMENT CHAIR Work Phone: Start: 02-04-2023 Follow-up visit Follow-up DAI Shields ROBERTO JR. Start: 09-23-2021 Microscopic observat ion [Identifier] in Cervix by Cyto stain Jeanette Albarran APRN-ELECTRONICS TECHNOLOGY DEPARTMENT CHAIR Work Phone: Start: 08-26-[address] Jesusita Ding Comment on above: Performed By: #### T +S #### [place] [address] Start: 07-08-2021 Lipid 1996 panel - S kiarra or Plasma Jeanette Albarran APRN-ELECTRONICS TECHNOLOGY DEPARTMENT CHAIR Work Phone: section No PCP None Comment on above: 2015; H/O: section History of vaginal delivery following previous delivery No PCP None Comment on above: 04/22/17 40 WEEKS 1 DAY MALE 7LB 7OZ; 04/22/17 40 WEEKS 1 DAY MALE 7LB 7OZ VAGINAL; H/O: section History of section Aparna Fatima MD Work Phone: H/O: section History of section Ramón Snyder APRN.CNP Work Phone: H/O: section History of section Ramón Snyder APRN.CNP Work Phone: Plan of Treatment Date Care Activity Detail Author Start: 01-18-2042 Zoster Vaccines (1 of 2) Zoster Vacc jacobo (1 of 2) [facility] Start: 02-28-2034 Urine microalbumin profile DTaP,Tdap,Td Vaccine (10 - Td or Tdap) [facility] Start: 05-24-2029 Screening for malign ant neoplasm of cervix Cervical Cancer Screening [facility] Start: 03-03-2027 DTaP/Tdap/Td Vaccine s (2 - Td or Tdap) DTaP/Tdap/Td Vaccines (2 - Td or Tdap) [facility] Start: 03-03-2027 Tetanus vaccination Tetanus: Every 1 0yrs [facility] Start: 03-03-2027 Urine microalbumin profile [facility] Start: 07-08-2026 Lipid panel Lipid Panel [facility] Start: 05-30-2025 End: 05-30-2025 Patient encounter procedure 05/30/2025 9:45 AM EDT Office Visit OB/Gynecology [address] [place] [address] Ramón Snyder, STRETCH MACHINE OPERATOR.ELECTRONICS TECHNOLOGY DEPARTMENT CHAIR [address] [place] [address] Annual OB/Gynecology Comment on above: Annual Start: 12-18-2024 RSV Vaccine (1 - Ris k 1-dose series) RSV Vaccine (1 - Risk 1-dose series) [facility] Start: 11-30-2024 End: 11-30-2024 Patient encounter procedure 11/30/2024 9:50 AM EDT Routine Office Visit OB/Gynecology [address] [place] [address] Aparna Fatima MD [address] [place] [address] OB OB/Gynecology Comment on above: OB Start: 11-15-2024 End: 11-15-2024 Patient encounter procedure 11/15/2024 9:00 AM EDT Routine Office Visit OB/Gynecology [address] [place] [address] Ronna Salomon, AGUSTINA.CNM [address] [place] [address] OB OB/Gynecology Comment on above: OB Start: 11-15-2024 End: 11-15-2024 ambulatory 11/15/2024 8:45 AM EDT Results Only [facility] [address] [place] [address] Lab Glucose [facility] Comment on above: Lab Glucose Start: 10-22-2024 Influenza vaccination Influenza Vacc ine (#1) [facility] Start: 10-18-2024 End: 01-17-2025 ANEMIA REFLEX PANEL ANEMIA REFLEX PANEL Lab Routine History of intrauterine , currently (HCC) 23 weeks gestation of (HCC) Screening for diabetes mellitus Expected: 10/18/2024, Expires: 01/17/2025 [facility] Comment on above: Expected: 10/18/2024 , Expires: 01/17/2025 Start: 10-18-2024 End: 10-18-2025 GESTATIONAL GLUCOSE SCREEN, 1-HOUR, 50 GRAM, NON-FASTING GESTATIONAL GLUCOSE SCREEN, 1-HOUR, 50 GRAM, NON-FASTING Lab Routine History of intrauterine , currently ([facility]) 23 weeks gestation of ([facility]) Screening for diabetes mellitus Expected: 10/18/2024, Expires: 10/18/2025 [facility] Work Phone: Comment on above: Expected: 10/18/2024 , Expires: 10/18/2025 Start: 10-18-2024 End: 10-18-2025 SYPHILIS TREPONEMAL W/REFLEX SYPHILIS TREPONEMAL W/REFLEX Lab Routine History of intrauterine , currently ([facility]) 23 weeks gestation of ([facility]) Screening for diabetes mellitus Expected: 10/18/2024, Expires: 10/18/2025 [facility] Comment on above: Expected: 10/18/2024 , Expires: 10/18/2025 Start: 10-18-2024 End: 10-18-2024 Patient encounter procedure 10/18/2024 9:00 AM EDT Routine Office Visit OB/Gynecology [address] [place] [id number] Risa Olivares MD [address] [place] [address] OB OB/Gynecology Comment on above: OB Start: 09-23-2024 Screening for malign ant neoplasm of cervix [facility] Start: 09-20-2024 End: 09-20-2024 Patient encounter procedure Maternal Medicine Comment on above: anatomy OB Start: 08-23-2024 End: 08-23-2024 ambulatory 08/23/2024 1:00 PM EDT [facility] Maternal Medicine [address] [facility] [address] [place] [id number] MFM Maternal Medicine Comment on above: MFM Start: 08-23-2024 End: 08-23-2024 Patient encounter procedure 08/23/2024 9:10 AM EDT Routine Office Visit OB/Gynecology [address] [place] [address] Risa Olivares MD [address] [place] [address] OB OB/Gynecology Comment on above: OB Start: 08-09-2024 End: 08-09-2024 Patient encounter procedure Maternal Medicine Comment on above: Nuchal OB Start: 07-19-2024 End: 10-18-2024 Chromosome 21 trisomy [Presence] in Blood or Tissue by Cytogenetics [id number] PLUS Lab Routine 10 weeks gestation of (HCC) Expected: 07/19/2024, Expires: 10/18/2024 [facility] Work Phone: Comment on above: Expected: 07/19/2024 , Expires: 10/18/2024 Start: 07-05-2024 End: 10-04-2024 ANEMIA REFLEX PANEL ANEMIA REFLEX PANEL Lab Routine with uncertain dates in first trimester ([facility]) Encounter for supervision of normal in multigravida ([facility]) Expected: 07/05/2024, Expires: 10/04/2024 [facility] Work Phone: Comment on above: Expected: 07/05/2024 , Expires: 10/04/2024 Start: 07-05-2024 End: 10-04-2024 Hemoglobin A1c in Blood HEMOGLOBIN A1C Lab Routine with uncertain dates in first trimester ([facility]) Encounter for supervision of normal in multigravida (HCC) Expected: 07/05/2024, Expires: 10/04/2024 [facility] Comment on above: Expected: 07/05/2024 , Expires: 10/04/2024 Start: 07-05-2024 End: 10-04-2024 Hepatitis B virus surface Ag [Presence] in Serum HEPATITIS B SURFACE ANTIGEN Lab Routine with uncertain dates in first trimester ([facility]) Encounter for supervision of normal in multigravida (HCC) Expected: 07/05/2024, Expires: 10/04/2024 [facility] Comment on above: Expected: 07/05/2024 , Expires: 10/04/2024 Start: 07-05-2024 End: 10-04-2024 Hepatitis C virus Ab [Presence] in Serum HEPATITIS C ANTIBODY IA WITH CONFIRMATION Lab Routine with uncertain dates in first trimester ([facility]) Encounter for supervision of normal in multigravida ([facility]) Expected: 07/05/2024, Expires: 10/04/2024 [facility] Comment on above: Expected: 07/05/2024 , Expires: 10/04/2024 Start: 07-05-2024 End: 10-04-2024 HIV 1+2 Ab [Presence] in Serum or Plasma by Immunoassay HIV 1/2 COMBO WITH REFLEX TO DIFFERENTIATION Lab Routine with uncertain dates in first trimester ([facility]) Encounter for supervision of normal in multigravida ([facility]) Expected: 07/05/2024, Expires: 10/04/2024 [facility] Comment on above: Expected: 07/05/2024 , Expires: 10/04/2024 Start: 07-05-2024 End: 07-05-2025 OBSTETRIC ULTRASOUND [facility] Comment on above: Expected: 07/05/2024 , Expires: 07/05/2025 Start: 07-05-2024 End: 10-04-2024 RUBELLA IGG ANTIBODY RUBELLA IGG ANTIBODY Lab Routine with uncertain dates in first trimester ([facility]) Encounter for supervision of normal in multigravida ([facility]) Expected: 07/05/2024, Expires: 10/04/2024 [facility] Comment on above: Expected: 07/05/2024 , Expires: 10/04/2024 Start: 07-05-2024 End: 10-04-2024 SYPHILIS TREPONEMAL W/REFLEX SYPHILIS TREPONEMAL W/REFLEX Lab Routine with uncertain dates in first trimester ([facility]) Encounter for supervision of normal in multigravida ([facility]) Expected: 07/05/2024, Expires: 10/04/2024 [facility] Comment on above: Expected: 07/05/2024 , Expires: 10/04/2024 Start: 07-05-2024 End: 10-04-2024 TYPE + SCREEN TYPE + SCREEN Blood Bank Routine with uncertain dates in first trimester ([facility]) Encounter for supervision of normal in multigravida ([facility]) Expected: 07/05/2024, Expires: 10/04/2024 [facility] Comment on above: Expected: 07/05/2024 , Expires: 10/04/2024 Start: 06-07-2024 End: 06-07-2024 ambulatory 06/07/2024 9:30 AM EDT Procedure OB/Gynecology [address] [place] [address] Remote, [employer] [address] [place] [address] : PCOS (polycystic ovarian syndrome) [E28.2]; Abnormal uterine bleeding [N93.9] OB/Gynecology Comment on above: : PCOS (polycystic o varian syndrome) [E28.2]; Abnormal uterine bleeding [N93.9] Start: 05-24-2024 End: 08-23-2024 25-hydroxyvitamin D3 [Mass/volume] in Serum or Plasma [facility] Comment on above: Expected: 05/24/2024 , Expires: 08/23/2024 Start: 05-24-2024 End: 08-23-2024 Choriogonadotropin.beta subunit [Units/volume] in Serum or Plasma [facility] Comment on above: Expected: 05/24/2024 , Expires: 08/23/2024 Start: 05-24-2024 End: 08-23-2024 Hemoglobin A1c in Blood [facility] Comment on above: Expected: 05/24/2024 , Expires: 08/23/2024 Start: 05-24-2024 End: 08-23-2024 Thyrotropin [Units/volume] in Serum or Plasma [facility] Comment on above: Expected: 05/24/2024 , Expires: 08/23/2024 Start: 05-24-2024 End: 05-24-2025 US Pelvis PELVIC US [facility] Anc Imaging Routine PCOS (polycystic ovarian syndrome) Abnormal uterine bleeding Expected: 05/24/2024, Expires: 05/24/2025 [facility] Work Phone: Comment on above: Expected: 05/24/2024 , Expires: 05/24/2025 Start: 12-05-2023 RSV Vaccine (1 - Ris k 1-dose series) RSV Vaccine (1 - Risk 1-dose series) [facility] Start: 10-23-2023 COVID-19 Vaccine ( season) COVID-19 Vaccine ( season) [facility] Start: 10-23-2023 Influenza vaccination [facility] Start: 10-14-2023 End: 10-14-2023 Patient encounter procedure 10/14/2023 11:40 AM EDT Routine Office Visit OB/Gynecology [address] [place] [id number] Adrianne Solorzano MD [address] [place] [id number] OB OB/Gynecology Comment on above: OB Start: 10-05-2023 End: 01-04-[address] LUPUS ANTICOAG PL Lab Routine IUFD at 20 weeks or more of gestation Expected: 10/05/2023, Expires: 01/04/2024 [facility] Work Phone: Comment on above: Expected: 10/05/2023 , Expires: 01/04/2024 Start: 09-16-2023 End: 09-16-2023 Patient encounter procedure OB/Gynecology Comment on above: Anatomy OB Start: 08-19-2023 End: 11-18-2023 ALPHA FETOPRO MATERNAL [facility] Work Phone: Comment on above: Expected: 08/19/2023 , Expires: 11/18/2023 Start: 08-19-2023 End: 08-19-2023 Patient encounter procedure 08/19/2023 8:45 AM EDT Routine Office Visit OB/Gynecology [address] [place] [id number] Ramón Snyder APRN.ELECTRONICS TECHNOLOGY DEPARTMENT CHAIR [address] [place] [id number] OB OB/Gynecology Comment on above: OB Start: 07-22-2023 End: 07-21-2024 OBSTETRIC ULTRASOUND [facility] OBSTETRIC ULTRASOUND [facility] Anc Imaging Routine 12 weeks gestation of Encounter for supervision of normal first in second trimester Expected: 07/22/2023, Expires: 07/21/2024 [facility] Work Phone: Comment on above: Expected: 07/22/2023 , Expires: 07/21/2024 Start: 07-22-2023 End: 07-22-2023 Patient encounter procedure 07/22/2023 10:30 AM EDT Routine Office Visit OB/Gynecology [address] [facility] [address] [place] [phone] Aparna Fatima MD [address] [facility] [place] [place] [id number] OB, LMP 3 pos home test OB/Gynecology Comment on above: OB, LMP 04/25/23 pos p regnancy home test Start: 06-23-2023 End: 09-22-2023 CBC panel - Blood by Automated count COMPLETE BLOOD COUNT Lab Routine with uncertain dates in first trimester Expected: 06/23/2023, Expires: 09/22/2023 [facility] Work Phone: Comment on above: Expected: 06/23/2023 , Expires: 09/22/2023 Start: 06-23-2023 End: 09-22-2023 Hemoglobin A1c in Blood HEMOGLOBIN A1C Lab Routine with uncertain dates in first trimester Expected: 06/23/2023, Expires: 09/22/2023 [facility] Comment on above: Expected: 06/23/2023 , Expires: 09/22/2023 Start: 06-23-2023 End: 09-22-2023 Hepatitis B virus surface Ag [Presence] in Serum HEPATITIS B SURFACE ANTIGEN Lab Routine with uncertain dates in first trimester Expected: 06/23/2023, Expires: 09/22/2023 [facility] Comment on above: Expected: 06/23/2023 , Expires: 09/22/2023 Start: 06-23-2023 End: 09-22-2023 Hepatitis C virus Ab [Presence] in Serum HEPATITIS C ANTIBODY IA WITH CONFIRMATION Lab Routine with uncertain dates in first trimester Expected: 06/23/2023, Expires: 09/22/2023 [facility] Comment on above: Expected: 06/23/2023 , Expires: 09/22/2023 Start: 06-23-2023 End: 09-22-2023 HGB ELECTROPHORESIS (OUTSIDE USE) HGB ELECTROPHORESIS (OUTSIDE USE) Lab Routine 8 weeks gestation of Expected: 06/23/2023, Expires: 09/22/2023 [facility] Comment on above: Expected: 06/23/2023 , Expires: 09/22/2023 Start: 06-23-2023 End: 09-22-2023 HIV 1+2 Ab [Presence] in Serum or Plasma by Immunoassay HIV 1/2 COMBO WITH REFLEX TO DIFFERENTIATION Lab Routine with uncertain dates in first trimester Expected: 06/23/2023, Expires: 09/22/2023 [facility] Comment on above: Expected: 06/23/2023 , Expires: 09/22/2023 Start: 06-23-2023 End: 09-22-2023 RUBELLA IGG ANTIBODY RUBELLA IGG ANTIBODY Lab Routine with uncertain dates in first trimester Expected: 06/23/2023, Expires: 09/22/2023 [facility] Comment on above: Expected: 06/23/2023 , Expires: 09/22/2023 Start: 06-23-2023 End: 09-22-2023 SYPHILIS TOTAL W/REFLEX SYPHILIS TOTAL W/REFLEX Lab Routine with uncertain dates in first trimester Expected: 06/23/2023, Expires: 09/22/2023 [facility] Comment on above: Expected: 06/23/2023 , Expires: 09/22/2023 Start: 06-23-2023 End: 09-22-2023 TYPE + SCREEN TYPE + SCREEN Blood Bank Routine with uncertain dates in first trimester Expected: 06/23/2023, Expires: 09/22/2023 [facility] Comment on above: Expected: 06/23/2023 , Expires: 09/22/2023 Start: 06-23-2023 End: 06-23-2023 Patient encounter procedure OB/Gynecology Comment on above: OB, LMP 04/25/23 pos p regnancy home test Start: 06-20-2023 End: 06-20-2023 ambulatory 06/20/2023 1:15 PM EDT Results Only [facility] Loz[facility] [address] [place] [address] Apollo Lozada [facility] Start: 06-15-2023 End: 06-15-2023 ambulatory 06/15/2023 1:30 PM EDT Results Only [place] Lozada [facility] [address] [place] [address] Apollojose alberto Brizuelawn [facility] Start: 02-21-2023 Behavioral Health Screening Behavioral Health Screening [facility] Start: 02-04-2023 End: 02-04-2023 Patient encounter procedure 02/04/2023 10:30 AM EST Office Visit [facility] [address] [place] [id number] Brent Mejia Jr., DPM [address] [place] [address] [facility] Start: 10-22-2022 COVID-19 Vaccine ( season) COVID-19 Vaccine () [facility] Start: 10-22-2022 Influenza vaccination Sequenti al Influenza Vaccine (#1) [facility] Start: 04-05-2022 Patient discharge [facility] Start: 04-04-2022 Following clinical pathway protocol [facility] Start: 04-04-2022 Administration of medication [facility] Start: 04-04-2022 Application of ice collar, cap or bag [facility] Start: 04-04-2022 Catheterization of vein [facility] Start: 04-04-2022 Introduction of urin narayan catheter [facility] Start: 04-04-2022 Measuring intake and output [facility] Start: 04-04-2022 Notification of physician [facility] Start: 04-04-2022 Procedure discontinued [facility] Start: 04-04-2022 Provision of activit y privileges [facility] Start: 04-04-2022 Vital signs measurements [facility] Start: 04-04-2022 [facility] Start: 04-03-2022 Admission procedure [facility] Start: 01-18-2022 Screening for malign ant neoplasm of cervix HPV Testing [facility] Start: 11-16-2021 EPVOB, Provider: Harlan Ding, Status: Pen, Time: 1:15 PM EPVOB, Provider: Harlan Ding, Status: Pen, Time: 1:15 PM [facility] Work Phone: Start: 10-19-2021 EPVOB, Provider: Harlan Ding, Status: Pen, Time: 9:15 AM EPVOB, Provider: Harlan Ding, Status: Pen, Time: 9:15 AM [facility] Work Phone: Start: 09-23-2021 EPVOB, Provider: Harlan Ding, Status: Pen, Time: 9:30 AM EPVOB, Provider: Harlan Ding, Status: Pen, Time: 9:30 AM [facility] Work Phone: Start: 09-09-2021 Patient encounter procedure ANNUAL, Provider: Harlan Ding, Status: Pen, Time: 11:15 AM [facility] Work Phone: Start: 06-17-2021 FUV, Provider: Harlan Ding, Status: Pen, Time: 1:45 PM FUV, Provider: Harlan Ding, Status: Pen, Time: 1:45 PM [facility] Work Phone: Start: 01-18-2013 Screening for malign ant neoplasm of cervix [facility] Start: 12-30-2011 HPV Vaccine (3 - 3-d ose series) HPV Vaccine (3 - 3-dose series) [facility] Start: 01-18-2011 Hepatitis B Vaccine (1 of 3 - 19+ 3-dose series) Hepatitis B Vaccine (1 of 3 - 19+ 3-dose series) [facility] Start: 01-18-2011 Hepatitis B Vaccines (1 of 3 - 19+ 3-dose series) Hepatitis B Vaccines (1 of 3 - 19+ 3-dose series) [facility] Start: 01-18-2010 Anxiety Screening Anxiety Screening [facility] Start: 01-18-2010 Depression Screening Depression Scre maricruzing [facility] Start: 01-18-2010 Hepatitis C screening Hepatitis C Sc noelle [facility] Start: 01-18-2010 HIV screening HIV Screening [facility] Start: 01-18-2007 HIV screening HIV Screening [facility] Start: 01-18-2005 Varicella vaccination Varicell a Vaccines (1 of 2 - 13+ 2-dose series) [facility] Start: 2004 Depression screening using PHQ-9 (Patient Health Questionnaire 9) score Depression Screening (PHQ-2/9) [facility] Start: 01-18-1995 History and physical examination, annual for health maintenance Wellness Visit [facility] Start: 01-18-1993 MMR Vaccines (1 of 1 - Standard series) MMR Vaccines (1 of 1 - Standard series) [facility] Start: 1992 Yearly Adult Physical Yearly Adult P [facility] Bacteria identified in Urine by Culture URINE CULTURE Microbiology Routine with uncertain dates in first trimester 06/23/2023 9:15 AM T [facility] Bacteria identified in Urine by Culture BACTERIAL CULTURE, URINE Microbiology Routine with uncertain dates in first trimester ([facility]) Encounter for supervision of normal in multigravida ([facility]) 07/05/2024 8:57 AM T [facility] Bacteria identified in Urine by Culture BACTERIAL CULTURE, URINE Microbiology Routine 22 weeks gestation of ([facility]) Encounter for supervision of normal in multigravida ([facility]) Cramping affecting , antepartum ([facility]) 10/10/2024 12:57 PM EDT [facility] Work Phone: Chlamydia trachomatis+Neisseria gonorrhoeae DNA [Presence] in Unspecified specimen by MATTHEW with probe detection GONORRHEA/CHLAMYDIA NAAT Lab Routine with uncertain dates in first trimester ([facility]) Encounter for supervision of normal in multigravida ([facility]) 07/05/2024 8:57 AM T [facility] End: 06-12-2024 Choriogonadotropin.beta subunit [Units/volume] in Serum or Plasma HCG QUANTITATIVE Lab Routine Threatened 2x per week for 2 Occurrences starting 06/13/2023 until 06/12/2024, 1 completed [facility] Work Phone: Comment on above: 2x per week for 2 Oc currences starting 06/13/2023 until 06/12/2024, 1 completed PAP TEST PAP TEST Lab Reji aline Encounter for gynecological examination (general) (routine) without abnormal findings Screening for cervical cancer Encounter for screening for human papillomavirus (HPV) 05/24/2024 3:26 PM EDT [facility] Patient Education [facility] Work Phone: Patient referral [facility] Work Phone: TRICHOMONAS VAGINALI S NAAT TRICHOMONAS VAGINALIS NAAT Lab Routine Screen for STD (sexually transmitted disease) 07/05/2024 8:57 AM EDT [facility] Immunizations Immunization Date Immunization Notes Care Provider Fa alirio 02-29-2024 influenza virus vaccine, unspecified formulation Risa Olivares MD Work Phone: [facility] 04-05-2022 influenza virus vaccine, unspecified formulation Risa Olivares MD Work Phone: [facility] 02-22-2017 Diptheria,Tetanus,Pe rtu ssis Vaccine [facility] 02-18-2017 Influenza virus vaccine [facility] 11-25-2015 influenza, seasonal, injectable [facility] 10-07-2011 human papilloma viru s vaccine, quadrivalent Ramón Haury STRETCH MACHINE OPERATOR.ELECTRONICS TECHNOLOGY DEPARTMENT CHAIR Work Phone: [facility] 02-19-2011 human papilloma viru s vaccine, quadrivalent Ramón Haury STRETCH MACHINE OPERATOR.ELECTRONICS TECHNOLOGY DEPARTMENT CHAIR Work Phone: [facility] Payers Date Payer Category Payer Private Health Insurance [employer] [id number] 2024 Private Health Insurance [id number] 2023 Medicaid (Managed Care) [facility] [id number] 2022 Medicaid [id number] 2022 Unknown [id number] 2017 Self-pay 2016 Unknown [id number] 2014 Unknown [id number] 1992 Unknown [id number]. 2.1068 1992 Unknown [id number] [id number]. 2.106 1992 Unknown [id number] [id number]. 2.106 1992 Unknown [id number] [id number]. 2.902 1992 Unknown [id number] [id number]. 2.90 1992 Unknown [id number] [id number]. 2.903 1992 Unknown [id number] [id number]. 2.903 1992 Unknown [id number] [id number]. 2.903 1992 Unknown [id number] [id number]. 2.1243 1992 Unknown [id number] [id number]. 2.1243 1992 Unknown [id number] [id number]. 2.1243 1992 Unknown [id number] [id number]. 2.903 Private Health Insurance [id number] Unknown [facility] Unknown [id number] [id number] Social History Date Type Detail Facility Start: 12-22-2022 End: 03-02-2023 Sexually active Sexually active [facility] [address] [place] Work Phone: Start: 05-09-2023 [facility] Start: 01-08-2022 End: 04-03-2022 Tobacco smoking status AKIS Unknown if ever smoked [facility] Start: 1990 Sex Assigned At Female [facility] Start: 12-22-2022 End: 06-16-2023 Tobacco smoking status NHIS Never smoked tobacco [facility] Start: 12-22-2022 End: 06-16-2023 Tobacco use and exposure Smokeless tobacco non-user [facility] Start: 01-05-2023 End: 08-23-2024 Alcohol intake Ex-drinker (finding) [facility] Start: 12-22-2022 End: 03-02-2023 Tobacco use panel [facility] Start: 1990 Sex Assigned At Not on file [facility] Start: 12-22-2022 Gender identity Identifies as female gender (finding) [facility] Start: 12-22-2022 Sexual orientation Heterosexual (finding) [facility] Start: 11-17-2020 National Score (1-100), lower number is lower risk 66 [facility] Start: 06-16-2023 Education 17 [facility] The thought of shilpi rios myself has occurred to me Never [facility] Start: 01-29-2024 End: 02-08-2024 Exposure to SARS-CoV-2 (event) Not sure [facility] Goals Date Patient Goal Desired Activity /State Personal health goal Personal health goal Clinical Notes 04-04-2022 to 11-27-2024 Quick Notes - Risa Olivares MD - 10/18/2024 9:52 AM EDTPrenatal Quick Notes - Risa Olivares MD - 10/18/2024 9:52 AM EDTPatient InstructionsPatient InstructionsPatient Instructions Note Date & Type Note Facility 11-27-2024 Note HISTORY AND PHYSICAL Assessment/Plan: Active Problems: * No active hospital problems. * Risks, benefits, alternatives and possible complications have been discussed in detail with the patient. Pre-admission, admission, and post admission procedures and expectations were discussed in detail. All questions answered, all appropriate consents will be signed at the Hospital. Admission is for swelling and abd pain. Subjective: No chief complaint on file. Alberto Whitaker is a 34 y.o. female with Estimated Date of Delivery: 02/12/25 at 29w0d gestation who is being admitted for observation. Her current obstetrical history is significant for previous demise. Patient reports nausea and floaters. Movement: normal. History: History reviewed. No pertinent past medical history. Past Surgical History: Procedure Laterality Date ADENOIDECTOMY Bilateral SECTION, LOW TRANSVERSE TYMPANOSTOMY TUBE PLACEMENT Bilateral Family History Problem Relation Age of Onset Breast cancer Mother Breast cancer Maternal Grandmother Social History [1] Allergy Information: I have reviewed the patient's allergies. Patient has no known allergies. Home Medications: Outpatient Medications as of 11/27/2024 Medication Sig vitamin with Ca-Iron-FA 27-1 mg Tab Take 1 (one) tablet by mouth daily . Objective: Vital signs in last 24 hours: Temp: [98.1 degrees F (36.7 degrees C)] 98.1 degrees F (36.7 degrees C) Heart Rate: [79-85] 82 Resp: [18] 18 BP: (107-112)/(69-80) 107/72 General appearance: alert, appears stated age, and cooperative Lungs: clear to auscultation bilaterally Heart: regular rate and rhythm, S1, S2 normal, no murmur, click, rub or gallop Abdomen: gravid Pelvic: external genitalia normal Extremities: edema min pitting and extremities normal, atraumatic, no cyanosis or edema Skin: Skin color, texture, turgor normal. No rashes or lesions Neurologic: Grossly normal Pelvis: Exam deferred. FHT: 130 BPM Uterine Size: size equals dates Consistency: medium Laboratory and Additional Data Reviewed: Laboratory 11/27/24 12:41 PM Medications 11/27/24 12:41 PM Transcriptions 11/27/24 12:41 PM [1] Social History Socioeconomic History Marital status: Tobacco Use Smoking status: Never Smokeless tobacco: Never Vaping Use Vaping status: Never Used Substance and Sexual Activity Alcohol use: Not Currently Drug use: Never Social Drivers of Health Food Insecurity: No Food Insecurity (11/27/2024) Hunger Vital Sign Worried About Running Out of Food in the Last Year: Never true Ran Out of Food in the Last Year: Never true Transportation Needs: No Transportation Needs (11/27/2024) PRAPARE - Transportation Lack of Transportation (Medical): No Lack of Transportation (Non-Medical): No Housing Stability: Low Risk (11/27/2024) Housing Stability Vital Sign Unable to Pay for Housing in the Last Year: No Number of Times Moved in the Last Year: 1 Homeless in the Last Year: No AUTHENTICATED BY ADDIE KNIGHT, ON 11/27/2024 12:41:25 [facility] 11-15-2024 Note HNO ID: [id number] Author: ALBIN PUTNAM LPN Service: ? Author Type: Licensed Nurse Type: Progress Notes Filed: 11/15/2024 10:24 Note Text: Patient identified by name and date of . Alberto Whitaker presents today for a vaccination of Tdap. Patient denies an allergy to latex: yes Patient denies a severe (life-threatening) allergy to a previous dose of Tdap, DTP, DTaP, DT or Td vaccine. Yes Patient denies history of epilepsy or neurological problems: Yes Patient is afebrile and denies being moderately or severely ill: Yes Patient denies history of Guillain-[place] Syndrome (a severe paralytic illness): Yes Tdap Adacel injection was given without incident. See immunizations for details of immunizations administered today. VIS sheet provided: Yes Provider Ronna Salomon APRN, CNM was present in office at time of injection. Albin Putnam LPN [facility] 10-18-2024 Progress note Formatting of t his note might be different from the original. S: Alberto Whitaker is a 34 year old female who presents at 02/12/2025, by Last Menstrual Period for a routine visit. Denies headache, visual changes, chest pain, shortness of breath, vaginal bleeding, leakage of fluid, or dysuria. Feeling well, no complaints. Lots of movement. Cramping resolved O: See flow sheet Gen: No apparent distress Abd: Gravid, nontender ASSESSMENT/PLAN: 1. History of intrauterine , currently ([facility]) - ICD9: V23.5, ICD10: O09.299 (primary diagnosis) - GESTATIONAL GLUCOSE SCREEN, 1-HOUR, 50 GRAM, NON-FASTING - SYPHILIS TREPONEMAL W/REFLEX - ANEMIA REFLEX PANEL 2. 23 weeks gestation of ([facility]) - ICD9: V22.2, ICD10: Z3A.23 - GESTATIONAL GLUCOSE SCREEN, 1-HOUR, 50 GRAM, NON-FASTING - SYPHILIS TREPONEMAL W/REFLEX - ANEMIA REFLEX PANEL 3. Screening for diabetes mellitus - ICD9: V77.1, ICD10: Z13.1 - GESTATIONAL GLUCOSE SCREEN, 1-HOUR, 50 GRAM, NON-FASTING - SYPHILIS TREPONEMAL W/REFLEX - ANEMIA REFLEX PANEL 4. Supervision of high risk in second trimester ([facility]) - ICD9: V23.9, ICD10: O09.92 Risa Olivares MD [facility] 10-18-2024 Miscellaneous Notes S: Alberto Whitaker is a 34 year old female who presents at 02/12/2025, by Last Menstrual Period for a routine visit. Denies headache, visual changes, chest pain, shortness of breath, vaginal bleeding, leakage of fluid, or dysuria. Feeling well, no complaints. Lots of movement. Cramping resolved O: See flow sheet Gen: No apparent distress Abd: Gravid, nontender ASSESSMENT/PLAN: 1. History of intrauterine , currently ([facility]) - ICD9: V23.5, ICD10: O09.299 (primary diagnosis) - GESTATIONAL GLUCOSE SCREEN, 1-HOUR, 50 GRAM, NON-FASTING - SYPHILIS TREPONEMAL W/REFLEX - ANEMIA REFLEX PANEL 2. 23 weeks gestation of ([facility]) - ICD9: V22.2, ICD10: Z3A.23 - GESTATIONAL GLUCOSE SCREEN, 1-HOUR, 50 GRAM, NON-FASTING - SYPHILIS TREPONEMAL W/REFLEX - ANEMIA REFLEX PANEL 3. Screening for diabetes mellitus - ICD9: V77.1, ICD10: Z13.1 - GESTATIONAL GLUCOSE SCREEN, 1-HOUR, 50 GRAM, NON-FASTING - SYPHILIS TREPONEMAL W/REFLEX - ANEMIA REFLEX PANEL 4. Supervision of high risk in second trimester ([facility]) - ICD9: V23.9, ICD10: O09.92 Risa Olivares MD documented in this encounter [facility] 10-18-2024 Instructions Jennifer Cardenas MA - 10/18/2024 9:25 AM EDT SEQUENTIAL SCREENINGS The [facility] offers sequential screenings for women who are interested in screenings for chromosomal abnormalities and certain defects during a . The sequential screen combines ultrasound and blood tests to determine the risk of chromosomal abnormalities, including Down's Syndrome (Trisomy 21) and Trisomy 18, as well as open neural tube defects including spina bifida. Ultrasound examination is performed between 11 weeks and 13 weeks gestational age. Blood tests are drawn after the ultrasound and again later in the between 15 and 21 weeks gestational age. Please let your physician know if you are interested in this testing. It will require an appointment with our emg technician. This is not an ultrasound performed by a physician in our office during a routine visit. SIGNS AND SYMPTOMS OF LABOR 1. Contractions every 10 minutes or more often 2. Clear, pink, or brownish fluid (water) leaking from vagina 3. Feeling that baby is pushing down, pressure 4. Low, dull backache 5. Cramps that feel like a period 6. Cramps with or without diarrhea If you notice any of the above symptoms, contact our office at [phone] and ask to speak with a nurse. After hours, you can call doctors registry at [phone] OR call [facility] at [phone] and ask to have the doctor manager inspection paged. If you consider this an emergency, dial -- or go to your nearest emergency department. NEED HELP? Are you dealing with a violent or abusive relationship? Are you a victim of rape or sexual assult? Call [facility] ([place]) 24 hour Crisis Hotline: 957.974.1700 or 761-986-3647. MANUAL Your Guide to a Healthy manual is now on-line. Visit [email or web address] to download your free copy documented in this encounter [facility] 10-10-2024 Progress note Formatting of t his note might be different from the original. S: Alberto Whitaker is a 34 year old female who presents at 22 weeks gestation as an add on for cramping and spotting. Stated Tuesday evening noticed small amount of light red/pink after wiping. Denies any vaginal bleeding but concerned over feeling period cramps. Feels like early labor cramps that come and go. Denies any dysuria, hematuria, or abnormal vaginal discharge. No recent intercourse. Positive movements. O: See flow sheet Gen: No apparent distress Abd: Gravid, non tender TAUS- + cardiac and movement- L. Park to room to view placenta ASSESSMENT/PLAN: 1. 22 weeks gestation of 2. Encounter for supervision of normal in multigravida 3. Cramping affecting , antepartum - UA dip- NEG - CL normal and no placental abnormalities seen - Support provided - Discussed increasing fluids - PTL / Bleeding precautions reviewed and when to call office - RTO 1 week for scheduled CHAIM Salomon APRN.CNM [facility] 10-10-2024 Miscellaneous Notes S: Alberto Whitaker is a 34 year old female who presents at 22 weeks gestation as an add on for cramping and spotting. Stated Tuesday evening noticed small amount of light red/pink after wiping. Denies any vaginal bleeding but concerned over feeling period cramps. Feels like early labor cramps that come and go. Denies any dysuria, hematuria, or abnormal vaginal discharge. No recent intercourse. Positive movements. O: See flow sheet Gen: No apparent distress Abd: Gravid, non tender TAUS- + cardiac and movement- L. Park to room to view placenta ASSESSMENT/PLAN: 1. 22 weeks gestation of 2. Encounter for supervision of normal in multigravida 3. Cramping affecting , antepartum - UA dip- NEG - CL normal and no placental abnormalities seen - Support provided - Discussed increasing fluids - PTL / Bleeding precautions reviewed and when to call office - RTO 1 week for scheduled CHAIM Ronna Salomon APRN.CNM documented in this encounter [facility] 10-10-2024 Instructions Kaykay Jarrett LPN - 10/10/2024 11:28 AM EDT SEQUENTIAL SCREENINGS The [facility] offers sequential screenings for women who are interested in screenings for chromosomal abnormalities and certain defects during a . The sequential screen combines ultrasound and blood tests to determine the risk of chromosomal abnormalities, including Down's Syndrome (Trisomy 21) and Trisomy 18, as well as open neural tube defects including spina bifida. Ultrasound examination is performed between 11 weeks and 13 weeks gestational age. Blood tests are drawn after the ultrasound and again later in the between 15 and 21 weeks gestational age. Please let your physician know if you are interested in this testing. It will require an appointment with our emg technician. This is not an ultrasound performed by a physician in our office during a routine visit. SIGNS AND SYMPTOMS OF LABOR 1. Contractions every 10 minutes or more often 2. Clear, pink, or brownish fluid (water) leaking from vagina 3. Feeling that baby is pushing down, pressure 4. Low, dull backache 5. Cramps that feel like a period 6. Cramps with or without diarrhea If you notice any of the above symptoms, contact our office at [phone] and ask to speak with a nurse. After hours, you can call doctors registry at [phone] OR call [facility] at [phone] and ask to have the doctor manager inspection paged. If you consider this an emergency, dial 9--1 or go to your nearest emergency department. NEED HELP? Are you dealing with a violent or abusive relationship? Are you a victim of rape or sexual assult? Call [facility] ([place]) 24 hour Crisis Hotline: 339.576.7686 or 585-067-7368. MANUAL Your Guide to a Healthy manual is now on-line. Visit [email or web address] to download your free copy documented in this encounter [facility] 10-09-2024 Telephone encounter Note Patient notified. She declined appt now. She started feeling a lot more movement since previous phone call. She will call back if she changes her mind. Marcy Oconnell RN [facility] 10-09-2024 Miscellaneous Notes Patient notified. She declined appt now. She started feeling a lot more movement since previous phone call. She will call back if she changes her mind. Marcy Oconnell RN Please add on to open spot on CP schedule tomorrow. Alexandra Pérez MD 22w0d Calling c/o spotting that started last night. Originally was pink in color and now is brown. Only notices with wiping. Last night for 1-2 hours she felt her abdomen was tight like angel goss, but none since. No pain or cramping today. Has h/o 21 week loss, so she is anxious. No available openings today or tomorrow morning. Can we add her on somewhere? Marcy Oconnell RN documented in this encounter [facility] 10-09-2024 Telephone encounter Note Please add on to open spot on CP schedule tomorrow. Alexandra Pérez MD [facility] Work Phone: 10-09-2024 Telephone encounter Note 22w0d Calling c/o spotting that started last night. Originally was pink in color and now is brown. Only notices with wiping. Last night for 1-2 hours she felt her abdomen was tight like angel goss, but none since. No pain or cramping today. Has h/o 21 week loss, so she is anxious. No available openings today or tomorrow morning. Can we add her on somewhere? Marcy Oconnell RN [facility] 09-20-2024 Note HNO ID: [id number] Author: APARNA FATIMA MD Service: ? Author Type: Physician Type: Progress Notes Filed: 09/20/2024 17:12 Note Text: SW- Having irregular palpitations that can last several hours at rest. With this she has a difficult time taking a deep breath in. No chest pain. She did go to [place] [facility] in this for Shortness of Breath, palpitations, chest discomfort. No syncope. No identifiable triggers. No pain, vb, lof. +FM. She does not feel the chest discomfort is heart burn PE: Gen- NAD, well appearing See flowsheet A/p 19 wk gestation - MOD: Discussed r/b/a TOLAC vs repeat C/S and plans TOLAC - Anatomy US today and final report pending - Did not start LDA - Palpitations: Discussed Shortness of Breath and normal physiologic changes in , and expectations. Completed recent CBC, TSH, electrolytes, EKG. Cardiology consult order placed - RTO 4 wks Aparna Fatima DO [facility] 09-20-2024 History of Presen t illness Narrative SW- Having irregular palpitations that can last several hours at rest. With this she has a difficult time taking a deep breath in. No chest pain. She did go to [place] in this for Shortness of Breath, palpitations, chest discomfort. No syncope. No identifiable triggers. No pain, vb, lof. +FM. She does not feel the chest discomfort is heart burn PE: Gen- NAD, well appearing See flowsheet A/p 19 wk gestation - MOD: Discussed r/b/a TOLAC vs repeat C/S and plans TOLAC - Anatomy US today and final report pending - Did not start LDA - Palpitations: Discussed Shortness of Breath and normal physiologic changes in , and expectations. Completed recent CBC, TSH, electrolytes, EKG. Cardiology consult order placed - RTO 4 wks Aparna Fatima DO documented in this encounter [facility] 09-20-2024 Instructions Amanda Carrillo MA - 09/20/2024 3:21 PM EDT SEQUENTIAL SCREENINGS The [facility] offers sequential screenings for women who are interested in screenings for chromosomal abnormalities and certain defects during a . The sequential screen combines ultrasound and blood tests to determine the risk of chromosomal abnormalities, including Down's Syndrome (Trisomy 21) and Trisomy 18, as well as open neural tube defects including spina bifida. Ultrasound examination is performed between 11 weeks and 13 weeks gestational age. Blood tests are drawn after the ultrasound and again later in the between 15 and 21 weeks gestational age. Please let your physician know if you are interested in this testing. It will require an appointment with our emg technician. This is not an ultrasound performed by a physician in our office during a routine visit. SIGNS AND SYMPTOMS OF LABOR 1. Contractions every 10 minutes or more often 2. Clear, pink, or brownish fluid (water) leaking from vagina 3. Feeling that baby is pushing down, pressure 4. Low, dull backache 5. Cramps that feel like a period 6. Cramps with or without diarrhea If you notice any of the above symptoms, contact our office at [phone] and ask to speak with a nurse. After hours, you can call doctors registry at [phone] OR call [facility] at [phone] and ask to have the doctor manager inspection paged. If you consider this an emergency, dial 91-5 or go to your nearest emergency department. NEED HELP? Are you dealing with a violent or abusive relationship? Are you a victim of rape or sexual assult? Call [facility] ([place]) 24 hour Crisis Hotline: 493.489.1810 or 738-723-1830. MANUAL Your Guide to a Healthy manual is now on-line. Visit [email or web address] to download your free copy documented in this encounter [facility] 08-30-2024 Progress note Formatting of t his note might be different from the original. S: Alberto Whitaker is a 34 year old female who was an add on today for lower pelvic cramping that started yesterday. Reports cramps are mild and just feel like period cramps. No movements to date. Increased concern due to history of IUFD around same gestational age and not feeling movements. O: See flow sheet Gen: No apparent distress Abd: Gravid, nontender FHT - easily heard and 153 bpm ASSESSMENT/PLAN: 1. Pelvic pain during 2. Encounter for supervision of normal in multigravida 3. History of intrauterine , currently 4. 16 weeks gestation of UA - dip NEG Support provided Reviewed increasing hydration and adding in some electrolytes Thankful for visit Patient encouraged to call and come in anytime for FHT if concerned RTO already scheduled visit Ronna Salomon APRN.CNM [facility] 08-30-2024 Miscellaneous Notes S: Alberto Whitaker is a 34 year old female who was an add on today for lower pelvic cramping that started yesterday. Reports cramps are mild and just feel like period cramps. No movements to date. Increased concern due to history of IUFD around same gestational age and not feeling movements. O: See flow sheet Gen: No apparent distress Abd: Gravid, nontender FHT - easily heard and 153 bpm ASSESSMENT/PLAN: 1. Pelvic pain during 2. Encounter for supervision of normal in multigravida 3. History of intrauterine , currently 4. 16 weeks gestation of UA - dip NEG Support provided Reviewed increasing hydration and adding in some electrolytes Thankful for visit Patient encouraged to call and come in anytime for FHT if concerned RTO already scheduled visit Ronna Salomon APRN.CNM documented in this encounter [facility] 08-30-2024 Telephone encounter Note Called patient and appointment scheduled for evaluation in office today. Chela Drake RN [facility] 08-30-2024 Miscellaneous Notes Called patient and appointment scheduled for evaluation in office today. Chela Drake RN documented in this encounter [facility] 08-23-2024 Progress note Formatting of t his note might be different from the original. S: Alberto Whitaker is a 34 year old female who presents at 02/12/2025, by Last Menstrual Period for a routine visit. Denies headache, visual changes, chest pain, shortness of breath, leakage of fluid, or dysuria. Feeling well, no complaints. O: See flow sheet Gen: No apparent distress Had some spotting two days ago. None now. Worried because of previous IUFD around this time. Anatomy scheduled 09/20 FHR easily obtained today ASSESSMENT/PLAN: 1. Encounter for supervision of normal in multigravida ([facility]) - ICD9: V22.1, ICD10: Z34.80 (primary diagnosis) 2. History of intrauterine , currently ([facility]) - ICD9: V23.5, ICD10: O09.299 No reason 3. 15 weeks gestation of ([facility]) - ICD9: V22.2, ICD10: Z3A.15 Risa Olivares MD [facility] 08-23-2024 Miscellaneous Notes S: Alberto Whitaker is a 34 year old female who presents at 02/12/2025, by Last Menstrual Period for a routine visit. Denies headache, visual changes, chest pain, shortness of breath, leakage of fluid, or dysuria. Feeling well, no complaints. O: See flow sheet Gen: No apparent distress Had some spotting two days ago. None now. Worried because of previous IUFD around this time. Anatomy scheduled 09/20 FHR easily obtained today ASSESSMENT/PLAN: 1. Encounter for supervision of normal in multigravida ([facility]) - ICD9: V22.1, ICD10: Z34.80 (primary diagnosis) 2. History of intrauterine , currently ([facility]) - ICD9: V23.5, ICD10: O09.299 No reason 3. 15 weeks gestation of ([facility]) - ICD9: V22.2, ICD10: Z3A.15 Risa Olivares MD documented in this encounter [facility] 08-23-2024 Instructions Meena Cohen MA - 08/23/2024 9:11 AM EDT SEQUENTIAL SCREENINGS The [facility] offers sequential screenings for women who are interested in screenings for chromosomal abnormalities and certain defects during a . The sequential screen combines ultrasound and blood tests to determine the risk of chromosomal abnormalities, including Down's Syndrome (Trisomy 21) and Trisomy 18, as well as open neural tube defects including spina bifida. Ultrasound examination is performed between 11 weeks and 13 weeks gestational age. Blood tests are drawn after the ultrasound and again later in the between 15 and 21 weeks gestational age. Please let your physician know if you are interested in this testing. It will require an appointment with our emg technician. This is not an ultrasound performed by a physician in our office during a routine visit. SIGNS AND SYMPTOMS OF LABOR 1. Contractions every 10 minutes or more often 2. Clear, pink, or brownish fluid (water) leaking from vagina 3. Feeling that baby is pushing down, pressure 4. Low, dull backache 5. Cramps that feel like a period 6. Cramps with or without diarrhea If you notice any of the above symptoms, contact our office at [phone] and ask to speak with a nurse. After hours, you can call doctors registry at [phone] OR call [facility] at [phone] and ask to have the doctor manager inspection paged. If you consider this an emergency, dial 9-1-2 or go to your nearest emergency department. NEED HELP? Are you dealing with a violent or abusive relationship? Are you a victim of rape or sexual assult? Call [facility] ([place]) 24 hour Crisis Hotline: 261.443.2216 or 532-370-6457. MANUAL Your Guide to a Healthy manual is now on-line. Visit [email or web address] to download your free copy documented in this encounter [facility] 08-09-2024 Note HNO ID: [id number] Author: APARNA FATIMA MD Service: ? Author Type: Physician Type: Progress Notes Filed: 08/09/2024 12:56 Note Text: SW- Daily headaches. No pain, vb, lof. PE: Gen- NAD, well appearing See flowsheet A/p 13 wk gestation - NT today - NOB labs and NIPT today - Anatomy US scheduled - MOD: Plans - RTO 4 wks Aparna Fatima DO [facility] 08-09-2024 History of Presen t illness Narrative SW- Daily headaches. No pain, vb, lof. PE: Gen- NAD, well appearing See flowsheet A/p 13 wk gestation - NT today - NOB labs and NIPT today - Anatomy US scheduled - MOD: Plans - RTO 4 wks Aparna Fatima DO documented in this encounter [facility] 08-09-2024 Instructions Amanda Carrillo MA - 08/09/2024 11:06 AM EDT SEQUENTIAL SCREENINGS The [facility] offers sequential screenings for women who are interested in screenings for chromosomal abnormalities and certain defects during a . The sequential screen combines ultrasound and blood tests to determine the risk of chromosomal abnormalities, including Down's Syndrome (Trisomy 21) and Trisomy 18, as well as open neural tube defects including spina bifida. Ultrasound examination is performed between 11 weeks and 13 weeks gestational age. Blood tests are drawn after the ultrasound and again later in the between 15 and 21 weeks gestational age. Please let your physician know if you are interested in this testing. It will require an appointment with our emg technician. This is not an ultrasound performed by a physician in our office during a routine visit. SIGNS AND SYMPTOMS OF LABOR 1. Contractions every 10 minutes or more often 2. Clear, pink, or brownish fluid (water) leaking from vagina 3. Feeling that baby is pushing down, pressure 4. Low, dull backache 5. Cramps that feel like a period 6. Cramps with or without diarrhea If you notice any of the above symptoms, contact our office at [phone] and ask to speak with a nurse. After hours, you can call doctors registry at [phone] OR call [facility] at [phone] and ask to have the doctor manager inspection paged. If you consider this an emergency, dial 8- or go to your nearest emergency department. NEED HELP? Are you dealing with a violent or abusive relationship? Are you a victim of rape or sexual assult? Call [facility] ([place]) 24 hour Crisis Hotline: 693.397.4418 or 632-394-8929. MANUAL Your Guide to a Healthy manual is now on-line. Visit [email or web address] to download your free copy documented in this encounter [facility] 07-05-2024 Telephone encounter Note PSS notified order is entered and scheduled.Bianca Larkin RN [facility] 07-05-2024 Miscellaneous Notes PSS notified order is entered and scheduled.Bianca Larkin RN Order filed. Noemi Aiken APRN.LEIGH [facility] Anatomy US pending. Please file and will sent to PSS to contact Pt to get scheduled as PSS (Kelle as US spot on hold for Pt). Bianca Larkin RN documented in this encounter [facility] 07-05-2024 Telephone encounter Note Order filed. Noemi Aiken APRN.ELECTRONICS TECHNOLOGY DEPARTMENT CHAIR [facility] 07-05-2024 Telephone encounter Note Anatomy US pending. Please file and will sent to PSS to contact Pt to get scheduled as PSS (Kelle as US spot on hold for Pt). Bianca Larkin RN [facility] 07-05-2024 History of Presen t illness Narrative Patient declined residential sales representative. INITIAL OB ASSESSMENT HPI: Alberto is a 34 year old White here to establish Obstetrical Care. Patient's last menstrual period was 05/08/2024 (exact date). from OB Dating Form. was planned Complaints: No OB History Gravida6 Para4 Term3 Preterm1 AB1 Living3 SAB1 IAB0 Ectopic0 Multiple0 Live Births3 Previous history: Prior : yes x 1 History of 4th degree laceration: No History of shoulder dystocia: No History of Hypertensive disorders including pre-eclampsia or gestational hypertension: No History of gestational diabetes: No Patient's Risk Screening for delivery: Have you had a prior tavarez between 20w and 36w6d? Yes Did you present in active spontaneous labor or have ruptured membranes, or advanced cervical dilation (greater than or equal to 4 cm) or effacement? No How many pregnancies have you had before? 5 Did you have a previous baby with a GBS Infection? Yes Please select all that apply for any prior : N/A MEDICAL/PSYCHOSOCIAL HISTORY: History of hemorrhage or bleeding concerns: Yes, stillbirth 21 wk Thyroid Disease: No History of chronic hypertension: No History of pre-existing diabetes: No No results found for: ABORHD BMI 26.79 kg/(m^2) Last Pap: 05/24/2024 negative History of abnormal pap: Yes Pt reported Hx abnormal pap with [facility] no cervical procedures. Prior treatment for cervical dysplasia: none. Last HPV: 05/24/2024 negative History of STDs: Yes HSV Partner History of STDs: None Did you have a partner with Herpes? no Tobacco use: No E-Cigarette/Vaping Use: No Caffeine use: yes Drug use: No Alcohol use: No Multivitamin with Folic acid: Yes Would refuse blood transfusion if medically necessary: No Social Needs: How often does this describe you? I don't have enough money to pay my bills: Never Within the past 12 months, have you worried that your food would run out before you had money to buy more? Never In the past 12 months, has lack of reliable transportation kept you from going to medical appointments or work, or from getting things needed for daily living? Never In the past 12 months, have you had any concerns about having a place to live, or about the condition or quality of your housing? Never Would you like more information on any of the following (please check all that apply)? Not interested Social History: Do you have any history of depression, anxiety, PTSD, or other mood problems? No Do you have a history of abuse or trauma that may impact your experience? No Are you currently employed? Yes Depression/Anxiety Screening: denies symptoms of depression. OB Depression and Anxiety Screening- This Encounter Over the past 2 weeks have you felt down, depressed, or hopeless? Negative Over the past two weeks, have you felt little interest or pleasure in doing things? Negative Feeling nervous, anxious or on edge 0-Not at all Not being able to stop or control worrying 0-Not al all Anxiety Pre-Screening Total (If >/= 3 additional questions will be reviewed) 0 Genetic Screening: Partner present: No Patient verbalized knowledge of partner family health history: Yes Do you or your partner have any personal or family history of defects not previously discussed: Yes, Downs Syndrome Do you have history of a complicated by anomaly, genetic condition, or demise: Yes, Cleft lip Preeclampsia Risk Screening: Screening for prevention of preeclampsia: High risk factors: None Moderate risk ractors: Personal history factors (e.g., low birthweight or small for gestational age, previous adverse outcome, more than 10-year interval) OB Risk Screening: Completed, positive findings include: Patient answered 'Yes' to previous baby with a GBS Infection Patient answered 'Yes' they had a prior tavarez between 20w and 36w6d. Marital Status:Co-habitating Partner: Name: Avila Age: 32 Occupation: [employer] Gender: Male PAST MEDICAL HISTORY Diagnosis Date Abnormal Pap smear of cervix ? HPV Herpes simplex virus (HSV) infection HSV-1 PCOS (polycystic ovarian syndrome) Diagnosed in [place] PAST SURGICAL HISTORY Procedure Laterality Date DELIVERY ONLY 2015 INDUCED DILATION & EVACUATION 09/17/2023 17 weeks IUFD MYRINGOTOMY Bilateral x2 age 7 and 14 Current Outpatient Medications Medication Sig Dispense Refill vitamin D3-folic acid 125 mcg (5,000 unit)-1 mg tab Take by mouth once daily. VIT 74-IKIG-VJQFI-DHA ORAL Take 1 tablet by mouth once daily. acetaminophen (TYLENOL) 325 mg cap Take by mouth every 6 hours as needed for pain. aspirin, enteric coated (ECOTRIN LOW STRENGTH) 81 mg EC tablet Take 1 tablet by mouth once daily. 90 tablet 3 No current facility-administered medications for this visit. Allergies As of Date: 07/05/2024 Allergen Noted Reaction PENICILLINS 06/16/2023 Other: See Comments Fully Assessed 07/05/2024 Does patient have penicillin allergy: Yes, plan for allergy testing. REVIEW OF SYSTEMS: GENERAL: Negative for: Fever or Chills HEENT: Negative for: Headache, Impaired Vision, Ringing in Ears, Nosebleeds NECK: Negative for: Swelling, Pain, Stiffness RESPIRATORY: Negative for: Cough, Shortness of breath, Wheezing GASTROINTESTINAL: Negative for: Heartburn, Constipation, Diarrhea, Blood in stool, Vomiting and Positive for: Nausea MUSCULOSKELETAL: Negative for: Muscle or joint pain, stiffness, Joint swelling NEUROLOGIC/PSYCHIATRIC: Negative for: Weakness, Paralysis, Numbness, Tingling, Tremor, Anxiety, Depression, Memory loss SKIN: Negative for: Rash, Itching GENITOURINARY: Negative for: vaginal itching, vaginal discharge, hematuria or dysuria SENSITIVE EXAM: The sensitive examination was discussed with the Patient or Patient's Authorized Phlebotomy Services Technician. As applicable, any other physician, advance practice provider, medical student, or other health professional student that will be observing or involved in the sensitive examination for educational or training purposes was discussed with the Patient or Authorized Phlebotomy Services Technician. The Patient or Authorized Phlebotomy Services Technician has agreed to proceed with the sensitive examination. (Sensitive examination includes inspection and/or palpation of the breasts, pelvis, prostate and anorectal regions). PHYSICAL EXAM: BP 118/66 Wt 176 lb 3.2 oz (79.9kg) LMP 05/08/2024 GENERAL: pleasant in no apparent distress DERMATOLOGY: Normal, without lesions, non-icteric, and non-hirsute NECK: Supple, full range of motion, no adenopathy, and thyroid normal CHEST: Normal inspiratory effort BREAST: soft, non-tender, symmetric, no dominant mass, normal nipple-areolar complex, no lymphadenopathy, and no nipple discharge ABDOMEN: soft, non-tender, and no masses NEURO: alert and oriented x3,exam grossly non-focal PELVIS: External genitalia normal without lesions. Perineal body intact. No vaginal or cervical lesions. Cervix closed. No adnexal masses or tenderness. Clinical Pelvimetry: Pelvimetry clinically assessed as adequate Limited OB ultrasound exam: single intrauterine and POCUS performed. +cardiac activity, CRL consistent with LMP. Noemi Aiken APRN.CNP SBIRT Alberto Whitaker was given the 4P's screening tool. Alberto answered No to all the questions, the result is determined to be negative. ASSESSMENT: 34 year old at 8w2d wks gestational age PLAN: 1) Patient oriented to practice. Patient given new OB orientation folder. Discussed nutrition, folic acid supplementation, dietary guidelines, exercise, smoking, alcohol, caffeine, and drug use. Discussed gestational weight gain guidelines. Discussed routine OB labs including STD/HIV. Discussed how to access Your guide to a health and the Oil Recovery Unit Operator. Reviewed midwifery and school adjustment counselor services that are available. 2) Screening: Hemoglobin A1C: ordered Baby Aspirin: The patient has been counseled about the potential benefits of low dose aspirin in and our recommendation that this be offered to all patients, regardless of whether they meet the high risk criteria specified above. She Accepts Aneuploidy Screening: Discussed aneuploidy screening, nuchal translucency/first trimester early anatomy ultrasound and NIPT. The risks/benefits and limitations of NIPT/aneuploidy screening were reviewed including the potential for false negative and false positive results. The availability of genetic counseling was reviewed. Information on aneuploidy screening was provided. The patient chooses to proceed with First trimester early anatomy ultrasound (12-13w6d) and If concerns with insurance coverage, patient to call back for sequential order. Myriad Carrier Screening: Discussed myriad carrier screening. We discussed the availability of professional-society guided carrier screening and reviewed the conditions screened and limitations of screening. The availability of genetic counseling was reviewed. Information on carrier screening was provided. The patient Declines 3) Patient offered option of Virtual Visits. Patient unsure. May consider in future. 4) History of section: Pt counselled regarding TOLAC versus Repeat Section. Previous . Follow up in 4 weeks or sooner prn. Noemi Aiken APRN.CNP documented in this encounter [facility] 07-05-2024 Note HNO ID: [id number] Author: NOEMI AIKEN APRN.CNP Service: ? Author Type: Nurse Practitioner Type: Progress Notes Filed: 07/05/2024 09:00 Note Text: Patient declined residential sales representative. INITIAL OB ASSESSMENT HPI: Alberto is a 34 year old White here to establish Obstetrical Care. Patient's last menstrual period was 05/08/2024 (exact date). from OB Dating Form. was planned Complaints: No OB History Gravida6 Para4 Term3 Preterm1 AB1 Living3 SAB1 IAB0 Ectopic0 Multiple0 Live Births3 Previous history: Prior : yes x 1 History of 4th degree laceration: No History of shoulder dystocia: No History of Hypertensive disorders including pre-eclampsia or gestational hypertension: No History of gestational diabetes: No Patient's Risk Screening for delivery: Have you had a prior tavarez between 20w and 36w6d? Yes Did you present in active spontaneous labor or have ruptured membranes, or advanced cervical dilation (greater than or equal to 4 cm) or effacement? No How many pregnancies have you had before? 5 Did you have a previous baby with a GBS Infection? Yes Please select all that apply for any prior : N/A MEDICAL/PSYCHOSOCIAL HISTORY: History of hemorrhage or bleeding concerns: Yes, stillbirth 21 wk Thyroid Disease: No History of chronic hypertension: No History of pre-existing diabetes: No No results found for: ABORHD BMI 26.79 kg/(m2) Last Pap: 05/24/2024 negative History of abnormal pap: Yes Pt reported Hx abnormal pap with [facility] no cervical procedures. Prior treatment for cervical dysplasia: none. Last HPV: 05/24/2024 negative History of STDs: Yes HSV Partner History of STDs: None Did you have a partner with Herpes? no Tobacco use: No E-Cigarette/Vaping Use: No Caffeine use: yes Drug use: No Alcohol use: No Multivitamin with Folic acid: Yes Would refuse blood transfusion if medically necessary: No Social Needs: How often does this describe you? I don't have enough money to pay my bills: Never Within the past 12 months, have you worried that your food would run out before you had money to buy more? Never In the past 12 months, has lack of reliable transportation kept you from going to medical appointments or work, or from getting things needed for daily living? Never In the past 12 months, have you had any concerns about having a place to live, or about the condition or quality of your housing? Never Would you like more information on any of the following (please check all that apply)? Not interested Social History: Do you have any history of depression, anxiety, PTSD, or other mood problems? No Do you have a history of abuse or trauma that may impact your experience? No Are you currently employed? Yes Depression/Anxiety Screening: denies symptoms of depression. OB Depression and Anxiety Screening- This Encounter Over the past 2 weeks have you felt down, depressed, or hopeless? Negative Over the past two weeks, have you felt little interest or pleasure in doing things?? Negative Feeling nervous, anxious or on edge 0-Not at all Not being able to stop or control worrying 0-Not al all Anxiety Pre-Screening Total (If >/= 3 additional questions will be reviewed) 0 Genetic Screening: Partner present: No Patient verbalized knowledge of partner family health history: Yes Do you or your partner have any personal or family history of defects not previously discussed: Yes, Downs Syndrome Do you have history of a complicated by anomaly, genetic condition, or demise: Yes, Cleft lip Preeclampsia Risk Screening: Screening for prevention of preeclampsia: High risk factors: None Moderate risk ractors: Personal history factors (e.g., low birthweight or small for gestational age, previous adverse outcome, more than 10-year interval) OB Risk Screening: Completed, positive findings include: Patient answered 'Yes' to previous baby with a GBS Infection Patient answered 'Yes' they had a prior tavarez between 20w and 36w6d. Marital Status:Co-habitating Partner: Name: Avila Age: 32 Occupation: [employer] Gender: Male PAST MEDICAL HISTORY Diagnosis Date Abnormal Pap smear of cervix ? HPV Herpes simplex virus (HSV) infection HSV-1 PCOS (polycystic ovarian syndrome) Diagnosed in [place] PAST SURGICAL HISTORY Procedure Laterality Date DELIVERY ONLY 2016 INDUCED DILATION AND EVACUATION 09/17/2023 17 weeks IUFD MYRINGOTOMY Bilateral x2 age 7 and 14 Current Outpatient Medications Medication Sig Dispense Refill vitamin D3-folic acid 125 mcg (5,000 unit)-1 mg tab Take by mouth once daily. VIT 65-DHNQ-PQIDQ-DHA ORAL Take 1 tablet by mouth once daily. acetaminophen (TYLENOL) 325 mg cap Take by mouth every 6 hours as needed for (more content not included)... [facility] 07-05-2024 Instructions Kaykay Jarrett LPN - 07/05/2024 7:41 AM EDT Please select the following link to access the [facility] Your Guide to a Healthy . [email or web address] de documented in this encounter [facility] 06-14-2024 Note HNO ID: [id number] Author: NOEMI AIKEN APRN.ELECTRONICS TECHNOLOGY DEPARTMENT CHAIR Service: ? Author Type: Nurse Practitioner Type: Progress Notes Filed: 06/14/2024 09:00 Note Text: Alberto Whitaker is a 34 year old female who presents for problem visit missed menses. HPI: Patient had a positive test at home after missed menses. She is here today for confirmation of . Patient states that she did have some dark brownish discharge last week after running, but has had nothing since. OB History Gravida5 Para4 Term3 Preterm1 AB1 Living3 SAB1 IAB0 Ectopic0 Multiple0 Live Births3 [employer] History LMP: 05/08/2024 (Exact Date), Unknown Age at Menarche: Age at First : Age at Menopause: [employer] History Comments: Sexual Activity: Yes; Male Contraception: None PAST MEDICAL HISTORY Diagnosis Date Abnormal Pap smear of cervix ? HPV Herpes simplex virus (HSV) infection HSV-1 PCOS (polycystic ovarian syndrome) Diagnosed in [place] PAST SURGICAL HISTORY Procedure Laterality Date DELIVERY ONLY 2016 INDUCED DILATION AND EVACUATION 09/17/2023 17 weeks IUFD MYRINGOTOMY Bilateral x2 age 7 and 14 FAMILY HISTORY Problem Relation Age of Onset Breast Cancer Mother 52 No Known Problems Father No Known Problems Sister No Known Problems Brother Breast Cancer Maternal Grandmother 70 No Known Problems Maternal Grandfather No Known Problems Paternal Grandmother No Known Problems Paternal Grandfather No Known Problems Son No Known Problems Son No Known Problems Daughter Social History Tobacco Use Smoking status: Never Smokeless tobacco: Never Vaping Use Vaping status: Never Used Substance Use Topics Alcohol use: Not Currently Drug use: Never Current Outpatient Medications Medication Sig vitamin D3-folic acid 125 mcg (5,000 unit)-1 mg tab Take by mouth once daily. VIT 58-PIYR-NYJGT-DHA ORAL Take 1 tablet by mouth once daily. acetaminophen (TYLENOL) 325 mg cap Take by mouth every 6 hours as needed for pain. No current facility-administered medications for this visit. Allergies As of Date: 06/14/2024 Allergen Noted Reaction PENICILLINS 06/16/2023 Other: See Comments Fully Assessed 05/24/2024 REVIEW OF SYSTEMS Expanded ROS: N/A Allergies and current medication updated:Yes SENSITIVE EXAM: Sensitive exam not performed. EXAM: BP 116/64 Wt 173 lb 12.8 oz (78.8kg) LMP 05/08/2024 GENERAL: pleasant, female in no apparent distress HEENT: Normocephalic, atraumatic, mucus membranes moist, and no lesions CHEST: Normal inspiratory effort NEURO: alert and oriented x3,exam grossly non-focal EXTREMITIES: normal ASSESSMENT/PLAN: 1. Missed menses - ICD9: 626.4, ICD10: N92.6 - UA DIP,URINE HCG (POC)- positive test Patient to schedule new OB appointment in 3 weeks Reviewed bleeding precautions. Noemi Aiken APRN.CNP Medical Decision Making: Problems: Low: Acute, uncomplicated illness or injury Data: Unique test(s) ordered: 1 Risk: Low: Low risk from testing/treatment Medical Decision Making Level: 3 - Low [facility] 06-05-2024 Telephone encounter Note Yes, cancel the US for this week. Noemi Aiken APRN.CNP [facility] 06-05-2024 Miscellaneous Notes Yes, cancel the US for this week. Noemi Aiken APRN.CNP Okay to cancel day u/s and schedule NOB? Marcy Oconnell RN documented in this encounter [facility] 06-05-2024 Telephone encounter Note Okay to cancel Thursday u/s and schedule NOB? Marcy Oconnell RN [facility] 06-01-2024 Progress note Formatting of t his note might be different from the original. Send letter about normal pap if she does not have mychart. Javid Starr MD [facility] Work Phone: 06-01-2024 Miscellaneous Notes Send letter about normal pap if she does not have mychart. Javid Starr MD documented in this encounter [facility] 05-24-2024 Instructions Ramón Snyder APRN.CNP - 05/24/2024 3:05 PM EDT To schedule an appointment please either: Use the [employer] Self Scheduling Ticket you may receive OR Call [phone], Option 1 to schedule. For information pertaining to genetics services at the [facility], you can visit us online at [email or web address]. If you do not have access to information online, please contact us at the number above and we can send you information. documented in this encounter [facility] 05-24-2024 Note HNO ID: [id number] Author: RAMÓN SNYDER APRN.CNP Service: ? Author Type: Nurse Practitioner Type: Progress Notes Filed: 05/24/2024 15:38 Note Text: Project Leader offered: Patient declinesIlia De Oliveira is a 34 year old who presents for an annual gynecologic exam without complaints. Had an episode of bleeding for 26 consecutive days in March - flow ranging from light to moderate. Last 2 cycles were normal. Recently graduated from [employer]. Working at [employer] in [employer]. Had loss around 17 weeks gestation - [place]. Wants to become again. Still get period: Yes LMP: 05/08/2024 Menses: cycles every 30 days and 5-6 days of flow Menstrual flow: Moderate Bleeding amount bothersome: No Bleeding between periods: Yes, 1 episode of AUB in March Sexually active: Yes Contraception: None HPV vaccine: No HPV:N/A Last pap smear: 09/23/2021 normal History of abnormal pap: Yes Colposcopy: Yes Bothersome pelvic pain: No Last mammogram: never OB History Gravida5 Para4 Term3 Preterm1 AB1 Living3 SAB1 IAB0 Ectopic0 Multiple0 Live Births3 FAMILY HISTORY Problem Relation Age of Onset Breast Cancer Mother 52 No Known Problems Father No Known Problems Sister No Known Problems Brother Breast Cancer Maternal Grandmother 70 No Known Problems Maternal Grandfather No Known Problems Paternal Grandmother No Known Problems Paternal Grandfather No Known Problems Son No Known Problems Son No Known Problems Daughter SOCIAL HISTORY Social History Tobacco Use Smoking status: Never Smokeless tobacco: Never Vaping Use Vaping status: Never Used Substance Use Topics Alcohol use: Not Currently Drug use: Never REVIEW OF SYSTEMS Abdomen: No abdominal pain, nausea, vomiting, diarrhea, or constipation. No bloating, early satiety, indigestion, or increased flatulence. Bladder: No dysuria, gross hematuria, urinary frequency, urinary urgency, or incontinence. Breast: No breast lumps, nipple d/c, overlying skin changes, redness or skin retraction. Allergies and current medication updated:Yes SENSITIVE EXAM: The sensitive examination was discussed with the Patient or Patient's Authorized Phlebotomy Services Technician. As applicable, any other physician, advance practice provider, medical student, or other health professional student that will be observing or involved in the sensitive examination for educational or training purposes was discussed with the Patient or Authorized Phlebotomy Services Technician. The Patient or Authorized Phlebotomy Services Technician has agreed to proceed with the sensitive examination. (Sensitive examination includes inspection and/or palpation of the breasts, pelvis, prostate and anorectal regions). EXAM: BP 114/62 Ht 5' 8 (1.73m) Wt 173 lb (78.5kg) LMP 05/08/2024 BMI 26.31 kg/(m2). GENERAL: pleasant, female in no apparent distress HEENT: Normocephalic, atraumatic, mucus membranes moist, and no lesions NECK: Supple, full range of motion, no adenopathy, and thyroid normal DERMATOLOGY: Normal, without lesions, non-icteric, and non-hirsute BREAST: soft, non-tender, symmetric, no dominant mass, normal nipple-areolar complex, no lymphadenopathy, and no nipple discharge CHEST: Normal inspiratory effort ABDOMEN: soft, non-tender, and no masses PELVIC: external genitalia normal, normal Bartholin's glands, urethra, Brimfield's glands, no vulvar lesions, no cervical lesions, good vaginal support, physiologic discharge present, normal appearing perineal body and perianal region BIMANUAL: uterus normal size, shape and consistency, no adnexal masses, and non-tender RECTOVAGINAL: deferred. NEURO: alert and oriented x3,exam grossly non-focal EXTREMITIES: normal ASSESSMENT/PLAN: 1) Health maintenance: Pap done with HPV. Mammogram starting age 40. Nutrition, exercise and routine health maintenance exams reviewed. HPV vaccine: completed series 2) Contraception: none. Contraceptive options reviewed and information provided. 3) STD screening: Declined STD check. 4) Follow up one year or sooner as needed PCOS (polycystic ovarian syndrome) - ICD9: 256.4, ICD10: E28.2 Abnormal uterine bleeding - ICD9: 626.9, ICD10: N93.9 - x1 episode - History of PCOS - Wants to become - [facility] Family history of breast cancer - ICD9: V16.3, ICD10: Z80.3 - CONSULT TO MEDICAL GENETICS - GENERAL History of IUFD - ICD9: V13.29, ICD10: Z87.59 Desire for - ICD9: V26.9, ICD10: Z31.9 - Continue PNV - Discussed Vitamin D supplements - Discussed home ovulation kits - Recommend consult with MFM pre conception for history of IUFD Ramón Snyder APRN.[facility] 05-24-2024 History of Presen t illness Narrative Project Leader offered: Patient declines. Alberto is a 34 year old who presents for an annual gynecologic exam without complaints. Had an episode of bleeding for 26 consecutive days in March - flow ranging from light to moderate. Last 2 cycles were normal. Recently graduated from [employer]. Working at [employer] in [place]. Had loss around 17 weeks gestation - Usama. Wants to become again. Still get period: Yes LMP: 05/08/2024 Menses: cycles every 30 days and 5-6 days of flow Menstrual flow: Moderate Bleeding amount bothersome: No Bleeding between periods: Yes, 1 episode of AUB in March Sexually active: Yes Contraception: None HPV vaccine: No HPV:N/A Last pap smear: 09/23/2021 normal History of abnormal pap: Yes Colposcopy: Yes Bothersome pelvic pain: No Last mammogram: never OB History Gravida5 Para4 Term3 Preterm1 AB1 Living3 SAB1 IAB0 Ectopic0 Multiple0 Live Births3 FAMILY HISTORY Problem Relation Age of Onset Breast Cancer Mother 52 No Known Problems Father No Known Problems Sister No Known Problems Brother Breast Cancer Maternal Grandmother 70 No Known Problems Maternal Grandfather No Known Problems Paternal Grandmother No Known Problems Paternal Grandfather No Known Problems Son No Known Problems Son No Known Problems Daughter SOCIAL HISTORY Social History Tobacco Use Smoking status: Never Smokeless tobacco: Never Vaping Use Vaping status: Never Used Substance Use Topics Alcohol use: Not Currently Drug use: Never REVIEW OF SYSTEMS Abdomen: No abdominal pain, nausea, vomiting, diarrhea, or constipation. No bloating, early satiety, indigestion, or increased flatulence. Bladder: No dysuria, gross hematuria, urinary frequency, urinary urgency, or incontinence. Breast: No breast lumps, nipple d/c, overlying skin changes, redness or skin retraction. Allergies and current medication updated:Yes SENSITIVE EXAM: The sensitive examination was discussed with the Patient or Patient's Authorized Phlebotomy Services Technician. As applicable, any other physician, advance practice provider, medical student, or other health professional student that will be observing or involved in the sensitive examination for educational or training purposes was discussed with the Patient or Authorized Phlebotomy Services Technician. The Patient or Authorized Phlebotomy Services Technician has agreed to proceed with the sensitive examination. (Sensitive examination includes inspection and/or palpation of the breasts, pelvis, prostate and anorectal regions). EXAM: BP 114/62 Ht 5' 8 (1.73m) Wt 173 lb (78.5kg) LMP 05/08/2024 BMI 26.31 kg/(m^2). GENERAL: pleasant, female in no apparent distress HEENT: Normocephalic, atraumatic, mucus membranes moist, and no lesions NECK: Supple, full range of motion, no adenopathy, and thyroid normal DERMATOLOGY: Normal, without lesions, non-icteric, and non-hirsute BREAST: soft, non-tender, symmetric, no dominant mass, normal nipple-areolar complex, no lymphadenopathy, and no nipple discharge CHEST: Normal inspiratory effort ABDOMEN: soft, non-tender, and no masses PELVIC: external genitalia normal, normal Bartholin's glands, urethra, Brimfield's glands, no vulvar lesions, no cervical lesions, good vaginal support, physiologic discharge present, normal appearing perineal body and perianal region BIMANUAL: uterus normal size, shape and consistency, no adnexal masses, and non-tender RECTOVAGINAL: deferred. NEURO: alert and oriented x3,exam grossly non-focal EXTREMITIES: normal ASSESSMENT/PLAN: 1) Health maintenance: Pap done with HPV. Mammogram starting age 40. Nutrition, exercise and routine health maintenance exams reviewed. HPV vaccine: completed series 2) Contraception: none. Contraceptive options reviewed and information provided. 3) STD screening: Declined STD check. 4) Follow up one year or sooner as needed PCOS (polycystic ovarian syndrome) - ICD9: 256.4, ICD10: E28.2 Abnormal uterine bleeding - ICD9: 626.9, ICD10: N93.9 - x1 episode - History of PCOS - Wants to become - [facility] Family history of breast cancer - ICD9: V16.3, ICD10: Z80.3 - CONSULT TO MEDICAL GENETICS - GENERAL History of IUFD - ICD9: V13.29, ICD10: Z87.59 Desire for - ICD9: V26.9, ICD10: Z31.9 - Continue PNV - Discussed Vitamin D supplements - Discussed home ovulation kits - Recommend consult with MFM pre conception for history of IUFD Ramón Snyder APRN.LEIGH ANN documented in this encounter [facility] 02-08-2024 History of Presen t illness Narrative [facility] [place] NOTE: Name: Alberto Blackwood, 34 y.o. CSN:[id number] PCP: No Assigned PCP Generic Provider, ALL: No Known Allergies History: Chief Complaint: URI (Cough, chest congestion, fevers X 5 days ) Encounter Date: 02/08/2024 HPI: The history was obtained from the patient. Alberto is a 34 y.o. female, who presents with a chief complaint of URI (Cough, chest congestion, fevers X 5 days ). Sinus pressure and pain, nasal congestion with yellow mucus, bilateral ear pain/fullness, productive cough with yellow sputum , mild sore throat, and fatigue. Symptoms began 5 days ago, reports symptoms have progressively worsened since onset. Denies any body aches, abdominal pain, chest pain, wheezing/shortness of breath, rashes, urinary symptoms, vomiting, and diarrhea. Denies any lightheadedness or dizziness; no changes in mental status. No swelling in legs. Appetite is decreased; is able to eat and drink fluids without difficulty. Has been taking utilized cold and flu medications without much relief; no other fbmy-iaf-aiikqpf medications or home remedies for symptom management. No known ill contacts. No known history of asthma/COPD/respiratory issues. Denies any recent antibiotic use PMHx: Past Medical History: Diagnosis Date Encounter for delivery without indication ([facility]) Delivery of by section Encounter for gynecological examination (general) (routine) without abnormal findings Pap test, as part of routine gynecological examination Other conditions influencing health status Menstruation Other conditions influencing health status Vaginal delivery after previous delivery () declined Current Outpatient Medications Medication Sig Dispense Refill VIT 26-QOKS-JJZZU-DHA ORAL Take 1 tablet by mouth once daily. amoxicillin-pot clavulanate (Augmentin) 875-125 mg tablet Take 1 tablet by mouth 2 times a day for 10 days. 20 tablet 0 yivljfncaeneupp-vrpveybyh-SP 2-30-10 mg/5 mL syrup Take 5 mL by mouth 4 times a day as needed for congestion or cough for up to 10 days. 120 mL 0 cyskokobwikihmz-PV-hcpotbgpuds (Capmist DM) 60-15-400 mg tablet Take 1 tablet by mouth every 6 hours if needed (sinus congestion) for up to 14 days. 84 tablet 0 No current facility-administered medications for this visit. PMSx: Past Surgical History: Procedure Laterality Date OTHER SURGICAL HISTORY 05/06/2021 section Fam Hx: No family history on file. SOC. Hx: Social History Socioeconomic History Marital status: Spouse name: Not on file Number of children: Not on file Years of education: Not on file Highest education level: Not on file Occupational History Not on file Tobacco Use Smoking status: Not on file Smokeless tobacco: Not on file Substance and Sexual Activity Alcohol use: Not on file Drug use: Not on file Sexual activity: Not on file Other Topics Concern Not on file Social History Narrative Not on file Social Drivers of Health Financial Resource Strain: Not on file Food Insecurity: Not on file Transportation Needs: Not on file Physical Activity: Not on file Stress: Not on file Social Connections: Not on file Intimate Partner Violence: Not on file Housing Stability: Not on file Vitals: 02/08/24 1107 BP: 111/79 Pulse: 82 Resp: 18 Temp: 36.6 C (97.8 F) SpO2: 97% 76.7 kg (169 lb) Physical Exam LABORATORY @ RADIOLOGICAL IMAGING (if done): Results for orders placed or performed in visit on 02/08/24 (from the past 24 hours) POCT SARS-COV-2/FLU/RSV PCR SYMPTOMATIC manually resulted Result Value Ref Range POC Coronavirus 2019, PCR Not Detected Not Detected POC Flu A Result Not Detected Not Detected POC Flu B Result Not Detected Not Detected POC RSV PCR Not Detected Not Detected Study Result Narrative & Impression Interpreted By: Donny Au, STUDY: XR CHEST 2 VIEWS; 02/08/2024 11:49 am INDICATION: Signs/Symptoms:cough. ,R05.1 Acute cough COMPARISON: None. ACCESSION NUMBER(S): [id number] ORDERING CLINICIAN: JEANETTE ALBARRAN FINDINGS: CARDIOMEDIASTINAL SILHOUETTE: Cardiomediastinal silhouette is normal in size and configuration. LUNGS: Lungs are clear. ABDOMEN: No remarkable upper abdominal findings. BONES: No acute osseous changes. IMPRESSION: 1. No evidence of acute cardiopulmonary process. MACRO: None Signed by: Donny Au 02/08/2024 12:53 PM Dictation workstation: [id number] Laboratory testing and chest x-ray reviewed with patient, states understanding I did personally review Alberto's past medical history, surgical history, social history, as well as family history (when relevant). In this case, I also oversaw the her drug management by reviewing her medication list, allergy list, as well as the medications that I prescribed during the UC course and/or recommended as an out-patient (including possible OTC medications such as acetaminophen, NSAIDs , etc). After reviewing the items above, I did look at previous medical documentation, such as recent hospitalizations, office visits, and/or recent consultations with PCP/specialist. SDOH: Another factor that I considered in Alberto's care was her Social Determinants of Health (SDOH). During this UC encounter, she did not have social determinants of health. Those SDOH influencing Alberto's care are: none UC COURSE/MEDICAL DECISION MAKING: Alberto is a 34 y.o., who presents with a working diagnosis of 1. Acute bacterial sinusitis 2. Acute cough Alberto was seen today for uri. Diagnoses and all orders for this visit: Acute bacterial sinusitis (Primary) - amoxicillin-pot clavulanate (Augmentin) 875-125 mg tablet; Take 1 tablet by mouth 2 times a day for 10 days. Acute cough - XR chest 2 views; Future - POCT SARS-COV-2/FLU/RSV PCR SYMPTOMATIC manually resulted - wnkixzlgdtfjdpu-reuhviaye-UF 2-30-10 mg/5 mL syrup; Take 5 mL by mouth 4 times a day as needed for congestion or cough for up to 10 days. - ayvxonyqloxbpov-PZ-hdbuyfinwal (Capmist DM) 60-15-400 mg tablet; Take 1 tablet by mouth every 6 hours if needed (sinus congestion) for up to 14 days. Plan of care reviewed with patient. If symptoms change and/or worsen will follow-up with primary care provider, return to urgent care, or go to the nearest emergency department for further evaluation. Patient states understanding and is agreeable with plan of care. Jeanette Albarran APRN, DNP Advanced Practice Provider [facility] Please note: While the patient may or may not have received printed discharge paperwork, all relevant medical findings, test results, and treatment details are accessible through the electronic medical record system. The patient is encouraged to review their chart via the patient portal for comprehensive information and follow-up instructions. documented in this encounter [facility] Work Phone: 10-06-2023 History of Presen t illness Narrative Scan on 09/27/2023 1:31 PM by Provider, Paige, JUAN RAMON: Anora documented in this encounter [facility] 10-05-2023 History of Presen t illness Narrative EARLY VISIT Alberto Whitaker is a 33 year old here for 2 week visit. Delivery Summary: D&E for hemorrhage during induction for second trimester IUFD ROS: General: Denies any fever or chills Hypertension Screening: Headache? No. Visual Changes? No Epigastric Pain? No Increased Swelling? No Taking any BP medications at home? No If applicable, monitoring BP at home? (If Yes, include results) NA Mood: sad Depression: admits to symptoms of depression. OB Depression and Anxiety Screening- This Encounter (since 10/04/2023) Over the past 2 weeks have you felt down, depressed, or hopeless? Positive - Further Testing Indicated I have been able to laugh and see the funny side of things. Not quite so much now I have looked forward with enjoyment to things. Rather less than I used to I have blamed myself unnecessarily when things went wrong. No, never I have been anxious or worried for no good reason. Yes, sometimes I have felt scared or panicky for no good reason. No, not at all Things have been getting on top of me. Yes, sometimes I haven't been coping as well as usual I have been so unhappy that I have had difficulty sleeping. Not very often I have felt sad or miserable. Yes, quite often I have been so unhappy that I have been crying. Yes, quite often The thought of harming myself has occurred to me. Never Sherman Depression Scale Total 11 Feeling nervous, anxious or on edge 1-Several days Not being able to stop or control worrying 1-Several days Anxiety Pre-Screening Total (If >/= 3 additional questions will be reviewed) 2 Bladder: No dysuria, gross hematuria, urinary frequency, urinary urgency, or incontinence Bowel symptoms: No nausea, vomiting, or diarrhea, No heartburn or reflux symptoms, Negative for abdominal discomfort, blood in stools or black stools, and change in bowel habits Abdomen: N/A Bleeding: spotting Bottom and Perineum: No issues Sleep: no sleep concerns, feels rested [place] since delivery: Not resumed Emotional support: Yes Exercise: N/A Other issues: None PHYSICAL EXAMINATION: BP 98/64 Pulse 78 Resp 16 Wt 80.8 kg (178 lb 3.2 oz) LMP 04/25/2023 (Exact Date) SpO2 99% BMI 27.10 kg/m General: pleasant,female in no apparent distress, A&O x 3. Skin warm and intact. Breast: Deferred Abdomen: Deferred /Incision: N/A Pelvic: Deferred Bimanual: Deferred ASSESSMENT AND PLAN: 33 year old status post D&E with normal course. Contraception plan: none. Declines. Education: resources provided - see MA/RN note d/w her normal chromosome anaysis on ANORA testing, scanned in EPIC. D/w her could consider thrombophilia eval. Desires antiphospholipid panel will get next month Follow up: prn or for annual. Javid Starr MD documented in this encounter [facility] 09-27-2023 History of Presen t illness Narrative Received Anora results Scan on 09/27/2023 1:31 PM by Provider, External, PALorraineC: Anora documented in this encounter [facility] 09-19-2023 Note [facility] Medical Records Department [address] [place] [address] Discharge Summary 09/19/23 1908 MR#: [id number] Acct: [id number] Name: ALBERTO WHITAKER Rep #: [id number] : 1990 33 From: Javid Starr MD PCP: Care Physician,No Primary Status:ADM IN Location: [place] [id number] Providers Date of Admission: 09/18/23 Primary Care Physician: No Primary Care Phys Reason For Visit: INDUCTION/ DEMISE Diagnosis Discharge Diagnosis (1) Previous delivery affecting : Status: Acute Code(s): O34.219 - Maternal care for unspecified type scar from previous delivery Plan: 33-year-old female with 21-week demise 17 weeks size fetus. I discussed with the patient risk benefits and alternatives to induction for expectant management of vaginal delivery versus a D E. Patient elects for induction. Would like genetic studies but not an autopsy of the fetus. Will give high-dose Cytotec vaginally. May have epidural or IV pain medications as needed. May use other routine labor pain medications as needed. (2) IUFD (intrauterine ): Status: Acute (3) Hemorrhage: Status: Acute Code(s): R58 - Hemorrhage, not elsewhere classified Medications at Discharge Home Medications ohasacre-pyk-Yr-FA 1 mg tablet 1 tab PO DAILY 04/03/22 Hospital Course Operations - (Suction D E ) Procedures None Summary of Care Provided Minutes Spent on Discharge: 22 Hospital Course: 33 YOF multigravida presented for Cytotec induction for 20 and 6 weeks intrauterine demise on 09/18/2023. On 09/19/2023 at 21 weeks gestation she started to hemorrhage. She had lost enough blood that it was not possible to transfer her for an emergent D E. Ilia Ojeda called for the OR team to prep the patient for hysterotomy. However in the interim she continued to have an significant amount of bleeding. 2 units of packed red blood cells were brought up and taken to the OR for the patient. When the patient was placed under anesthesia and her legs were placed in stirrups she was found to be 3-1/2 cm dilated. Decision was made to proceed with D E. Under ultrasound guidance this was performed. Ultrasound guidance confirmed endometrial stripe present. There is no active bleeding at the end of the procedure. Patient was transferred back to labor and delivery where she received 1 additional unit of blood. Her coags, blood count and vitals were stable. She not had any significant bleeding in 12 hours. Patient desired discharge home 09/19/2023 with routine pain control measures with gmft-sob-juelsuq medications and follow-up in the office in 1 to 2 weeks or as needed. ANORA testing was sent for chromosome analysis. Physical Exam Narrative Awake, alert, no acute distress Skin warm dry and intact, good color Abdomen soft nondistended minimal tenderness, uterus firm and very very low in the pelvis. Weight / BMI Weight Weight: 82.645 kg Body Mass Index (BMI) 27.7 ABG / Lab / Microbiology Data 09/19/23 13:15 Laboratory: Laboratory Results - last 24 hr 09/18/23 20:25: WBC 7.7, RBC 3.48 L, Hgb 12.0, Hct 33.0 L, MCV 94.8, MCH 34.5 H, MCHC 36.4 H, RDW Std Deviation 43.8, RDW Coeff of Christopher 12.8, Plt Count 230, MPV 10.8, Immature Gran % (Auto) 0.300, Neut % (Auto) 63.7, Lymph % (Auto) 29.1, [place] % (Auto) 5.2, Eos % (Auto) 1.3, Baso % (Auto) 0.4, Absolute Neuts (auto) 4.9, Absolute Lymphs (auto) 2.25, Nucleated RBC % 0, PT 13.2, INR 1.0, APTT 31.0, Fibrinogen 369, Syphilis Total Ab Non-reactive, Blood Type O POSITIVE, Antibody Screen NEGATIVE, Crossmatch See Detail 09/19/23 04:55: WBC 7.2, RBC 3.42 L, Hgb 11.0 L, Hct 32.5 L, MCV 95.0, MCH 32.2 H, MCHC 33.8 D, RDW Std Deviation 44.5 H, RDW Coeff of Christopher 12.8, Plt Count 198, MPV 10.4, Immature Gran % (Auto) 0.600, Neut % (Auto) 64.5, Lymph % (Auto) 28.6, [place] % (Auto) 5.0, Eos % (Auto) 1.0, Baso % (Auto) 0.3, Absolute Neuts (auto) 4.6, Absolute Lymphs (auto) 2.05, Nucleated RBC % 0, PT 13.5, INR 1.0, APTT 32.8, Fibrinogen 332 09/19/23 09:30: WBC 11.7 H, RBC 3.53 L, Hgb 11.2 L, Hct 33.1 L, MCV 93.8, MCH 31.7, MCHC 33.8, RDW Std Deviation 46.3 H, RDW Coeff of Christopher 13.5, Plt Count 184, MPV 10.7, PT 14.3, INR 1.1, APTT 28.2, Fibrinogen 301 09/19/23 13:15: WBC 13.0 H, RBC 3.38 L, Hgb 10.7 L, Hct 31.4 L, MCV 92.9, MCH 31.7, MCHC 34.1, RDW Std Deviation 47.3 H, RDW Coeff of Christopher 13.9, Plt Count 206, MPV 10.7, Immature Gran % (Auto) 0.500, Neut % (Auto) 84.0 H, Lymph % (Auto) 10.6 L, [place] % (Auto) 4.6, Eos % (Auto) 0.1, Baso % (Auto) 0.2, Absolute Neuts (auto) 11.0 H, Absolute Lymphs (auto) 1.38, Nucleated RBC % 0, PT Cancelled, INR Cancelled, APTT Cancelled, Fibrinogen Cancelled D/C Instructions May shower in (days): 1 May resume sexual activity in: 4 weeks Please Follow Up With: Javid Starr MD When: Follow up w (more content not included)... [facility] 09-19-2023 History of Presen t illness Narrative Patient delivered IUFD via suction D&C by Dr. Fatima on 09/19/[address] [facility]. See OB history. Marcy Oconnell RN documented in this encounter [facility] 09-16-2023 Telephone encounter Note I spoke with patient about findings on the ultrasound. I reviewed with her options of D&E versus induction. Acuity of our labor and delivery unit does not allow for induction tonight. Maybe not even tomorrow. Call or go to the hospital for signs or symptoms of infection. Otherwise will talk with labor and delivery staff tonight and make a tentative plan to bring her in as soon as possible this weekend for induction. Patient declines D&E. Will consider genetic testing of the fetus. Javid Starr MD [facility] Work Phone: 09-16-2023 Miscellaneous Notes I spoke with patient about findings on the ultrasound. I reviewed with her options of D&E versus induction. Acuity of our labor and delivery unit does not allow for induction tonight. Maybe not even tomorrow. Call or go to the hospital for signs or symptoms of infection. Otherwise will talk with labor and delivery staff tonight and make a tentative plan to bring her in as soon as possible this weekend for induction. Patient declines D&E. Will consider genetic testing of the fetus. Javid Starr MD IUFD noted on anatomy ultrasound today. Discussed with patient likely would need induced, but would be hearing from our office after RR reviews. Please call patient before end of day with plan as she is expecting call. Ramón Snyder APRN.CNP documented in this encounter [facility] 09-16-2023 Telephone encounter Note IUFD noted on anatomy ultrasound today. Discussed with patient likely would need induced, but would be hearing from our office after RR reviews. Please call patient before end of day with plan as she is expecting call. Ramón Snyder APRN.CNP [facility] 09-16-2023 Instructions Mandie Silva LPN - 09/16/2023 2:33 PM EDT SEQUENTIAL SCREENINGS The [facility] offers sequential screenings for women who are interested in screenings for chromosomal abnormalities and certain defects during a . The sequential screen combines ultrasound and blood tests to determine the risk of chromosomal abnormalities, including Down's Syndrome (Trisomy 21) and Trisomy 18, as well as open neural tube defects including spina bifida. Ultrasound examination is performed between 11 weeks and 13 weeks gestational age. Blood tests are drawn after the ultrasound and again later in the between 15 and 21 weeks gestational age. Please let your physician know if you are interested in this testing. It will require an appointment with our emg technician. This is not an ultrasound performed by a physician in our office during a routine visit. SIGNS AND SYMPTOMS OF LABOR 1. Contractions every 10 minutes or more often 2. Clear, pink, or brownish fluid (water) leaking from vagina 3. Feeling that baby is pushing down, pressure 4. Low, dull backache 5. Cramps that feel like a period 6. Cramps with or without diarrhea If you notice any of the above symptoms, contact our office at [phone] and ask to speak with a nurse. After hours, you can call doctors registry at [phone] OR call [facility] at [phone] and ask to have the doctor manager inspection paged. If you consider this an emergency, dial 9-1-0 or go to your nearest emergency department. NEED HELP? Are you dealing with a violent or abusive relationship? Are you a victim of rape or sexual assult? Call [facility] ([place]) 24 hour Crisis Hotline: 507.416.9142 or 559-777-8948. MANUAL Your Guide to a Healthy manual is now on-line. Visit [email or web address] to download your free copy documented in this encounter [facility] 09-16-2023 Progress note Formatting of t his note might be different from the original. Alberto presented today for her anatomy ultrasound and no heartbeat was detected on the baby. No bleeding or leakage of fluid. No pain. ASSESSMENT/PLAN: 1. IUFD at 20 weeks or more of gestation - ICD9: [id number], ICD10: O36.4XX0 - Reviewed with Alberto and her that there is no heartbeat on ultrasound - Likely will need induced. Will consult with physician. - To notify with any heavy bleeding, fever, chills in the interim. - Emotional support provided and Dizppe-Wh-Oog kit provided. Ramón Snyder APRN.LEIGH ANN [facility] 09-16-2023 Miscellaneous Notes Alberto presented today for her anatomy ultrasound and no heartbeat was detected on the baby. No bleeding or leakage of fluid. No pain. ASSESSMENT/PLAN: 1. IUFD at 20 weeks or more of gestation - ICD9: [id number], ICD10: O36.4XX0 - Reviewed with Alberto and her that there is no heartbeat on ultrasound - Likely will need induced. Will consult with physician. - To notify with any heavy bleeding, fever, chills in the interim. - Emotional support provided and [employer] kit provided. Ramón Snyder APRN.ELECTRONICS TECHNOLOGY DEPARTMENT CHAIR documented in this encounter [facility] 08-19-2023 Instructions Mandie Silva LPN - 08/19/2023 8:50 AM EDT SEQUENTIAL SCREENINGS The [facility] offers sequential screenings for women who are interested in screenings for chromosomal abnormalities and certain defects during a . The sequential screen combines ultrasound and blood tests to determine the risk of chromosomal abnormalities, including Down's Syndrome (Trisomy 21) and Trisomy 18, as well as open neural tube defects including spina bifida. Ultrasound examination is performed between 11 weeks and 13 weeks gestational age. Blood tests are drawn after the ultrasound and again later in the between 15 and 21 weeks gestational age. Please let your physician know if you are interested in this testing. It will require an appointment with our emg technician. This is not an ultrasound performed by a physician in our office during a routine visit. SIGNS AND SYMPTOMS OF LABOR 1. Contractions every 10 minutes or more often 2. Clear, pink, or brownish fluid (water) leaking from vagina 3. Feeling that baby is pushing down, pressure 4. Low, dull backache 5. Cramps that feel like a period 6. Cramps with or without diarrhea If you notice any of the above symptoms, contact our office at [phone] and ask to speak with a nurse. After hours, you can call doctors registry at [phone] OR call [facility] at [phone] and ask to have the doctor manager inspection paged. If you consider this an emergency, dial [phone] or go to your nearest emergency department. NEED HELP? Are you dealing with a violent or abusive relationship? Are you a victim of rape or sexual assult? Call [facility] ([place]) 24 hour Crisis Hotline: 264.593.9704 or 934-480-2236. MANUAL Your Guide to a Healthy manual is now on-line. Visit [email or web address] to download your free copy documented in this encounter [facility] 08-19-2023 Miscellaneous Notes EH - S: Alberto is a 33 year old female who presents at 16w4d for a routine visit. Denies headache, visual changes, chest pain, shortness of breath, vaginal bleeding, leakage of fluid, or dysuria. Feeling well, no complaints. O: See flow sheet Gen: No apparent distress Abd: Gravid, nontender ASSESSMENT/PLAN: 1. Encounter for supervision of high risk in second trimester, antepartum - ICD9: V23.9, ICD10: O09.92 (primary diagnosis) - Recommend LDA 2. 16 weeks gestation of - ICD9: V22.2, ICD10: Z3A.16 - AFP today - Anatomy ultrasound scheduled 3. History of section - ICD9: V45.89, ICD10: Z98.891 - Arrest of descent 2015 4. 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 Heart palpitations - ICD9: 785.1, ICD10: R00.2 - Experienced a few times at clinicals with shortness of breath that resolved - Recommend frequent hydration - Reviewed palpations can be common in , but if worsening to notify - To go to ER with chest pain or shortness of breath - COMPREHENSIVE METABOLIC PANEL - COMPLETE BLOOD COUNT PTL precautions reviewed. RTO in 4 weeks or sooner as needed. Ramón Snyder APRN.ELECTRONICS TECHNOLOGY DEPARTMENT CHAIR documented in this encounter [facility] 08-19-2023 Progress note Formatting of t his note might be different from the original. EH - S: Alberto is a 33 year old female who presents at 16w4d for a routine visit. Denies headache, visual changes, chest pain, shortness of breath, vaginal bleeding, leakage of fluid, or dysuria. Feeling well, no complaints. O: See flow sheet Gen: No apparent distress Abd: Gravid, nontender ASSESSMENT/PLAN: 1. Encounter for supervision of high risk in second trimester, antepartum - ICD9: V23.9, ICD10: O09.92 (primary diagnosis) - Recommend LDA 2. 16 weeks gestation of - ICD9: V22.2, ICD10: Z3A.16 - AFP today - Anatomy ultrasound scheduled 3. History of section - ICD9: V45.89, ICD10: Z98.891 - Arrest of descent 2015 4. 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 Heart palpitations - ICD9: 785.1, ICD10: R00.2 - Experienced a few times at clinicals with shortness of breath that resolved - Recommend frequent hydration - Reviewed palpations can be common in , but if worsening to notify - To go to ER with chest pain or shortness of breath - COMPREHENSIVE METABOLIC PANEL - COMPLETE BLOOD COUNT PTL precautions reviewed. RTO in 4 weeks or sooner as needed. Ramón Snyder APRN.ELECTRONICS TECHNOLOGY DEPARTMENT CHAIR [facility] 07-28-2023 Progress note Formatting of t his note might be different from the original. SW- pt doing well. No pain, vb, lof. PE: Gen- NAD, well appearing Abd- Soft, NT See flowsheet A/p 13 wk gestation - Pt requests NIPT and discussed cost. Order placed - Anatomy US ordered - MOD: Discussed r/b/a repeat C/S vs TOLAC and pt plans for TOLAC. Good candidate - RTO 4 wks Aparna Fatima DO [facility] 07-28-2023 Miscellaneous Notes SW- pt doing well. No pain, vb, lof. PE: Gen- NAD, well appearing Abd- Soft, NT See flowsheet A/p 13 wk gestation - Pt requests NIPT and discussed cost. Order placed - Anatomy US ordered - MOD: Discussed r/b/a repeat C/S vs TOLAC and pt plans for TOLAC. Good candidate - RTO 4 wks Aparna Fatima DO documented in this encounter [facility] 07-22-2023 Instructions Amanda Carrillo MA - 07/22/2023 10:35 AM EDT SEQUENTIAL SCREENINGS The [facility] offers sequential screenings for women who are interested in screenings for chromosomal abnormalities and certain defects during a . The sequential screen combines ultrasound and blood tests to determine the risk of chromosomal abnormalities, including Down's Syndrome (Trisomy 21) and Trisomy 18, as well as open neural tube defects including spina bifida. Ultrasound examination is performed between 11 weeks and 13 weeks gestational age. Blood tests are drawn after the ultrasound and again later in the between 15 and 21 weeks gestational age. Please let your physician know if you are interested in this testing. It will require an appointment with our emg technician. This is not an ultrasound performed by a physician in our office during a routine visit. SIGNS AND SYMPTOMS OF LABOR 1. Contractions every 10 minutes or more often 2. Clear, pink, or brownish fluid (water) leaking from vagina 3. Feeling that baby is pushing down, pressure 4. Low, dull backache 5. Cramps that feel like a period 6. Cramps with or without diarrhea If you notice any of the above symptoms, contact our office at [phone] and ask to speak with a nurse. After hours, you can call doctors registry at [phone] OR call [facility] at [phone] and ask to have the doctor manager inspection paged. If you consider this an emergency, dial 9-1 or go to your nearest emergency department. NEED HELP? Are you dealing with a violent or abusive relationship? Are you a victim of rape or sexual assult? Call [facility] ([place]) 24 hour Crisis Hotline: 840.985.6671 or 057-568-0301. MANUAL Your Guide to a Healthy manual is now on-line. Visit [email or web address] [email or web address] to download your free copy documented in this encounter [facility] 06-24-2023 Telephone encounter Note 1st risk assessment form submitted June 24, 2023. BRANDON Stanley, RN OB Clinical Navigator [phone] [facility] 06-24-2023 Miscellaneous Notes 1st risk assessment form submitted June 24, 2023. BRANDON Stanley, RN OB Clinical Navigator [phone] documented in this encounter [facility] 06-23-2023 Instructions Amanda Carrillo MA - 06/23/2023 8:17 AM EDT Please select the following link to access the [facility] Your Guide to a Healthy . [email or web address] documented in this encounter [facility] 06-23-2023 History of Presen t illness Narrative OB point of care ultrasound was performed. See imaging tab for details. Jennifer Cardenas MA Project Leader offered: Patient declines. INITIAL OB ASSESSMENT HPI: Alberto is a 33 year old White here to establish Obstetrical Care. Patient's last menstrual period was 04/25/2023 (exact date). from OB Dating Form. was unplanned but accepted Complaints: (!) Vaginal bleeding- resolved, once after intercourse # 1 - Date: 11/22/15, Sex: Male, Weight: 8 lb 3 oz (3.714 kg), GA: 40w0d, Delivery: , Low Transverse, Apgar1: None, Apgar5: None, Living: Living, Comments: GBS+,maternal fatigue, failed vacuum extraction, arrest of descent,800cc # 2 - Date: 04/22/17, Sex: Male, Weight: 7 lb 7 oz (3.373 kg), GA: 40w1d, Delivery: , Spontaneous, Apgar1: None, Apgar5: None, Living: Living, Comments: vacuum after 3.5 hours of labor,,bilateral cleft lip and palate, suspected hypospadias- negative. [facility] for [facility] and cardiology follow up, left labial lac,1st degree perineal lac. 400cc # 3 - Date: 2019, Sex: None, Weight: None, GA: 5w0d, Delivery: None, Apgar1: None, Apgar5: None, Living: None, Comments: None # 4 - Date: 04/04/22, Sex: Female, Weight: 7 lb 12 oz (3.515 kg), GA: 39w1d, Delivery: Vaginal, Spontaneous, Apgar1: None, Apgar5: None, Living: Living, Comments: None # 5 - Date: None, Sex: None, Weight: None, GA: None, Delivery: None, Apgar1: None, Apgar5: None, Living: None, Comments: None Previous history: Prior : yes x 1 History of 4th degree laceration: No History of shoulder dystocia: No History of Hypertensive disorders including pre-eclampsia or gestational hypertension: No History of gestational diabetes: No Patient's Risk Screening for delivery: Have you had a prior tavarez between 20w and 36w6d? No How many pregnancies have you had before? 3 Did you have a previous baby with a GBS Infection? No Please select all that apply for any prior : N/A MEDICAL/PSYCHOSOCIAL HISTORY: History of hemorrhage or bleeding concerns: No Thyroid Disease: No History of chronic hypertension: No History of pre-existing diabetes: No No results found for: ABORHD BMI 27.00 kg/(m^2) Last Pap: History of abnormal pap: Yes Prior treatment for cervical dysplasia: none. History of STDs: HSV Partner History of STDs: None Did you have a partner with Herpes? No Tobacco use: No E-Cigarette/Vaping Use: No Caffeine use: Yes 1 cup of coffee a day Drug use: No Alcohol use: No Multivitamin with Folic acid: Yes Would refuse blood transfusion if medically necessary: No Social Needs: How often does this describe you? I don't have enough money to pay my bills: Never Within the past 12 months, have you worried that your food would run out before you had money to buy more? Never In the past 12 months, has lack of reliable transportation kept you from going to medical appointments or work, or from getting things needed for daily living? Never In the past 12 months, have you had any concerns about having a place to live, or about the condition or quality of your housing? Never Would you like more information on any of the following (please check all that apply)? Not interested Social History: Do you have any history of depression, anxiety, PTSD, or other mood problems? No Do you have a history of abuse or trauma that may impact your experience? 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 event this information is protected by the Federal Confidentiality of Alcohol and Drug Abuse Patient Records regulations: The Federal rules restrict any use of the information to criminally investigate or prosecute any alcohol or drug abuse patient.[facility] HospitalIn the event this information is protected by the Federal Confidentiality of Alcohol and Drug Abuse Patient Records regulations: The Federal rules restrict any use of the information to criminally investigate or prosecute any alcohol or drug abuse patient.[facility] HospitalIn the event this information is protected by the Federal Confidentiality of Alcohol and Drug Abuse Patient Records regulations: The Federal rules restrict any use of the information to criminally investigate or prosecute any alcohol or drug abuse patient.[facility] FOR RECORDS PERTAINING TO PATIENTS WHO ARE OR HAVE BEEN ENROLLED IN A CHEMICAL DEPENDENCY/SUBSTANCEABUSE PROGRAM, SOME INFORMATION MAY BE OMITTED. This clinical summary was aggregated from multiple sources. Caution should be exercised in using it in the provision of clinical care. This summary normalizes information from multiple sources, and as a consequence, information in this document may materially change the coding, format and clinical context of patient data. In addition, data may be omitted in some cases. CLINICAL DECISIONS SHOULD BE BASED ON THE PRIMARY CLINICAL RECORDS. [facility] [employer] [facility]. provides no warranty or guarantee of the accuracy or completeness of information in this document.
[2025-02-09] MEDS: Lactated Ringers 1,000 ML 50 ML IV (08:00)
[2025-02-09] MEDS: Oxytocin 15 Units/NS 250ml 15 UNITS/250 ML IV.SOLN 2 UNITS IV (08:20)
[2025-02-09 08:28] LABS: Hematocrit 32.4 % (37-47); Hemoglobin 10.9 g/dL (12.0-15.0); Immature Granulocytes Count 0.090 X10^3/uL (0.0-0.0); Mean Corp Hgb Conc 33.6 g/dL (32-36); Mean Corpuscular Volume 95.0 fL (81-99); Mean Platelet Vol. 10.5 fl (6.2-12.0); NRBC Flagged by Analyzer 0 % (0-5); Platelet Count 223 K/mm3 (150-450); RBC Distribution Width CV 13.1 % (11.6-14.6); RBC Distribution Width SD 45.0 fl (35.1-43.9); Red Blood Count 3.41 M/mm3 (4.2-5.4); White Blood Count 9.6 K/mm3 (4.4-11.0)
--- NOTE | 2025-02-09 09:03 | HP.PCM.OB_ITS ---
HPI - General General Date of Admission: 02/09/25 Date of Service: 02/09/25 Chief Complaint: Induction HPI Narrative ALBERTO BEACH, is a 35 F who presents induction of labor Maternal Data Information Final ALMA: 02/12/25 Gestational age: 39+3 PFSH PFSH Medical History hemorrhage IUFD (intrauterine ) Vaginal after Home Medications ?Medication ?Instructions ?Recorded ?Last Taken ?Type [id number]-[id number] 1 mg 1 tab PO DAILY pregna ncy 04/03/22 02/07/25 History tablet Allergy/AdvReac Type Severity Reaction Status Date / Time No Known Allergies Allergy Verified 02/09/25 08:01 Surgical History History of surgery Previous section Social History Smoking Status: Never smoker History 6 Elective abortions Hx Para 3 Spontaneous abortions Hx # Term Pregnancies Ectopic pregnancies Hx # Pregnancies Multiple births # of living children NST FHR Rate Baby A Baseline: 140 Variability:: Moderate Accelerations:: 15 x 15 Decelerations:: None NST Reactive:: Yes ROS Constitutional Constitutional: Denies fatigue, fever(s) or malaise Eyes Eyes: Denies change in vision ENT HEENT: Denies dizziness or headache(s) Cardiovascular Cardiovascular: Denies chest pain, dyspnea or lightheadedness Respiratory/Chest Respiratory/Chest: Denies cough or dyspnea Gastrointestinal Gastrointestinal: Denies change in bowel habits Genitourinary Genitourinary: Denies burning urination or genital lesions Integumentary Integumentary: Denies rash Neurologic Neurologic: Denies confusion, dizziness, headache(s), numbness or weakness Vital Signs Vital Signs Vital Signs: 02/09/25 08:16 02/09/25 08:16 02/09/25 08:16 Temperature Temperature Source Pulse Rate 94 Respiratory Rate Blood Pressure 110/73 BP Systolic 110 BP Diastolic 73 Pulse Ox 97 02/09/25 08:21 02/09/25 08:21 02/09/25 08:21 Temperature 98.2 F Temperature Source Temporal Pulse Rate Respiratory Rate 16 Blood Pressure BP Systolic BP Diastolic Pulse Ox Weight Weight: 97.7 kg Body Mass Index (BMI) 32.7 PRE- weight 76.204 kg PRE- Body Mass Index 25.4 (BMI) Physical Exam Const alert and no apparent distress General Appearance: cooperative HEENT normocephalic Resp normal respiratory effort Cardio regular rate GI soft to palpation GI Narrative: gravid, nontender, appropriate for gestational age Extremity no calf tenderness General Extremity: edema Skin no wounds Rashes: No rashes noted Psych activity/motor behavior normal Labs Labs Labs: Blood Type O POSITIVE Antibody Screen NEGATIVE Hct, (37-47) 32.4 % L Hgb, (12.0-15.0) 10.9 g/dL L Syphilis Total Ab Non-reactive VZV IgG Antibody, (Immune >165) 156 index L Rubella IgG Antibody 240.5 IU/mL Hep Bs Antigen, (Negative) Negative Hepatitis C Ab (EIA), (0.0-0.9) <0.1 s/co ratio Glucose 1 Hr 50 gm, (70-140) 124 mg/dL Group B Strep DNA, (Negative) POSITIVE H Rhogam given: No Miscellaneous Test Assessment & Plan (1) 39 weeks gestation of : (2) Elective induction of labor planned: (3) Previous section complicating : PLAN: Plan Pitocin induction GBS negative epidural prn
[2025-02-09 09:22] LABS: Syphilis Antibodies Nonreactive (Nonreactive)
--- NOTE | 2025-02-09 14:38 | PCM.PN.OB ---
Subjective Subjective AROM for clear fluid. 4/70/-2 Pit at 12 Objective Data Objective Data Vital Signs: Vital Signs Temp Pulse Resp BP Pulse Ox 98.2 F 86 16 127/99 H 100 02/09/25 08:21 02/09/25 13:51 02/09/25 08:21 02/09/25 13:51 02/09/25 12:57 Weight: 97.7 kg Body Mass Index (BMI) 32.7 Intake & Output: Intake and Output for Last 24 Hours 02/07/25 02/08/25 02/09/25 23:59 23:59 23:59 Intake Total 34.50 / 34.50 Balance 34.50 / 34.50 Lab / Micro Data 02/09/25 08:10 Labs: Laboratory Results - last 24 hr 02/09/25 08:10: WBC 9.6, RBC 3.41 L, Hgb 10.9 L, Hct 32.4 L, MCV 95.0, MCH 32.0, MCHC 33.6, RDW Std Deviation 45.0 H, RDW Coeff of Christopher 13.1, Plt Count 223, MPV 10.5, Immature Gran % (Auto) 0.900, Neut % (Auto) 76.4 H, Lymph % (Auto) 16.2 L, [place] % (Auto) 5.7, Eos % (Auto) 0.6, Baso % (Auto) 0.2, Absolute Neuts (auto) 7.3, Absolute Lymphs (auto) 1.56, Nucleated RBC % 0, Syphilis Total Ab Nonreactive, Blood Type O POSITIVE, Antibody Screen NEGATIVE NST FHR Rate Baby A Baseline: 140 Variability:: Moderate Accelerations:: 15 x 15 Decelerations:: None FHR Category:: Category I Assessment & Plan (1) Previous section complicating : (2) Elective induction of labor planned: (3) 39 weeks gestation of : PLAN: Plan Epidural prn
[2025-02-09] MEDS: Lactated Ringers 1,000 ML 999 ML IV (14:40)
[2025-02-09] MEDS: fentaNYL-bupivacaine (epidural) 100 ML BAG EPIDURAL (17:19)
[2025-02-09] MEDS: Lactated Ringers 1,000 ML 200 ML IV (19:15)
[2025-02-09] MEDS: Oxytocin 15 Units/NS 250ml 15 UNITS/250 ML IV.SOLN 83 UNITS IV (22:10)
--- NOTE | 2025-02-09 22:10 | NURSING ---
Russell catheter placement by previous shift not charted. Russell removed at 2140. 600 cc of urine in russell bag at 2140.
--- NOTE | 2025-02-09 22:26 | EX.PCM.OBVAG ---
Assessment & Plan (1) Elective induction of labor planned: (2) Vaginal after : Maternal Data Information Final ALMA: 02/12/25 Gestational age: 39+3 Vaginal Delivery Maternal Presentation Maternal Presentation: Elective Induction Maternal Presentation: Elective induction. Previous x 2 Type of Induction: Pitocin and Amniotomy Vaginal Delivery Information Procedure Performed: Spontaneous Vaginal Delivery Surgeon/Practitioner: Risa Olivares Date of Procedure: 02/09/25 Pre-Procedure Diagnosis: Term Post-Procedure Diagnosis: Type of anesthesia: Epidural Estimated Blood Loss: 100 cc Time of Delivery: 21:43 Findings Description of procedure: Elective induction of labor with pitocin and amniotomy. Once patient was complete she began pushing and pushed for approximately 3 hours. The vertex delivered over an intact perineum. There was a loose nuchal cord x 1 that was easily reduced. The anterior and posterior shoulders then delivered spontaneously. The cried upon delivery and was placed on the maternal abdomen. The cord was clamped and cut after one minute. Cord blood was collected. The placenta delivered with gentle traction. There were no lacerations that needed repaired. All sponge and instruments counted were correct. Presentation: Vertex and CHRISTOPHER Amniotic Membrane Rupture Type: Artificial Amniotic Fluid Description: Clear and Other (terminal mec) Placental Delivery Description: Spontaneous Placenta Disposition: [facility] Specimen collected: No Cord Vessel Description: 3 Vessels Cord Entanglement: Around neck x 1, loose Nuchal Cord Compression: Without compression Infant A Gender: Female (1 minute): 8 (5 minute): 9 Delayed Cord Clamping: Yes Director [employer] application systems architect: No Post Vaginal Deli Medications given after delivery: IV Pitocin Episiotomy Description: None Laceration: None Complication Complications: No
[2025-02-10] MEDS: GLYCERIN/WITCH HAZEL (TUCKS) MED..PAD 1 EACH TOPICAL (01:14)
[2025-02-10 04:19] VITALS: BP 106/73; PULSE 87; RESP 16; TEMP 36.4; O2SAT 97
--- NOTE | 2025-02-10 09:39 | PCM.PN.OB ---
Subjective Subjective Doing well. Ambulating and voiding without difficulty. Mild lochia. Breast feeding. Objective Data Objective Data Vital Signs: Vital Signs Temp Pulse Resp BP Pulse Ox O2 Del Method 97.5 F L 87 16 106/73 97 Room Air 02/10/25 04:19 02/10/25 04:19 02/10/25 04:19 02/10/25 04:19 02/10/25 04:19 02/10/25 04:19 Oxygen Delivery Method Room Air Weight: 97.7 kg Body Mass Index (BMI) 32.7 Intake & Output: Intake and Output for Last 24 Hours 02/08/25 02/09/25 02/10/25 23:59 23:59 23:59 Intake Total 2766.67 / 2766.67 250 / 250 Output Total 700 / 700 1050 / 1050 Balance 2066.67 / 2066.67 -800 / -800 Lab / Micro Data 02/09/25 08:10 ROS Constitutional Constitutional: Denies headache(s) Cardiovascular Cardiovascular: Denies chest pain or dyspnea Gastrointestinal Gastrointestinal: Denies nausea or vomiting Genitourinary Genitourinary: Denies dysuria Physical Exam Const alert, oriented x3 and no apparent distress General Appearance: cooperative and comfortable Eyes PERRL and EOMs intact bilaterally Resp normal respiratory effort GI soft to palpation and non-tender Narrative: Fundus firm, below umbilicus. Uterus Palpation: uterus fundus firm ( below umbilicus) Extremity normal to inspection and full ROM Neuro oriented x3 and CN's II-XII intact bilaterally Psych mental status grossly normal Assessment & Plan (1) Vaginal after : PLAN: Plan routine care
[2025-02-10 10:00] VITALS: BP 127/82; PULSE 108; RESP 16; TEMP 36.3; O2SAT 98
[2025-02-10 13:39] VITALS: BP 120/89; PULSE 80; RESP 16; TEMP 36.6; O2SAT 100
[2025-02-10 16:30] VITALS: BP 111/83; PULSE 84; RESP 16; TEMP 36.2; O2SAT 97
--- NOTE | 2025-02-10 21:53 | PCM.DC.SUM ---
Providers Date of Admission: 02/09/25 Date of Discharge: 02/10/25 Primary Care Physician: Josephine Primary Care Phys Reason For Visit: VAG Diagnosis Discharge Diagnosis (1) Vaginal after : Status: Acute Code(s): O34.219 - Maternal care for unspecified type scar from previous delivery Plan routine care Medications at Discharge Home Medications [id number] 1 mg tablet 1 tab PO DAILY 04/03/22 magnesium 200 mg tablet 200 mg PO DAILY pregnanc 02/09/25 Hospital Course Operations None Procedures None Summary of Care Provided Minutes Spent on Discharge: 20 Hospital Course: without complication Breast feeding Physical Exam Const alert and no apparent distress Narrative: Fundus firm, below umbilicus. Weight / BMI Weight Weight: 97.7 kg Body Mass Index (BMI) 32.7 PRE- weight 76.204 kg PRE- Body Mass Index 25.4 (BMI) ABG / Lab / Microbiology Data 02/09/25 08:10 D/C Instructions May resume sexual activity in: 6 weeks DC O2, CPAP, BIPAP Needs Home O2 Discharge instructions: No Please Follow Up With: Elham Easton MD When: Follow up with our office in 1-2 and 6 weeks or as needed. [phone] Meaningful Use Info Meaningful Use Meaningful Use Diagnoses (Choose all that apply): None applicable Discharge Plan Admission Admit Date/Time: 02/09/25 07:30 Primary Reason for Your Visit: labor Attending Provider: Risa Olivares Primary Care Provider: Care Physician,Josephine Primary Discharge Orders/Prescriptions Prescriptions: Continued frgocuzx-yzm-Ez-FA 1 mg Tablet 1 tab PO DAILY magnesium 200 mg tablet 200 mg PO DAILY Discontinued diphenhydramine HCl [Banophen] 50 mg capsule 50 mg PO QHS Referrals / Follow Up: Care Physician,No Primary [Primary Care Provider, Medical] Disposition Disposition (needs filled in before D/C Order can be placed): Home, Self Care
--- OUTSIDE RECORDS SUMMARY | 2025-02-11 13:13 | XMS RPT_ITS | CCD ---
Author Organization [facility] Care Team Providers Care Occupational Health And Safety Manager Name Role Phone NONE, XXXX Unavailable Unavailable [...] Unavailable Unavailable Dr. Harlan Ding Referring Unavailable [place], Dr. Chaney Attending Unavailable Dr. Harlan Ding [...] reactions to drug 4 Other: See Comments [facility] (19 sources) Penicillins Propensity to adverse reactions to drug 4 Other: See Comments [facility] Medications Current Medications Medication Drug Class(es) [...] oral solution (2 sources) alpha-Adrenergic Agonist, Uncompetitive J-oqwkrd-C-asparta te Receptor Antagonist, Sigma-1 Agonist Start: 02-08-2024 [...] oral tablet (2 sources) alpha-Adrenergic Agonist, Uncompetitive J-cujynk-L-asparta te Receptor Antagonist, Sigma-1 Agonist Start: 02-08-2024 [...] 8 HOURS NEEDED November 22, 2018 11:00pm Rwcjestp-Oji-Im-Fa () 1 mg Tablet (1 source) Start: 04-03-2022 take 1 tablet by mouth once daily Ntwdoekz-Ala-Mu- Fa () 1 mg Tablet Active 1 TABLET PO DAILY April 03, 2022 12:00am VIT 73-SXUP-KTBCF-DHA ORAL (20 sources) take 1 tablet by mouth once daily VIT 18-LAVJ-JAHVI-DH A ORAL Take 1 tablet by mouth once daily. Active take 1 tablet by mouth once lyla y VIT 03-XGIG-IAOCO-DHA ORAL Take 1 tablet by mouth once daily. 0 Active VIT 10- DFZB-WOGTJ-XLO ORAL Take by mouth. 0 Active Completed/Discontinued Medications Medication Drug Class(es) Dates Sig (Normalized) Sig (Original) aspirin 81 mg delayed release oral tablet (14 sources) Platelet Aggregation Inhibitor, Nonsteroidal Anti-inflammatory Drug Start: 07-05-2024 End: 10-10-2024 take 1 tablet by mouth once daily aspirin, enteric coated (ECOTRIN LOW STRENGTH) 81 mg EC tablet Indications: with uncertain dates in first trimester ([facility]) , Encounter for supervision of normal in multigravida ([facility]) Take 1 tablet by mouth once daily. [...] dyas Quantity: 5 Refills: 0 Ordered: 06-Jul-2021 [place] DO, Harlan Start : 06-Jul-2021 Active multivit with calcium,iron,min (MULTIVITAMIN-CA- IRON-MINERALS ORAL) (4 sources) End: 06-23-2023 multivit with calcium,iron,min (MUXLNBXOWOLD-AA-Y SRIKANTH-MINERALS ORAL) Take by mouth once daily. 0 06/23/2023 Discontinued multivit with ca lcium,iron,min (OVEULAHTLBZV-EH-PWWJ-MINERALS ORAL) Take by mouth once daily. 0 [...] trimester; Translations: [History of intrauterine , currently ([facility])] Onset: 07-05-2024 Episodic Other female genital disorders [...] Test Name Value Interpretation Reference Range Facility [facility] 11-27-2024 [facility] Telephone (ZEEGYW) -- ALBERTO WHITAKER ([id number]) 1990 F Date Time Provider Department 11/27/24 [...] R: Advised Pt to go to nearest [facility] to be evaluated. Pt states she is in [place] at this time. States she will likely go to [employer] AND will have someone drive her. GERSON Rice Karmon, MD 11/27/2024 11:57 AM Signed Noted AND agree Alexandra Pérez MD Allergies As of Date: 11/27/2024 Noted Allergy Reaction PENICILLINS 06/16/2023 14 - Other: See Comments Comments: childhood reaction-pt unaware of reaction type Date Reviewed: 11/15/2024 Reviewed by: Albin Putnam LPN - Fully Assessed Reason for Visit: Decreased movement/ Advised to go to [facility] [Other] Prescriptions as of 11/27/2024 - vitamin D3-folic acid 125 mcg (5,000 unit)-1 mg tab Take by mouth once daily. - VIT 66-AXQC-LVGTE-DHA ORAL Take 1 tablet by mouth once [...] Encounter Status:Closed by MARCY OCONNELL on 11/27/24 [facility] 11-20-2024 CNPN Telephone (OBGYWM) -- ALBERTO WHITAKER ([id number]) 1990 F Date Time Provider Department 11/20/24 ALEA CALDERON OBGYWM During your visit today, we recorded the following information about you: Bianca Larkin, GERSON 11/20/2024 1:50 PM Signed 28w0d Diarrhea started around 6pm last night. Pt states since waking up at 6am, has gone 4 to 5 times. Took son to Dr villagomez in [place], states she felt like she was going [...] AND that message would be routed to [facility] AND if any additional guidance is needed, we would call her. Next OB appt 11/30/24. GERSON Rice Jessica, APRN.CNM 11/20/2024 2:04 PM Signed Could go to [facility] as [facility] is full right now. Would recommend further [...] Take by mouth once daily. - VIT 90-BASN-INBJP-DHA ORAL Take 1 tablet by mouth once [...] Status:Closed by MARCY OCONNELL on 11/20/24 Normal [facility] CBC panel Auto (Bld)on 11-15 Erythrocyte distribution width (RBC) [Ratio] 13.0 % Normal 11.5-15.0 [facility] Comment on above: Order Comment: Speci men Type: BLOOD SPECIMENOrdering Facility: [facility] Address: [address] [place] [address] Performed By: #### 5 8410-2 ####[facility] HIRAMMIDWAYMIGDALIALIA [id number] [place] [address] [place] Hematocrit (Bld) [Volume fraction] 31.1 % Low 36.0-46.0 [facility] Comment on above: Order Comment: Speci men Type: BLOOD SPECIMENOrdering Facility: [facility] Address: [address] [place] [address] Performed By: #### 5 8410-2 ####[facility] [id number] [place] [address] [place] Hemoglobin (Bld) [Mass/Vol] 11.0 g/dL Low 11.5-15.5 [facility] Comment on above: Order Comment: Speci men Type: BLOOD SPECIMENOrdering Facility: [facility] Address: [address] [place] [address] Performed By: #### 5 8410-2 ####[facility] [id number] [place] [address] [place] MCH (RBC) [Entitic mass] 33.2 pg Normal 26.0-34.0 [facility] Comment on above: Order Comment: Speci men Type: BLOOD SPECIMENOrdering Facility: [facility] Address: [address] [place] [address] Performed By: #### 5 8410-2 ####[facility] [id number] [place] [address] [place] MCHC (RBC) [Mass/Vol] 35.4 g/dL Normal 30.5-36.0 [facility] Comment on above: Order Comment: Speci men Type: BLOOD SPECIMENOrdering Facility: [facility] Address: [address] [place] [address] Performed By: #### 5 8410-2 ####[facility] [id number] [place] [address] [place] MCV (RBC) [Entitic vol] 94.0 fL Normal 80.0-100.0 [facility] Comment on above: Order Comment: Speci men Type: BLOOD SPECIMENOrdering Facility: [facility] Address: [address] [place] [address] Performed By: #### 5 8410-2 ####[facility] HIRAMMIDWAYRITA [id number] [place] [address] [place] Nucleated RBC (Bld) [#/Vol] 10*3/uL Normal <0.01 [facility] Comment on above: Order Comment: Speci men Type: BLOOD SPECIMENOrdering Facility: [facility] Address: [address] [place] [address] Performed By: #### 5 8410-2 ####[facility] [id number] [place] [address] [place] Platelet mean volume (Bld) [Entitic vol] 9.7 fL Normal 9.0-12.7 [facility] Comment on above: Order Comment: Speci men Type: BLOOD SPECIMENOrdering Facility: [facility] Address: [address] [place] [address] Performed By: #### 5 8410-2 ####[facility] HIRAMMIDWAYANAA [id number] [place] [address] [place] Platelets (Bld) [#/Vol] 181 10*3/uL Normal 150-400 [facility] Comment on above: Order Comment: Speci men Type: BLOOD SPECIMENOrdering Facility: [facility] Address: [address] [place] [address] Performed By: #### 5 8410-2 ####[facility] [id number] [place] [address] [place] RBC (Bld) [#/Vol] 3.31 10*6/uL Low 3.90-5.20 [facility] Comment on above: Order Comment: Speci men Type: BLOOD SPECIMENOrdering Facility: [facility] Address: [address] [place] [address] Performed By: #### 5 8410-2 ####[facility] [id number] [place] [address] [place] WBC (Bld) [#/Vol] 8.23 10*3/uL Normal 3.70-11.00 [facility] Comment on above: Order Comment: Speci men Type: BLOOD SPECIMENOrdering Facility: [facility] Address: [address] [place] [address] Performed By: #### 5 8410-2 ####[facility] [id number] [place] [address] [place] GESTATIONAL GLUCOSE SCREEN, 1-HOUR, 50 GRAM, NON-FASTINGon 11-15-2024 Glucose [Mass/Vol] 125 mg/dL Normal 74-134 [facility] Comment on above: Order Comment: Speci men Type: BLOOD SPECIMENOrdering Facility: [facility] Address: [address] [place] [address] Result Comment: er [facility] Congress of Obstetricians and Gynecologists (Montano/Pavel) guidelines state a gestational diabetes mellitus positive screen is made, in women not previously diagnosed with overt diabetes, when the 1 hr plasma glucose level is equal to or above 140 mg/dL. The [facility] Coal Equipment Operator and Women[employer] Evangeline recommends a 135 mg/dL cutoff. Performed By: #### G LTGST ####[facility] [id number] [place] [address] [place] Reagin and Treponema pallidu m IgG and IgM [Interp]on 11-15-2024 T. pallidum IgG+IgM IA Ql (S) Non-Reactive Normal Nonreactive [facility] Comment on above: Order Comment: Speci men Type: BLOOD SPECIMENOrdering Facility: [facility] Address: [address] [place] [address] Performed By: #### 7 3752-8 ####[facility] LABCLIA [id number] [place] [address] [place] Reagin+T pallidum IgG+IgM Se rPl-Impon 11-15-2024 Reagin and Treponema pallidum IgG and IgM [Interp] Cannot exclude recent Treponemal infection if specimen collected within 7-10 days after appearance of suspect lesions or 2-3 weeks after an exposure. Clinical correlation is required. Normal [facility] Comment on above: Order Comment: Speci men Type: BLOOD SPECIMENOrdering Facility: [facility] Address: [address] [place] [address] Performed By: #### 7 3752-8 ####[facility] LABCLIA [id number] [place] [id number] [place] [facility] ALBERTO WHITAKER ([id number]) 1990 F Date Time Provider Department 11/09/24 [...] 11/09/2024 10:48 AM Signed Patient notified. Marcy Oconnlel RN Allergies As of Date: 11/09/2024 Noted Allergy Reaction PENICILLINS 06/16/2023 14 - Other: See Comments Comments: childhood reaction-pt unaware of reaction type Date Reviewed: 10/18/2024 Reviewed by: Risa Olivares MD - Fully Assessed Reason for Visit: OB Edema [Other] Prescriptions as of 11/09/2024 - vitamin D3-folic acid 125 mcg (5,000 unit)-1 mg tab Take by mouth once daily. - VIT 50-XGSK-XBTDW-DHA ORAL Take 1 tablet by mouth once [...] Status:Closed by MARCY OCONNELL on 11/09/24 Normal [facility] Bacteria Ur Culton Bacteria identified Cx Nom (U) CULTURE, URINE: No growth (<1,000 CFU/ml) Normal [facility] Comment on above: Performed By: #### 6 30-4 ####[facility] LABCLIA [id number] [address] [place] UA DIP, URINE (POC)on 2024 BILIRUBIN UA (POCT) Negative Negative [facility] CLARITY UA (POCT) Clear [facility] COLOR UA (POCT) Yellow [facility] GLUCOSE UA (POCT) Negative Negative mg/dL [facility] Hemoglobin Ql (U) Negative Negative [facility] KETONE UA (POCT) Negative Negative mg/dL [facility] LEUKOCYTES UA (POCT) Negative Negative [facility] NITRITE UA (POCT) Negative Negative [facility] PH UA (POCT) 6.5 4.5 - 8.0 [facility] Protein Ql (U) Negative Negative mg/dL [facility] SPECIFIC GRAVITY UA (POCT) 1.010 1.005 - 1.030 [facility] UROBILINOGEN UA (POCT) 0.2 Normal E.U./dL [facility] Location:[facility], [address], [place], [place], [address] [place] [address] POINT OF CARE [facility] CNPLynn 10-09-2024 [facility] -- BHUPENDRAALBERTO FUENTES ([id number]) 1990 F Date Time Provider Department 10/09/24 [...] Take by mouth once daily. - VIT 15-IRCW-SUEHR-DHA ORAL Take 1 tablet by mouth once [...] Status:Closed by MARCY OCONNELL on 10/09/24 Normal [facility] Examination level ultrasound on 09-20-2024 Indication [...] 11 oz EFW by: Hadlock (HC-AC-FL) Extended Home Office Representative 8.8 mm CM 4.1 mm 27% Nicolaides [...] normal LVOT view: normal 3-vessel view: normal 2-nluuee-nmbbfit view: normal Heart / Thorax Situs: situs [...] Read By: Macy Welch M.D. MATERNAL MEDICINE [facility] Radiology Study observation (narrative) [facility] Bacteria identifiedon 2024 Bacteria identified Cx Nom (U) Test: Urine Culture Specimen Source: Clean Catch/Voided Specimen Type: Urine Specimen Date: 09/01/20241834 Result Date: 09/03/2024653 Result Status: Final result Abnormal: No Resulting Lab: [facility] [address] [place] [address] CULTURE Clinically insignificant growth based on current clinical standards. Normal [facility] Comment on above: Performed By: #### 6 30-4 ####TONIE Vanessa ([id number])[facility] ([facility])[address] [place] [address] CBC W Auto Differential pane l (Bld)on 09-01-2024 Basophils (Bld) [#/Vol] 0.01 x10*3/uL Normal 0.00-0.10 [facility] Comment on above: Performed By: #### 5 7021-8 #### ANKUSH SANABRIA ([id number]) [facility] ([facility]) [address] [place] [address]11 Basophils/100 WBC (Bld) 0.2 % Normal 0.0-2.0 [facility] Comment on above: Performed By: #### 5 7021-8 #### ANKUSH SANABRIA ([id number]) [facility] ([facility]) [address] [place] [address] 15237 Eosinophils (Bld) [#/Vol] 0.00 x10*3/uL Normal 0.00-0.70 [facility] Comment on above: Performed By: #### 5 7021-8 #### ANKUSH SANABRIA ([id number]) [facility] ([facility]) [address] [place] [address] 38817 Eosinophils/100 WBC (Bld) 0.0 % Normal 0.0-6.0 [facility] Comment on above: Performed By: #### 5 7021-8 #### ANKUSH SANABRIA ([id number]) [facility] ([facility]) [address] [place] [address] 35116 Erythrocyte distribution width (RBC) [Ratio] 13.0 % Normal 11.5-14.5 [facility] Comment on above: Performed By: #### 5 7021-8 #### ANKUSH SANABRIA ([id number]) [facility] ([facility]) [address] [place] [address] Hematocrit (Bld) [Volume fraction] 32.0 % Low 36.0-46.0 [facility] Comment on above: Performed By: #### 5 7021-8 #### ANKUSH SANABRIA ([id number]) [facility] ([facility]) [address] [place] [address] Hemoglobin (Bld) [Mass/Vol] 11.2 g/dL Low 12.0-16.0 [facility] Comment on above: Performed By: #### 5 7021-8 #### ANKUSH SANABRIA ([id number]) [facility] ([facility]) [address] [place], [place] [address] Immature granulocytes (Bld) [#/Vol] 0.03 x10*3/uL Normal 0.00-0.70 [facility] Comment on above: Performed By: #### 5 7021-8 #### ANKSUH SANABRIA ([id number]) [facility] ([facility]) [address] [place], [place] [address] Immature granulocytes/100 WBC (Bld) 0.5 % Normal 0.0-0.9 [facility] Comment on above: Result Comment: Rafaela ture Granulocyte Count (IG) includes promyelocytes, myelocytes and metamyelocytes but does not include bands. Percent differential counts (%) should be interpreted in the context of the absolute cell counts (cells/UL). Performed By: #### 5 7021-8 #### ANKUSH SANABRIA ([id number]) [facility] ([facility]) [address] [place] [address] 66341 Lymphocytes (Bld) [#/Vol] 0.37 x10*3/uL Low 1.20-4.80 [facility] Comment on above: Performed By: #### 5 7021-8 #### ANKUSH SANABRIA ([id number]) [facility] ([facility]) [address] [place] [address] 30892 Lymphocytes/100 WBC (Bld) 5.6 % Normal 13.0-44.0 [facility] Comment on above: Performed By: #### 5 7021-8 #### ANKUSH SANABRIA ([id number]) [facility] ([facility]) [address] [place] [address] 33344 MCH (RBC) [Entitic mass] 33.1 pg Normal 26.0-34.0 [facility] Comment on above: Performed By: #### 5 7021-8 #### ANKUSH SANABRIA ([id number]) [facility] ([facility]) [address] [place] [address] 50299 MCHC (RBC) [Mass/Vol] 35.0 g/dL Normal 32.0-36.0 [facility] Comment on above: Performed By: #### 5 7021-8 #### ANKUSH SANABRIA ([id number]) [facility] ([facility]) [address] [place] [address] 54166 MCV (RBC) [Entitic vol] 95 fL Normal 80-100 [facility] Comment on above: Performed By: #### 5 7021-8 #### ANKUSH SANABRIA ([id number]) [facility] ([facility]) [address] [place] [address] 14821 Monocytes (Bld) [#/Vol] 0.23 x10*3/uL Normal 0.10-1.00 [facility] Comment on above: Performed By: #### 5 7021-8 #### ANKUSH SANABRIA ([id number]) [facility] ([facility]) [address] [place] [address] 93481 Monocytes/100 WBC (Bld) 3.5 % Normal 2.0-10.0 [facility] Comment on above: Performed By: #### 5 7021-8 #### ANKUSH SANABRIA ([id number]) [facility] ([facility]) [address] [place] [address] 74016 Neutrophils (Bld) [#/Vol] 5.91 x10*3/uL Normal 1.20-7.70 [facility] Comment on above: Result Comment: Perc ent differential counts (%) should be interpreted in the context of the absolute cell counts (cells/uL). Performed By: #### 5 7021-8 #### ANKUSH SANABRIA ([id number]) [facility] ([facility]) [address] [place] [address] 58030 Neutrophils/100 WBC (Bld) 90.2 % Normal 40.0-80.0 [facility] Comment on above: Performed By: #### 5 7021-8 #### ANKUSH SANABRIA ([id number]) [facility] ([facility]) [address] [place] [address] 56254 Nucleated RBC/100 WBC (Bld) [Ratio] 0.0 /100 WBCs Normal 0.0-0.0 [facility] Comment on above: Performed By: #### 5 7021-8 #### ANKUSH SANABRIA ([id number]) [facility] ([facility]) [address] [place] [address] 59708 Platelets (Bld) [#/Vol] 149 x10*3/uL Low 150-450 [facility] Comment on above: Performed By: #### 5 7021-8 #### ANKUSH SANABRIA ([id number]) [facility] ([facility]) [address] [place] [address] 46969 RBC (Bld) [#/Vol] 3.38 x10*6/uL Low 4.00-5.20 [facility] Comment on above: Performed By: #### 5 7021-8 #### ANKUSH SANABRIA ([id number]) [facility] ([facility]) [address] [place] [address] 88069 WBC (Bld) [#/Vol] 6.6 x10*3/uL Normal 4.4-11.3 [facility] Comment on above: Performed By: #### 5 7021-8 #### ANKUSH SANABRIA ([id number]) [facility] ([facility]) [address] [place] [address] 49391 Comprehensive metabolic 2000 panelon 09-01-2024 Albumin BCP dye [Mass/Vol] 3.6 g/dL Normal 3.4-5.0 [facility] Comment on above: Performed By: #### 2 4323-8 #### ANKUSH SANABRIA ([id number]) [facility] ([facility]) [address] [place] [address] ALP [Catalytic activity/Vol] 38 U/L Normal 33-110 [facility] Comment on above: Performed By: #### 2 432-8 #### ANKUSH SANABRIA ([id number]) [facility] ([facility]) [address] [place] [address] ALT With P-5'-P [Catalytic activity/Vol] 13 U/L Normal 7-45 [facility] Comment on above: Result Comment: Ondina ents treated with Sulfasalazine may generate falsely decreased results for ALT. Performed By: #### 2 432-8 #### ANKUSH SANABRIA ([id number]) [facility] ([facility]) [address] [place] [address] Anion gap [Moles/Vol] 11 mmol/L Normal 10-20 [facility] Comment on above: Performed By: #### 2 4323-8 #### ANKUSH SANABRIA ([id number]) [facility] ([facility]) [address] [place] [address] 66019 AST With P-5'-P [Catalytic activity/Vol] 12 U/L Normal 9-39 [facility] Comment on above: Performed By: #### 2 4323-8 #### ANKUSH SANABRIA ([id number]) [facility] ([facility]) [address] [place] [address] 04264 Bilirubin [Mass/Vol] 0.5 mg/dL Normal 0.0-1.2 [facility] Comment on above: Performed By: #### 2 4323-8 #### ANKUSH SANABRIA ([id number]) [facility] ([facility]) [address] [place] [address] 03168 Calcium [Mass/Vol] 8.1 mg/dL Low 8.6-10.3 [facility] Comment on above: Performed By: #### 2 4323-8 #### ANKUSH SANABRIA ([id number]) [facility] ([facility]) [address] [place] [address] 51868 Chloride [Moles/Vol] 105 mmol/L Normal 98-107 [facility] Comment on above: Performed By: #### 2 4323-8 #### ANKUSH SANABRIA ([id number]) [facility] ([facility]) [address] [place] [address] 79108 CO2 [Moles/Vol] 21 mmol/L Normal 21-32 [facility] Comment on above: Performed By: #### 2 4323-8 #### ANKUSH SANABRIA ([id number]) [facility] ([facility]) [address] [place] [address] 79964 Creatinine [Mass/Vol] 0.39 mg/dL Low 0.50-1.05 [facility] Comment on above: Performed By: #### 2 4323-8 #### ANKUSH SANABRIA ([id number]) [facility] ([facility]) [address] [place] [address] 53355 GFR/1.73 sq M.predicted MDRD (S/P/Bld) [Vol rate/Area] mL/min/{1.73_m2} Normal >60 [facility] Comment on above: Result Comment: Calc ulations of estimated GFR are performed using the 2020 CKD-EPI Study Refit equation without the race variable for the IDMS-Traceable creatinine methods. https://jasn.asnjournals.org/content/early/ASN.67709028 88 Performed By: #### 2 4323-8 #### ANKUSH SANABRIA ([id number]) [facility] ([facility]) [address] [place] [address] 55593 Glucose [Mass/Vol] 93 mg/dL Normal 74-99 [facility] Comment on above: Performed By: #### 2 4323-8 #### ANKUSH SANABRIA ([id number]) [facility] ([facility]) [address] [place] [address] 88039 Potassium [Moles/Vol] 3.3 mmol/L Low 3.5-5.3 [facility] Comment on above: Performed By: #### 2 4323-8 #### ANKUSH SANABRIA ([id number]) [facility] ([facility]) [address] [place] [address] Protein [Mass/Vol] 6.3 g/dL Low 6.4-8.2 [facility] Comment on above: Performed By: #### 2 4323-8 #### ANKUSH SANABRIA ([id number]) [facility] ([facility]) [address] [place] [address] 98130 Sodium [Moles/Vol] 134 mmol/L Low 136-145 [facility] Comment on above: Performed By: #### 2 4323-8 #### ANKUSH SANABRIA ([id number]) [facility] ([facility]) [address] [place] [address] 43108 Urea nitrogen [Mass/Vol] 12 mg/dL Normal 6-23 [facility] Comment on above: Performed By: #### 2 4323-8 #### ANKUSH SANABRIA ([id number]) [facility] ([facility]) [address] [place] [address] 94215 ECG 12-LEADon 09-01-2024 ECG 12-LEAD Ventricular Rate 104 Atrial Rate 104 P-R Interval 168 QRS Duration 80 Q-T Interval 356 QTC Calculation(Bazett) 468 P Hampton 57 R Hampton 81 T Hampton 22 QRS Count 17 Q Onset 220 P Onset 136 P Offset 188 T Offset 398 QTC Fredericia 427 Diagnosis Sinus tachycardia Otherwise normal ECG No previous ECGs available See ED provider note for full interpretation and clinical correlation Confirmed by Jen Gleason ([id number]) on 09/05/2024 12:15:20 PM Normal [facility] FLUAV and FLUBV RNA MATTHEW+prob e Nom (Unsp spec)on 09-01-2024 FLUAV RNA MATTHEW+probe Ql (Resp) Not detected Normal Not Detected [facility] Comment on above: Order Comment: This assay is an in vitro diagnostic multiplex nucleic acid amplification test for the detection and discrimination of Influenza A & B from nasopharyngeal specimens, and has been validated for use at [facility]. Negative results do not preclude Influenza A/B infections, and should not be used as the sole basis for diagnosis, treatment, or other management decisions. If Influenza A/B and RSV PCR results are negative, testing for Parainfluenza virus, Adenovirus and Metapneumovirus is routinely performed for [facility] pediatric oncology and intensive care inpatients, and is available on other patients by placing an add-on request. Performed By: #### 4 8509-4 ####ANKUSH SANABRIA ([id number])[facility] ([facility])[address] [place], [place] [id number] FLUBV RNA MATTHEW+probe Ql (Resp) Not detected Normal Not Detected [facility] Comment on above: Order Comment: This assay is an in vitro diagnostic multiplex nucleic acid amplification test for the detection and discrimination of Influenza A & B from nasopharyngeal specimens, and has been validated for use at [facility]. Negative results do not preclude Influenza A/B infections, and should not be used as the sole basis for diagnosis, treatment, or other management decisions. If Influenza A/B and RSV PCR results are negative, testing for Parainfluenza virus, Adenovirus and Metapneumovirus is routinely performed for [facility] pediatric oncology and intensive care inpatients, and is available on other patients by placing an add-on request. Performed By: #### 4 8509-4 ####ANKUSH SANABRIA ([id number])[facility] ([facility])[address] [place] [address]11 Fibrin D-dimer FEUon 09-01-2 025 Fibrin D-dimer FEU (PPP) [Mass/Vol] 545 ng/mL FEU High <=500 [facility] Comment on above: Order Comment: The V TE Exclusion D-Dimer assay is reported in ng/mL Fibrinogen Equivalent Units (FEU). Per family assistant's instructions for use, a value of less [...] By: #### 4 8065-7 #### ANKUSH SANABRIA ([id number]) [facility] ([facility]) [address] [place] [address] Magnesiumon 09-01-2024 Magnesium [Mass/Vol] 1.55 mg/dL Low 1.60-2.40 [facility] Comment on above: Performed By: #### 1 9123-9 #### ANKUSH SANABRIA ([id number]) [facility] ([facility]) [address] [place] [address] Natriuretic peptide B [Mass/ Vol]on 09-01-2024 Natriuretic peptide B (Bld) [Mass/Vol] 33 pg/mL Normal 0-99 [facility] Comment on above: Order Comment: <100 pg/mL - Heart failure unlikely 100-299 pg/mL - Intermediate probability of acute heart failure exacerbation. Correlate with clinical context and patient history. >=300 pg/mL - Heart Failure likely. Correlate with clinical context and patient history. BNP testing is performed using different testing methodology at [facility] than at [facility]. Direct result comparisons should only be made within the same method. Performed By: #### 3 0934-4 #### ANKUSH SANABRIA ([id number]) [facility] ([facility]) [address] [place] [address] SARS coronavirus 2 RNAon SARS-CoV-2 (COVID-19) RNA MATTHEW+probe Ql (Resp) Not detected Normal Not Detected [facility] Comment on above: Order Comment: This assay is an FDA-cleared, in vitro diagnostic nucleic acid amplification test for the qualitative detection and differentiation of SARS CoV-2 from nasopharyngeal specimens collected from individuals with signs and symptoms of respiratory tract infections, and has been validated for use at [facility]. Negative results do not preclude COVID-19 infections and should not be used as the sole basis for diagnosis, treatment, or other management decisions. Testing for SARS CoV-2 is recommended only for patients who meet current clinical and/or epidemiological criteria defined by federal, state, or local public health directives. Performed By: #### 9 4500-6 ####ANKUSH SANABRIA ([id number])[facility] ([facility])[address] [place] [address] 36195 Troponin I.cardiac panelon 0 09-01-2024 Tropinin I.cardiac panel High sensitivity method <3 Normal 0-13 [facility] Comment on above: Order Comment: Less [...] performed using a different testing methodology at [facility] than at other [facility]. Direct result comparisons should only be made within the same method. Performed By: #### 8 9577-1 #### ANKUSH SANABRIA ([id number]) [facility] ([facility]) [address] [place] [address]3705 Urinalysis complete W Reflex Culture panel (U)on 09-01-2024 Appearance (U) Turbid Normal Clear [facility] Comment on above: Performed By: #### 5 8077-9 #### ANKUSH SANABRIA ([id number]) [facility] ([facility]) [address] [place] [address] 49831 Bilirubin (U) [Mass/Vol] Negative Normal NEGATIVE [facility] Comment on above: Performed By: #### 5 8077-9 #### ANKUSH SANABRIA ([id number]) [facility] ([facility]) [address] [place] [address] 09115 Color (U) Yellow Normal Light-Yellow, Yellow, Dark-Yellow [facility] Comment on above: Performed By: #### 5 8077-9 #### ANKUSH SANABRIA ([id number]) [facility] ([facility]) [address] [place] [address] 75850 Glucose Auto test strip (U) [Mass/Vol] Normal Normal Normal [facility] Comment on above: Performed By: #### 5 8077-9 #### ANKUSH SANABRIA ([id number]) [facility] ([facility]) [address] [place] [address] 44067 Ketones (U) [Mass/Vol] 10 (1+) Abnormal NEGATIVE [facility] Comment on above: Performed By: #### 5 8077-9 #### ANKUSH SANABRIA ([id number]) [facility] ([facility]) [address] [place] [address] Leukocyte esterase Auto test strip Ql (U) 75 Clayton/uL Abnormal NEGATIVE [facility] Comment on above: Performed By: #### 5 8077-9 #### ANKUSH SANABRIA ([id number]) [facility] [place] [address] Nitrite Auto test strip Ql (U) Negative Normal NEGATIVE [facility] Comment on above: Performed By: #### 5 8077-9 #### ANKUSH SANABRIA ([id number]) [facility] ([facility]) [address] [place] [address] 40503 pH (U) 6.0 [pH] Normal 5.0, 5.5, 6.0, 6.5, 7.0, 7.5, 8.0 [facility] Comment on above: Performed By: #### 5 8077-9 #### ANKUSH SANABRIA ([id number]) [facility] ([facility]) [address] [place] [address] 88857 Protein (U) [Mass/Vol] 30 (1+) Abnormal NEGATIVE, 10 (TRACE), 20 (TRACE) [facility] Comment on above: Performed By: #### 5 8077-9 #### ANKUSH SANABRIA ([id number]) [facility] ([facility]) [address] [place] [address] 60634 RBC (U) [#/Vol] Negative Normal NEGATIVE [facility] Comment on above: Performed By: #### 5 8077-9 #### ANKUSH SANABRIA ([id number]) [facility] ([facility]) [address] [place] [address] Specific gravity (U) [Rel density] 1.033 Normal 1.005-1.035 [facility] Comment on above: Performed By: #### 5 8077-9 #### ANKUSH SANABRIA ([id number]) [facility] ([facility]) [address] [place] [address] Urobilinogen (U) [Mass/Vol] Normal Normal Normal [facility] Comment on above: Performed By: #### 5 8077-9 #### ANKUSH SANABRIA ([id number]) [facility] ([facility]) [address] [place] [address] Urinalysis microscopic panel Auto Ql (U)on 09-01-2024 Epithelial cells.squamous Auto (Urine sed) [#/Area] 1-9 (SPARSE) Normal Reference range not established. [facility] Comment on above: Performed By: #### 5 3315-8 #### ANKUSH SANABRIA ([id number]) [facility] ([facility]) [address] [place] [address] Mucus Auto (Urine sed) [#/Area] 3+ /LPF Normal Reference range not established. [facility] Comment on above: Performed By: #### 5 3315-8 #### ANKUSH SANABRIA ([id number]) [facility] ([facility]) [address] [place] [address] RBC Auto (Urine sed) [#/Area] 1-2 Normal NONE, 1-2, 3-5 [facility] Comment on above: Performed By: #### 5 3315-8 #### ANKUSH SANABRIA ([id number]) [facility] ([facility]) [address] [place] [address] WBC Auto (Urine sed) [#/Area] 1-5 Normal 1-5, NONE [facility] Comment on above: Performed By: #### 5 3315-8 #### ANKUSH SANABRIA ([id number]) [facility] ([facility]) [address] [place] [address] XR CHEST 1 VIEWon 09-01-2024 XR CHEST 1 VIEW Interpreted By: Donny Bateman, STUDY: XR CHEST 1 VIEW; 09/01/2024 5:40 pm INDICATION: Signs/Symptoms:SOB. COMPARISON: 02/08/2024 ACCESSION NUMBER(S): [id number] ORDERING CLINICIAN: ERICH KESSLER FINDINGS: CARDIOMEDIASTINAL SILHOUETTE: Cardiomediastinal silhouette is normal in size and configuration. LUNGS: Lungs are clear. ABDOMEN: No remarkable upper abdominal findings. BONES: No acute osseous changes. IMPRESSION: 1. No evidence of acute cardiopulmonary process. MACRO: None Signed by: Donny Au 09/01/2024 5:54 PM Dictation workstation: [id number] [facility] UA DIP, URINE (POC)on 2024 BILIRUBIN UA (POCT) Negative Negative [facility] CLARITY UA (POCT) Clear [facility] COLOR UA (POCT) Yellow [facility] GLUCOSE UA (POCT) Negative Negative mg/dL [facility] Hemoglobin Ql (U) Negative Negative [facility] KETONE UA (POCT) Negative Negative mg/dL [facility] LEUKOCYTES UA (POCT) Negative Negative [facility] NITRITE UA (POCT) Negative Negative [facility] PH UA (POCT) 6.5 4.5 - 8.0 [facility] Protein Ql (U) Negative Negative mg/dL [facility] SPECIFIC GRAVITY UA (POCT) 1.015 1.005 - 1.030 [facility] UROBILINOGEN UA (POCT) 0.2 Normal E.U./dL [facility] Location:[facility], [address] [place], [place], [address] [place] [address] POINT OF CARE [facility] CBC W Auto Differential pane l (Bld)on 08-09-2024 Basophils (Bld) [#/Vol] 0.03 10*3/uL Normal <0.11 [facility] Comment on above: Order Comment: Speci men Type: BLOOD SPECIMENOrdering Facility: [facility] Address: [address] [place] [address] Performed By: #### 5 7021-8 ####[facility] [id number] [place] [address] [place] Basophils/100 WBC (Bld) 0.4 % Normal [facility] Comment on above: Order Comment: Speci men Type: BLOOD SPECIMENOrdering Facility: [facility] Address: [address] [place] [address] Performed By: #### 5 7021-8 ####[facility] [id number] [place] [address] [place] Differential cell count method Nom (Bld) Auto Normal [facility] Comment on above: Order Comment: Speci men Type: BLOOD SPECIMENOrdering Facility: [facility] Address: [address] [place] [address] Performed By: #### 5 7021-8 ####[facility] [id number] [place] [address] [place] Eosinophils (Bld) [#/Vol] 0.06 10*3/uL Normal <0.46 [facility] Comment on above: Order Comment: Speci men Type: BLOOD SPECIMENOrdering Facility: [facility] Address: [address] [place] [address] Performed By: #### 5 7021-8 ####[facility] [id number] [place] [address] [place] Eosinophils/100 WBC (Bld) 0.8 % Normal [facility] Comment on above: Order Comment: Speci men Type: BLOOD SPECIMENOrdering Facility: [facility] Address: [address] [place] [address] Performed By: #### 5 7021-8 ####[facility] [id number] [place] [address] [place] Erythrocyte distribution width (RBC) [Ratio] 12.8 % Normal 11.5-15.0 [facility] Comment on above: Order Comment: Speci men Type: BLOOD SPECIMENOrdering Facility: [facility] Address: [address] [place] [address] Performed By: #### 5 7021-8 ####[facility] [id number] [place] [address] [place] Hematocrit (Bld) [Volume fraction] 32.7 % Low 36.0-46.0 [facility] Comment on above: Order Comment: Speci men Type: BLOOD SPECIMENOrdering Facility: [facility] Address: [address] [place] [address] Performed By: #### 5 7021-8 ####[facility] [id number] [place] [address] [place] Hemoglobin (Bld) [Mass/Vol] 11.4 g/dL Low 11.5-15.5 [facility] Comment on above: Order Comment: Speci men Type: BLOOD SPECIMENOrdering Facility: [facility] Address: [address] [place] [address] Performed By: #### 5 7021-8 ####[facility] [id number] [place] [address] [place] Immature granulocytes (Bld) [#/Vol] 10*3/uL Normal <0.10 [facility] Comment on above: Order Comment: Speci men Type: BLOOD SPECIMENOrdering Facility: [facility] Address: [address] [place] [address] Performed By: #### 5 7021-8 ####[facility] HIRAMMIDWAYMIGDALIALIA [id number] [place] [address] [place] Immature granulocytes/100 WBC (Bld) 0.3 % Normal [facility] Comment on above: Order Comment: Speci men Type: BLOOD SPECIMENOrdering Facility: [facility] Address: [address] [place] [address] Performed By: #### 5 7021-8 ####[facility] [id number] [place] [address] [place] Lymphocytes (Bld) [#/Vol] 1.81 10*3/uL Normal 1.00-4.00 [facility] Comment on above: Order Comment: Speci men Type: BLOOD SPECIMENOrdering Facility: [facility] Address: [address] [place] [address] Performed By: #### 5 7021-8 ####[facility] [id number] [place] [address] [place] Lymphocytes/100 WBC (Bld) 24.5 % Normal [facility] Comment on above: Order Comment: Speci men Type: BLOOD SPECIMENOrdering Facility: [facility] Address: [address] [place] [address] Performed By: #### 5 7021-8 ####[facility] [id number] [place] [address] [place] MCH (RBC) [Entitic mass] 32.7 pg Normal 26.0-34.0 [facility] Comment on above: Order Comment: Speci men Type: BLOOD SPECIMENOrdering Facility: [facility] Address: [address] [place] [address] Performed By: #### 5 7021-8 ####[facility] [id number] [place] [address] [place] MCHC (RBC) [Mass/Vol] 34.9 g/dL Normal 30.5-36.0 [facility] Comment on above: Order Comment: Speci men Type: BLOOD SPECIMENOrdering Facility: [facility] Address: [address] [place] [address] Performed By: #### 5 7021-8 ####[facility]SIDENCLI [id number] [place] [address] [place] MCV (RBC) [Entitic vol] 93.7 fL Normal 80.0-100.0 [facility] Comment on above: Order Comment: Speci men Type: BLOOD SPECIMENOrdering Facility: [facility] Address: [address] [place] [address] Performed By: #### 5 7021-8 ####[facility] [id number] [place] [address] [place] Monocytes (Bld) [#/Vol] 0.42 10*3/uL Normal <0.87 [facility] Comment on above: Order Comment: Speci men Type: BLOOD SPECIMENOrdering Facility: [facility] Address: [address] [place] [address] Performed By: #### 5 7021-8 ####[facility] [id number] [place] [address] [place] Monocytes/100 WBC (Bld) 5.7 % Normal [facility] Comment on above: Order Comment: Speci men Type: BLOOD SPECIMENOrdering Facility: [facility] Address: [address] [place] [address] Performed By: #### 5 7021-8 ####[facility] [id number] [place] [address] [place] Neutrophils (Bld) [#/Vol] 5.06 10*3/uL Normal 1.45-7.50 [facility] Comment on above: Order Comment: Speci men Type: BLOOD SPECIMENOrdering Facility: [facility] Address: [address] [place] [address] Performed By: #### 5 7021-8 ####[facility] [id number] [place] [address] [place] Neutrophils/100 WBC (Bld) 68.3 % Normal [facility] Comment on above: Order Comment: Speci men Type: BLOOD SPECIMENOrdering Facility: [facility] Address: [address] [place] [address] Performed By: #### 5 7021-8 ####[facility] XAVINCBONA [id number] [place] [address] [place] Nucleated RBC (Bld) [#/Vol] 10*3/uL Normal <0.01 [facility] Comment on above: Order Comment: Speci men Type: BLOOD SPECIMENOrdering Facility: [facility] Address: [address] [place] [address] Performed By: #### 5 7021-8 ####[facility] S[facility]THSIDENCB[facility] [id number] [place] [address] [place] Nucleated RBC/100 WBC (Bld) [Ratio] 0.0 /100 WBC Normal [facility] Comment on above: Order Comment: Speci men Type: BLOOD SPECIMENOrdering Facility: [facility] Address: [address] [place] [address] Performed By: #### 5 7021-8 ####[facility] S[facility]THSIDENCLIA [id number] [place] [address] [place] Platelet mean volume (Bld) [Entitic vol] 10.0 fL Normal 9.0-12.7 [facility] Comment on above: Order Comment: Speci men Type: BLOOD SPECIMENOrdering Facility: [facility] Address: [address] [place] [address] Performed By: #### 5 7021-8 ####[facility] S[facility]THSIDENCLIA [id number] [place] [address] [place] Platelets (Bld) [#/Vol] 218 10*3/uL Normal 150-400 [facility] Comment on above: Order Comment: Speci men Type: BLOOD SPECIMENOrdering Facility: [facility] Address: [address] [place] [address] Performed By: #### 5 7021-8 ####[facility] SOUTHSIDEMIGDALIAA [id number] [place] [address] [place] RBC (Bld) [#/Vol] 3.49 10*6/uL Low 3.90-5.20 [facility] Comment on above: Order Comment: Speci men Type: BLOOD SPECIMENOrdering Facility: [facility] Address: [address] [place] [address] Performed By: #### 5 7021-8 ####[facility] HIRAMINDIANA [facility]ITALB[facility] [id number] [place] [address] [place] WBC (Bld) [#/Vol] 7.40 10*3/uL Normal 3.70-11.00 [facility] Comment on above: Order Comment: Speci men Type: BLOOD SPECIMENOrdering Facility: [facility] Address: [address] [place] [address] Performed By: #### 5 7021-8 ####[facility] HIRAMINDIANA [facility] HOSPITALFRANCISCO [id number] [place] [address] [place] Examination level ultrasound on 08-09-2024 Indication First trimester anatomic survey Impression REMOTE READ The patient is referred for a first trimester anatomy scan including nuchal translucency measurement as clinically indicated. - Single, live, intrauterine . - [place] rump length measurement is consistent with the [...] view: normal 4-chamber view with color: normal 1-[id number]-ewfpbww view: normal Abdominal cord insertion: normal Stomach: [...] Read By: Comfort Washington M.D. MATERNAL MEDICINE [facility] Radiology Study observation (narrative) [facility] HBV surface Ag Ser Qlon 07-22 HBV surface Ag Ql (S) Negative Normal Negative [facility] Comment on above: Order Comment: Speci men Type: BLOOD SPECIMENOrdering Facility: [facility] Address: [address] [place] [address] Performed By: #### 5 195-3, 35923-5, 56473-3 ####[facility] LABCLIA [id number] [address] [place] HCV Ab Ser Qlon 08-09-2024 HCV Ab Ql (S) Negative Normal Negative [facility] Comment on above: Order Comment: Speci men Type: BLOOD SPECIMENOrdering Facility: [facility] Address: [address] [place] [address] Result Comment: The result suggests no evidence of infection with Hepatitis C virus. Should recent infection be suspected, repeat testing may be considered 4-6 weeks after this draw. Performed By: #### 1 6128-1 ####[facility] LABIA [id number] [place] [address] [place] HIV 1+2 Ab IA Qlon 5 HIV 1 and 2 Ab IA.rapid Nom (S/P/Bld) Normal [facility] Comment on above: Order Comment: Speci men Type: BLOOD SPECIMENOrdering Facility: [facility] Address: [address] [place] [address] Result Comment: Test not indicated. Performed By: #### 5 195-3, 39151-5, 92842-9 ####[facility] [id number] [address] [place] HIV 1+2 Ab+HIV1 p24 Ag IA Ql Non-Reactive Normal Nonreactive [facility] Comment on above: Order Comment: Speci men Type: BLOOD SPECIMENOrdering Facility: [facility] Address: [address] [place] [address] Performed By: #### 5 195-3, 65018-4, 21150-3 ####[facility] [id number] [address] [place] HIV immunoassay testing algorithm interpretation (S/P/Bld) [Interp] Normal [facility] Comment on above: Order Comment: Speci men Type: BLOOD SPECIMENOrdering Facility: [facility] Address: [address] [place] [address] Result Comment: No e vidence of HIV-1 or HIV-2 infection. Should recent infection be suspected, repeat testing may be considered 2-3 weeks after this draw. [place] Rev. Code 3701.243(E): This information has been [...] or diagnoses. Performed By: #### 5 195-3, 68341-8, 84927-9 ####[facility] [id number] [address] [place] HbA1c (Bld)on 08-09-2024 Average glucose Estimated from glycated hemoglobin (Bld) [Mass/Vol] 85 mg/dL Normal [facility] Comment on above: Order Comment: Speci men Type: BLOOD SPECIMENOrdering Facility: [facility] Address: [address] [place] [address] Result Comment: eAG: (Estimated average glucose) is a calculated value from HgbA1c and is inbound customer service representative of the average blood glucose level in the last 2-3 month period. Performed By: #### 5 5454-3 ####[facility] [id number] [address] STATES [facility] HbA1c (Bld) [Mass fraction] 4.6 % Normal 4.3-5.6 [facility] Comment on above: Order Comment: Speci men Type: BLOOD SPECIMENOrdering Facility: [facility] Address: [address] [place] [address] Result Comment: Amer ican Diabetes Association guidelines indicate that patients with HgbA1c in the range 5.7-6.4% are at increased risk for development of diabetes, and intervention by lifestyle modification may be beneficial. HgbA1c greater or equal to 6.5% is considered diagnostic of diabetes. Performed By: #### 5 5454-3 ####[facility] [id number] [place] [id number] [place] [id number] PLUSon 08-09-2024 Cell-free DNA./Cell-free DNA.total Dosage of chromosome-specific cfDNA (cfDNA) [Molar fraction] 20% Normal [facility] Comment on above: Order Comment: Speci men Type: BLOOD SPECIMENOrdering Facility: [facility] Address: [address] [place] [address] Performed By: #### M AT21 ####[facility] LABCLIA [id number] [place] [address] Chr 13+18+21+X+Y aneuploidy Dosage of chromosome-specific cfDNA Ql (cfDNA) Negative Normal [facility] Comment on above: Order Comment: Speci men Type: BLOOD SPECIMENOrdering Facility: [facility] Address: [address] [place] [address] Performed By: #### M AT21 ####[facility] LABCLIA [id number] [place] [address] Chr 21 trisomy Dosage of chromosome-specific cfDNA Ql (cfDNA) Negative Normal [facility] Comment on above: Order Comment: Speci men Type: BLOOD SPECIMENOrdering Facility: [facility] Address: [address] [place] [address] Performed By: #### M AT21 ####[facility] LABCLIA [id number] [place] [address] Chr X and Y aneuploidy risk Sequencing Ql (cfDNA) [Interp] Not detected Normal [facility] Comment on above: Order Comment: Speci men Type: BLOOD SPECIMENOrdering Facility: [facility] Address: [address] [place] [address] Result Comment: Not Detected Not Detected Performed By: #### M AT21 ####[facility] LABCLIA [id number] [place] [address] Citation Javid (Reference lab test) Comment Normal [facility] Comment on above: Order Comment: Speci men Type: BLOOD SPECIMENOrdering Facility: [facility] Address: [address] [place] [address] Result Comment: 1. P reyes LE, et al. Bailey Med. 2012;14(3):296-305. 2. Carlos GRANT et al. Prenat Diag. 2013;33(6):591-597. 3. Joel C et al. Clin Chem. 2015 Apr;61(4):608-616. 4. Irlanda LE, et al. Bailey Med. 2011;13(11):913-920. 5. ACOG/SMFM Practice Bulletin No. 226, Nov 2019. Performed By: #### M AT21 ####[facility] LABCLIA [id number] [place] [address] Gestational age Estimated from conception date Tavarez Normal [facility] Comment on above: Order Comment: Speci men Type: BLOOD SPECIMENOrdering Facility: [facility] Address: [address] [place] [address] Performed By: #### M AT21 ####[facility] LABCLIA [id number] [place] [address] GESTATIONALAGE AGE > OR = 9W Yes Normal [facility] Comment on above: Order Comment: Speci men Type: BLOOD SPECIMENOrdering Facility: [facility] Address: [address] [place] [address] Performed By: #### M AT21 ####[facility] LABCLIA [id number] [place] [id number] Laboratory comment Javid (Report) Comment Normal [facility] Comment on above: Order Comment: Speci men Type: BLOOD SPECIMENOrdering Facility: [facility] Address: [address] [place] [address] Result Comment: The MaterniT(R) 21 PLUS laboratory-developed test (LDT) analyzes circulating cell-free DNA from a maternal blood sample. This test is used for screening purposes and not diagnostic. Clinical correlation is recommended. Validation data on twin pregnancies is limited and the ability of this test to detect aneuploidy in higher multiple gestations has not yet been validated. Performed By: #### M AT21 ####[facility] LABCLIA [id number] [place] [address] product strategy director name Nom (Provider) Comment Normal [facility] Comment on above: Order Comment: Speci men Type: BLOOD SPECIMENOrdering Facility: [facility] Address: [address] [place] [address] Result Comment: This specimen showed an expected representation of chromosome 21, 18 and 13 material. Clinical correlation is suggested. Comment José Miguel Haskins MD, PhD, Director, Xiaoying Performed By: #### M AT21 ####[facility] LABCLIA [id number] [place] [address] LIMITATIONS OF THE TEST Comment Normal [facility] Comment on above: Order Comment: Speci men Type: BLOOD SPECIMENOrdering Facility: [facility] Address: [address] [place] [address] Result Comment: Kaitlynn irwin the results of [...] and Fragmin(R)). Performed By: #### M AT21 ####[facility] LABCLIA [id number] [place] [address] Monosomy X risk Dosage of chromosome-specific cfDNA Ql (Plasma cell-free+WBC DNA) [Interp] Not detected Normal [facility] Comment on above: Order Comment: Laurel garcia Type: BLOOD SPECIMENOrdering Facility: [facility] Address: [address] [place] [address] Performed By: #### M AT21 ####[facility] LABCLIA [id number] [place] [address] NEGATIVE PREDICTIVE VALUE Note Normal [facility] Comment on above: Order Comment: Laurel garcia Type: BLOOD SPECIMENOrdering Facility: [facility] Address: [address] [place] [address] Result Comment: The Negative Predictive Value (NPV) for trisomy 21, 18, and 13 is greater than 99%. The NPV for SCA and ESS cannot be calculated as SCA and ESS are only reported when an abnormality is detected. Performed By: #### M AT21 ####[facility] LABCLIA [id number] [place] [address] PERFORMANCE CHARACTERISTICS Note Normal [facility] Comment on above: Order Comment: Laurel garcia Type: BLOOD SPECIMENOrdering Facility: [facility] Address: [address] [place] [address] Result Comment: ! Sex ! Accuracy: 99.4% [...] ! ! ! * As reported in [facility] database nstd37 [https://www.ncbi.nlm.nih.gov/dbvar/studies/nstd37/ ] # Estimated [...] gestation only. Performed By: #### M AT21 ####[facility] LABCLIA [id number] [place] [address] POSITIVE PREDICTIVE VALUE N/A Normal [facility] Comment on above: Order Comment: Speci men Type: BLOOD SPECIMENOrdering Facility: [facility] Address: [address] [place] [address] Performed By: #### M AT21 ####[facility] LABCLIA [id number] [place] [id number] Reference Lab Test Method Comment Normal [facility] Comment on above: Order Comment: Speci men Type: BLOOD SPECIMENOrdering Facility: [facility] Address: [address] [place] [address] Result Comment: See Notes Circulating cell-free DNA [...] and 22. Performed By: #### M AT21 ####[facility] LABCLIA [id number] [place] [address] Service comment (Unsp spec) [Interp] Comment Normal [facility] Comment on above: Order Comment: Speci men Type: BLOOD SPECIMENOrdering Facility: [facility] Address: [address] [place] [address] Result Comment: See Notes [facility] is a subsidiary of [employer], using the brand [employer]. This test was developed and its performance characteristics determined by [employer]. It has not been cleared or approved by the Food and Drug Administration. This laboratory is certified under the Clinical Laboratory Improvement Amendments (CLIA) as qualified to perform high complexity clinical laboratory testing and accredited by the [employer] (CAP). If there is future clinical need for adding MaterniT GENOME testing, this specimen will be available until term. [facility] samples will not be retained beyond 60 days. [facility] patients will have to send a new sample for re-sequencing ([facility] Test Code: 299222). Performed By: #### M AT21 ####[facility] LABCLIA [id number] [place] [address] Sex Dosage of chromosome-specific cfDNA Nom (cfDNA) Comment Normal [facility] Comment on above: Order Comment: Speci men Type: BLOOD SPECIMENOrdering Facility: [facility] Address: [address] [place] [address] Result Comment: Cons istent with Female Performed By: #### M AT21 ####[facility] LABCLIA [id number] [place] [address] Test performance information Javid (Unsp spec) Comment Normal [facility] Comment on above: Order Comment: Speci men Type: BLOOD SPECIMENOrdering Facility: [facility] Address: [address] [place] [address] Result Comment: The performance characteristics of the MaterniT(R) 21 PLUS laboratory-developed test (LDT) have been determined in a clinical validation study with women at increased risk for chromosomal aneuploidy.[1-4] Performed By: #### M AT21 ####[facility] LABCLIA [id number] [place] [address] Trisomy 13 risk Dosage of chromosome-specific cfDNA Ql (cfDNA) [Interp] Negative Normal [facility] Comment on above: Order Comment: Speci men Type: BLOOD SPECIMENOrdering Facility: [facility] Address: [address] [place] [address] Performed By: #### M AT21 ####[facility] LABCLIA [id number] [place] [address] Trisomy 18 risk Dosage of chromosome-specific cfDNA Ql (Plasma cell-free+WBC DNA) [Interp] Negative Normal [facility] Comment on above: Order Comment: Speci men Type: BLOOD SPECIMENOrdering Facility: [facility] Address: [address] [place] [address] Performed By: #### M AT21 ####[facility] LABCLIA [id number] [place] [address] RUBELLA IGG ANTIBODYon 08-09 RUBELLA IGG AB, QUAL Positive Normal Positive [facility] Comment on above: Order Comment: Speci men Type: BLOOD SPECIMENOrdering Facility: [facility] Address: [address] [place] [address] Result Comment: The result suggests recent or past exposure to Rubella virus or history of Rubella vaccination. Positive result may also be seen due to presence of passively-transferred antibodies. Please correlate with patient's history. Performed By: #### R UBIGG ####[facility] LABCLIA [id number] [place] [address] [place] Reagin and Treponema pallidu m IgG and IgM [Interp]on 08-09-2024 T. pallidum IgG+IgM IA Ql (S) Non-Reactive Normal Nonreactive [facility] Comment on above: Order Comment: Speci men Type: BLOOD SPECIMENOrdering Facility: [facility] Address: [address] [place] [address] Performed By: #### 5 195-3, 63603-1, 01193-5 ####[facility] LABCLIA [id number] [place] [address] [place] Reagin+T pallidum IgG+IgM Se rPl-Impon 08-09-2024 Reagin and Treponema pallidum IgG and IgM [Interp] Cannot exclude recent Treponemal infection if specimen collected within 7-10 days after appearance of suspect lesions or 2-3 weeks after an exposure. Clinical correlation is required. Normal [facility] Comment on above: Order Comment: Speci [facility] Type: BLOOD SPECIMENOrdering Facility: [facility] Address: [address] [place] [address] Performed By: #### 5 195-3, 30264-2, 87688-0 ####[facility] LABCLIA [id number] [place] [address] [place] TYPE + SCREEN PRENATALon ABO O Normal [facility] Comment on above: Order Comment: Speci men Type: BLOOD SPECIMENOrdering Facility: [facility] Address: [address] [place] [address] Performed By: #### T SPN ####[facility] BLOOD BANKIA [id number] [place] [address] [place] Rh Nom (Bld) Positive Normal [facility] Comment on above: Order Comment: Speci men Type: BLOOD SPECIMENOrdering Facility: [facility] Address: [address] [place] [address] Result Comment: Jessica ected result: Previously reported as Invalid on 08/09/2024 at 8:07 PM EDT. Performed By: #### T SPN ####[facility] BLOOD BANKIA [id number] [place] [address] [place] TYPE AND SCREEN EXPIRATION 08/12/2024 23:59 Normal [facility] Comment on above: Order Comment: Speci men Type: BLOOD SPECIMENOrdering Facility: [facility] Address: [address] [place] [address] Performed By: #### T SPN ####[facility] BLOOD BANKCLIA [id number] [place] [address] [place] Bacteria Ur Culton 5 Bacteria identified Cx Nom (U) ORGANISM ID: 1 10,000 -<50,000 CFU/ml Normal urogenital debra Normal [facility] Comment on above: Performed By: #### 6 30-4 ####[facility] LABCLIA [id number] [place] [address] [place] C. trachomatis+N. gonorrhoea e DNA MATTHEW+probe Ql (Unsp spec)on 07-05-2024 C. trachomatis rRNA MATTHEW+probe Ql (Unsp spec) Not detected Normal Not detected [facility] Comment on above: Order Comment: Speci men Type: SWABOrdering Facility: [facility] Address: [address] [place] [address] Performed By: #### T RVAMP, 11647-1 ####[facility] LABCLIA [id number] [address] N. gonorrhoeae rRNA MATTHEW+probe Ql (Unsp spec) Not detected Normal Not detected [facility] Comment on above: Order Comment: Speci men Type: SWABOrdering Facility: [facility] Address: [address] [place] [address] Performed By: #### T RVAMP, 11465-9 ####[facility] LABCLIA [id number] [address] [facility] Kwame 07-05-2024 YUDI Telephone (OBGYWM) -- ALBERTO WHITAKER ([id number]) 1990 F Date Time Provider Department 07/05/24 [...] normal in multigravida (HCC) [Z34.80] Order(s):OBSTETRIC ULTRASOUND [facility] [[id number]] Order #: [id number]: 1 FUTURE Prescriptions as of 07/05/2024 - aspirin, enteric coated (ECOTRIN LOW STRENGTH) 81 mg EC tablet Take 1 tablet by mouth once daily. - vitamin D3-folic acid 125 mcg (5,000 unit)-1 mg tab Take by mouth once daily. - VIT 79-KBGN-NSMWZ-DHA ORAL Take 1 tablet by mouth once [...] Status:Closed by BIANCA LARKIN on 07/05/24 Normal [facility] POC FRONT DESK REPRESENTATIVE ULTRASOUNDon 07-06-19 Indication Viability. Confirmation of intrauterine [...] Read By: Noemi Aiken CNP MATERNAL MEDICINE [facility] Radiology Study observation (narrative) [facility] TRICHOMONAS VAGINALIS NAATon 07-05-2024 T. vaginalis DNA MATTHEW+probe Ql (Unsp spec) Not detected Normal Not detected [facility] Comment on above: Order Comment: Speci men Type: SWABOrdering Facility: [facility] Address: [address] [place] [address] Performed By: #### T RVAMP, 48334-3 ####[facility] LABCLIA [id number] [place] [address] [place] 25(OH)D3 [facility]-ncon 2024 25-hydroxyvitamin D3 [Mass/Vol] 34.0 ng/mL Normal 31.0-80.0 [facility] Comment on above: Order Comment: Speci men Type: BLOOD SPECIMENOrdering Facility: [facility] Address: [address] [place] [address] Result Comment: Clas sification of 25 [place] Vitamin D status: Deficiency/Insufficiency: < or = 30 ng/ml. Sufficiency/Optimal Levels: 31-80 ng/mL Toxicity: > 100 ng/mL. Test performed by chemiluminescent immunoassay. Performed By: #### 1 989-3 ####[facility] LABCLIA [id number] [address] [address] [place] B-HCG SerP-[facility] HCG.beta subunit Qn m[IU]/mL Normal <5.0 [facility] Comment on above: Order Comment: Speci men Type: BLOOD SPECIMENOrdering Facility: [facility] Address: [address] [place] [address] Result Comment: Negilan tianastasia Performed By: #### 2 1198-7 ####[facility] LABCLIA [id number] [place] SHERIFF [id number] [place] [address] CNOVon 05-24-2024 CNOV Office Visit (OBGYWM ) -- ALBERTO WHITAKER ([id number]) 1990 F Date Time Provider Department 05/24/24 2:45 PM RAMÓN SNYDER OBGYWM During your visit today, we recorded the following information about you: Blood pressure Weight Height Last Period 114 78.5 kg 1.727 m 05/08/24 Ramón Snyder APRN.RETAIL ADMINISTRATIVE ASSISTANT 05/24/2024 3:38 PM Signed Kiln Loader offered: Patient declines. Alberto is a 34 year old who presents for an annual gynecologic exam without complaints. Had an episode of bleeding for 26 consecutive days in March - flow ranging from light to moderate. Last 2 cycles were normal. Recently graduated from [employer]. Working at [employer]. Had loss around 17 weeks gestation - [...] discussed with the Patient or Patient's Authorized Pneumatic Tester Mechanic. As applicable, any other physician, advance practice provider, medical student, or other health professional student that will be observing or involved in the sensitive examination for educational or training purposes was discussed with the Patient or Authorized Pneumatic Tester Mechanic. The Patient or Authorized Pneumatic Tester Mechanic has agreed to proceed with the sensitive [...] external genitalia normal, normal Bartholin's glands, urethra, Robinhood's glands, no vulvar lesions, no cervical lesions, [...] - Wants to become - PEL[facility]IC [facility] Family history of breast cancer - [...] Rogers APRN (more content not included)... Normal [facility] HIGH RISK HUMAN PAPILLOMA JIMENA (HPV), PCR FOR DETECTION AND GENOTYPINGon 05-24-2024 HPV 16 Ag Ql (Unsp spec) Not detected Normal Not detected [facility] Comment on above: Order Comment: Speci men Type: FLUID SPECIMENOrdering Facility: [facility] Address: [address] [place] [address] Performed By: #### H PVHRT ####[facility] LABCLIA [id number] [place] [address] [place] HPV 18 Ag Ql (Unsp spec) Not detected Normal Not detected [facility] Comment on above: Order Comment: Speci men Type: FLUID SPECIMENOrdering Facility: [facility] Address: [address] [place] [address] Performed By: #### H PVHRT ####[facility] LABCLIA [id number] [place] [address] [place] HPV 31+33+35+39+45+51+5 2+56+58+59+66+68 DNA MATTHEW+probe Ql (Cvx) Not detected Normal Not detected [facility] Comment on above: Order Comment: Speci men Type: FLUID SPECIMENOrdering Facility: [facility] Address: [address] [place] [address] Result Comment: High Risk HPV Other Type includes HPV types 31, 33, 35, 39, 45, 51, 52, 56, 58, 59, 66 and 68. Performed By: #### H PVHRT ####[facility] LABIA [id number] [address] OF [place] HbA1c (Bld)on 05-24-2024 Average glucose Estimated from glycated hemoglobin (Bld) [Mass/Vol] 97 mg/dL Normal [facility] Comment on above: Order Comment: Speci men Type: BLOOD SPECIMENOrdering Facility: [facility] Address: [address] [place] [address] Result Comment: eAG: (Estimated average glucose) is a calculated value from HgbA1c and is inbound customer service representative of the average blood glucose level in the last 2-3 month period. Performed By: #### 5 5454-3 ####[facility] LABIA [id number] [address] STATES OF [facility] HbA1c (Bld) [Mass fraction] 5.0 % Normal 4.3-5.6 [facility] Comment on above: Order Comment: Speci men Type: BLOOD SPECIMENOrdering Facility: [facility] Address: [address] [place] [address] Result Comment: [place] Diabetes Association guidelines indicate that patients with HgbA1c in the range 5.7-6.4% are at increased risk for development of diabetes, and intervention by lifestyle modification may be beneficial. HgbA1c greater or equal to 6.5% is considered diagnostic of diabetes. Performed By: #### 5 5454-3 ####[facility] LABCLIA [id number] [address] [place] [address] [place] PAP TESTon 05-24-2024 ADEQUACY Normal [facility] Comment on above: Order Comment: Speci men Type: FLUID SPECIMENOrdering Facility: [facility] Address: [address] [place] [address] Result Comment: Sati sfactory for interpretation. Obscuring inflammation Transformation zone present Performed By: #### L [id number] ####[facility] LABCLIA [id number] [address] [place] [address] [place] CASE REPORT Normal [facility] Comment on above: Order Comment: Speci men Type: FLUID SPECIMENOrdering Facility: [facility] Address: [address] [place] [address] Result Comment: Gyne cologic Cytology Report Case: [id number] Authorizing Provider: Ramón Snyder APRN.RETAIL ADMINISTRATIVE ASSISTANT Collected: 05/24/2024 03:26 PM Ordering Location: OB/Gynecology Received: 05/24/2024 04:37 PM First Screen: Aramouni, Neha, CT, ASCP Specimen: Pap Test, ThinPrep, Cervix Performed By: #### L [id number] ####[facility] LABCLIA [id number] [address] [place] [address] [place] CLINICAL HISTORY, CYTOLOGY, LEAK DETECTOR Routine Exam Normal [facility] Comment on above: Order Comment: Speci men Type: FLUID SPECIMENOrdering Facility: [facility] Address: [address] [place] [address] Performed By: #### L [id number] ####[facility] LABCLIA [id number] [address] [place] [address] [place] FINAL PERFORMING LAB Normal [facility] Comment on above: Order Comment: Speci men Type: FLUID SPECIMENOrdering Facility: [facility] Address: [address] [place] [address] Result Comment: Tech nical component, computer systems design analyst screening performed at [facility], [facility] [place] [address] CLIA# [id number] Diagnostic interpretation performed at [facility], [address] [place], [place] [address] CLIA# [id number] Job Site Superintendent: Vasquez Dejesus M.D. Performed By: #### L [id number] ####[facility] LABCLIA [id number] [place] [id number] [place] INTERPRETATION, CYTOLOGY, LEAK DETECTOR Normal [facility] Comment on above: Order Comment: Speci men Type: FLUID SPECIMENOrdering Facility: [facility] Address: [address] [place] [address] Result Comment: Nega tive for intraepithelial lesion or malignancy. at 0748 EDT Performed By: #### L [id number] ####[facility] LABCLIA [id number] [place] [address] [place] LMP 05/08/2024 Normal [facility] Comment on above: Order Comment: Speci men Type: FLUID SPECIMENOrdering Facility: [facility] Address: [address] [place] [address] Performed By: #### L [id number] ####[facility] LABCLIA [id number] [place] [id number] [place] PAP DISCLAIMER COMMENT The Pap Smear is a screening test for cervical cancer. False negative results occur with all screening tests, emphasizing the need for rescreening at recommended intervals, and clinical correlation. Normal [facility] Comment on above: Order Comment: Speci men Type: FLUID SPECIMENOrdering Facility: [facility] Address: [address] [place] [address] Performed By: #### L [id number] ####[facility] LABCLIA [id number] [place] [id number] [place] TSH SerPl-aCncon 05-24-2024 TSH Qn 1.030 m[IU]/L Normal 0.270-4.200 [facility] Comment on above: Order Comment: Speci men Type: BLOOD SPECIMENOrdering Facility: [facility] Address: [address] [place] [address] Result Comment: If t he patient is , TSH reference range varies by gestational period: First Trimester (weeks 9-12): 0.180-2.990 mIU/L Second Trimester: 0.110-3.980 mIU/L Third Trimester: 0.480-4.710 mIU/L Jefferson Vanessa et al. A Practical Approach for the Verifications and Determination of Site- and Trimester-Specific Reference Intervals for Thyroid Function tests in . Thyroid, 2019:29:3:412-420. Rupesh Irwin et al. 2017 Guidelines of the [place] Thyroid Association for the Diagnosis and Management of Thyroid Disease during and the . Thyroid, 2017:27:3:315-389. Performed By: #### 3 016-3 ####[facility] LABCLIA [id number] [place] [address] [place] POCT SARS-COV-2/FLU/RSV PCR SYMPTOMATIC manually resultedon 02-08-2024 FLUAV RNA MATTHEW+probe Ql (Resp) Not detected Not Detected [facility] Work Phone: FLUBV RNA MATTHEW+probe Ql (Resp) Not detected Not Detected [facility] Work Phone: Interpretation and review of laboratory results Normal [facility] Work Phone: RSV RNA MATTHEW+probe Ql (Resp) Not detected Not Detected [facility] Work Phone: SARS-CoV-2 (COVID-19) RNA MATTHEW+probe Ql (Resp) Not detected Not Detected [facility] Work Phone: [facility] Work Phone: XR CHEST 2 VIEWSon 4 XR CHEST 2 VIEWS Interpreted By: Donny Bateman, STUDY: XR CHEST 2 VIEWS; 02/08/2024 11:49 am INDICATION: Signs/Symptoms:cough. ,R05.1 Acute cough COMPARISON: None. ACCESSION NUMBER(S): [id number] ORDERING CLINICIAN: JEANETTE ALBARRAN FINDINGS: CARDIOMEDIASTINAL SILHOUETTE: Cardiomediastinal silhouette is normal in size and configuration. LUNGS: Lungs are clear. ABDOMEN: No remarkable upper abdominal findings. BONES: No acute osseous changes. IMPRESSION: 1. No evidence of acute cardiopulmonary process. MACRO: None Signed by: Donny Au 02/08/2024 12:53 PM Dictation workstation: [id number] [facility] XR Chest 2 Viewson 4 1. No evidence of ac med cardiopulmonary process. MACRO: None Signed by: Donny Au 02/08/2024 12:53 PM Dictation workstation: [id number] MMODAL Interpreted By: Donny Bateman, STUDY: XR CHEST 2 VIEWS; 02/08/2024 11:49 am INDICATION: Signs/Symptoms:cough. ,R05.1 Acute cough COMPARISON: None. ACCESSION NUMBER(S): [id number] ORDERING CLINICIAN: JEANETTE ALBARRAN FINDINGS: CARDIOMEDIASTINAL SILHOUETTE: Cardiomediastinal silhouette is normal in size and configuration. LUNGS: Lungs are clear. ABDOMEN: No remarkable upper abdominal findings. BONES: No acute osseous changes. [facility] MMODAL Donny Au MD - 02/08/2024 Interpreted By: Donny Au, STUDY: XR CHEST 2 VIEWS; 02/08/2024 11:49 am INDICATION: Signs/Symptoms:cough. ,R05.1 Acute cough COMPARISON: None. ACCESSION NUMBER(S): [id number] ORDERING CLINICIAN: JEANETTE ALBARRAN FINDINGS: CARDIOMEDIASTINAL SILHOUETTE: Cardiomediastinal silhouette is normal in size and configuration. LUNGS: Lungs are clear. ABDOMEN: No remarkable upper abdominal findings. BONES: No acute osseous changes. IMPRESSION: 1. No evidence of acute cardiopulmonary process. MACRO: None Signed by: Donny Au 02/08/2024 12:53 PM Dictation workstation: [id number] [facility] Work Phone: Radiology Study observation (narrative) [facility] Work Phone: XR Chest 2 ViewsOrdered By: Donny Au on 02-08-2024 [facility] Work Phone: Pathology Specimen OBon - PATH. Spec OB SEE PATHOLOGY REPORT Normal [facility] Comment on above: Order Comment: REDRA W. PREVIOUS SPECIMEN REJECTED DUE TO QNS. 09/19/23 1354 Haleigh Valdes. Result Comment: Spec imen submitted to Anatomical Pathology Department for testing. Performed By: #### L 300.3900 #### [facility] [address] [place], [address] CBC W/Diff, Automatedon - Absolute Lymph 1.76 X10 3/uL Normal 0.83-4.51 [facility] Comment on above: Performed By: #### L 100.0100 #### [facility] [address] [place], [address] Absolute Neut 7.1 X10 3/uL Normal 2.0-7.7 [facility] Comment on above: Performed By: #### L 100.0100 #### [facility] [address] [place], [address] Basophils/100 WBC (Bld) 0.2 % Normal 0-1 [facility] Comment on above: Performed By: #### L 100.0100 #### [facility] [address] [place], [address] Eosinophils/100 WBC (Bld) 0.5 % Normal 0-5 [facility] Comment on above: Performed By: #### L 100.0100 #### [facility] [address] [place], [address] Erythrocyte distribution width (RBC) [Ratio] 14.1 % Normal 11.6-14.6 [facility] Comment on above: Performed By: #### L 100.0100 #### [facility] [address] [place], [address] Hematocrit (Bld) [Volume fraction] 31.2 % Low 37-47 [facility] Comment on above: Performed By: #### L 100.0100 #### [facility] [address] [place], [address] Hemoglobin (Bld) [Mass/Vol] 10.9 g/dL Low 12.0-15.0 [facility] Comment on above: Performed By: #### L 100.0100 #### [facility] [address] [place], [address] IG% 0.700 Normal 0.0-0.9 [facility] Comment on above: Result Comment: IG% - Immature Granulocytes (promyelocytes, myelocytes and metamyelocytes) > 1% indicates that a LEFT SHIFT is Present. Performed By: #### L 100.0100 #### [facility] [address] [place], [address] Lymphocytes/100 WBC (Bld) 18.5 % Low 19-41 [facility] Comment on above: Performed By: #### L 100.0100 #### [facility] [address] [place], [address] MCH (RBC) [Entitic mass] 31.3 pg Normal 27.0-32.0 [facility] Comment on above: Performed By: #### L 100.0100 #### [facility] [address] [place], [address] MCHC (RBC) [Mass/Vol] 34.9 g/dL Normal 32-36 [facility] Comment on above: Performed By: #### L 100.0100 #### [facility] [address] [place], [address] MCV (RBC) [Entitic vol] 89.7 fL Normal 81-99 [facility] Comment on above: Performed By: #### L 100.0100 #### [facility] [address] [place], [address] Monocytes/100 WBC (Bld) 5.6 % Normal 0-10 [facility] Comment on above: Performed By: #### L 100.0100 #### [facility] [address] [place], [address] Neutrophils/100 WBC (Bld) 74.5 % High 47-70 [facility] Comment on above: Performed By: #### L 100.0100 #### [facility] [address] [place], [address] Nucleated RBC (Bld) [#/Vol] 0 10*3/uL Normal 0-5 [facility] Comment on above: Performed By: #### L 100.0100 #### [facility] [address] [place], [address] Platelet mean volume (Bld) [Entitic vol] 10.3 fL Normal 6.2-12.0 [facility] Comment on above: Performed By: #### L 100.0100 #### [facility] [address] [place], [address] Platelets (Bld) [#/Vol] 194 10*3/uL Normal 150-450 [facility] Comment on above: Performed By: #### L 100.0100 #### [facility] [address] [place], [address] RBC (Bld) [#/Vol] 3.48 10*6/uL Low 4.2-5.4 [facility] Comment on above: Performed By: #### L 100.0100 #### [facility] [address] [place], [address] RDW SD 46.2 fl High 35.1-43.9 [facility] Comment on above: Performed By: #### L 100.0100 #### [facility] [address] [place], [address] WBC (Bld) [#/Vol] 9.5 10*3/uL Normal 4.4-11.0 [facility] Comment on above: Performed By: #### L 100.0100 #### [facility] [address] [place], [address] Absolute Lymph 1.38 X10 3/uL Normal 0.83-4.51 [facility] Comment on above: Performed By: #### L 300.3900 #### [facility] [address] [place], [address] Absolute Neut 11.0 X10 3/uL High 2.0-7.7 [facility] Comment on above: Performed By: #### L 300.3900 #### [facility] [place], [address] Basophils/100 WBC (Bld) 0.2 % Normal 0-1 [facility] Comment on above: Performed By: #### L 300.3900 #### [facility] [address] [place], [address] Eosinophils/100 WBC (Bld) 0.1 % Normal 0-5 [facility] Comment on above: Performed By: #### L 300.3900 #### [facility] [address] [place], [address] Erythrocyte distribution width (RBC) [Ratio] 13.9 % Normal 11.6-14.6 [facility] Comment on above: Performed By: #### L 300.3900 #### [facility] [address] [place], [address] Hematocrit (Bld) [Volume fraction] 31.4 % Low 37-47 [facility] Comment on above: Performed By: #### L 300.3900 #### [facility] [address] [place], [address] Hemoglobin (Bld) [Mass/Vol] 10.7 g/dL Low 12.0-15.0 [facility] Comment on above: Performed By: #### L 300.3900 #### [facility] [address] [place], [address] IG% 0.500 Normal 0.0-0.9 [facility] Comment on above: Result Comment: IG% - Immature Granulocytes (promyelocytes, myelocytes and metamyelocytes) > 1% indicates that a LEFT SHIFT is Present. Performed By: #### L 300.3900 #### [facility] [address] [place], [address] Lymphocytes/100 WBC (Bld) 10.6 % Low 19-41 [facility] Comment on above: Performed By: #### L 300.3900 #### [facility] [address] [place], [address] MCH (RBC) [Entitic mass] 31.7 pg Normal 27.0-32.0 [facility] Comment on above: Performed By: #### L 300.3900 #### [facility] [address] [place], [address] MCHC (RBC) [Mass/Vol] 34.1 g/dL Normal 32-36 [facility] Comment on above: Performed By: #### L 300.3900 #### [facility] [address] [place], [address] MCV (RBC) [Entitic vol] 92.9 fL Normal 81-99 [facility] Comment on above: Performed By: #### L 300.3900 #### [facility] [address] [place], [address] Monocytes/100 WBC (Bld) 4.6 % Normal 0-10 [facility] Comment on above: Performed By: #### L 300.3900 #### [facility] [address] [place], [address] Neutrophils/100 WBC (Bld) 84.0 % High 47-70 [facility] Comment on above: Performed By: #### L 300.3900 #### [facility] [address] [place], [address] Nucleated RBC (Bld) [#/Vol] 0 10*3/uL Normal 0-5 [facility] Comment on above: Performed By: #### L 300.3900 #### [facility] [address] [place], [address] Platelet mean volume (Bld) [Entitic vol] 10.7 fL Normal 6.2-12.0 [facility] Comment on above: Performed By: #### L 300.3900 #### [facility] [address] [place], [address] Platelets (Bld) [#/Vol] 206 10*3/uL Normal 150-450 [facility] Comment on above: Performed By: #### L 300.3900 #### [facility] [address] [place], [address] RBC (Bld) [#/Vol] 3.38 10*6/uL Low 4.2-5.4 [facility] Comment on above: Performed By: #### L 300.3900 #### [facility] [address] [place], [address] RDW SD 47.3 fl High 35.1-43.9 [facility] Comment on above: Performed By: #### L 300.3900 #### [facility] [address] [place], [address] WBC (Bld) [#/Vol] 13.0 10*3/uL High 4.4-11.0 [facility] Comment on above: Performed By: #### L 300.3900 #### [facility] [address] [place], [address] Absolute Neut Normal 2.0-7.7 [facility] Comment on above: Result Comment: Canc elled via OM: Order edited - Discontinuing original order Performed By: #### L 300.3900 #### [facility] [address] [place], [address] HCT Normal 37-47 [facility] Comment on above: Result Comment: Canc elled via OM: Order edited - Discontinuing original order Performed By: #### L 300.3900 #### [facility] [address] [place], [address] HGB Normal 12.0-15.0 [facility] Comment on above: Result Comment: Canc elled via OM: Order edited - Discontinuing original order Performed By: #### L 300.3900 #### [facility] [address] [place], [address] MCH Normal 27.0-32.0 [facility] Comment on above: Result Comment: Canc elled via OM: Order edited - Discontinuing original order Performed By: #### L 300.3900 #### [facility] [address] [place], [address] MCHC Normal 32-36 [facility] Comment on above: Result Comment: Canc elled via OM: Order edited - Discontinuing original order Performed By: #### L 300.3900 #### [facility] [address] [place], [address] MCV Normal 81-99 [facility] Comment on above: Result Comment: Canc elled via OM: Order edited - Discontinuing original order Performed By: #### L 300.3900 #### [facility] [address] [place], [address] NEUT% Normal 47-70 [facility] Comment on above: Result Comment: Canc elled via OM: Order edited - Discontinuing original order Performed By: #### L 300.3900 #### [facility] [address] [place], [address] PLT Normal 150-450 [facility] Comment on above: Result Comment: Canc elled via OM: Order edited - Discontinuing original order Performed By: #### L 300.3900 #### [facility] [address] [place], [address] RBC Normal 4.2-5.4 [facility] Comment on above: Result Comment: Canc elled via OM: Order edited - Discontinuing original order Performed By: #### L 300.3900 #### [facility] [address] [place], [address] RDW CV Normal 11.6-14.6 [facility] Comment on above: Result Comment: Canc elled via OM: Order edited - Discontinuing original order Performed By: #### L 300.3900 #### [facility] [address] [place], [address] RDW SD Normal 35.1-43.9 [facility] Comment on above: Result Comment: Canc elled via OM: Order edited - Discontinuing original order Performed By: #### L 300.3900 #### [facility] [address] [place], [address] WBC Normal 4.4-11.0 [facility] Comment on above: Result Comment: Canc elled via OM: Order edited - Discontinuing original order Performed By: #### L 300.3900 #### [facility] [address] [place], [address] Absolute Neut Normal 2.0-7.7 [facility] Comment on above: Result Comment: DUPL ICATE ORDER Performed By: #### L 300.3900 #### [facility] [address] [place], [address] HCT Normal 37-47 [facility] Comment on above: Result Comment: DUPL ICATE ORDER Performed By: #### L 300.3900 #### [facility] [address] [place], [address] HGB Normal 12.0-15.0 [facility] Comment on above: Result Comment: DUPL ICATE ORDER Performed By: #### L 300.3900 #### [facility] [address] [place], [address] MCH Normal 27.0-32.0 [facility] Comment on above: Result Comment: DUPL ICATE ORDER Performed By: #### L 300.3900 #### [facility] [address] [place], [address] MCHC Normal 32-36 [facility] Comment on above: Result Comment: DUPL ICATE ORDER Performed By: #### L 300.3900 #### [facility] [address] [place], [address] MCV Normal 81-99 [facility] Comment on above: Result Comment: DUPL ICATE ORDER Performed By: #### L 300.3900 #### [facility] [address] [place], [address] NEUT% Normal 47-70 [facility] Comment on above: Result Comment: DUPL ICATE ORDER Performed By: #### L 300.3900 #### [facility] [address] [place], [address] PLT Normal 150-450 [facility] Comment on above: Result Comment: DUPL ICATE ORDER Performed By: #### L 300.3900 #### [facility] [address] [place], [address] RBC Normal 4.2-5.4 [facility] Comment on above: Result Comment: DUPL ICATE ORDER Performed By: #### L 300.3900 #### [facility] [address] [place], [address] RDW CV Normal 11.6-14.6 [facility] Comment on above: Result Comment: DUPL ICATE ORDER Performed By: #### L 300.3900 #### [facility] [address] [place], [address] RDW SD Normal 35.1-43.9 [facility] Comment on above: Result Comment: DUPL ICATE ORDER Performed By: #### L 300.3900 #### [facility] [address] [place], [address] WBC Normal 4.4-11.0 [facility] Comment on above: Result Comment: DUPL ICATE ORDER Performed By: #### L 300.3900 #### [facility] [address] [place], [address] Absolute Lymph 2.05 X10 3/uL Normal 0.83-4.51 [facility] Comment on above: Performed By: #### L 300.3900 #### [facility] [address] [place], [address] Absolute Neut 4.6 X10 3/uL Normal 2.0-7.7 [facility] Comment on above: Performed By: #### L 300.3900 #### [facility] [address] [place], [address] Basophils/100 WBC (Bld) 0.3 % Normal 0-1 [facility] Comment on above: Performed By: #### L 300.3900 #### [facility] [address] [place], [address] Eosinophils/100 WBC (Bld) 1.0 % Normal 0-5 [facility] Comment on above: Performed By: #### L 300.3900 #### [facility] [address] [place], [address] Erythrocyte distribution width (RBC) [Ratio] 12.8 % Normal 11.6-14.6 [facility] Comment on above: Performed By: #### L 300.3900 #### [facility] [address] [place], [address] Hematocrit (Bld) [Volume fraction] 32.5 % Low 37-47 [facility] Comment on above: Performed By: #### L 300.3900 #### [facility] [address] [place], [address] Hemoglobin (Bld) [Mass/Vol] 11.0 g/dL Low 12.0-15.0 [facility] Comment on above: Performed By: #### L 300.3900 #### [facility] [address] [place], [address] IG% 0.600 Normal 0.0-0.9 [facility] Comment on above: Result Comment: IG% - Immature Granulocytes (promyelocytes, myelocytes and metamyelocytes) > 1% indicates that a LEFT SHIFT is Present. Performed By: #### L 300.3900 #### [facility] [address] [place], [address] Lymphocytes/100 WBC (Bld) 28.6 % Normal 19-41 [facility] Comment on above: Performed By: #### L 300.3900 #### [facility] [address] [place], [address] MCH (RBC) [Entitic mass] 32.2 pg High 27.0-32.0 [facility] Comment on above: Performed By: #### L 300.3900 #### [facility] [address] [place], [address] MCHC (RBC) [Mass/Vol] 33.8 g/dL Normal 32-36 [facility] Comment on above: Performed By: #### L 300.3900 #### [facility] [address] [place], [address] MCV (RBC) [Entitic vol] 95.0 fL Normal 81-99 [facility] Comment on above: Performed By: #### L 300.3900 #### [facility] [address] [place], [address] Monocytes/100 WBC (Bld) 5.0 % Normal 0-10 [facility] [facility] Comment on above: Performed By: #### L 300.3900 #### [facility] [place], [address] Neutrophils/100 WBC (Bld) 64.5 % Normal 47-70 [facility] Comment on above: Performed By: #### L 300.3900 #### [facility] [address] [place], [address] Nucleated RBC (Bld) [#/Vol] 0 10*3/uL Normal 0-5 [facility] Comment on above: Performed By: #### L 300.3900 #### [facility] [address] [place], [address] Platelet mean volume (Bld) [Entitic vol] 10.4 fL Normal 6.2-12.0 [facility] Comment on above: Performed By: #### L 300.3900 #### [facility] [address] [place], [address] Platelets (Bld) [#/Vol] 198 10*3/uL Normal 150-450 [facility] Comment on above: Performed By: #### L 300.3900 #### [facility] [address] [place], [address] RBC (Bld) [#/Vol] 3.42 10*6/uL Low 4.2-5.4 [facility] Comment on above: Performed By: #### L 300.3900 #### [facility] [address] [place], [address] RDW SD 44.5 fl High 35.1-43.9 [facility] Comment on above: Performed By: #### L 300.3900 #### [facility] [address] [place], [address] WBC (Bld) [#/Vol] 7.2 10*3/uL Normal 4.4-11.0 [facility] Comment on above: Performed By: #### L 300.3900 #### [facility] [address] [place], [address] CBC-Complete Blood Cnt No Di ffon 09-19-2023 Erythrocyte distribution width (RBC) [Ratio] 13.5 % Normal 11.6-14.6 [facility] Comment on above: Performed By: #### L 300.4310, L300.3900, L100.0500, L300.4700 #### [facility] [address] [place], [address] Hematocrit (Bld) [Volume fraction] 33.1 % Low 37-47 [facility] Comment on above: Performed By: #### L 300.4310, L300.3900, L100.0500, L300.4700 #### [facility] [address] [place], [address] Hemoglobin (Bld) [Mass/Vol] 11.2 g/dL Low 12.0-15.0 [facility] Comment on above: Performed By: #### L 300.4310, L300.3900, L100.0500, L300.4700 #### [facility] [address] [place], [address] MCH (RBC) [Entitic mass] 31.7 pg Normal 27.0-32.0 [facility] Comment on above: Performed By: #### L 300.4310, L300.3900, L100.0500, L300.4700 #### [facility] [address] [place], [address] MCHC (RBC) [Mass/Vol] 33.8 g/dL Normal 32-36 [facility] Comment on above: Performed By: #### L 300.4310, L300.3900, L100.0500, L300.4700 #### [facility] [address] [place], [address] MCV (RBC) [Entitic vol] 93.8 fL Normal 81-99 [facility] Comment on above: Performed By: #### L 300.4310, L300.3900, L100.0500, L300.4700 #### [facility] [address] [place], [address] Platelet mean volume (Bld) [Entitic vol] 10.7 fL Normal 6.2-12.0 [facility] Comment on above: Performed By: #### L 300.4310, L300.3900, L100.0500, L300.4700 #### [facility] [address] [place], [address] Platelets (Bld) [#/Vol] 184 10*3/uL Normal 150-450 [facility] Comment on above: Performed By: #### L 300.4310, L300.3900, L100.0500, L300.4700 #### [facility] [address] [place], [address] RBC (Bld) [#/Vol] 3.53 10*6/uL Low 4.2-5.4 [facility] Comment on above: Performed By: #### L 300.4310, L300.3900, L100.0500, L300.4700 #### [facility] [address] [place], [address] RDW SD 46.3 fl High 35.1-43.9 [facility] Comment on above: Performed By: #### L 300.4310, L300.3900, L100.0500, L300.4700 #### [facility] [address] [place], [address] WBC (Bld) [#/Vol] 11.7 10*3/uL High 4.4-11.0 [facility] Comment on above: Performed By: #### L 300.4310, L300.3900, L100.0500, L300.4700 #### [facility] [address] [place], [address] Fibrinogenon 09-19-2023 FIBRINOGEN 301 mg/dl Normal 203-4 [facility] Comment on above: Performed By: #### L 300.3900 #### [facility] [address] [place], [address] FIBRINOGEN 332 mg/dl Normal 203-4 [facility] Comment on above: Performed By: #### L 300.4700, L300.3900, L300.4310 #### [facility] [address] [place], [address] MR/POSTOP.ANEon 09-19-2023 MR/POSTOP.ANE [facility] Medical Records Department [address] [place] [address] Anesthesia Postop Eval I 09/19/23 0826 MR#: [id number] Acct: [id number] Name: ALBERTO WHITAKER Rep #: [id number] : 1990 33 From: Rashaad Hayward MD PCP: Care Physician,No Primary Status:ADM IN Y Race: C Location: [place] [address] Anesthesia: Postop Eval I Current Vital Signs [...] MD Cosigner Signature: Date CC: Signed Normal [facility]/EXIWIPKI2av 09-19-2023 [facility] Medical Records Department [address] [place] [address] Anesthesia Postop Eval II 09/19/23922 MR#: [id number] Acct: [id number] Name: ALBERTO WHITAKER Rep #: [id number] : 1990 33 From: James Mrorow MD PCP: Care Physician,No Primary Status:ADM IN Y Race: C Location: [place] [address] Anesthesia Postop Eval I Sum Postop Eval [...] James Spain Signature: Date CC: Signed Normal [facility] Operative Reporton 4 Operative Report [facility] Medical Records Department [address] [place] [address] Operative Report 09/19/23 0834 MR#: [id number] Acct: [id number] Name: ALBERTO WHITAKER Rep #: [id number] : 1990 33 From: Aparna Fatima DO PCP: Care Physician,No Primary Status:ADM IN Location: [place] [address]-1 Problems Associated Problem List Diagnoses (1) Previous [...] Cervix 3 cm dilated Surgeon: Aparna Fatima mandarin speaking nanny: Javid Starr Type of Anesthesia: General Special [...] called was placed to a complex family director of gift planning with [facility] to consult. The decision was [...] No VTE Mechan Device Prophylaxis: SCD's 09/19/23 0809 Cosigner Signature (if applicable): CC: Dr. Javid Starr MD; Dr. Aparna Fatima, DO; No Primary Care Physician Signed Normal [facility] Partial Thromboplast Timeon 09-19-2023 aPTT Coag (Bld) [Time] 28.2 s Normal 24.1-36.2 [facility] Comment on above: Performed By: #### L 270.9249 #### [facility] [place], [address] aPTT Coag (Bld) [Time] 32.8 s Normal 24.1-36.2 [facility] Comment on above: Performed By: #### L 300.4700, L300.3900, L300.4310 #### [facility] [address] [place], [address] Prothrombin Time w/INRon INR Normal [facility] Comment on above: Result Comment: PT D IS. Performed By: #### L 300.3900 #### [facility] [address] [place], [address] Order Comment: REDRA W. PREVIOUS SPECIMEN REJECTED DUE TO QNS. 09/19/23 1354 Haleigh Valdes. Result Comment: DUPL ICATE Result Comment: Canjuan elled via OM: Order edited - Discontinuing original order Result Comment: This specimen has been REJECTED due to Laboratory criteria: Quanity Not Sufficient. SUN has been notified of need of recollection. 09/19/23 1353 Haleigh Valdes PROTIME Normal 11.7-14.9 [facility] Comment on above: Result Comment: PT D IS. Performed By: #### L 300.3900 #### [facility] [address] [place], [address] Order Comment: REDRA W. PREVIOUS SPECIMEN REJECTED [...] Coag (PPP) [Relative time] 1.1 {INR} Normal [facility] Comment on above: Performed By: #### L 300.4310, L300.3900, L100.0500, L300.4700 #### [facility] [address] [place], [address] PT Coag (PPP) [Time] 14.3 s Normal 11.7-14.9 [facility] Comment on above: Performed By: #### L 300.4310, L300.3900, L100.0500, L300.4700 #### [facility] [address] [place], [place], [address] INR Coag (PPP) [Relative time] 1.0 {INR} Normal [facility] Comment on above: Performed By: #### L 300.4700, L300.3900, L300.4310 #### [facility] [address] [place], [place], [address] PT Coag (PPP) [Time] 13.5 s Normal 11.7-14.9 [facility] Comment on above: Performed By: #### L 300.4700, L300.3900, L300.4310 #### [facility] [address] [place], [place], [address] Surgery Specimen Level Fabian 09-19-2023 Surgery Specimen Level IV Patient Age/Sex Location Account Attending Physician ALBERTO WHITAKER / [id number] Dr. Javid Starr MD Specimen: [id number] Received: 09/19/23 Status: MYRIAM Che Num: [id number] Spec Type: PROD CONC Subm Dr: Dr. [...] Age/Sex Location Account Attending Physician ALBERTO WHITAKER [id number] Dr. Javid Starr MD E. Number of vessels: Three F. Abnormalities: None PLACENTAL DISC - Present A. Color of surface: Arredondo-omalley B. surface abnormalities: None C. Maternal cotyledons: Disrupted, completeness of placenta cannot not be assessed D. Attached retro placental clot: No clot E. Cut surface: [place], red F. Lesions: None G. Separate clot: Weighs 30gm and measures in aggregate 7.0 x 5.5 x 2.0cm. SECTIONS SUBMITTED: (6 cassettes) 1. Cord, maternal end 2. Cord, end 3. Membrane roll 4. Placental disc, and maternal surfaces 5. Placental disc, and maternal surfaces 6. Placental disc, and maternal surfaces CPT:93884 JAH/ 09/19/2023 TC:5 ADDENDUM Addendum 1 Entered: 10/06/23 [facility] MICROARRAY CHROMOSOME ANALYSIS WITH PARENTAL SUPPORT RESULT: Normal female MICROARRAY RESULT: arr (1-22,X)x2 CLINICAL INTERPRETATION: Normal female result. Maternal cell contamination has been ruled out. Please see complete report in e-chart or EMR Addendum Signed (signature on file) Dr. Demar Mcclendon MD 10/06/23 0900 Patient Age/Sex Location Account Attending Physician ALBERTO WHITAKER [id number] Dr. Javid Starr MD Signed (signature on file) Dr. Demar Mcclendon MD 09/20/23 1045 Normal [facility] Comment on above: Performed By: #### L 300.3900 #### [facility] [address] [place], [place], [address] BRCon 09-18-2023 RC Normal [facility] Comment on above: Result Comment: [id number] OP RC PRSMD TRFSD 09/19/23 0706 [id number] OP RC NOT AVAILABLE [id number] OP RC PRSMD TRFSD 09/19/23 0709 [id number] OP RC TRANSFUSED 09/19/23 1246 Performed By: #### L 300.3900 #### [facility] [address] [place], [address] CBC W/Diff, Automatedon 08-22 Absolute Lymph 2.25 X10 3/uL Normal 0.83-4.51 [facility] Comment on above: Performed By: #### L 300.3900 #### [facility] [address] [place], [address] Absolute Neut 4.9 X10 3/uL Normal 2.0-7.7 [facility] Comment on above: Performed By: #### L 300.3900 #### [facility] [address] [place], [address] Basophils/100 WBC (Bld) 0.4 % Normal 0-1 [facility] Comment on above: Performed By: #### L 300.3900 #### [facility] [address] [place], [address] Eosinophils/100 WBC (Bld) 1.3 % Normal 0-5 [facility] Comment on above: Performed By: #### L 300.3900 #### [facility] [address] [place], [address] Erythrocyte distribution width (RBC) [Ratio] 12.8 % Normal 11.6-14.6 [facility] Comment on above: Performed By: #### L 300.3900 #### [facility] [address] [place], [address] Hematocrit (Bld) [Volume fraction] 33.0 % Low 37-47 [facility] Comment on above: Performed By: #### L 300.3900 #### [facility] [address] [place], [address] Hemoglobin (Bld) [Mass/Vol] 12.0 g/dL Normal 12.0-15.0 [facility] Comment on above: Performed By: #### L 300.3900 #### [facility] [address] [place], [address] IG% 0.300 Normal 0.0-0.9 [facility] Comment on above: Result Comment: IG% - Immature Granulocytes (promyelocytes, myelocytes and metamyelocytes) > 1% indicates that a LEFT SHIFT is Present. Performed By: #### L 300.3900 #### [facility] [address] [place], [address] Lymphocytes/100 WBC (Bld) 29.1 % Normal 19-41 [facility] Comment on above: Performed By: #### L 300.3900 #### [facility] [address] [place], [address] MCH (RBC) [Entitic mass] 34.5 pg High 27.0-32.0 [facility] Comment on above: Performed By: #### L 300.3900 #### [facility] [address] [place], [address] MCHC (RBC) [Mass/Vol] 36.4 g/dL High 32-36 [facility] Comment on above: Performed By: #### L 300.3900 #### [facility] [address] [place], [address] MCV (RBC) [Entitic vol] 94.8 fL Normal 81-99 [facility] Comment on above: Performed By: #### L 300.3900 #### [facility] [address] [place], [address] Monocytes/100 WBC (Bld) 5.2 % Normal 0-10 [facility] Comment on above: Performed By: #### L 300.3900 #### [facility] [address] [place], [address] Neutrophils/100 WBC (Bld) 63.7 % Normal 47-70 [facility] Comment on above: Performed By: #### L 300.3900 #### [facility] [address] [place], [address] Nucleated RBC (Bld) [#/Vol] 0 10*3/uL Normal 0-5 [facility] Comment on above: Performed By: #### L 300.3900 #### [facility] [address] [place], [address] Platelet mean volume (Bld) [Entitic vol] 10.8 fL Normal 6.2-12.0 [facility] Comment on above: Performed By: #### L 300.3900 #### [facility] [address] [place], [address] Platelets (Bld) [#/Vol] 230 10*3/uL Normal 150-450 [facility] Comment on above: Performed By: #### L 300.3900 #### [facility] [address] [place], [address] RBC (Bld) [#/Vol] 3.48 10*6/uL Low 4.2-5.4 [facility] Comment on above: Performed By: #### L 300.3900 #### [facility] [address] [place], [address] RDW SD 43.8 fl Normal 35.1-43.9 [facility] Comment on above: Performed By: #### L 300.3900 #### [facility] [address] [place], [address] WBC (Bld) [#/Vol] 7.7 10*3/uL Normal 4.4-11.0 [facility] Comment on above: Performed By: #### L 300.3900 #### [facility] [address] [place], [address] Fibrinogenon 09-18-2023 FIBRINOGEN 369 mg/dl Normal 203-444 [facility] Comment on above: Performed By: #### L 300.3900 #### [facility] [address] [place], [address] H AND P Exam - OB/GYNon 08-22 H&P Exam - BACK ORDER CLERK [facility] Medical Records Department [address] [place] [address] H P Exam - BACK ORDER CLERK 09/18/231948 MR#: [id number] Acct: [id number] Name: ALBERTO WHITAKER Rep #: [id number] : 1990 33 From: Javid Starr MD PCP: Care Physician,No Primary Status:ADM IN Location: [id number] HPI - General General Date of Admission: [...] ALMA: 01/30/24 Gestational age: 20 6/7 PFSH [facility] Medical History (Updated 09/18/23 @ 19:[address] Javid Starr MD) Vaginal after Home Medications ???Medication ???Instructions ???Recorded ???Last Taken ???Type Unisom (doxylamine) 25 mcg PO.IVFORM PRN PRN sleep aide 04/03/22 04/02/22 History gepgfhve-puf-Iz-FA 1 mg 1 tab PO DAILY 04/03/22 [...] MD; No Primary Care Physician Signed Normal [facility] L509.8000on 09-18-2023 Syphilis Abs Non-Reactive Normal [facility] Comment on above: Performed By: #### L 509.8000 #### [facility] [address], [address] Partial Thromboplast Timeon 09-18-2023 aPTT Coag (Bld) [Time] 31.0 s Normal 24.1-36.2 [facility] Comment on above: Performed By: #### L 300.3900 #### [facility] [address] [place], [address] Prothrombin Time w/INRon INR Coag (PPP) [Relative time] 1.0 {INR} Normal [facility] Comment on above: Performed By: #### L 300.3900 #### [facility] [address] [place], [address] PT Coag (PPP) [Time] 13.2 s Normal 11.7-14.9 [facility] Comment on above: Performed By: #### L 300.3900 #### [facility] [address] [place], [place], [address] Type AND Screenon 09-18-2023 Ab SCREEN GEL Negative Normal [facility] Comment on above: Order Comment: Labor Performed By: #### L 300.3900 #### [facility] [address] [place], [address] ABO and Rh group Nom (Bld) Blood group O Rh(D) positive Normal [facility] Comment on above: Order Comment: Labor Performed By: #### L 300.3900 #### [facility] [address] [place], [place], [address] Examination level ultrasound on 09-16-2023 Indication Standard [...] Read By: Macy Welch M.D. MATERNAL MEDICINE [facility] Radiology Study observation (narrative) [facility] CBC panel Auto (Bld)on 08-18 Erythrocyte distribution width (RBC) [Ratio] 13.0 % 11.5 - 15.0 % [facility] Hematocrit (Bld) [Volume fraction] 32.9 % Low 36.0 - 46.0 % [facility] Hemoglobin (Bld) [Mass/Vol] 11.4 g/dL Low 11.5 - 15.5 g/dL [facility] Interpretation and review of laboratory results Abnormal [facility] MCH (RBC) [Entitic mass] 32.9 pg 26.0 - 34.0 pg [facility] MCHC (RBC) [Mass/Vol] 34.7 g/dL 30.5 - 36.0 g/dL [facility] MCV (RBC) [Entitic vol] 94.8 fL 80.0 - 100.0 fL [facility] Nucleated RBC (Bld) [#/Vol] NINF [facility] Platelet mean volume (Bld) [Entitic vol] 10.4 fL 9.0 - 12.7 fL [facility] Platelets (Bld) [#/Vol] 197 10*3/uL [facility] RBC (Bld) [#/Vol] 3.47 10*6/uL Low 3.90 - 5.2 0 m/uL [facility] WBC (Bld) [#/Vol] 7.22 10*3/uL [facility] Comprehensive metabolic 2000 panelOrdered By: Tonie Reese on 08-19-2023 Albumin [Mass/Vol] 3.8 g/dL Low 3.9 - 4.9 g/dL Cl [facility] ALP [Catalytic activity/Vol] 54 U/L 34 - 123 U/L [facility] ALT [Catalytic activity/Vol] 11 U/L 7 - 38 U/L [facility] Anion gap [Moles/Vol] 11 mmol/L 8 - 15 mmol/L [facility] AST [Catalytic activity/Vol] 12 U/L Low 13 - 35 U/L [facility] Bilirubin [Mass/Vol] mg/dL Low 0.2 - 1.3 mg/dL [facility] Calcium [Mass/Vol] 9.0 mg/dL 8.5 - 10. 2 mg/dL [facility] Chloride [Moles/Vol] 107 mmol/L 98 - 107 mmol/L [facility] CO2 [Moles/Vol] 19 mmol/L Low 22 - 30 mmol/L [facility] Creatinine [Mass/Vol] 0.38 mg/dL Low 0.58 - 0.96 mg/dL [facility] GFR/1.73 sq M.predicted among non-blacks MDRD (S/P/Bld) [Vol rate/Area] 138 mL/min/{1.73_m2} - PINF [facility] Comment on above: Estimated Glomerular Filtration [...] [Mass/Vol] 80 mg/dL 74 - 99 mg/dL [facility] Comment on above: The [place] Diabete s Association (ADA) provides guidance for [...] Standards of Medical Care in Diabetes 2016, [place] [employer]. Diabetes Care. 2016.39(Suppl 1). Interpretation and review of laboratory results Abnormal [facility] Potassium [Moles/Vol] 4.0 mmol/L 3.7 - 5.1 mmol/L [facility] Protein [Mass/Vol] 6.4 g/dL 6.3 - 8.0 g/dL Cl [facility] Sodium [Moles/Vol] 137 mmol/L 136 - 144 mmol/L [facility] Urea nitrogen [Mass/Vol] 12 mg/dL 7 - 21 mg/dL [facility] Chr 21 trisomy [employer] Ql (Bld/Tiss)on 07-28-2023 Cell-free DNA./Cell-free DNA.total Dosage of chromosome-specific cfDNA (cfDNA) [Molar fraction] 4% [facility] Chr 13+18+21+X+Y aneuploidy Dosage of chromosome-specific cfDNA Ql (cfDNA) Negative [facility] Chr 21 trisomy Dosage of chromosome-specific cfDNA Ql (cfDNA) Negative [facility] Chr X and Y aneuploidy risk Sequencing Ql (cfDNA) [Interp] Not detected [facility] Citation Javid (Reference lab test) Comment [facility] Comment on above: 1. sofia Grant. Bailey Med. 2012;14(3):296-305. 2. Carlos GRANT et al. Prenat Diag. 2013;33(6):591-597. 3. Joel Young, et al. Clin Chem. 2015 May;61(4):608-616. 4. Irlanda LE et al. Bailey Med. 2011;13(11):913-920. 5. ACOG/SMFM Practice Bulletin No. 226, Nov 2019. Gestational age Estimated from conception date Tavarez [facility] GESTATIONALAGE>=9W Yes [facility] Laboratory comment Javid (Report) Comment [facility] Comment on above: The MaterniT(R) 21 P UBNNY laboratory-developed test (LDT) analyzes circulating cell-free DNA from a maternal blood sample. This test is used for screening purposes and not diagnostic. Clinical correlation is recommended. Validation data on twin pregnancies is limited and the ability of this test to detect aneuploidy in higher multiple gestations has not yet been validated. product strategy director name Nom (Provider) Comment [facility] Comment on above: This specimen showed an expected representation of chromosome 21, 18 and 13 material. Clinical correlation is suggested. José Miguel Haskins MD , PhD, Director, [place]oying Limitations of the Test Comment [facility] Comment on above: While the results [...] Ql (Plasma cell-free+WBC DNA) [Interp] Not detected [facility] NEGATIVE PREDICTIVE VALUE Note [facility] Comment on above: The Negative Predict kalpana Value (NPV) for trisomy 21, 18, and 13 is greater than 99%. The NPV for SCA and ESS cannot be calculated as SCA and ESS are only reported when an abnormality is detected. Note Comment [facility] Comment on above: See Notes [facility] is a subsidiary of [employer], using the brand [employer]. This test was developed and its performance characteristics determined by [employer]. It has not been cleared or approved by the Food and Drug Administration. This laboratory is certified under the Clinical Laboratory Improvement Amendments (CLIA) as qualified to perform high complexity clinical laboratory testing and accredited by the College of [employer] (CAP). If there is future clinical need for adding MaterniT GENOME testing, this specimen will be available until term. [facility] samples will not be retained beyond 60 days. [facility] patients will have to send a new sample for re-sequencing ([facility] Test Code: 286433). PERFORMANCE CHARACTERISTICS Note [facility] Comment on above: ! Sex ! [...] ! ! ! * As reported in [facility] database nstd37 [https://www.ncbi.nlm.nih.gov/dbvar/studies/nstd37/ ] # Estimated Sensitivity. Sensitivity estimated across the observed size distribution of each syndrome [per [facility] database nstd37] and across the range of fractions observed in routine clinical NIPT. Actual sensitivity can also be influenced by other factors such as the size of the event, total sequence counts, amplification bias, or sequence bias. ## Tavarez gestation only. Positive Predictive Value N/A [facility] Reference Lab Test Method Comment [facility] Comment on above: See Notes Circulating [...] Dosage of chromosome-specific cfDNA Nom (cfDNA) Comment [facility] Comment on above: Consistent with Fema le Test performance information Javid (Unsp spec) Comment [facility] Comment on above: The performance agusto acteristics of the MaterniT(R) 21 PLUS laboratory-developed test (LDT) have been determined in a clinical validation study with women at increased risk for chromosomal aneuploidy.[1-4] Trisomy 13 risk Dosage of chromosome-specific cfDNA Ql (cfDNA) [Interp] Negative [facility] Trisomy 18 risk Dosage of chromosome-specific cfDNA Ql (Plasma cell-free+WBC DNA) [Interp] Negative [facility] Performed at: - [employer] [facility] [address], [place] [id number] [employer] Operator: José Miguel Young, Phone: [phone] [facility] C. trachomatis+N. gonorrhoea e DNA MATTHEW+probe Ql (Unsp spec)on 06-23-2023 C. trachomatis rRNA MATTHEW+probe Ql (Unsp spec) Negative Negative for Chlamydia trachomatis by amplificaton [facility] Interpretation and review of laboratory results Normal [facility] N. gonorrhoeae rRNA MATTHEW+probe Ql (Unsp spec) Negative Negative for Neisseria gonorrhoeae by amplification [facility] POC FRONT DESK REPRESENTATIVE ULTRASOUNDon 06-23-19 Indication Confirmation of intrauterine . Confirmation of cardiac activity Impression 1. Single, live, intrauterine . 2. An intrauterine gestational sac with a yolk sac and pole are present. 3. [place] rump length measurement is consistent with the [...] Read By: Noemi Aiken CNP MATERNAL MEDICINE [facility] Radiology Study observation (narrative) [facility] [place] [address].0 m[IU]/mL High NINF [facility] Comment on above: QUANTITATIVE HCG NOR MAL RANGES Weeks of Gestation (Weeks Since LMP) 3 Weeks (5.8-71.2 mIU/mL) 4 Weeks (9.5-750 mIU/mL) 5 Weeks (217-7138 mIU/mL) 6 Weeks (158-75366 mIU/mL) 7 Weeks (3697-160813 mIU/mL) 8 Weeks (90002-822952 mIU/mL) 9 Weeks (70280-101026 mIU/mL) 10 Weeks (02732-897515 mIU/mL) 12 Weeks (00953-602611 mIU/mL) Referenced to 4th IS of [facility] HCG.beta subunit Qnon 2023 Interpretation and review of laboratory results Abnormal [facility] XR FOOT LEFT 3+ VIEWS (STAND ABDULLAHI)on 02-04-2023 XR FOOT LEFT 3+ VIEWS (STANDARD) Mild forefoot edema present though no traditional breakdown across the third and fourth metatarsal necks. Dictated by: BRENT MEJIA on TueFeb 04, 2023 11:36:58 AM EST Transcribed by: BRENT MEJIA on TueFeb 04, 2023 11:36:58 AM EST Finalized by: BRENT MEJIA on TueFeb 04, 2023 11:36:58 AM EST Normal [facility] Comment on above: Order Comment: Injur [...] TueJan 05, 2023 4:56:34 PM EST Normal [facility] Comment on above: Order Comment: Injur [...] on TueDec 22, 2022 12:29:22 PM EDT [facility] Comment on above: Order Comment: Injur [...] on TueDec 22, 2022 11:49:28 AM EDT [facility] Comment on above: Order Comment: Injur [...] Auto (Unsp spec) [#/Vol] 2.27 10*3/uL 0.83-4.51 [facility] Basophil percentageOrdered B y: Dr. Burt on 04-03-2022 Basophils/100 WBC (Bld) 0.3 % 0-1 [facility] Eosinophils/100 WBC (Bld) 0.8 % 0-5 [facility] Neutrophils (Bld) [#/Vol] 7.9 10*3/uL 2.0-7.7 [facility] Neutrophils/100 WBC (Bld) 71.5 % 47-70 [facility] WBC (Bld) [#/Vol] 11.0 10*3/uL 4.4-11.0 [facility] Blood erythrocytes count (nu mber/volume)Ordered By: Dr. Burt on 04-03-2022 RBC (Bld) [#/Vol] 3.38 10*6/uL 4.2-5.4 [facility] Blood hemoglobin measurement (mass/volume)Ordered By: Dr. Burt on 04-03-2022 Hemoglobin (Bld) [Mass/Vol] 11.1 g/dL 12.0-15.0 [facility] Blood lymphocytes/100 leukoc ytesOrdered By: Dr. Burt on 04-03-2022 Lymphocytes/100 WBC (Bld) 20.7 % 19-41 [facility] Blood monocytes/100 leukocyt esOrdered By: Dr. Burt on 04-03-2022 Monocytes/100 WBC (Bld) 5.0 % 0-10 [facility] Blood platelet mean volumeOr dered By: Dr. Burt on 04-03-2022 Platelet mean volume (Bld) [Entitic vol] 10.1 fL 6.2-12.0 [facility] Determination of erythrocyte mean corpuscular volume (MCV)Ordered By: Dr. Burt on 04-03-2022 MCV (RBC) [Entitic vol] 97.0 fL 81-99 [facility] Hematocrit Auto (Bld) [Volum e fraction]Ordered By: Dr. Burt on 04-03-2022 Hematocrit (Bld) [Volume fraction] 32.8 % 37-47 [facility] Laboratory - Hematology and Cell countsOrdered By: Dr. Burt on 04-03-2022 Erythrocyte distribution width (RBC) [Entitic vol] 45.2 fL 35.1-43.9 [facility] Erythrocyte distribution width (RBC) [Ratio] 12.8 % 11.6-14.6 [facility] Immature granulocytes/100 WBC (Bld) 1.700 % 0.0-0.9 [facility] Comment on above: IG% - Immature Granu locytes (promyelocytes, myelocytes and metamyelocytes) > 1% indicates that a LEFT SHIFT is Present. MCH (RBC) [Entitic mass] 32.8 pg 27.0-32.0 [facility] Nucleated RBC/100 WBC (Bld) [Ratio] 0 % 0-5 [facility] MCHC Auto (RBC) [Mass/Vol]Or dered By: Dr. Burt on 04-03-2022 MCHC (RBC) [Mass/Vol] 33.8 g/dL 32-36 [facility] No Panel InformationOrdered By: Dr. Burt on 04-03-2022 Vaginal Amniotic Fluid Detection Positive Negative [facility] Comment on above: Amniotic fluid prese nt indicates rupture of Membranes. RESULTS CALLED TO [facility] 04/03/22 2241 Carin Rendon.REPORT READ BACK BY SAME . Platelets bldOrdered By: Dr. Burt on 04-03-2022 Platelets (Bld) [#/Vol] 247 10*3/uL 150-450 [facility] Absolute lymphocyte countOrd ered By: Dr. Burt on 03-17-2022 Lymphocytes Auto (Unsp spec) [#/Vol] 1.46 10*3/uL 0.83-4.51 [facility] Basophil percentageOrdered B y: Dr. Burt on 03-17-2022 Basophils/100 WBC (Bld) 0.4 % 0-1 [facility] Eosinophils/100 WBC (Bld) 0.9 % 0-5 [facility] Neutrophils (Bld) [#/Vol] 8.7 10*3/uL 2.0-7.7 [facility] Neutrophils/100 WBC (Bld) 78.2 % 47-70 [facility] WBC (Bld) [#/Vol] 11.2 10*3/uL 4.4-11.0 [facility] Blood erythrocytes count (nu mber/volume)Ordered By: Dr. Burt on 03-17-2022 RBC (Bld) [#/Vol] 3.44 10*6/uL 4.2-5.4 [facility] Blood hemoglobin measurement (mass/volume)Ordered By: Dr. Burt on 03-17-2022 Hemoglobin (Bld) [Mass/Vol] 11.3 g/dL 12.0-15.0 [facility] Blood lymphocytes/100 leukoc ytesOrdered By: Dr. Burt on 03-17-2022 Lymphocytes/100 WBC (Bld) 13.1 % 19-41 [facility] Blood monocytes/100 leukocyt esOrdered By: Dr. Burt on 01-25-2023 Monocytes/100 WBC (Bld) 6.5 % 0-10 [facility] Blood platelet mean volumeOr dered By: Dr. Burt on 03-17-2022 Platelet mean volume (Bld) [Entitic vol] 10.4 fL 6.2-12.0 [facility] Determination of erythrocyte mean corpuscular volume (MCV)Ordered By: Dr. Burt on 03-17-2022 MCV (RBC) [Entitic vol] 98.5 fL 81-99 [facility] Hematocrit Auto (Bld) [Volum e fraction]Ordered By: Dr. Burt on 03-17-2022 Hematocrit (Bld) [Volume fraction] 33.9 % 37-47 [facility] Laboratory - Hematology and Cell countsOrdered By: Dr. Burt on 03-17-2022 Erythrocyte distribution width (RBC) [Entitic vol] 46.3 fL 35.1-43.9 [facility] Erythrocyte distribution width (RBC) [Ratio] 13.1 % 11.6-14.6 [facility] Immature granulocytes/100 WBC (Bld) 0.900 % 0.0-0.9 [facility] Comment on above: IG% - Immature Granu locytes (promyelocytes, myelocytes and metamyelocytes) > 1% indicates that a LEFT SHIFT is Present. MCH (RBC) [Entitic mass] 32.8 pg 27.0-32.0 [facility] Nucleated RBC/100 WBC (Bld) [Ratio] 0 % 0-5 [facility] MCHC Auto (RBC) [Mass/Vol]Or dered By: Dr. Burt on 03-17-2022 MCHC (RBC) [Mass/Vol] 33.3 g/dL 32-36 [facility] Platelets bldOrdered By: Dr. Burt on 03-17-2022 Platelets (Bld) [#/Vol] 247 10*3/uL 150-450 [facility] Serum Treponema species anti body detectionOrdered By: Dr. Burt on 03-17-2022 Treponema sp Ab Ql (S) Non-Reactive [facility] Absolute lymphocyte countOrd ered By: Dr. Burt on 01-05-2022 Lymphocytes Auto (Unsp spec) [#/Vol] 1.57 10*3/uL 0.83-4.51 [facility] Basophil percentageOrdered B y: Dr. Burt on 01-05-2022 Basophils/100 WBC (Bld) 0.2 % 0-1 [facility] Eosinophils/100 WBC (Bld) 0.9 % 0-5 [facility] Neutrophils (Bld) [#/Vol] 6.7 10*3/uL 2.0-7.7 [facility] Neutrophils/100 WBC (Bld) 74.8 % 47-70 [facility] WBC (Bld) [#/Vol] 9.0 10*3/uL 4.4-11.0 [facility] Blood erythrocytes count (nu mber/volume)Ordered By: Dr. Burt on 01-05-2022 RBC (Bld) [#/Vol] 3.28 10*6/uL 4.2-5.4 [facility] Blood hemoglobin measurement (mass/volume)Ordered By: Dr. Burt on 01-05-2022 Hemoglobin (Bld) [Mass/Vol] 11.0 g/dL 12.0-15.0 [facility] Blood lymphocytes/100 leukoc ytesOrdered By: Dr. Burt on 01-05-2022 Lymphocytes/100 WBC (Bld) 17.5 % 19-41 [facility] Blood monocytes/100 leukocyt esOrdered By: Dr. Burt on 01-05-2022 Monocytes/100 WBC (Bld) 5.6 % 0-10 [facility] Blood platelet mean volumeOr dered By: Dr. Burt on 01-05-2022 Platelet mean volume (Bld) [Entitic vol] 9.7 fL 6.2-12.0 [facility] Determination of erythrocyte mean corpuscular volume (MCV)Ordered By: Dr. Burt on 01-05-2022 MCV (RBC) [Entitic vol] 96.6 fL 81-99 [facility] Gestational diabetes screen 1-hour screen with 50g oral glucose loadOrdered By: Dr. Burt on 01-05-2022 Glucose 1 Hr post 50 g glucose PO [Mass/Vol] 124 mg/dL 70-140 [facility] Hematocrit Auto (Bld) [Volum e fraction]Ordered By: Dr. Burt on 01-05-2022 Hematocrit (Bld) [Volume fraction] 31.7 % 37-47 [facility] Laboratory - Hematology and Cell countsOrdered By: Dr. Burt on 01-05-2022 Erythrocyte distribution width (RBC) [Entitic vol] 46.2 fL 35.1-43.9 [facility] Erythrocyte distribution width (RBC) [Ratio] 13.2 % 11.6-14.6 [facility] Immature granulocytes/100 WBC (Bld) 1.000 % 0.0-0.9 [facility] Comment on above: IG% - Immature Granu locytes (promyelocytes, myelocytes and metamyelocytes) > 1% indicates that a LEFT SHIFT is Present. MCH (RBC) [Entitic mass] 33.5 pg 27.0-32.0 [facility] Nucleated RBC/100 WBC (Bld) [Ratio] 0 % 0-5 [facility] MCHC Auto (RBC) [Mass/Vol]Or dered By: Dr. Burt on 01-05-2022 MCHC (RBC) [Mass/Vol] 34.7 g/dL 32-36 [facility] Platelets bldOrdered By: Dr. Burt on 01-05-2022 Platelets (Bld) [#/Vol] 216 10*3/uL 150-450 [facility] No Panel Informationon 11-16 Normal [place] [address] [employer] Work Phone: Cult, Urineon 09-23-2021 Bacteria identified Cx Nom (U) [place] [address] [employer] Work Phone: GC + Chlamydia By Amplified Detectionon 09-23-2021 C. trachomatis rRNA MATTHEW+probe Ql (Unsp spec) Negative Negative [address] Work Phone: Comment on above: The APTIMA Combo 2 a ssay is FDA-approved for Chlamydia trachomatis and Neisseria gonorrhoeae testing on female endocervical and vaginal swabs, ThinPrep liquid pap samples, male urine samples and urethral swabs. Performance characteristics for Chlamydia trachomatis and Neisseria gonorrhoeae testing on specific qxj-LQS-tvkgupvl sample types (female urine samples) have been validated by [facility]. This laboratory is certified by CLIA to perform high complexity testing. Samples from all other sites are not validated for this method. N. gonorrhoeae rRNA MATTHEW+probe Ql (Unsp spec) Negative Negative [place] [address] [employer] Work Phone: Comment on above: SOURCE: Urine The AP CAMILO Combo 2 assay is FDA-approved for Chlamydia trachomatis and Neisseria gonorrhoeae testing on female endocervical and vaginal swabs, ThinPrep liquid pap samples, male urine samples and urethral swabs. Performance characteristics for Chlamydia trachomatis and Neisseria gonorrhoeae testing on specific gbk-PSF-aycuydde sample types (female urine samples) have been validated by [facility]. This laboratory is certified by CLIA to perform high complexity testing. Samples from all other sites are not validated for this method. HIV 1/2 ANTIGEN/ANTIBODY SCR EEN WITH REFLEX TO CONFIRMATIONon 09-23-2021 HIV 1+2 Ab Qn (S) Non-Reactive See Below [place] [address] [address] Work Phone: Comment on above: SOURCE: Reference Ra nge: NONREACTIVE HIV Ag/Ab screen is performed using the Siemens [employer] HIV Ag/Ab Combo assay which detects the presence of HIV p24 antigen as well as antibodies to HIV-1 (Group M and O) and HIV-2..No laboratory evidence of HIV infection. If acute HIV infection is suspected, consider testing for HIV RNA by PCR (viral load). Hepatitis B Surface Antigeno n 09-23-2021 Hepatitis B Surface Antigen Non-Reactive See Below [place] [address] [employer] Work Phone: Comment on above: SOURCE: Reference [...] Cytology report Cyto stain.thin prep Doc (Cvx/Vag) [place] [address] [employer] Work Phone: Rubella IgG Antibodyon 09-23 Rubella virus IgG IA Ql Positive [facility] Phone: Comment on above: INTERPRETATIVE COMME NT [...] IgG+IgM IA Ql (S) Non-Reactive See Below [employer] Work Phone: Comment on above: Reference Range: NON REACTIVENo significant level of Treponema pallidum antibody detected. Repeat testing in 2 to 4 weeks may be considered if early infection or incubating syphilis infection is suspected. IO HCG, Urine Test on 09-02-2021 HCG ( test) Ql (U) Positive [facility] Phone: LMPon 09-02-2021 Last menstrual period start date 04Jul2021 [employer] Work Phone: BACK ORDER CLERK - Office Visiton 08-21 BACK ORDER CLERK - Office Visit Diagnoses/Problems Assessed Multigravida in first trimester (V22.1) (Z34.81) Maternal care for low transverse scar from previous delivery (654.21) (O34.211) Threatened (640.00) (O20.0) 8 weeks gestation of (V22.2) (Z3A.08) Positive urine test (V72.42) (Z32.01) Orders IO HCG, Urine Test; Status:Resulted - Requires Verification,Retrospective Authorization; Done: [id number] 09:36AM Provider Impressions 1)Threaten ab- bleeding has [...] BREAST TENDERNESS. LMP: 07/04/2021 History of Present Paepnig08-umry-gst G3, P2 presents for follow-up for threatened [...] Vitamin D TABS Vitals Vital Signs Recorded: [id number] 09:41AM Zoazywwn713 Erymfswcy60 Height5 ft 8 in Ilcpjb589 lb 8 oz BMI Fwqcooaucn37.4 kg/m2 BSA Calculated1.86 [id number] Physical Exam General: None acute distress Eye: [...] mood and affect. Results/Data IO HCG, Urine [id number] 09:36Harlan Collins MEDLINE LOT: [id number] EXP: 11/20/2022 Test NameResultFlagReference IO Urine hCGPositive Ultrasound Pelvis OB Transabdominal With [id number] 02:43PMNon Ambulatory, Provider Ordering Provider: JEN KOEHLER [id number] Test NameResultFlagReference Ultrasound Pelvis OB Transabdominal With Transvaginal(Report) FINAL REPORT Interpreted by: ELOY GOLDSTEIN CHRISTOPHER, MD 08/26/21 15:02 Patient Name: ALBERTO BLACKWOOD STUDY: US PELVIS OB TRANSABDOMINAL WITH TRANSVAGINAL 08/26/2021 2:43 pm INDICATION: 31 y/o F with , LLQ abd pain . LMP: Unknown. COMPARISON: None. ACCESSION NUMBER(S): [id number] ORDERING CLINICIAN: HERNÁN (more content not included)... Normal [facility] BASIC METABOLIC PANELon 07-0 Anion gap [Moles/Vol] 11 mmol/L Normal 10 - 20 [facility] Comment on above: Performed By: #### B MP #### [address] [address] Calcium [Mass/Vol] 9.1 mg/dL Normal 8.6 - 10.3 [facility] Comment on above: Performed By: #### B MP #### [address] [address] Chloride [Moles/Vol] 106 mmol/L Normal 98 - 107 [facility] Comment on above: Performed By: #### B MP #### [address] [address] Creatinine [Mass/Vol] 0.47 mg/dL Low 0.50 - 1.05 [facility] Comment on above: Performed By: #### B MP #### [address] [address] eGFR FEMALE >90 Normal >90 [facility] Comment on above: Result Comment: CALC ULATIONS OF ESTIMATED GFR ARE PERFORMED USING THE 2020 CKD-EPI STUDY REFIT EQUATION WITHOUT THE RACE VARIABLE FOR THE IDMS-TRACEABLE CREATININE METHODS. https://jasn.asnjournals.org/content//ASN.54771598 88 Performed By: #### B MP #### [address] [address] Glucose [Mass/Vol] 84 mg/dL Normal 74 - 99 [facility] Comment on above: Performed By: #### B MP #### [address] [address] HCO3 (Bld) [Moles/Vol] 23 mmol/L Normal 21 - 32 [facility] Comment on above: Performed By: #### B MP #### [address] [address] Potassium [Moles/Vol] 3.6 mmol/L Normal 3.5 - 5.3 [facility] Comment on above: Performed By: #### B MP #### [address] [address] Sodium [Moles/Vol] 136 mmol/L Normal 136 - 145 [facility] Comment on above: Performed By: #### B MP #### [address] [address] Urea nitrogen [Mass/Vol] 12 mg/dL Normal 6 - 23 [facility] Comment on above: Performed By: #### B MP #### [address] [address] CBC AND DIFFERENTIALon 08-26 Basophils (Bld) [#/Vol] 0.00 10*3/uL Normal 0.00 - 0.10 [facility] Comment on above: Performed By: #### C BCDF #### [address] [address] Eosinophils (Bld) [#/Vol] 0.10 10*3/uL Normal 0.00 - 0.70 [facility] Comment on above: Performed By: #### C BCDF #### [address] [address] Eosinophils/100 WBC (Bld) 0.9 % Normal 0.0 - 6.0 [facility] Comment on above: Performed By: #### C BCDF #### [address] [address] Lymphocytes (Bld) [#/Vol] 1.50 10*3/uL Normal 1.20 - 4.80 [facility] Comment on above: Performed By: #### C BCDF #### [address] [address] Monocytes (Bld) [#/Vol] 0.60 10*3/uL Normal 0.10 - 1.00 [facility] Comment on above: Performed By: #### C BCDF #### [address] [address] Neutrophils (Bld) [#/Vol] 4.60 10*3/uL Normal 1.20 - 7.70 [facility] Comment on above: Result Comment: Perc ent differential counts (%) should be interpreted in the context of the absolute cell counts (cells/L). Performed By: #### C BCDF #### [address] [address] RBC 3.54 x10E12/L Low 4.00 - 5.20 [facility] Comment on above: Performed By: #### C BCDF #### [address] [address] Complete Blood Count + Diffe rentialon 08-26-2021 Basophils/100 WBC (Bld) 0.4 % Normal 0.0 - 2.0 [place] [address] [employer] Work Phone: Comment on above: Performed By: #### C BCDF #### [address] [address] Erythrocyte distribution width (RBC) [Ratio] 12.7 % Normal 11.5 - 14.5 [place] [address] [employer] Work Phone: Comment on above: Reference Range: 11. 5 - 14.5 Performed By: #### C BCDF #### [address] [address] Hematocrit (Bld) [Volume fraction] 33.3 % Low 36.0 - 46.0 [place] [address] [employer] Work Phone: Comment on above: Reference Range: 36. 0 - 46.0 Performed By: #### C BCDF #### [address] [address] Hemoglobin (Bld) [Mass/Vol] 11.8 g/dL Low 12.0 - 16.0 [place] [address] [employer] Work Phone: [phone] Comment on above: Reference Range: 12. 0 - 16.0 Performed By: #### C BCDF #### [address] [address] Lymphocytes/100 WBC (Bld) 21.5 % Normal 13.0 - 44.0 [place] [address] [employer] Work Phone: [phone] Comment on above: Reference Range: 13. 0 - 44.0 Performed By: #### C BCDF #### [address] [address] MCHC (RBC) [Mass/Vol] 35.6 g/dL Normal 32.0 - 36.0 [place] [address] [place] Work Phone: [phone] Comment on above: Reference Range: 32. 0 - 36.0 Performed By: #### C BCDF #### [address] [address] MCV (RBC) [Entitic vol] 94 fL Normal 80 - 100 [place] [address] [place] Work Phone: [phone] Comment on above: Performed By: #### C BCDF #### [address] [address] Monocytes/100 WBC (Bld) 8.5 % Normal 2.0 - 10.0 [place] [address] [place] Work Phone: [phone] Comment on above: Performed By: #### C BCDF #### [address] [address] Neutrophils/100 WBC (Bld) 68.7 % Normal 40.0 - 80.0 [place] [address] [address] Work Phone: [phone] Comment on above: Reference Range: 40. 0 - 80.0 Performed By: #### C BCDF #### [address] [address] Platelets (Bld) [#/Vol] 204 10*3/uL Normal 150 - 450 [facility] [address] [address] Work Phone: Comment on above: Performed By: #### C BCDF #### [place] [address] [place] [address] RBC (Bld) [#/Vol] 3.54 {x10E12/L} below low threshold See Below [facility] [employer] Work Phone: Comment on above: Reference Range: 4.0 0 - 5.20 WBC (Bld) [#/Vol] 6.7 10*3/uL Normal 4.4 - 11.3 [facility] [address] [place] Work Phone: Comment on above: Performed By: #### C BCDF #### [address] [address] Complete Blood Count + Differential 0.00 {x10E9/L} See Below [facility] [address] [employer] Work Phone: Comment on above: Reference Range: 0.0 0 - 0.10 Complete Blood Count + Differential 0.10 {x10E9/L} See Below [facility] [address] [employer] Work Phone: Comment on above: Reference Range: 0.0 0 - 0.70 Complete Blood Count + Differential 0.60 {x10E9/L} See Below [facility] [address] [employer] Work Phone: Comment on above: Reference Range: 0.1 0 - 1.00 Complete Blood Count + Differential 1.50 {x10E9/L} See Below [facility] [employer] Work Phone: Comment on above: Reference Range: 1.2 0 - 4.80 Complete Blood Count + Differential 4.60 {x10E9/L} See Below [facility] [address] [employer] Work Phone: Comment on above: Reference Range: 1.2 0 - 7.70 Percent differential counts (%) should be interpreted in the context of the absolute cell counts (cells/L). Complete Blood Count + Differential 0.9 % 0.0 - 6.0 [facility] [employer] Work Phone: HCG, Beta Quantitativeon HCG.beta subunit Qn 105496 m[IU]/mL Abnormal [place] [address] [employer] Work Phone: Comment on above: Low-level positive [...] HCG measurement is performed using the [employer] Access Immunoassay which detects intact HCG and free beta HCG subunit. This test is not indicated for use as a tumor marker. HCG testing is performed using a different test methodology at [facility] than other [facility]. Direct result comparison should only be made within the same method. REF VALUESNON FEMALE <5MALES <5 HCG,BETA-QUANTITATIVEon 07-0 HCG,BETA-QUANTITATI [place] [id number] mIU/mL Abnormal [facility] Comment on above: Result Comment: Low- level [...] performed using a different test methodology at [facility] than other [facility]. Direct result comparison should only be made within the same method. REF VALUES NON FEMALE <5 MALES <5 Performed By: #### H CGQU #### [place] [address] [place] [address] Laboratory - Blood bankon ABO group Nom (Bld) O [facility] [employer] Work Phone: Blood group antibody screen Ql Negative [facility] Work Phone: Rh immune globulin screen (Bld) [Interp] Positive [employer] Work Phone: Laboratory - Chemistry and C hemistry - challengeon 08-26-2021 Anion gap [Moles/Vol] 11 mmol/L 10 - 20 [facility] Work Phone: Calcium [Mass/Vol] 9.1 mg/dL 8.6 - 10.3 [facility] [employer] Work Phone: Chloride [Moles/Vol] 106 mmol/L 98 - 107 [facility] Work Phone: CO2 [Moles/Vol] 23 mmol/L 21 - 32 [employer] Work Phone: Creatinine [Mass/Vol] 0.47 mg/dL below low threshold See Below [facility] Work Phone: Comment on above: Reference Range: 0.5 0 - 1.05 Glucose [Mass/Vol] 84 mg/dL 74 - 99 [facility] [employer] Work Phone: Potassium [Moles/Vol] 3.6 mmol/L 3.5 - 5.3 [employer] Work Phone: Sodium [Moles/Vol] 136 mmol/L 136 - 145 [facility] [employer] Work Phone: Urea nitrogen [Mass/Vol] 12 mg/dL 6 - 23 [facility] Work Phone: No Panel Informationon 08-26 Normal [employer] Work Phone: >[phone] >90 [employer] Work Phone: Comment on above: CALCULATIONS OF JOE MATED GFR ARE PERFORMED USING THE 2020 CKD-EPI STUDY REFIT EQUATION WITHOUT THE RACE VARIABLE FOR THE IDMS-TRACEABLE CREATININE METHODS.https://jasn.asnjournals.org/content//ASN. 4720479282 Provider Note - ED v3on 07-0 Provider [...] made to minimize errors. Minor errors in cloth stretcher may be present. Please call if questions.. [...] Reference Range: STRAW,YELLOW Appearance, Urine CLEAR Specific [place], Urine 1.013 pH, Urine 6.0 Protein, Urine [...] Quantitative 26-Aug-2021 13:46:00 ResultValue HCG, Beta Quantitative [id number] A Radiology Results: Impression: 1. Single live intrauterine . 2. Estimated gestational age: 7 weeks 6 days + / -3 days. Ultrasound Trans Vag Preg Uterus [Aug 26 2021 3:04PM] Impression: Ultrasound Trans Vag Preg Uterus [Aug 26 2021 2:53PM] VITAL SIGNS: T (more content not included)... Normal [facility] Risk Screen - Adult Emergenc n 08-26-2021 [...] Communicatenone Learning Preferencesaudio Cultural Considerationsnone Developmental Considerationsnone Rastafari Considerationsnone Learning Assessment (Other Learner): Learning Assessment (Other Learner): Other learner availableno Pressure Injury/TB/Substance: Pressure Injury: Do you have a coughno Smoking Statusnever smoker Alcohol Useoccasionally Drug Usedenies Admission Risk Screen: Significant IndicatorsComplete CAGE: CAGE: Is this an injured patient at a Trauma Center ([facility] [place]): no Electronic Signatures: Arleen Javier (RN) (Signed 26-Aug-2021 13:29) Authored: Preferred Language, Advanced Directives, Family Violence Adult, Learning Assessment (Patient), Learning Assessment (Other Learner), Pressure Injury/TB/Substance, Pressure Injury, CAGE Last Updated: 26-Aug-2021 13:29 by Arleen Javier (RN) [facility] TYPE + SCREENon 08-26-2021 ABO TYPE O [facility] Comment on above: Performed By: #### T +S #### [place] [address] RH TYPE Positive [facility] Comment on above: Performed By: #### T +S #### [place] [id number] Triage - EDon 08-26-2021 Triage - ED [...] obeys commands Best Verbal Response: (V5) oriented Fulton Score: 15 BACK ORDER CLERK History: Patient has homicidal thoughts: no Symptoms [...] 26-Aug-2021 13:28 by Arleen Javier (GERSON) Normal [facility] UA MICROSCOPICon 08-26-2021 BACTERIA 1+ /HPF Abnormal [facility] Comment on above: Performed By: #### U AMIC #### [address] [address] Mucus Ql (Urine sed) 1+ /LPF Normal [facility] Comment on above: Performed By: #### U AMIC #### [address] [address] RBC (U) [#/Vol] /uL Normal 0-5 [facility] Comment on above: Performed By: #### [place] AMIC #### [place] [address] SQUAMOUS EPITH. CELLS <1 Normal [facility] Comment on above: Performed By: #### U AMIC #### [place] [id number] WBC 1 /HPF Normal 0-5 [facility] Comment on above: Performed By: #### U AMIC #### [place] [address] URINALYSIS WITH CULTURE IF I NDICATEDon 08-26-2021 Appearance (U) CLEAR Normal CLEAR [facility] Comment on above: Performed By: #### U ARFX #### [place] [address] Bilirubin Ql (U) Negative Normal NEGATIVE [facility] Comment on above: Performed By: #### U ARFX #### [place] [address] Color (U) Yellow Normal STRAW,YELLOW [facility] Comment on above: Performed By: #### U ARFX #### [place] [address] Glucose Ql (U) Negative Normal NEGATIVE [facility] Comment on above: Performed By: #### U ARFX #### [place] [id number] Hemoglobin Ql (U) SMALL(1+) Abnormal NEGATIVE [facility] Comment on above: Performed By: #### U ARFX #### [place] [address] Ketones Ql (U) Negative Normal NEGATIVE [facility] Comment on above: Performed By: #### U ARFX #### [place] [id number] Leukocyte esterase Test strip Ql (U) Negative Normal NEGATIVE [facility] Comment on above: Performed By: #### U ARFX #### [address] [address] Nitrite Ql (U) Negative Normal NEGATIVE [facility] Comment on above: Performed By: #### U ARFX #### [address] [address] pH (U) 6.0 [pH] Normal 5.0 - 8.0 [facility] Comment on above: Performed By: #### U ARFX #### [address] [address] Protein Ql (U) Negative Normal NEGATIVE [facility] Comment on above: Performed By: #### U ARFX #### [address] [address] Specific gravity (U) [Rel density] 1.013 Normal 1.005 - 1.035 [facility] Comment on above: Performed By: #### U ARFX #### [address] [address] Urobilinogen (U) [Mass/Vol] mg/dL Normal 0.0 - 1.9 [facility] Comment on above: Performed By: #### U ARFX #### [address] [address] Color (U) Yellow See Below [employer] [facility] [employer] Work Phone: Comment on above: Reference Range: STR AW,YELLOW Glucose Ql (U) Negative NEGATIVE [employer] [facility] [employer] Work Phone: Ketones Ql (U) Negative NEGATIVE [employer] [facility] [employer] Work Phone: Leukocyte esterase Test strip Ql (U) Negative NEGATIVE [employer] [facility] [employer] Work Phone: pH (U) 6.0 [pH] 5.0 - 8.0 [employer] [facility] [employer] Work Phone: Protein (U) [Mass/Vol] Negative NEGATIVE [employer] [facility] [employer] Work Phone: RBC (U) [#/Vol] SMALL(1+) Abnormal NEGATIVE [employer] [facility] [employer] Work Phone: Specific gravity (U) [Rel density] 1.013 1 See Below [facility] Work Phone: Comment on above: Reference Range: 1.0 05 - 1.035 URINALYSIS WITH CULTURE IF INDICATED Negative NEGATIVE [facility] Work Phone: URINALYSIS WITH CULTURE IF INDICATED <2.0 0.0 - 1.9 [facility] Work Phone: URINALYSIS WITH CULTURE IF INDICATED CLEAR CLEAR [facility] Work Phone: US PELVIS OB TRANSABDOMINAL W TRANSVAGINAL UP TO 1st TRIMESTERon 08-26-2021 US PELVIS OB TRANSABDOMINAL W TRANSVAGINAL UP TO 1st TRIMESTER Patient Name: ALBERTO BLACKWOOD STUDY: US PELVIS OB TRANSABDOMINAL WITH TRANSVAGINAL 08/26/2021 2:43 pm INDICATION: 31 y/o F with , LLQ abd pain . LMP: Unknown. COMPARISON: None. ACCESSION NUMBER(S): [id number] ORDERING CLINICIAN: JEN KOEHLER TECHNIQUE: Multiple grayscale [...] Electronically signed by: ELOY GOLDSTEIN MD Normal [facility] Urinalysis, Microscopicon Urinalysis, Microscopic 1+ Abnormal [facility] Work Phone: Urinalysis, Microscopic <1 0-5 [facility] Work Phone: Urinalysis, Microscopic 1 {/HPF} 0-5 [facility] [employer] Work Phone: 17-Hydroxyprogesterone, Seru mon 07-08-2021 17-Hydroxyprogester one [Mass/Vol] 40 ng/dL [facility] [employer] Work Phone: Comment on above: Unable to [...] Endocrinol Metab. 1991;73:674-686; J Clin Endocrinol Metab. 1989;69;5592-3249; J Clin Endocrinol Metab. 1994;78:226-270. Pediatr Res 1988;23:525-529. MedLinePlus (accessed 08/06/13). This test was developed and its analytical performancecharacteristics have been determined by [employer] [place] It hasnot been cleared or approved by the U.S. Food and DrugAdministration. This assay has been validated pursuantto the CLIA regulations and is used for clinicalpurposes. DHEA Sulfate, Serumon 2021 DHEA-S [Mass/Vol] 195 ug/dL 65 - 395 [employer] [employer] Work Phone: Comment on above: MATURITY-BASED REFER [...] Hemoglobin A1Con 07-08-2021 Glucose [Mass/Vol] 88 mg/dL [employer] Phone: HbA1c (Bld) [Mass fraction] 4.7 % [facility] Work Phone: Comment on above: Diagnosis of Diabete s-Adults Non-Diabetic: < or = 5.6% Increased risk for developing diabetes: 5.7-6.4% Diagnostic of diabetes: > or = 6.5%. Monitoring of Diabetes Age (y) Therapeutic Goal (%) Adults: >18 <7.0 Pediatrics: 13-18 <7.5 7-12 <8.0 0- 6 7.5-8.5 [employer]. Diabetes Care 33(S1), Feb 2009. Lipid Panelon 07-08-2021 Cholesterol [Mass/Vol] 135 mg/dL 0 - 199 [facility] Work Phone: Comment on above: . AGE [...] dosing. Cholesterol in HDL [Mass/Vol] 48.0 mg/dL [employer] Phone: Comment on above: . AGE VERY LOW LOW N ORMAL HIGH 0-19 Y < 35 < 40 40-45 ---- 20- 24 Y ---- < 40 >45 ---- >24 Y ---- < 40 40-60 >60. Cholesterol in LDL [Mass/Vol] 76 mg/dL 0 - 99 [facility] Work Phone: Comment on above: . NEAR BORD AGE JERI RABLE OPTIMAL HIGH HIGH VERY HIGH 0-19 Y 0 - 109 --- 110-129 >/= 130 ---- 20-24 Y 0 - 119 --- 120-159 >/= 160 ---- >24 Y 0 - 99 100-129 130-159 160-189 >/=190. Cholesterol.total/C holesterol in HDL [Mass ratio] 2.8 {ratio} [facility] Work Phone: Comment on above: REF VALUESDESIRABLE < 3.4HIGH RISK > 5.0 Triglyceride [Mass/Vol] 53 mg/dL 0 - 149 [facility] Phone: Comment on above: . AGE DESIRABLE [...] Lipid Panel 11 mg/dL 0 - 40 [facility] Work Phone: Progesterone, Serumon 2021 Progesterone [Mass/Vol] Canceled [employer] Phone: Comment on above: REF VALUESMALE <0.3- 1.2 FOLLICULAR PHASE <0.3- 1.4 LUTEAL PHASE 3.3-25.6 MID-LUTEAL PHASE 4.4-28.0POSTMENOPAUSAL <0.3- 0.7 FEMALES: 1ST TRIMESTER 11.2- 90.0 2ND TRIMESTER 25.6- 89.4 3RD TRIMESTER 48.4-422.5 .Patients receiving DHEA-S supplements may show false elevation ofprogesterone for results near 1.0 ng/mL. Contact laboratory [phone] if alternative testing is needed. LMPon 07-01-2021 Last menstrual period start date 02Jun2021 [facility] Work Phone: BACK ORDER CLERK - Office Visiton 06-21 BACK ORDER CLERK - Office Visit Diagnoses/Problems Assessed PCOS (polycystic ovarian syndrome) (256.4) (E28.2) Orders 17-Hydroxyprogesterone, Serum; Status:Active; Requested for:[id number]; Follow-up PRN Outpatient Follow-up Status: Active Requested for: 01Jul2021 DHEA Sulfate, Serum; Status:Active; Requested for:[id number]; Hemoglobin A1C; Status:Active; Requested for:01Jul2021; Lipid Panel; Status:Active; Requested for:[id number]; Provider Impressions 1) PCOS-patient has irregular cycles [...] NEW CONCERNS. LMP: 06/02/2021 History of Present Aqvewcw77-rdos-yhn multigravida presents for results review. Patient notes [...] TABS Vitals Vital Signs Recorded: 01Jul2021 01:32PM Auqachbv468 Ajchjcatz25 Height5 ft 8 in Xfesgc526 lb 2.74 oz BMI Hwozxuhtkn46.2 kg/m2 BSA Calculated1.85 [id number] Physical Exam General: None acute distress Eye: Intraocular movements are intact HEENT: Normocephalic Cardiovascular: Regular rate Respiratory: Respirations are nonlabored Gastrointestinal: Nondistended Musculoskeletal: Normal range of motion Neurologic: Alert and oriented x3 Psychiatric: Cooperative appropriate mood and affect. Results/Data Ultrasound Pelvis Transabdominal With Wmoatsftujte52Oki0594 11:56Harlan Collins Test NameResultFlagReference Ultrasound Pelvis Transabdominal With Transvaginal(Report) FINAL REPORT Interpreted by: BRUCE ALVARES KUMAR, MD 06/10/21 14:17 Patient Name: ALBERTO BLACKWOOD STUDY: US PELVIS TRANSABDOMINAL WITH TRANSVAGINAL; 06/10/2021 11:56 am INDICATION: aub 45 day cycles. ?pcos N93.9: Abnormal uterine bleeding (AUB). COMPARISON: None. ACCESSION NUMBER(S): [id number] ORDERING CLINICIAN: HARLAN DING TECHNIQUE: Multiple multiplanar [...] Hormone, Se (more content not included)... Normal [employer] No Panel Informationon 06-10 Normal [facility] Work Phone: LMPon 06-03-2021 Last menstrual period start date 02Jun2021 [facility] Work Phone: Laboratory - Hematology and Cell countson 06-03-2021 Erythrocyte distribution width (RBC) [Ratio] 12.6 % See Below [facility] Work Phone: Comment on above: Reference Range: 11. 5 - 14.5 Hematocrit (Bld) [Volume fraction] 34.7 % below low threshold See Below [facility] Work Phone: Comment on above: Reference Range: 36. 0 - 46.0 Hemoglobin (Bld) [Mass/Vol] 11.6 g/dL below low threshold See Below [facility] Work Phone: Comment on above: Reference Range: 12. 0 - 16.0 MCHC (RBC) [Mass/Vol] 33.3 g/dL See Below [facility] Work Phone: Comment on above: Reference Range: 32. 0 - 36.0 MCV (RBC) [Entitic vol] 97 fL 80 - 100 [employer] Work Phone: Platelets (Bld) [#/Vol] 280 10*3/uL 150 - 450 [facility] Phone: RBC (Bld) [#/Vol] 3.59 {x10E12/L} below low threshold See Below [facility] Work Phone: Comment on above: Reference Range: 4.0 0 - 5.20 WBC (Bld) [#/Vol] 8.8 10*3/uL 4.4 - 11.3 [facility] [employer] Work Phone: BACK ORDER CLERK - Office Visiton 05-22 BACK ORDER CLERK - Office Visit Diagnoses/Problems Assessed Abnormal uterine bleeding (AUB) (626.9) (N93.9) Orders Follow-up visit in 3 weeks Outpatient Follow-up Status: Hold For - Scheduling Requested for: 03Jun2021 Complete Blood Count; Status:Resulted - Requires Verification; Done: 03Jun2021 03:19PM Testosterone, Level; Status:In Progress - Specimen/Data Collected; Done: 03Jun2021 TSH - Thyroid Stimulating Hormone, Serum; Status:In Progress - Specimen/Data Collected; Done: [id number] Ultrasound Pelvis Transabdominal With Transvaginal; Status:Active; Requested for:[id number]; Radiologist to Determine Optimal Study : Y [...] BLOOD DRAWN. LMP: 06/02/2021 History of Present Cmvafyu64-etha-rmb -0-1-2 presents for follow-up. Patient is called [...] TABS Vitals Vital Signs Recorded: 03Jun2021 02:19PM Lwswtvbm544 Bxdxdhqsk91 Height5 ft 8 in Ylubbq530 lb 11.36 oz BMI Nqufzghqmv67.44 kg/m2 BSA Calculated1.86 [id number] Physical Exam General: None acute distress Eye: Intraocular movements are intact HEENT: Normocephalic Cardiovascular: Regular rate Respiratory: Respirations are nonlabored Gastrointestinal: Nondistended Musculoskeletal: Normal range of motion Neurologic: Alert and oriented x3 Psychiatric: Cooperative appropriate mood and affect. Results/Data Complete Blood [id number] 03:19PMHarlan Ding Test NameResultFlagReference White Blood Cell Count8.8 x10E9/L4.4 - 11.3 Red Blood Cell Count3.59 x10E12/LLSee Below Reference Range: 4.00 - 5.20 Fhjwytmwrq96.6 g/dLLSee Below Reference Range: 12.0 - 16.0 HCT34.7 %LSee Below Reference Range: 36.0 - 46.0 MCV97 fL80 - 100 MCHC33.3 g/dLSee Below Reference Range: 32.0 - 36.0 Platelet Elndq914 x10E9/L150 - 450 RDW-CV12.6 %See Below Reference Range: 11.5 - 14.5 Signatures Electronically signed by : Harlan Ding DO; Jun 03 2021 4:26PM EST (Author) Normal [facility] TSH - Thyroid Stimulating Ho rmone, Serumon 06-03-2021 TSH Qn 0.84 m[IU]/L See Below [facility] [place] [address] [employer] Work Phone: Comment on above: Reference Range: 0.4 4 - 3.98 TSH testing is performed using different testing methodology at [facility] than at other [facility]. Direct result comparisons should only be made within the same method. Testosterone, Levelon 2021 Testosterone [Mass/Vol] ng/dL 0 - 70 [facility]: Comment on above: Nandrolone decanoate , 11 Beta-hydroxytestosterone, androstenedione, testosterone propionate and 40-dwen-sbkmzmirjyiv strongly cross react with this test method. [...] HCG, Beta Quantitativeon HCG.beta subunit Qn m[IU]/mL [facility] [employer] Work Phone: Comment on above: Low-level positive [...] performed using a different test methodology at [facility] than other [facility]. Direct result comparison should only be made within the same method. REF VALUESNON FEMALE <5MALES <5 HCG, Beta Quantitativeon HCG.beta subunit Qn m[IU]/mL [facility] [employer] Work Phone: Comment on above: Low-level positive [...] performed using a different test methodology at [facility] than other [facility]. Direct result comparison should only be made within the same method. REF VALUESNON FEMALE <5MALES <5 BACK ORDER CLERK - Office Visiton 04-21 BACK ORDER CLERK - Office Visit Diagnoses/Problems Assessed Abnormal uterine bleeding (AUB) (626.9) (N93.9) Orders Tobacco Use Screening; Status:Complete; Done: 06May2021 Provider Impressions 1)aub-unclear etiology with talking with the patient if recurrent miscarriages versus just long cycle at 3840 weeks with potentially false positives. I thinking this because patient notes she is had a couple blood test with her prior BACK ORDER CLERK that were negative which were conflicting with [...] two boys. LMP 04/19/21 History of Present Ezxmeqx28-pepm-msa G2, P2 presents to my office with [...] that cycle. Patient was seeing a previous BACK ORDER CLERK who ran blood test summer afterwards which was negative. Patient proceeded to have this happen again a couple other times throughout 2020, with varying help from her prior BACK ORDER CLERK which to satisfy the patient. She noted [...] TABS V (more content not included)... Normal [facility] Tobacco Screening.on Last menstrual period start date 19Apr2021 [facility] [employer] Work Phone: Tobacco use status [facility] b) No [facility] [employer] Work Phone: Coding Summary.on 06-16-2017 Coding Summary. CODING DATE: 018 [facility] STATUS: PAYOR: Self Pay ADMIT DX: REASON [...] Ortiz Date Saved: 06/16/2017 02:05 pm Normal [facility] Progress Noteon 03-17-2017 Electronic Lab Technician Authentication Interface Message Text Thank you for [...] size. There was a patent foramen ovale, irzuoxyvm-ek-dlhg shunt.Small to medium size atrial septal aneurysm, [...] to see in cardiology clinic here at [facility], 1-2 moths after the or earlier if cardiac condition/statuschanges in any way.Counseling and/or coordination of care was greater than 35 minutes which is morethan 50% of the total time of 60 minutes spent on the encounter. Normal [facility] Progress Noteon 02-10-2017 Electronic Lab Technician Authentication Interface Message Text Pt seen by Dr. Paige and craniofacial clinic due to cleft lip. Yordan Vadio [facility] unable to meet with pt today. Will see pt 03/[address] Hidalgo at 9:30, ultrasound for growth at 11:00 and consultation at 12:00 Normal [facility] Electronic Lab Technician Authentication Interface Message Text Alberto Blackwood is [...] evaluation after . They met with our home health care social worker gustavo. 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 Pt plans to deliver at [place] with Dr. Noguera. Likely repeat at39 weeks.Internal Control Consultant is Dr Junior ([facility]). Male fetus- name is yet to be decided.Method of feeding: BreastUltrasound findings today: See report in procedures for details.Plastics and consultants not available for appointment todayPt will follow up 1 month in [place] for reevaluation of growth.Plastics ([facility]), Craniofacial Clinic and on 02/10/17.Reinforced continued OB care with Vinny Gifford.Breast feeding pamphlet, cleft bottle information provided.The total patient time of the visit was 15 minutes, of which greater than 50% ofthe time was spent counseling and coordinating care. [facility] Electronic Lab Technician Authentication Interface Message Text The total patient time of the visit was 45 minutes, of which greater than 50% of the time was spent counseling and coordinating care. Normal [facility] Vital Signs Date Time Vital Sign Value Performing Clinician Facility 10-18-2024 09:040 Body mass index (BMI) [Ratio] 28.74 kg/m2 Risa Olivares MD Work Phone: [facility] 10-18-2024 09:040 Body weight 85.73 kg Risa Olivares MD Work Phone: [facility] 10-18-2024 09:26-0400 Diastolic blood pressure 64 mm[Hg] Risa Olivares MD Work Phone: [facility] 10-18-2024 09:26-0400 Systolic blood pressure 106 mm[Hg] Risa Olivares MD Work Phone: [facility] 10-10-2024 11:32-0400 Body mass index (BMI) [Ratio] 29.5 kg/m2 Ronna Plotts DEGREE CLERK.CNM Work Phone: [facility] 10-10-2024 11:32-0400 Body weight 88 kg Ronna Plotts DEGREE CLERK.CNM Work Phone: [facility] 10-10-2024 11:32-0400 Diastolic blood pressure 76 mm[Hg] Ronna Plotts DEGREE CLERK.CNM Work Phone: [facility] 10-10-2024 11:32-0400 Systolic blood pressure 122 mm[Hg] Ronna Plotts DEGREE CLERK.CNM Work Phone: [facility] 09-20-2024 15:21-0400 Body mass index (BMI) [Ratio] 28.43 kg/m2 Aparna Fatima MD Work Phone: [facility] 09-20-2024 15:21-0400 Body weight 84.82 kg Aparna Fatima MD Work Phone: [facility] 09-20-2024 15:21-0400 Diastolic blood pressure 72 mm[Hg] Aparna Fatima MD Work Phone: [facility] 09-20-2024 15:21-0400 Systolic blood pressure 102 mm[Hg] Aparna Fatima MD Work Phone: [facility] 08-30-2024 14:12-0400 Body mass index (BMI) [Ratio] 28.04 kg/m2 Ronna Plotts DEGREE CLERK.CNM Work Phone: [facility] 08-30-2024 14:12-0400 Body weight 83.64 kg Ronna Salomon DEGREE CLERK.CNM Work Phone: [facility] 08-30-2024 14:12-0400 Diastolic blood pressure 66 mm[Hg] Ronna Salomon DEGREE CLERK.CNM Work Phone: [facility] 08-30-2024 14:12-0400 Systolic blood pressure 120 mm[Hg] Ronna Salomon DEGREE CLERK.CNM Work Phone: [facility] 08-23-2024 09:14-0400 Body mass index (BMI) [Ratio] 27.37 kg/m2 Risa Olivares MD Work Phone: [facility] 08-23-2024 09:14-0400 Body weight 81.65 kg Risa Olivares MD Work Phone: [facility] 08-23-2024 09:14-0400 Diastolic blood pressure 70 mm[Hg] Risa Olivares MD Work Phone: [facility] 08-23-2024 09:14-0400 Systolic blood pressure 114 mm[Hg] Risa Olivares MD Work Phone: [facility] 08-09-2024 11:07-0400 Body mass index (BMI) [Ratio] 27 kg/m2 Aparna Fatima MD Work Phone: [facility] 08-09-2024 11:07-0400 Body weight 80.56 kg Aparna Fatima MD Work Phone: [facility] 08-09-2024 11:07-0400 Diastolic blood pressure 70 mm[Hg] Aparna Fatima MD Work Phone: [facility] 08-09-2024 11:07-0400 Systolic blood pressure 116 mm[Hg] Aparna Fatima MD Work Phone: [facility] 07-05-2024 08:23-0400 Body mass index (BMI) [Ratio] 26.79 kg/m2 Noemi Ravencliff DEGREE CLERK.RETAIL ADMINISTRATIVE ASSISTANT Work Phone: [facility] 07-05-2024 08:23-0400 Body weight 79.92 kg Noemi Attila DEGREE CLERK.RETAIL ADMINISTRATIVE ASSISTANT Work Phone: [facility] 07-05-2024 08:23-0400 Diastolic blood pressure 66 mm[Hg] Noemi Attila DEGREE CLERK.RETAIL ADMINISTRATIVE ASSISTANT Work Phone: [facility] 07-05-2024 08:23-0400 Systolic blood pressure 118 mm[Hg] Noemi Ravencliff DEGREE CLERK.RETAIL ADMINISTRATIVE ASSISTANT Work Phone: [facility] 05-24-2024 14:44-0400 Body height 172.7 cm Ramón Haury DEGREE CLERK.RETAIL ADMINISTRATIVE ASSISTANT Work Phone: [facility] 05-24-2024 14:44-0400 Body mass index (BMI) [Ratio] 26.3 kg/m2 Ramón Haury DEGREE CLERK.RETAIL ADMINISTRATIVE ASSISTANT Work Phone: [facility] 05-24-2024 14:44-0400 Body weight 78.47 kg Ramón Haury DEGREE CLERK.RETAIL ADMINISTRATIVE ASSISTANT Work Phone: [facility] 05-24-2024 14:44-0400 Diastolic blood pressure 62 mm[Hg] Ramón Haury DEGREE CLERK.RETAIL ADMINISTRATIVE ASSISTANT Work Phone: [facility] 05-24-2024 14:44-0400 Systolic blood pressure 114 mm[Hg] Ramón Haury DEGREE CLERK.RETAIL ADMINISTRATIVE ASSISTANT Work Phone: [facility] 02-08-2024 11:07-0500 Body height 172.7 cm Jeanette Albarran DEGREE CLERK-RETAIL ADMINISTRATIVE ASSISTANT Work Phone: [facility] 02-08-2024 11:07-0500 Body mass index (BMI) [Ratio] 25.7 kg/m2 Jeanette Albarran DEGREE CLERK-RETAIL ADMINISTRATIVE ASSISTANT Work Phone: [facility] 02-08-2024 11:07-0500 Body temperature 97.81 [degF] Jeanette Albarran DEGREE CLERK-RETAIL ADMINISTRATIVE ASSISTANT Work Phone: [facility] 02-08-2024 11:07-0500 Body weight 76.66 kg Jeanette Albarran DEGREE CLERK-RETAIL ADMINISTRATIVE ASSISTANT Work Phone: [facility] 02-08-2024 11:07-0500 Diastolic blood pressure 79 mm[Hg] Jeanettebrayan Albarran DEGREE CLERK-RETAIL ADMINISTRATIVE ASSISTANT Work Phone: [facility] 02-08-2024 11:07-0500 Heart rate 82 /min Jeanette Albarran DEGREE CLERK-RETAIL ADMINISTRATIVE ASSISTANT Work Phone: [facility] 02-08-2024 11:07-0500 Respiratory rate 18 /min Jeanette Albarran DEGREE CLERK-RETAIL ADMINISTRATIVE ASSISTANT Work Phone: [facility] 02-08-2024 11:07-0500 SaO2% (BldA) [Mass fraction] 97 % Jeanette Albarran DEGREE CLERK-RETAIL ADMINISTRATIVE ASSISTANT Work Phone: [facility] 02-08-2024 11:07-0500 Systolic blood pressure 111 mm[Hg] Jeanettebrayan Albarran DEGREE CLERK-RETAIL ADMINISTRATIVE ASSISTANT Work Phone: [facility] 10-05-2023 14:06-0400 Body mass index (BMI) [Ratio] 27.1 kg/m2 Javid Starr MD Work Phone: [facility] 10-05-2023 14:06-0400 Body weight 80.83 kg Javid Starr MD Work Phone: [facility] 10-05-2023 14:06-0400 Diastolic blood pressure 64 mm[Hg] Javid Starr MD Work Phone: [facility] 10-05-2023 14:06-0400 Heart rate 78 /min Javid Starr MD Work Phone: [facility] 10-05-2023 14:06-0400 Respiratory rate 16 /min Javid Starr MD Work Phone: [facility] 10-05-2023 14:06-0400 SaO2% (BldA) [Mass fraction] 99 % Javid Starr MD Work Phone: [facility] 10-05-2023 14:06-0400 Systolic blood pressure 98 mm[Hg] Javid Starr MD Work Phone: [facility] 08-19-2023 08:55-0400 Body mass index (BMI) [Ratio] 27.22 kg/m2 Ramón Haana DEGREE CLERK.RETAIL ADMINISTRATIVE ASSISTANT Work Phone: [facility] 08-19-2023 08:55-0400 Body weight 81.19 kg Ramón Haana DEGREE CLERK.RETAIL ADMINISTRATIVE ASSISTANT Work Phone: [facility] 08-19-2023 08:55-0400 Diastolic blood pressure 72 mm[Hg] Ramón Haury DEGREE CLERK.RETAIL ADMINISTRATIVE ASSISTANT Work Phone: [facility] 08-19-2023 08:55-0400 Heart rate 86 /min Ramón Haana DEGREE CLERK.RETAIL ADMINISTRATIVE ASSISTANT Work Phone: [facility] 08-19-2023 08:55-0400 Respiratory rate 14 /min Ramón Haana DEGREE CLERK.RETAIL ADMINISTRATIVE ASSISTANT Work Phone: [facility] 08-19-2023 08:55-0400 SaO2% (BldA) [Mass fraction] 98 % Ramón Snyder DEGREE CLERK.RETAIL ADMINISTRATIVE ASSISTANT Work Phone: [facility] 08-19-2023 08:55-0400 Systolic blood pressure 98 mm[Hg] Ramón Haury DEGREE CLERK.RETAIL ADMINISTRATIVE ASSISTANT Work Phone: [facility] 07-22-2023 10:38-0400 Body mass index (BMI) [Ratio] 26.61 kg/m2 Aparna Fatima MD Work Phone: [facility] 07-22-2023 10:38-0400 Body weight 79.38 kg Aparna Fatima MD Work Phone: [facility] 07-22-2023 10:38-0400 Diastolic blood pressure 70 mm[Hg] Aparna Fatima MD Work Phone: [facility] 07-22-2023 10:38-0400 Systolic blood pressure 106 mm[Hg] Aparna Fatima MD Work Phone: [facility] 06-23-2023 08:23-0400 Body height 172.7 cm Noemi Aiken APRN.RETAIL ADMINISTRATIVE ASSISTANT Work Phone: [facility] 06-23-2023 08:23-0400 Body mass index (BMI) [Ratio] 27 kg/m2 Noemi Attila DEGREE CLERK.RETAIL ADMINISTRATIVE ASSISTANT Work Phone: [facility] 06-23-2023 08:23-0400 Body weight 80.56 kg Noemi Attila DEGREE CLERK.RETAIL ADMINISTRATIVE ASSISTANT Work Phone: [facility] 06-23-2023 08:23-0400 Diastolic blood pressure 60 mm[Hg] Noemi Attila DEGREE CLERK.RETAIL ADMINISTRATIVE ASSISTANT Work Phone: [facility] 06-23-2023 08:23-0400 Systolic blood pressure 102 mm[Hg] Noemi Attila DEGREE CLERK.RETAIL ADMINISTRATIVE ASSISTANT Work Phone: [facility] 02-04-2023 10:41-0500 Body temperature 98.4 [degF] Brent Roberto Jr., DPM Work Phone: [facility] 02-04-2023 10:41-0500 Diastolic blood pressure 74 mm[Hg] Brent Roberto Jr., DPM Work Phone: [facility] 02-04-2023 10:41-0500 Heart rate 66 /min Brent Roberto Jr., DPM Work Phone: [facility] 02-04-2023 10:41-0500 Systolic blood pressure 111 mm[Hg] Brent Roberto Jr., DPM Work Phone: [facility] 01-05-2023 15:57-0500 Diastolic blood pressure 72 mm[Hg] Brent Roberto Jr., DPM Work Phone: [facility] 01-05-2023 15:57-0500 Heart rate 64 /min Brent Roberto Jr., DPM Work Phone: [facility] 01-05-2023 15:57-0500 Systolic blood pressure 106 mm[Hg] Brent Roberto Jr., DPM Work Phone: [facility] 04-05-2022 08:13-0500 Body temperature 97.5 [degF] [facility] 04-05-2022 08:13-0500 Diastolic blood pressure 64 mm[Hg] [facility] 04-05-2022 08:13-0500 Heart rate 92 /min [facility] 04-05-2022 08:13-0500 Respiratory rate 16 /min [facility] 04-05-2022 08:13-0500 Systolic blood pressure 105 mm[Hg] [facility] 04-04-2022 12:12-0500 SaO2% (BldA) [Mass fraction] 100 % [facility] 04-03-2022 22:20-0500 Body height 172.72 cm [facility] 04-03-2022 22:20-0500 Body mass index (BMI) [Ratio] 30.7 kg/m2 [facility] 04-03-2022 22:20-0500 Body weight 91.53 kg [facility] 01-08-2022 10:39-0500 Diastolic blood pressure 68 mm[Hg] [facility] 01-08-2022 10:39-0500 Heart rate 82 /min [facility] 01-08-2022 10:39-0500 Respiratory rate 16 /min [facility] 01-08-2022 10:39-0500 SaO2% (BldA) [Mass fraction] 100 % [facility] 01-08-2022 10:39-0500 Systolic blood pressure 95 mm[Hg] [facility] 01-08-2022 09:57-0500 Body height 172.72 cm [facility] 01-08-2022 09:57-0500 Body mass index (BMI) [Ratio] 26.6 kg/m2 [facility] 01-08-2022 09:57-0500 Body temperature 97.9 [degF] [facility] 01-08-2022 09:57-0500 Body weight 79.37 kg [facility] 11-16-2021 13:27-0400 Body height 172.72 cm No PCP None [facility] [address] [place] Work Phone: 11-16-2021 13:27-0400 Body mass index (BMI) [Ratio] 25.84 kg/m2 No PCP None [facility] [place] Work Phone: 11-16-2021 13:27-0400 Body surface area Derived from formula 1.91 m2 No PCP None [facility] [place] Work Phone: 11-16-2021 13:27-0400 Body weight 77.1 kg No PCP None [facility] [place] Work Phone: 11-16-2021 13:27-0400 Diastolic blood pressure 70 mm[Hg] No PCP None [facility] [place] Work Phone: 11-16-2021 13:27-0400 Systolic blood pressure 112 mm[Hg] No PCP None [facility] [place] Work Phone: 10-19-2021 09:36-0400 Body height 172.72 cm No PCP None [facility] [place] Work Phone: 10-19-2021 09:36-0400 Body mass index (BMI) [Ratio] 24.84 kg/m2 No PCP None [facility] [address] [place] Work Phone: 10-19-2021 09:36-0400 Body surface area Derived from formula 1.88 m2 No PCP None [facility] [place] Work Phone: 10-19-2021 09:36-0400 Body weight 74.1 kg No PCP None [facility] [place] Work Phone: 10-19-2021 09:36-0400 Diastolic blood pressure 70 mm[Hg] No PCP None [facility] [address] [place] Work Phone: 10-19-2021 09:36-0400 Systolic blood pressure 100 mm[Hg] No PCP None [facility] [address] [place] Work Phone: 09-23-2021 09:51-0400 Body height 172.72 cm No PCP None [facility] [address] [place] Work Phone: 09-23-2021 09:51-0400 Body mass index (BMI) [Ratio] 23.97 kg/m2 No PCP None [facility] [place] Work Phone: 09-23-2021 09:51-0400 Body surface area Derived from formula 1.85 m2 No PCP None [facility] [place] Work Phone: 09-23-2021 09:51-0400 Body weight 71.5 kg No PCP None [facility] [address] [place] Work Phone: 09-23-2021 09:51-0400 Diastolic blood pressure 64 mm[Hg] No PCP None [facility] [place] Work Phone: 09-23-2021 09:51-0400 Systolic blood pressure 100 mm[Hg] No PCP None [facility] [place] Work Phone: 09-02-2021 09:41-0400 Body height 172.72 cm No PCP None [facility] [place] Work Phone: 09-02-2021 09:41-0400 Body mass index (BMI) [Ratio] 24.4 kg/m2 No PCP None [facility] [place] Work Phone: 09-02-2021 09:41-0400 Body surface area Derived from formula 1.86 m2 No PCP None [facility] [place] Work Phone: 09-02-2021 09:41-0400 Body weight 72.8 kg No PCP None [facility] [place] Work Phone: 09-02-2021 09:41-0400 Diastolic blood pressure 62 mm[Hg] No PCP None [facility] [place] Work Phone: 09-02-2021 09:41-0400 Systolic blood pressure 100 mm[Hg] No PCP None [facility] [place] Work Phone: 07-01-2021 13:32-0400 Body height 172.72 cm No PCP None Thuy [address] [place] Work Phone: 07-01-2021 13:32-0400 Body mass index (BMI) [Ratio] 24.2 kg/m2 No PCP None Katja [address] [place] Work Phone: 07-01-2021 13:32-0400 Body surface area Derived from formula 1.85 m2 No PCP None Katja [address] [place] Work Phone: 07-01-2021 13:32-0400 Body weight 72.2 kg No PCP None Thuy [facility] [place] Work Phone: 07-01-2021 13:32-0400 Diastolic blood pressure 70 mm[Hg] No PCP None Katja [address] [place] Work Phone: 07-01-2021 13:32-0400 Systolic blood pressure 100 mm[Hg] No PCP None Katja [address] [place] Work Phone: 06-03-2021 14:19-0400 Body height 172.72 cm No PCP None Th[facility] [address] [place] Work Phone: 06-03-2021 14:19-0400 Body mass index (BMI) [Ratio] 24.44 kg/m2 No PCP None Katja [address] [place] Work Phone: 06-03-2021 14:19-0400 Body surface area Derived from formula 1.86 m2 No PCP None Katja [address] [place] Work Phone: 06-03-2021 14:19-0400 Body weight 72.9 kg No PCP None Th[facility] [address] [place] Work Phone: 06-03-2021 14:19-0400 Diastolic blood pressure 68 mm[Hg] No PCP None Katja [address] [place] Work Phone: 06-03-2021 14:19-0400 Systolic blood pressure 100 mm[Hg] No PCP None [facility] [address] [place] Work Phone: 05-06-2021 10:04-0400 Body height 172.72 cm No PCP None [facility] [address] [place] Work Phone: 05-06-2021 10:04-0400 Body mass index (BMI) [Ratio] 24.67 kg/m2 No PCP None [facility] [address] [place] Work Phone: 05-06-2021 10:04-0400 Body surface area Derived from formula 1.87 m2 No PCP None [facility] [address] [place] Work Phone: 05-06-2021 10:04-0400 Body weight 73.6 kg No PCP None [facility] [address] [place] Work Phone: 05-06-2021 10:04-0400 Diastolic blood pressure 60 mm[Hg] No PCP None [facility] [place] Work Phone: 05-06-2021 10:04-0400 Systolic blood pressure 112 mm[Hg] No PCP [facility] [employer] Work Phone: Encounters Encounter Date Encounter Type Care Provider Facility Start: 12-28-2024 End: 12-28-2024 ambulatory JAVID STARR Facility:[facility] Start: 12-14-2024 End: 12-14-2024 ambulatory RISA OLIVARES Facility:[facility] Start: 11-30-2024 End: 11-30-2024 ambulatory APARNA FATIMA Facility:[facility] Start: 11-27-2024 End: 11-27-2024 ambulatory PHYSICIAN [facility] Start: 11-15-2024 End: 11-15-2024 ambulatory RONNA SALOMON Facility:[facility] Start: 10-18-2024 End: 10-18-2024 ambulatory RISA OLIVARES Facility:[facility] Start: 10-18-2024 End: 10-18-2024 Patient encounter procedure Risa Olivares MD Work Phone: OB/Gynecology Comment on above: History of intrauter ine , currently (HCC) (Primary Dx); 23 weeks gestation of (HCC); Screening for diabetes mellitus; Supervision of high risk in second trimester (HCC) Start: 10-10-2024 End: 10-10-2024 ambulatory RONNA LEIGHABENEDICTO Facility:[facility] Start: 10-10-2024 End: 10-10-2024 Patient encounter procedure Ronna Leighabenedicto DEGREE CLERK.CNM Work Phone: OB/Gynecology Comment on above: 22 weeks gestation o f (HCC) (Primary Dx); Encounter for supervision of normal in multigravida ([facility]); Cramping affecting , antepartum ([facility]) Start: 10-09-2024 End: 10-09-2024 Telephone encounter Alexandra Pérez MD Work Phone: OB/Gynecology Comment on above: OB spotting Start: 09-21-2024 End: 09-21-2024 ambulatory Aparna Fatima MD Work Phone: OB/Gynecology Comment on above: Ultrasound Start: 09-20-2024 End: 09-20-2024 ambulatory NOEMI AIKEN Facility:[facility] Start: 09-20-2024 End: 09-20-2024 ambulatory APARNA FATIMA Facility:[facility] Start: 09-20-2024 End: 09-20-2024 Patient encounter procedure Whi Tech 1 Orthotist Or Prosthetist [facility] Comment on above: Encounter for anatomic survey (HCC) (Primary Dx); 19 weeks gestation of (HCC) Encounter for superv ision of normal in multigravida (HCC) (Primary Dx); 19 weeks gestation of (HCC); Palpitations; Shortness of breath Start: 09-01-2024 End: 09-01-2024 Emergency department patient visit NO ASSIGNED PCP GENERIC PROVIDER [facility] Start: 08-30-2024 End: 08-30-2024 ambulatory Aparna Fatima MD Work Phone: OB/Gynecology Comment on above: Cramping Start: 08-30-2024 End: 10-30-2024 Follow-up encounter Ronna Salomon APRN.CNM Work Phone: OB/Gynecology Start: 08-30-2024 End: 08-30-2024 Patient encounter procedure Ronna Salomon APRN.CNM Work Phone: OB/Gynecology Comment on above: Pelvic pain during p regnancy (HCC) (Primary Dx); Encounter for supervision of normal in multigravida ([facility]); History of intrauterine , currently ([facility]); 16 weeks gestation of ([facility]) Start: 08-23-2024 End: 08-23-2024 Patient encounter procedure Risa Olivares MD Work Phone: OB/Gynecology Comment on above: Encounter for superv ision of normal in multigravida ([facility]) (Primary Dx); History of intrauterine , currently ([facility]); 15 weeks gestation of ([facility]) Start: 08-23-2024 End: 08-23-2024 ambulatory RISA OLIVARES Facility:[facility] Start: 08-09-2024 End: 08-09-2024 ambulatory NOEMI ATTILA Facility:[facility] Start: 08-09-2024 End: 08-09-2024 ambulatory NOEMI ELLENBORO Facility:[facility] Start: 08-09-2024 End: 08-09-2024 Patient encounter procedure Whi Tech 1 Orthotist Or Prosthetist [facility] Comment on above: Encounter for nuchal translucency testing ([facility]) [Z36.82] (Primary Dx); 8 weeks gestation of ([facility]) Encounter for superv ision of normal in multigravida (HCC) (Primary Dx); 13 weeks gestation of ([facility]) Start: 07-19-2024 End: 07-19-2024 ambulatory Noemi Attila SHRUTHI Work Phone: OB/Gynecology Comment on above: [id number] test Start: 07-05-2024 End: 09-04-2024 Follow-up encounter Noemi Aiken APRN.CNP Work Phone: OB/Gynecology Start: 07-05-2024 End: 07-05-2024 Telephone encounter Noemi Aikne APRN.CNP Work Phone: OB/Gynecology Comment on above: Orders Start: 07-05-2024 End: 07-05-2024 Patient encounter procedure Noemi Aiken APRN.RETAIL ADMINISTRATIVE ASSISTANT Work Phone: OB/Gynecology Comment on above: Encounter for superv ision of normal in multigravida ([facility]) (Primary Dx); with uncertain dates in first trimester ([facility]); Screen for STD (sexually transmitted disease); 8 weeks gestation of ([facility]); History of intrauterine , currently ([facility]) Start: 07-05-2024 End: 07-05-2024 ambulatory NOEMI ATTILA Facility:[facility] Start: 06-14-2024 End: 06-14-2024 ambulatory NOEMI ATTILA Facility:[facility] Start: 06-05-2024 End: 06-05-2024 ambulatory Ramón Snyder APRN.RETAIL ADMINISTRATIVE ASSISTANT Work Phone: OB/Gynecology Comment on above: Positive test Start: 05-25-2024 End: 07-25-2024 Follow-up encounter Ramón Snyder APRN.CNP Work Phone: OB/Gynecology Start: 05-24-2024 End: 05-24-2024 ambulatory RAMÓN SNYDER Facility:[facility] Start: 05-24-2024 End: 05-24-2024 Patient encounter procedure Ramón Snyder APRN.RETAIL ADMINISTRATIVE ASSISTANT Work Phone: OB/Gynecology Comment on above: Encounter for gyneco logical examination (general) (routine) without abnormal findings (Primary Dx); Screening for cervical cancer; Encounter for screening for human papillomavirus (HPV); PCOS (polycystic ovarian syndrome); Abnormal uterine bleeding; Family history of breast cancer; History of IUFD; Desire for Start: 05-24-2024 End: 05-24-2024 Patient encounter status Ramón Snyder APRN.CNP Work Phone: [facility] Start: 02-08-2024 End: 02-08-2024 Subsequent hospital visit by physician Arash Gary [facility] Comment on above: Acute cough Start: 02-08-2024 End: 02-08-2024 Patient encounter procedure Jeanette Albarran DEGREE CLERK-RETAIL ADMINISTRATIVE ASSISTANT Work Phone: [facility] Comment on above: Acute bacterial sinu sitis (Primary Dx); Acute cough Start: 02-08-2024 End: 02-08-2024 ambulatory JEANETTE ALBARRAN [facility] Start: 10-06-2023 Chart abstracting Javid aguero [...] management of inpatient No Primary Care Physician Facility:[facility] Start: 09-16-2023 Telephone encounter Ramón madrigal APRN.RETAIL ADMINISTRATIVE ASSISTANT Work Phone: OB/Gynecology Comment on above: IUFD Start: 09-16-2023 End: 09-16-2023 Patient encounter procedure Orthotist Or Prosthetist [place] [facility] Work Phone: OB/Gynecology Comment on above: IUFD at 20 weeks or more of gestation (Primary Dx) IUFD at 20 weeks or more of gestation (Primary Dx); 20 weeks gestation of ; Encounter for supervision of high risk in second trimester, antepartum; History of section Start: 08-19-2023 End: 08-19-2023 Patient encounter procedure Ramón Snyder APRN.RETAIL ADMINISTRATIVE ASSISTANT Work Phone: OB/Gynecology Comment on above: Encounter [...] End: 06-23-2023 Patient encounter procedure Noemi Eppscalf DEGREE CLERK.RETAIL ADMINISTRATIVE ASSISTANT Work Phone: OB/Gynecology Comment on above: with uncer tain dates in first trimester (Primary Dx); 8 weeks gestation of ; Encounter for supervision of normal in multigravida in first trimester; Family history of defect Start: 06-21-2023 Telephone encounter Alexandra petty MD Work Phone: OB/Gynecology Comment on above: Results Start: 06-16-2023 Telephone encounter Noemi hernandez DEGREE CLERK.RETAIL ADMINISTRATIVE ASSISTANT Work Phone: OB/Gynecology Comment on above: Appointment Start: 06-13-2023 Telephone encounter Risa farrar MD Work Phone: OB/Gynecology Comment on above: Early OB Bleeding Start: 02-04-2023 End: 02-08-2023 ambulatory BRENT MEJIA JR. [facility] Start: 02-04-2023 End: 02-04-2023 Office outpatient visit 15 minutes Brent Mejia DPM Work Phone: [facility] Comment on above: Stress fracture of l eft foot, initial encounter (Primary Dx) Start: 01-05-2023 End: 01-09-2023 ambulatory PHYSICIAN NO [facility] Start: 01-05-2023 End: 01-05-2023 Office outpatient new 30 minutes Brent Mejia DPM Work Phone: [facility] Comment on above: Stress fracture of l eft foot, initial encounter (Primary Dx) Start: 12-22-2022 End: 12-22-2022 Emergency department patient visit PHYSICIAN JOSEPHINE [facility] Start: 04-03-2022 End: 04-05-2022 [facility] Start: 03-17-2022 End: 03-17-2022 ambulatory [facility] Work Phone: Start: 03-17-2022 End: 03-17-2022 Patient encounter procedure [facility] [place] do[facility] Start: 01-08-2022 End: 01-08-2022 Emergency department patient visit [facility] Start: 01-05-2022 End: 01-05-2022 Patient encounter procedure [facility] [place] do[place] sprayer Off Start: 11-17-2021 Chart Update No PCP None [facility] [address] [place] Work Phone: Start: 11-16-[address] Harlan Nair y:[id number] Start: 10-19-2021 Office outpatient vi sit 10 minutes No PCP None [facility] [address] [place] Work Phone: Start: 09-24-2021 Chart Update No PCP None [facility] [address] [place] Work Phone: Start: 09-23-2021 Office outpatient vi sit 15 minutes No PCP None [facility] [address] [place] Work Phone: Start: 09-02-2021 Office outpatient vi sit 15 minutes No PCP None [facility] [address] [place] Work Phone: Start: 08-26-2021 End: 08-26-2021 Emergency department patient visit Ms. Jen Koehler Facility:[id number] Start: 07-13-2021 Chart Update No PCP None [facility] [address] [place] Work Phone: Start: 07-08-2021 Chart Update No PCP None [facility] [address] [place] Work Phone: Start: 07-06-2021 AUDIT No PCP None [facility] [address] [place] Work Phone: Start: 07-01-2021 Office outpatient vi sit 15 minutes No PCP None [facility] Work Phone: Start: 06-10-[address] Harlan Nair y:[id number] Start: 06-04-2021 Chart Update No PCP [facility] Work Phone: Start: 06-03-2021 Office outpatient vi sit 15 minutes No PCP None [facility] Work Phone: Start: 05-29-2021 AUDIT No PCP None [facility] Work Phone: Start: 05-21-2021 AUDIT No PCP None [facility] Work Phone: Start: 05-06-2021 Office outpatient ne w 30 minutes No PCP None [facility] [employer] Work Phone: Start: 04-21-2017 End: 07-04-2017 Ambulatory XXXX NONE Facility:[facility] Start: 03-17-2017 End: 03-17-2017 Ambulatory NO PRIMARY CARE [facility] Start: 03-17-2017 End: 03-17-2017 Ambulatory NO PRIMARY CARE [facility] Start: 02-10-2017 End: 02-10-2017 Ambulatory NO PRIMARY CARE [facility] Start: 02-10-2017 End: 02-10-2017 Ambulatory KYLE PAIGE [facility] Start: 02-03-2017 Ambulatory DOCTOR NOT ON FILE [facility] Start: 01-17-2017 End: 01-17-2017 Ambulatory RISA OLIVER [facility] Start: 12-15-2016 End: 12-15-2016 Ambulatory JA CALVO [facility] Encounter for gynecological examination (general) (routine) without abnormal findings No PCP [facility] Work Phone: Comment on above: 09/23/2021; NIL; Procedures Date Procedure Procedure Detail Performing Clinician Start: 10-10-2024 Urnls dip stick/tabl et rgnt auto w/o microscopy Ronna Plotbenedicto DEGREE CLERK.CNM Work Phone: Start: 09-20-2024 Us preg uterus after 1st trimest 02/21 gestation Noemi Attila DEGREE CLERK.RETAIL ADMINISTRATIVE ASSISTANT Work Phone: Start: 08-30-2024 Urnls dip stick/tabl et rgnt auto w/o microscopy Ronna Umm DEGREE CLERK.CNM Work Phone: Start: 08-09-2024 Antibody screen SCOOTER SALOMON Comment on above: Order Comment: Speci men Type: BLOOD SPECIMENOrdering Facility: [facility] Address: [address] [place] [address] Performed By: #### T SPN ####CC MAIN BLOOD BANKCLIA [id number] [address] [place] Start: 08-09-2024 Us preg uterus after 1st trimest 02/21 gestation Noemi Ravencliff DEGREE CLERK.RETAIL ADMINISTRATIVE ASSISTANT Work Phone: Start: 07-05-2024 Us uterus l imited 1/> fetuses Noemi Ravencliff DEGREE CLERK.RETAIL ADMINISTRATIVE ASSISTANT Work Phone: Start: 02-08-2024 POCT SARS-COV-2/FLU/ RSV PCR SYMPTOMATIC Jeanette Albarran APRN-RETAIL ADMINISTRATIVE ASSISTANT Work Phone: Start: 02-08-2024 Radiologic exam ches t 2 views Jeanette Albarran APRN-RETAIL ADMINISTRATIVE ASSISTANT Work Phone: Start: 09-16-2023 Us preg uterus after 1st trimest 02/21 gestation Aparna Fatima MD Work Phone: Start: 07-28-2023 H/O: section History of section Aparna Fatima MD Work Phone: Start: 06-23-2023 Iadna chlamydia trac homatis amplified probe tq Noemi Ravencliff DEGREE CLERK.RETAIL ADMINISTRATIVE ASSISTANT Work Phone: Start: 06-23-2023 Us uterus l imited 1/> fetuses Noemi Ravencliff DEGREE CLERK.RETAIL ADMINISTRATIVE ASSISTANT Work Phone: Start: 02-04-2023 Follow-up visit Follow-up DAI Shields ROBERTO JR. Start: 09-23-2021 Microscopic observat ion [Identifier] in Cervix by Cyto stain Jeanette Albarran APRN-RETAIL ADMINISTRATIVE ASSISTANT Work Phone: Start: 08-26-[address] Jesusita Ding Comment on above: Performed By: #### T +S #### [place] [address] Start: 07-08-2021 Lipid 1996 panel - S kiarra or Plasma Jeanette Albarran APRN-RETAIL ADMINISTRATIVE ASSISTANT Work Phone: section No PCP None Comment on above: 2015; H/O: section History of vaginal delivery following previous delivery No PCP None Comment on above: 04/22/17 40 WEEKS 1 DAY MALE 7LB 7OZ; 04/22/17 40 WEEKS 1 DAY MALE 7LB 7OZ VAGINAL; H/O: section History of section pAarna Fatima MD Work Phone: H/O: section History of section Ramón Snyder APRN.CNP Work Phone: H/O: section History of section aRmón Snyder APRN.CNP Work Phone: Plan of Treatment Date Care Activity Detail Author Start: 01-18-2042 Zoster Vaccines (1 of 2) Zoster Vacc jacobo (1 of 2) [facility] Start: 02-28-2034 Urine microalbumin profile DTaP,Tdap,Td Vaccine (10 - Td or Tdap) [facility] Start: 05-24-2029 Screening for malign ant neoplasm of cervix Cervical Cancer Screening [facility] Start: 03-03-2027 DTaP/Tdap/Td Vaccine s (2 - Td or Tdap) DTaP/Tdap/Td Vaccines (2 - Td or Tdap) [facility] Start: 03-03-2027 Tetanus vaccination Tetanus: Every 1 0yrs [facility] Start: 03-03-2027 Urine microalbumin profile [facility] Start: 07-08-2026 Lipid panel Lipid Panel [facility] Start: 05-30-2025 End: 05-30-2025 Patient encounter procedure 05/30/2025 9:45 AM EDT Office Visit OB/Gynecology [address] [place] [address] Ramón Snyder, DEGREE CLERK.RETAIL ADMINISTRATIVE ASSISTANT [address] [place] [address] Annual OB/Gynecology Comment on above: Annual Start: 12-18-2024 RSV Vaccine (1 - Ris k 1-dose series) RSV Vaccine (1 - Risk 1-dose series) [facility] Start: 11-30-2024 End: 11-30-2024 Patient encounter procedure 11/30/2024 9:50 AM EDT Routine Office Visit OB/Gynecology [address] [place] [address] Aparna Fatima MD [address] [place] [address] OB OB/Gynecology Comment on above: OB Start: 11-15-2024 End: 11-15-2024 Patient encounter procedure 11/15/2024 9:00 AM EDT Routine Office Visit OB/Gynecology [address] [place] [address] Ronna Salomon, AGUSTINA.CNM [address] [place] [address] OB OB/Gynecology Comment on above: OB Start: 11-15-2024 End: 11-15-2024 ambulatory 11/15/2024 8:45 AM EDT Results Only [facility] [address] [place] [address] Lab Glucose [facility] Comment on above: Lab Glucose Start: 10-22-2024 Influenza vaccination Influenza Vacc ine (#1) [facility] Start: 10-18-2024 End: 01-17-2025 ANEMIA REFLEX PANEL ANEMIA REFLEX PANEL Lab Routine History of intrauterine , currently (HCC) 23 weeks gestation of (HCC) Screening for diabetes mellitus Expected: 10/18/2024, Expires: 01/17/2025 [facility] Comment on above: Expected: 10/18/2024 , Expires: 01/17/2025 Start: 10-18-2024 End: 10-18-2025 GESTATIONAL GLUCOSE SCREEN, 1-HOUR, 50 GRAM, NON-FASTING GESTATIONAL GLUCOSE SCREEN, 1-HOUR, 50 GRAM, NON-FASTING Lab Routine History of intrauterine , currently ([facility]) 23 weeks gestation of ([facility]) Screening for diabetes mellitus Expected: 10/18/2024, Expires: 10/18/2025 [facility] Work Phone: Comment on above: Expected: 10/18/2024 , Expires: 10/18/2025 Start: 10-18-2024 End: 10-18-2025 SYPHILIS TREPONEMAL W/REFLEX SYPHILIS TREPONEMAL W/REFLEX Lab Routine History of intrauterine , currently ([facility]) 23 weeks gestation of ([facility]) Screening for diabetes mellitus Expected: 10/18/2024, Expires: 10/18/2025 [facility] Comment on above: Expected: 10/18/2024 , Expires: 10/18/2025 Start: 10-18-2024 End: 10-18-2024 Patient encounter procedure 10/18/2024 9:00 AM EDT Routine Office Visit OB/Gynecology [address] [place] [id number] Risa Olivares MD [address] [place] [address] OB OB/Gynecology Comment on above: OB Start: 09-23-2024 Screening for malign ant neoplasm of cervix [facility] Start: 09-20-2024 End: 09-20-2024 Patient encounter procedure Maternal Medicine Comment on above: anatomy OB Start: 08-23-2024 End: 08-23-2024 ambulatory 08/23/2024 1:00 PM EDT [facility] [address] [place] [id number] M[facility]aternal [facility] Comment on above: MFM Start: 08-23-2024 End: 08-23-2024 Patient encounter procedure 08/23/2024 9:10 AM EDT Routine Office Visit OB/Gynecology [address] [place] [address] Risa Olivares MD [address] [place] [address] OB OB/Gynecology Comment on above: OB Start: 08-09-2024 End: 08-09-2024 Patient encounter procedure Maternal Medicine Comment on above: Nuchal OB Start: 07-19-2024 End: 10-18-2024 Chromosome 21 trisomy [Presence] in Blood or Tissue by Cytogenetics [id number] PLUS Lab Routine 10 weeks gestation of (HCC) Expected: 07/19/2024, Expires: 10/18/2024 [facility] Work Phone: Comment on above: Expected: 07/19/2024 , Expires: 10/18/2024 Start: 07-05-2024 End: 10-04-2024 ANEMIA REFLEX PANEL ANEMIA REFLEX PANEL Lab Routine with uncertain dates in first trimester ([facility]) Encounter for supervision of normal in multigravida ([facility]) Expected: 07/05/2024, Expires: 10/04/2024 [facility] Work Phone: Comment on above: Expected: 07/05/2024 , Expires: 10/04/2024 Start: 07-05-2024 End: 10-04-2024 Hemoglobin A1c in Blood HEMOGLOBIN A1C Lab Routine with uncertain dates in first trimester ([facility]) Encounter for supervision of normal in multigravida (HCC) Expected: 07/05/2024, Expires: 10/04/2024 [facility] Comment on above: Expected: 07/05/2024 , Expires: 10/04/2024 Start: 07-05-2024 End: 10-04-2024 Hepatitis B virus surface Ag [Presence] in Serum HEPATITIS B SURFACE ANTIGEN Lab Routine with uncertain dates in first trimester ([facility]) Encounter for supervision of normal in multigravida (HCC) Expected: 07/05/2024, Expires: 10/04/2024 [facility] Comment on above: Expected: 07/05/2024 , Expires: 10/04/2024 Start: 07-05-2024 End: 10-04-2024 Hepatitis C virus Ab [Presence] in Serum HEPATITIS C ANTIBODY IA WITH CONFIRMATION Lab Routine with uncertain dates in first trimester ([facility]) Encounter for supervision of normal in multigravida ([facility]) Expected: 07/05/2024, Expires: 10/04/2024 [facility] Comment on above: Expected: 07/05/2024 , Expires: 10/04/2024 Start: 07-05-2024 End: 10-04-2024 HIV 1+2 Ab [Presence] in Serum or Plasma by Immunoassay HIV 1/2 COMBO WITH REFLEX TO DIFFERENTIATION Lab Routine with uncertain dates in first trimester ([facility]) Encounter for supervision of normal in multigravida ([facility]) Expected: 07/05/2024, Expires: 10/04/2024 [facility] Comment on above: Expected: 07/05/2024 , Expires: 10/04/2024 Start: 07-05-2024 End: 07-05-2025 OBSTETRIC ULTRASOUND [facility] Comment on above: Expected: 07/05/2024 , Expires: 07/05/2025 Start: 07-05-2024 End: 10-04-2024 RUBELLA IGG ANTIBODY RUBELLA IGG ANTIBODY Lab Routine with uncertain dates in first trimester ([facility]) Encounter for supervision of normal in multigravida ([facility]) Expected: 07/05/2024, Expires: 10/04/2024 [facility] Comment on above: Expected: 07/05/2024 , Expires: 10/04/2024 Start: 07-05-2024 End: 10-04-2024 SYPHILIS TREPONEMAL W/REFLEX SYPHILIS TREPONEMAL W/REFLEX Lab Routine with uncertain dates in first trimester ([facility]) Encounter for supervision of normal in multigravida ([facility]) Expected: 07/05/2024, Expires: 10/04/2024 [facility] Comment on above: Expected: 07/05/2024 , Expires: 10/04/2024 Start: 07-05-2024 End: 10-04-2024 TYPE + SCREEN TYPE + SCREEN Blood Bank Routine with uncertain dates in first trimester ([facility]) Encounter for supervision of normal in multigravida ([facility]) Expected: 07/05/2024, Expires: 10/04/2024 [facility] Comment on above: Expected: 07/05/2024 , Expires: 10/04/2024 Start: 06-07-2024 End: 06-07-2024 ambulatory 06/07/2024 9:30 AM EDT Procedure OB/Gynecology [address] [place] [address] Remote, Orthotist Or Prosthetist Wstr Mob Us [address] [place] [address] : PCOS (polycystic ovarian syndrome) [E28.2]; Abnormal uterine bleeding [N93.9] OB/Gynecology Comment on above: : PCOS (polycystic o varian syndrome) [E28.2]; Abnormal uterine bleeding [N93.9] Start: 05-24-2024 End: 08-23-2024 25-hydroxyvitamin D3 [Mass/volume] in Serum or Plasma [facility] Comment on above: Expected: 05/24/2024 , Expires: 08/23/2024 Start: 05-24-2024 End: 08-23-2024 Choriogonadotropin.beta subunit [Units/volume] in Serum or Plasma [facility] Comment on above: Expected: 05/24/2024 , Expires: 08/23/2024 Start: 05-24-2024 End: 08-23-2024 Hemoglobin A1c in Blood [facility] Comment on above: Expected: 05/24/2024 , Expires: 08/23/2024 Start: 05-24-2024 End: 08-23-2024 Thyrotropin [Units/volume] in Serum or Plasma [facility] Comment on above: Expected: 05/24/2024 , Expires: 08/23/2024 Start: 05-24-2024 End: 05-24-2025 US Pelvis PELVIC US [facility] Anc Imaging Routine PCOS (polycystic ovarian syndrome) Abnormal uterine bleeding Expected: 05/24/2024, Expires: 05/24/2025 [facility] Work Phone: Comment on above: Expected: 05/24/2024 , Expires: 05/24/2025 Start: 12-05-2023 RSV Vaccine (1 - Ris k 1-dose series) RSV Vaccine (1 - Risk 1-dose series) [facility] Start: 10-23-2023 COVID-19 Vaccine ( season) COVID-19 Vaccine ( season) [facility] Start: 10-23-2023 Influenza vaccination [facility] Start: 10-14-2023 End: 10-14-2023 Patient encounter procedure 10/14/2023 11:40 AM EDT Routine Office Visit OB/Gynecology [address] [place] [id number] Adrianne Solorzano MD [address] [place] [id number] OB OB/Gynecology Comment on above: OB Start: 10-05-2023 End: 01-04-[address] LUPUS ANTICO[address] PL Lab Routine IUFD at 20 weeks or more of gestation Expected: 10/05/2023, Expires: 01/04/2024 [facility] Work Phone: Comment on above: Expected: 10/05/2023 , Expires: 01/04/2024 Start: 09-16-2023 End: 09-16-2023 Patient encounter procedure OB/Gynecology Comment on above: Anatomy OB Start: 08-19-2023 End: 11-18-2023 ALPHA FETOPRO MATERNAL [facility] Work Phone: Comment on above: Expected: 08/19/2023 , Expires: 11/18/2023 Start: 08-19-2023 End: 08-19-2023 Patient encounter procedure 08/19/2023 8:45 AM EDT Routine Office Visit OB/Gynecology [address] [place] [id number] Ramón Snyder APRN.RETAIL ADMINISTRATIVE ASSISTANT [address] [place] [id number] OB OB/Gynecology Comment on above: OB Start: 07-22-2023 End: 07-21-2024 OBSTETRIC ULTRASOUND [facility] OBSTETRIC ULTRASOUND [facility] Anc Imaging Routine 12 weeks gestation of Encounter for supervision of normal first in second trimester Expected: 07/22/2023, Expires: 07/21/2024 [facility] Work Phone: Comment on above: Expected: 07/22/2023 , Expires: 07/21/2024 Start: 07-22-2023 End: 07-22-2023 Patient encounter procedure 07/22/2023 10:30 AM EDT Routine Office Visit [facility]cology [address] [place] [place] [phone] Aparna Fatima MD [address] [facility] [address] [place], [place] [phone] OB, LMP 3 pos home test OB/Gynecology Comment on above: OB, LMP 04/25/23 pos p regnancy home test Start: 06-23-2023 End: 09-22-2023 CBC panel - Blood by Automated count COMPLETE BLOOD COUNT Lab Routine with uncertain dates in first trimester Expected: 06/23/2023, Expires: 09/22/2023 [facility] Work Phone: Comment on above: Expected: 06/23/2023 , Expires: 09/22/2023 Start: 06-23-2023 End: 09-22-2023 Hemoglobin A1c in Blood HEMOGLOBIN A1C Lab Routine with uncertain dates in first trimester Expected: 06/23/2023, Expires: 09/22/2023 [facility] Comment on above: Expected: 06/23/2023 , Expires: 09/22/2023 Start: 06-23-2023 End: 09-22-2023 Hepatitis B virus surface Ag [Presence] in Serum HEPATITIS B SURFACE ANTIGEN Lab Routine with uncertain dates in first trimester Expected: 06/23/2023, Expires: 09/22/2023 [facility] Comment on above: Expected: 06/23/2023 , Expires: 09/22/2023 Start: 06-23-2023 End: 09-22-2023 Hepatitis C virus Ab [Presence] in Serum HEPATITIS C ANTIBODY IA WITH CONFIRMATION Lab Routine with uncertain dates in first trimester Expected: 06/23/2023, Expires: 09/22/2023 [facility] Comment on above: Expected: 06/23/2023 , Expires: 09/22/2023 Start: 06-23-2023 End: 09-22-2023 HGB ELECTROPHORESIS (OUTSIDE USE) HGB ELECTROPHORESIS (OUTSIDE USE) Lab Routine 8 weeks gestation of Expected: 06/23/2023, Expires: 09/22/2023 [facility] Comment on above: Expected: 06/23/2023 , Expires: 09/22/2023 Start: 06-23-2023 End: 09-22-2023 HIV 1+2 Ab [Presence] in Serum or Plasma by Immunoassay HIV 1/2 COMBO WITH REFLEX TO DIFFERENTIATION Lab Routine with uncertain dates in first trimester Expected: 06/23/2023, Expires: 09/22/2023 [facility] Comment on above: Expected: 06/23/2023 , Expires: 09/22/2023 Start: 06-23-2023 End: 09-22-2023 RUBELLA IGG ANTIBODY RUBELLA IGG ANTIBODY Lab Routine with uncertain dates in first trimester Expected: 06/23/2023, Expires: 09/22/2023 [facility] Comment on above: Expected: 06/23/2023 , Expires: 09/22/2023 Start: 06-23-2023 End: 09-22-2023 SYPHILIS TOTAL W/REFLEX SYPHILIS TOTAL W/REFLEX Lab Routine with uncertain dates in first trimester Expected: 06/23/2023, Expires: 09/22/2023 [facility] Comment on above: Expected: 06/23/2023 , Expires: 09/22/2023 Start: 06-23-2023 End: 09-22-2023 TYPE + SCREEN TYPE + SCREEN Blood Bank Routine with uncertain dates in first trimester Expected: 06/23/2023, Expires: 09/22/2023 [facility] Comment on above: Expected: 06/23/2023 , Expires: 09/22/2023 Start: 06-23-2023 End: 06-23-2023 Patient encounter procedure OB/Gynecology Comment on above: OB, LMP 04/25/23 pos p regnancy home test Start: 06-20-2023 End: 06-20-2023 ambulatory 06/20/2023 1:15 PM EDT Results Only [facility] [address] [place] [address] Apollo Lozada [facility] Start: 06-15-2023 End: 06-15-2023 ambulatory 06/15/2023 1:30 PM EDT Results Only [facility] Lozada [facility] [address] [place] [address] Apollojose alberto Brizuelawn [facility] Start: 02-21-2023 Behavioral Health Screening Behavioral Health Screening [facility] Start: 02-04-2023 End: 02-04-2023 Patient encounter procedure 02/04/2023 10:30 AM EST Office Visit [facility] [address] [place] [phone] Brent Mejia Jr., DPM [address] [place] [address] [facility] Start: 10-22-2022 COVID-19 Vaccine ( season) COVID-19 Vaccine () [facility] Start: 10-22-2022 Influenza vaccination Sequenti al Influenza Vaccine (#1) [facility] Start: 04-05-2022 Patient discharge [facility] Start: 04-04-2022 Following clinical pathway protocol [facility] Start: 04-04-2022 Administration of medication [facility] Start: 04-04-2022 Application of ice collar, cap or bag [facility] Start: 04-04-2022 Catheterization of vein [facility] Start: 04-04-2022 Introduction of urin narayan catheter [facility] Start: 04-04-2022 Measuring intake and output [facility] Start: 04-04-2022 Notification of physician [facility] Start: 04-04-2022 Procedure discontinued [facility] Start: 04-04-2022 Provision of activit y privileges [facility] Start: 04-04-2022 Vital signs measurements [facility] Start: 04-04-2022 [facility] Start: 04-03-2022 Admission procedure [facility] Start: 01-18-2022 Screening for malign ant neoplasm of cervix HPV Testing [facility] Start: 11-16-2021 EPVOB, Provider: Harlan Ding, Status: Pen, Time: 1:15 PM EPVOB, Provider: Harlan Ding, Status: Pen, Time: 1:15 PM [employer] Work Phone: Start: 10-19-2021 EPVOB, Provider: Harlan Ding, Status: Pen, Time: 9:15 AM EPVOB, Provider: Harlan Ding, Status: Pen, Time: 9:15 AM [employer] Work Phone: Start: 09-23-2021 EPVOB, Provider: Harlan Ding, Status: Pen, Time: 9:30 AM EPVOB, Provider: Harlan Ding, Status: Pen, Time: 9:30 AM [employer] Work Phone: Start: 09-09-2021 Patient encounter procedure ANNUAL, Provider: Harlan Ding, Status: Pen, Time: 11:15 AM [employer] Work Phone: Start: 06-17-2021 FUV, Provider: Harlan Ding, Status: Pen, Time: 1:45 PM FUV, Provider: Harlan Ding, Status: Pen, Time: 1:45 PM [employer] Work Phone: Start: 01-18-2013 Screening for malign ant neoplasm of cervix [facility] Start: 12-30-2011 HPV Vaccine (3 - 3-d ose series) HPV Vaccine (3 - 3-dose series) [facility] Start: 01-18-2011 Hepatitis B Vaccine (1 of 3 - 19+ 3-dose series) Hepatitis B Vaccine (1 of 3 - 19+ 3-dose series) [facility] Start: 01-18-2011 Hepatitis B Vaccines (1 of 3 - 19+ 3-dose series) Hepatitis B Vaccines (1 of 3 - 19+ 3-dose series) [facility] Start: 01-18-2010 Anxiety Screening Anxiety Screening [facility] Start: 01-18-2010 Depression Screening Depression Scre maricruzing [facility] Start: 01-18-2010 Hepatitis C screening Hepatitis C Sc noelle [facility] Start: 01-18-2010 HIV screening HIV Screening [facility] Start: 01-18-2007 HIV screening HIV Screening [facility] Start: 01-18-2005 Varicella vaccination Varicell a Vaccines (1 of 2 - 13+ 2-dose series) [facility] Start: 2004 Depression screening using PHQ-9 (Patient Health Questionnaire 9) score Depression Screening (PHQ-2/9) [facility] Start: 01-18-1995 History and physical examination, annual for health maintenance Wellness Visit [facility] Start: 01-18-1993 MMR Vaccines (1 of 1 - Standard series) MMR Vaccines (1 of 1 - Standard series) [facility] Start: 1992 Yearly Adult Physical Yearly Adult P [facility] Bacteria identified in Urine by Culture URINE CULTURE Microbiology Routine with uncertain dates in first trimester 06/23/2023 9:15 AM T [facility] Bacteria identified in Urine by Culture BACTERIAL CULTURE, URINE Microbiology Routine with uncertain dates in first trimester ([facility]) Encounter for supervision of normal in multigravida ([facility]) 07/05/2024 8:57 AM T [facility] Bacteria identified in Urine by Culture BACTERIAL CULTURE, URINE Microbiology Routine 22 weeks gestation of ([facility]) Encounter for supervision of normal in multigravida ([facility]) Cramping affecting , antepartum ([facility]) 10/10/2024 12:57 PM EDT [facility] Work Phone: Chlamydia trachomatis+Neisseria gonorrhoeae DNA [Presence] in Unspecified specimen by MATTHEW with probe detection GONORRHEA/CHLAMYDIA NAAT Lab Routine with uncertain dates in first trimester ([facility]) Encounter for supervision of normal in multigravida ([facility]) 07/05/2024 8:57 AM T [facility] End: 06-12-2024 Choriogonadotropin.beta subunit [Units/volume] in Serum or Plasma HCG QUANTITATIVE Lab Routine Threatened 2x per week for 2 Occurrences starting 06/13/2023 until 06/12/2024, 1 completed [facility] Work Phone: Comment on above: 2x per week for 2 Oc currences starting 06/13/2023 until 06/12/2024, 1 completed PAP TEST PAP TEST Lab Reji aline Encounter for gynecological examination (general) (routine) without abnormal findings Screening for cervical cancer Encounter for screening for human papillomavirus (HPV) 05/24/2024 3:26 PM EDT [facility] Patient Education [facility] Work Phone: Patient referral [facility] Work Phone: TRICHOMONAS VAGINALI S NAAT TRICHOMONAS VAGINALIS NAAT Lab Routine Screen for STD (sexually transmitted disease) 07/05/2024 8:57 AM EDT [facility] Immunizations Immunization Date Immunization Notes Care Provider Fa alirio 02-29-2024 influenza virus vaccine, unspecified formulation Risa Olivares MD Work Phone: [facility] 04-05-2022 influenza virus vaccine, unspecified formulation Risa Olivares MD Work Phone: [facility] 02-22-2017 Diptheria,Tetanus,Pe rtu ssis Vaccine [facility] 02-18-2017 Influenza virus vaccine [facility] 11-25-2015 influenza, seasonal, injectable [facility] 10-07-2011 human papilloma viru s vaccine, quadrivalent Ramón Haury DEGREE CLERK.RETAIL ADMINISTRATIVE ASSISTANT Work Phone: [facility] 02-19-2011 human papilloma viru s vaccine, quadrivalent Ramón Haury DEGREE CLERK.RETAIL ADMINISTRATIVE ASSISTANT Work Phone: [facility] Payers Date Payer Category Payer Private Health Insurance [employer] [id number] 2024 Private Health Insurance [id number] 2023 Medicaid (Managed Care) [facility] [id number] 2022 Medicaid [id number] 2022 Unknown [id number] 2017 Self-pay 2016 Unknown [id number] 2014 Unknown [id number] 1992 Unknown [id number] [id number]. 2.1068 1992 Unknown [id number] 2.840.1.271170.3.579. 2.106 1992 Unknown [id number] 2.840.1.247781.3.579. 2.106 1992 Unknown [id number] [id number]. 2.902 1992 Unknown [id number] 2.840.1.761092.3.579. 2.90 1992 Unknown [id number] [id number]. 2.903 1992 Unknown [id number] 2.16.840.1.136817.3.579. 2.903 1992 Unknown [id number] [id number]. 2.903 1992 Unknown [id number] [id number]. 2.1243 1992 Unknown [id number] 2.16.840.1.841940.3.579. 2.1243 1992 Unknown [id number] [id number]. 2.1243 1992 Unknown [id number] [id number]. 2.903 Private Health Insurance [id number] Unknown [facility] [employer] Unknown [id number]. [id number] Social History Date Type Detail Facility Start: 12-22-2022 End: 03-02-2023 Sexually active Sexually active [facility] [address] [place] Work Phone: Start: 05-09-2023 [facility] Start: 01-08-2022 End: 04-03-2022 Tobacco smoking status NYIS Unknown if ever smoked [facility] Start: 1990 Sex Assigned At Female [facility] Start: 12-22-2022 End: 06-16-2023 Tobacco smoking status NHIS Never smoked tobacco [facility] Start: 12-22-2022 End: 06-16-2023 Tobacco use and exposure Smokeless tobacco non-user [facility] Start: 01-05-2023 End: 08-23-2024 Alcohol intake Ex-drinker (finding) [facility] Start: 12-22-2022 End: 03-02-2023 Tobacco use panel [facility] Start: 1990 Sex Assigned At Not on file [facility] Start: 12-22-2022 Gender identity Identifies as female gender (finding) [facility] Start: 12-22-2022 Sexual orientation Heterosexual (finding) [facility] Start: 11-17-2020 National Score (1-100), lower number is lower risk 66 [facility] Start: 06-16-2023 Education 17 [facility] The thought of shilpi rios myself has occurred to me Never [facility] Start: 01-29-2024 End: 02-08-2024 Exposure to SARS-CoV-2 (event) Not sure [facility] Goals Date Patient Goal Desired Activity [...] AUTHENTICATED BY ADDIE KNIGHT, ON 11/27/2024 12:41:25 [facility] 11-15-2024 Note HNO ID: [id number] Author: ALBIN PUTNAM LPN Service: ? Author [...] severely ill: Yes Patient denies history of Guillain-[place] Syndrome (a severe paralytic illness): Yes Tdap Adacel injection was given without incident. See immunizations for details of immunizations administered today. VIS sheet provided: Yes Provider Ronna Salomon APRN, CNM was present in office at time of injection. Albin Putnam LPN [facility] 10-18-2024 Progress note Formatting of t [...] ASSESSMENT/PLAN: 1. History of intrauterine , currently ([facility]) - ICD9: V23.5, ICD10: O09.299 (primary diagnosis) - GESTATIONAL GLUCOSE SCREEN, 1-HOUR, 50 GRAM, NON-FASTING - SYPHILIS TREPONEMAL W/REFLEX - ANEMIA REFLEX PANEL 2. 23 weeks gestation of ([facility]) - ICD9: V22.2, ICD10: Z3A.23 - GESTATIONAL GLUCOSE SCREEN, 1-HOUR, 50 GRAM, NON-FASTING - SYPHILIS TREPONEMAL W/REFLEX - ANEMIA REFLEX PANEL 3. Screening for diabetes mellitus - ICD9: V77.1, ICD10: Z13.1 - GESTATIONAL GLUCOSE SCREEN, 1-HOUR, 50 GRAM, NON-FASTING - SYPHILIS TREPONEMAL W/REFLEX - ANEMIA REFLEX PANEL 4. Supervision of high risk in second trimester ([facility]) - ICD9: V23.9, ICD10: O09.92 Risa Olivares MD [facility] 10-18-2024 Miscellaneous Notes S: Alberto Whitaker [...] ASSESSMENT/PLAN: 1. History of intrauterine , currently ([facility]) - ICD9: V23.5, ICD10: O09.299 (primary diagnosis) - GESTATIONAL GLUCOSE SCREEN, 1-HOUR, 50 GRAM, NON-FASTING - SYPHILIS TREPONEMAL W/REFLEX - ANEMIA REFLEX PANEL 2. 23 weeks gestation of ([facility]) - ICD9: V22.2, ICD10: Z3A.23 - GESTATIONAL GLUCOSE SCREEN, 1-HOUR, 50 GRAM, NON-FASTING - SYPHILIS TREPONEMAL W/REFLEX - ANEMIA REFLEX PANEL 3. Screening for diabetes mellitus - ICD9: V77.1, ICD10: Z13.1 - GESTATIONAL GLUCOSE SCREEN, 1-HOUR, 50 GRAM, NON-FASTING - SYPHILIS TREPONEMAL W/REFLEX - ANEMIA REFLEX PANEL 4. Supervision of high risk in second trimester ([facility]) - ICD9: V23.9, ICD10: O09.92 Risa Olivares MD documented in this encounter [facility] 10-18-2024 Instructions Jennifer Cardenas MA - 10/18/2024 9:25 AM EDT SEQUENTIAL SCREENINGS The [facility] offers sequential screenings for women who [...] It will require an appointment with our office technician. This is not an ultrasound performed [...] the above symptoms, contact our office at [phone] and ask to speak with a nurse. After hours, you can call doctors registry at [phone] OR call [facility] at [phone] and ask to have the doctor operations support manager paged. If you consider this an emergency, dial -- or go to your nearest emergency department. NEED HELP? Are you dealing with a violent or abusive relationship? Are you a victim of rape or sexual assult? Call [facility] ([place]) 24 hour Crisis Hotline: 145.556.2577 or 132-624-3606. MANUAL Your Guide to a Healthy manual is now on-line. Visit [email or web address] to download your free copy documented in this encounter [facility] 10-10-2024 Progress note Formatting of t [...] - RTO 1 week for scheduled CHAIM Slaomon APRN.CNM [facility] 10-10-2024 Miscellaneous Notes S: Alberto Whitaker [...] Ronna Salomon APRN.CNM documented in this encounter [facility] 10-10-2024 Instructions Kaykay Jarrett LPN - 10/10/2024 11:28 AM EDT SEQUENTIAL SCREENINGS The [facility] offers sequential screenings for women who [...] It will require an appointment with our office technician. This is not an ultrasound performed [...] the above symptoms, contact our office at [phone] and ask to speak with a nurse. After hours, you can call doctors registry at [phone] OR call [facility] at [phone] and ask to have the doctor operations support manager paged. If you consider this an emergency, dial 9--1 or go to your nearest emergency department. NEED HELP? Are you dealing with a violent or abusive relationship? Are you a victim of rape or sexual assult? Call [facility] ([place] 24 hour Crisis Hotline: 701.805.9602 or 413-298-5227. MANUAL Your Guide to a Healthy manual is now on-line. Visit [email or web address] to download your free copy documented in this encounter [facility] 10-09-2024 Telephone encounter Note Patient notified. She declined appt now. She started feeling a lot more movement since previous phone call. She will call back if she changes her mind. Marcy Oconnell RN [facility] 10-09-2024 Miscellaneous Notes Patient notified. She [...] Marcy Oconnell RN documented in this encounter [facility] 10-09-2024 Telephone encounter Note Please add on to open spot on CP schedule tomorrow. Alexandra Pérez MD [facility] Work Phone: 10-09-2024 Telephone encounter Note [...] add her on somewhere? Marcy Oconnell RN [facility] 09-20-2024 Note HNO ID: [id number] Author: APARNA FATIMA MD Service: ? Author Type: Physician Type: Progress Notes Filed: 09/20/2024 17:12 Note Text: SW- Having irregular palpitations that can last several hours at rest. With this she has a difficult time taking a deep breath in. No chest pain. She did go to [place] [facility] in this for Shortness of Breath, [...] - RTO 4 wks Aparna Fatima DO [facility] 09-20-2024 History of Presen t illness Narrative SW- Having irregular palpitations that can last several hours at rest. With this she has a difficult time taking a deep breath in. No chest pain. She did go to [place] [facility] in this for Shortness of Breath, [...] Aparna Fatima DO documented in this encounter [facility] 09-20-2024 Instructions Amanda Carrillo MA - 09/20/2024 3:21 PM EDT SEQUENTIAL SCREENINGS The [facility] offers sequential screenings for women who [...] It will require an appointment with our office technician. This is not an ultrasound performed [...] the above symptoms, contact our office at [phone] and ask to speak with a nurse. After hours, you can call doctors registry at [phone] OR call [facility] at [phone] and ask to have the doctor operations support manager paged. If you consider this an emergency, dial 91- or go to your nearest emergency department. NEED HELP? Are you dealing with a violent or abusive relationship? Are you a victim of rape or sexual assult? Call [facility] ([place] 24 hour Crisis Hotline: 519.617.5826 or 661-827-6003. MANUAL Your Guide to a Healthy manual is now on-line. Visit [email or web address] to download your free copy documented in this encounter [facility] 08-30-2024 Progress note Formatting of t [...] RTO already scheduled visit Ronna Salomon APRN.CNM [facility] 08-30-2024 Miscellaneous Notes S: Alberto Whitaker [...] Ronna Salomon APRN.CNM documented in this encounter [facility] 08-30-2024 Telephone encounter Note Called patient and appointment scheduled for evaluation in office today. Chela Drake RN [facility] 08-30-2024 Miscellaneous Notes Called patient and appointment scheduled for evaluation in office today. Chela Drake RN documented in this encounter [facility] 08-23-2024 Progress note Formatting of t [...] Encounter for supervision of normal in multigravida ([facility]) - ICD9: V22.1, ICD10: Z34.80 (primary diagnosis) 2. History of intrauterine , currently ([facility]) - ICD9: V23.5, ICD10: O09.299 No reason 3. 15 weeks gestation of ([facility]) - ICD9: V22.2, ICD10: Z3A.15 Risa Olivares MD [facility] 08-23-2024 Miscellaneous Notes S: Alberto Whitaker [...] Encounter for supervision of normal in multigravida ([facility]) - ICD9: V22.1, ICD10: Z34.80 (primary diagnosis) 2. History of intrauterine , currently ([facility]) - ICD9: V23.5, ICD10: O09.299 No reason 3. 15 weeks gestation of ([facility]) - ICD9: V22.2, ICD10: Z3A.15 Risa Olivares MD documented in this encounter [facility] 08-23-2024 Instructions Meena Cohen MA - 08/23/2024 9:11 AM EDT SEQUENTIAL SCREENINGS The [facility] offers sequential screenings for women who [...] It will require an appointment with our office technician. This is not an ultrasound performed [...] the above symptoms, contact our office at [phone] and ask to speak with a nurse. After hours, you can call doctors registry at [phone] OR call [facility] at [phone] and ask to have the doctor operations support manager paged. If you consider this an emergency, dial 9-1-6 or go to your nearest emergency department. NEED HELP? Are you dealing with a violent or abusive relationship? Are you a victim of rape or sexual assult? Call [facility] ([place] 24 hour Crisis Hotline: 748.246.8543 or 800-923-6311. MANUAL Your Guide to a Healthy manual is now on-line. Visit [email or web address] to download your free copy documented in this encounter [facility] 08-09-2024 Note HNO ID: [id number] Author: APARNA FATIMA MD Service: ? Author Type: Physician Type: Progress Notes Filed: 08/09/2024 12:56 Note Text: SW- Daily headaches. No pain, vb, lof. PE: Gen- NAD, well appearing See flowsheet A/p 13 wk gestation - NT today - NOB labs and NIPT today - Anatomy US scheduled - MOD: Plans - RTO 4 wks Aparna Fatima DO [facility] 08-09-2024 History of Presen t illness Narrative SW- Daily headaches. No pain, vb, lof. PE: Gen- NAD, well appearing See flowsheet A/p 13 wk gestation - NT today - NOB labs and NIPT today - Anatomy US scheduled - MOD: Plans - RTO 4 wks Aparna Fatima DO documented in this encounter [facility] 08-09-2024 Instructions Amanda Carrillo MA - 08/09/2024 11:06 AM EDT SEQUENTIAL SCREENINGS The [facility] offers sequential screenings for women who [...] It will require an appointment with our office technician. This is not an ultrasound performed [...] the above symptoms, contact our office at [phone] and ask to speak with a nurse. After hours, you can call doctors registry at [phone] OR call [facility] at [phone] and ask to have the doctor operations support manager paged. If you consider this an emergency, dial -5 or go to your nearest emergency department. NEED HELP? Are you dealing with a violent or abusive relationship? Are you a victim of rape or sexual assult? Call [facility] ([place] 24 hour Crisis Hotline: 278.106.6791 or 590-225-5599. MANUAL Your Guide to a Healthy manual is now on-line. Visit [email or web address] to download your free copy documented in this encounter [facility] 07-05-2024 Telephone encounter Note PSS notified order is entered and scheduled.Bianca Larkin RN [facility] 07-05-2024 Miscellaneous Notes PSS notified order is entered and scheduled.Bianca Larkin RN Order filed. Noemi Aiken APRN.LEIGH ANN Anatomy US pending. Please file and will sent to PSS to contact Pt to get scheduled as PSS (Kelle as US spot on hold for Pt). Bianca Larkin RN documented in this encounter [facility] 07-05-2024 Telephone encounter Note Order filed. Noemi Aiken APRN.RETAIL ADMINISTRATIVE ASSISTANT [facility] 07-05-2024 Telephone encounter Note Anatomy US pending. Please file and will sent to PSS to contact Pt to get scheduled as PSS (Kelle as US spot on hold for Pt). 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 INITIAL OB ASSESSMENT HPI: Alberto is a [...] Yes Pt reported Hx abnormal pap with [facility] no cervical procedures. Prior treatment for [...] HSV-1 PCOS (polycystic ovarian syndrome) Diagnosed in [place] PAST SURGICAL HISTORY Procedure Laterality Date DELIVERY ONLY 2015 INDUCED DILATION & EVACUATION 09/17/2023 17 weeks IUFD MYRINGOTOMY Bilateral x2 age 7 and 14 Current Outpatient Medications Medication Sig Dispense Refill vitamin D3-folic acid 125 mcg (5,000 unit)-1 mg tab Take by mouth once daily. VIT 76-VPDP-NTRFQ-DHA ORAL Take 1 tablet by mouth once [...] discussed with the Patient or Patient's Authorized Pneumatic Tester Mechanic. As applicable, any other physician, advance practice provider, medical student, or other health professional student that will be observing or involved in the sensitive examination for educational or training purposes was discussed with the Patient or Authorized Pneumatic Tester Mechanic. The Patient or Authorized Pneumatic Tester Mechanic has agreed to proceed with the sensitive [...] Your guide to a health and the Play Reader. Reviewed midwifery and director of estate services that are available. 2) Screening: Hemoglobin [...] Noemi Aiken APRN.CNP documented in this encounter [facility] 07-05-2024 Note HNO ID: [id number] Author: NOEMI AIKEN APRN.CNP Service: ? 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 INITIAL OB ASSESSMENT HPI: Alberto is a [...] Yes Pt reported Hx abnormal pap with [facility] no cervical procedures. Prior treatment for [...] HSV-1 PCOS (polycystic ovarian syndrome) Diagnosed in [place] PAST SURGICAL HISTORY Procedure Laterality Date DELIVERY ONLY 2016 INDUCED DILATION AND EVACUATION 09/17/2023 17 weeks IUFD MYRINGOTOMY Bilateral x2 age 7 and 14 Current Outpatient Medications Medication Sig Dispense Refill vitamin D3-folic acid 125 mcg (5,000 unit)-1 mg tab Take by mouth once daily. VIT 18-JIBZ-MMHSI-DHA ORAL Take 1 tablet by mouth once daily. acetaminophen (TYLENOL) 325 mg cap Take by mouth every 6 hours as needed for (more content not included)... [facility] 07-05-2024 Instructions Kaykay Jarrett LPN - 07/05/2024 7:41 AM EDT Please select the following link to access the [facility] Your Guide to a Healthy . [email or web address] documented in this encounter [facility] 06-14-2024 Note HNO ID: [id number] Author: NOEMI AIKEN APRN.RETAIL ADMINISTRATIVE ASSISTANT Service: ? Author Type: Nurse Practitioner Type: [...] Living3 SAB1 IAB0 Ectopic0 Multiple0 Live Births3 Shredded Filler Machine Wrapper Layer History LMP: 05/08/2024 (Exact Date), Unknown Age at Menarche: Age at First : Age at Menopause: Shredded Filler Machine Wrapper Layer History Comments: Sexual Activity: Yes; Male Contraception: None PAST MEDICAL HISTORY Diagnosis Date Abnormal Pap smear of cervix ? HPV Herpes simplex virus (HSV) infection HSV-1 PCOS (polycystic ovarian syndrome) Diagnosed in [place] PAST SURGICAL HISTORY Procedure Laterality Date DELIVERY [...] tab Take by mouth once daily. VIT 79-PYUK-BJXUL-DHA ORAL Take 1 tablet by mouth once [...] Medical Decision Making Level: 3 - Low [facility] 06-05-2024 Telephone encounter Note Yes, cancel the US for this week. Noemi Aiken APRN.CNP [facility] 06-05-2024 Miscellaneous Notes Yes, cancel the US for this week. Noemi Aiken APRN.CNP Okay to cancel day u/s and schedule NOB? Marcy Oconnell RN documented in this encounter [facility] 06-05-2024 Telephone encounter Note Okay to cancel Thursday u/s and schedule NOB? Marcy Oconnell RN [facility] 06-01-2024 Progress note Formatting of t his note might be different from the original. Send letter about normal pap if she does not have mychart. Javid Starr MD [facility] Work Phone: 06-01-2024 Miscellaneous Notes Send letter about normal pap if she does not have mychart. Javid Starr MD documented in this encounter [facility] 05-24-2024 Instructions Ramón Snyder APRN.CNP - 05/24/2024 3:05 PM EDT To schedule an appointment please either: Use the [employer] Self Scheduling Ticket you may receive OR Call [phone], Option 1 to schedule. For information pertaining to genetics services at the [facility], you can visit us online at [email or web address]. If you do not have access to information online, please contact us at the number above and we can send you information. documented in this encounter [facility] 05-24-2024 Note HNO ID: [id number] Author: RAMÓN SNYDER APRN.CNP Service: ? Author Type: Nurse Practitioner Type: Progress Notes Filed: 05/24/2024 15:38 Note Text: Kiln Loader offered: Patient declinesIlia De Oliveira is a 34 year old who presents for an annual gynecologic exam without complaints. Had an episode of bleeding for 26 consecutive days in March - flow ranging from light to moderate. Last 2 cycles were normal. Recently graduated from [employer]. Working at [employer] in [place]. Had loss around 17 weeks gestation - [...] discussed with the Patient or Patient's Authorized Pneumatic Tester Mechanic. As applicable, any other physician, advance practice provider, medical student, or other health professional student that will be observing or involved in the sensitive examination for educational or training purposes was discussed with the Patient or Authorized Pneumatic Tester Mechanic. The Patient or Authorized Pneumatic Tester Mechanic has agreed to proceed with the sensitive [...] external genitalia normal, normal Bartholin's glands, urethra, Robinhood's glands, no vulvar lesions, no cervical lesions, [...] - Wants to become - PELVIC [facility] Family history of breast cancer - ICD9: V16.3, ICD10: Z80.3 - CONSULT TO MEDICAL GENETICS - GENERAL History of IUFD - ICD9: V13.29, ICD10: Z87.59 Desire for - ICD9: V26.9, ICD10: Z31.9 - Continue PNV - Discussed Vitamin D supplements - Discussed home ovulation kits - Recommend consult with MFM pre conception for history of IUFD Ramón Snyder APRN.[facility] 05-24-2024 History of Presen t illness Narrative Kiln Loader offered: Patient declines. Alberto is a 34 year old who presents for an annual gynecologic exam without complaints. Had an episode of bleeding for 26 consecutive days in March - flow ranging from light to moderate. Last 2 cycles were normal. Recently graduated from [employer]. Working at [employer] in [place]. Had loss around 17 weeks gestation - [...] discussed with the Patient or Patient's Authorized Pneumatic Tester Mechanic. As applicable, any other physician, advance practice provider, medical student, or other health professional student that will be observing or involved in the sensitive examination for educational or training purposes was discussed with the Patient or Authorized Pneumatic Tester Mechanic. The Patient or Authorized Pneumatic Tester Mechanic has agreed to proceed with the sensitive [...] external genitalia normal, normal Bartholin's glands, urethra, Robinhood's glands, no vulvar lesions, no cervical lesions, [...] - Wants to become - [employer] [facility] Family history of breast cancer - [...] Snyder APRN.LEIGH ANN documented in this encounter [facility] 02-08-2024 History of Presen t illness Narrative [facility] [place] NOTE: Name: Alberto Blackwood, 34 y.o. CSN:[id number] PCP: No Assigned PCP Generic Provider, ALL: [...] flu medications without much relief; no other jvnl-iab-nsqifie medications or home remedies for symptom management. No known ill contacts. No known history of asthma/COPD/respiratory issues. Denies any recent antibiotic use PMHx: Past Medical History: Diagnosis Date Encounter for delivery without indication ([facility]) Delivery of by section Encounter for gynecological examination (general) (routine) without abnormal findings Pap test, as part of routine gynecological examination Other conditions influencing health status Menstruation Other conditions influencing health status Vaginal delivery after previous delivery () declined Current Outpatient Medications Medication Sig Dispense Refill VIT 65-UOOY-FBQWE-DHA ORAL Take 1 tablet by mouth once daily. amoxicillin-pot clavulanate (Augmentin) 875-125 mg tablet Take 1 tablet by mouth 2 times a day for 10 days. 20 tablet 0 idruwlcjqsaixhy-yzsrqzmje-FV 2-30-10 mg/5 mL syrup Take 5 mL by mouth 4 times a day as needed for congestion or cough for up to 10 days. 120 mL 0 aniagmoezvnthqg-SH-zoxrrsuesln (Capmist DM) 60-15-400 mg tablet Take 1 [...] ,R05.1 Acute cough COMPARISON: None. ACCESSION NUMBER(S): [id number] ORDERING CLINICIAN: JEANETTE ALBARRAN FINDINGS: CARDIOMEDIASTINAL SILHOUETTE: Cardiomediastinal silhouette is normal in size and configuration. LUNGS: Lungs are clear. ABDOMEN: No remarkable upper abdominal findings. BONES: No acute osseous changes. IMPRESSION: 1. No evidence of acute cardiopulmonary process. MACRO: None Signed by: Donny Au 02/08/2024 12:53 PM Dictation workstation: [id number] Laboratory testing and chest x-ray reviewed with [...] POCT SARS-COV-2/FLU/RSV PCR SYMPTOMATIC manually resulted - dbskjksxrxshyum-lpueqhiws-BQ 2-30-10 mg/5 mL syrup; Take 5 mL by mouth 4 times a day as needed for congestion or cough for up to 10 days. - tpprwgfvwboxbma-CL-uiwhwtxjmuo (Capmist DM) 60-15-400 mg tablet; Take 1 [...] Jeanette Albarran APRN, DNP Advanced Practice Provider [facility] Please note: While the patient may or may not have received printed discharge paperwork, all relevant medical findings, test results, and treatment details are accessible through the electronic medical record system. The patient is encouraged to review their chart via the patient portal for comprehensive information and follow-up instructions. documented in this encounter [facility] Work Phone: 10-06-2023 History of Presen t illness Narrative Scan on 09/27/2023 1:31 PM by Provider, Paige, JUAN RAMON: Anora documented in this encounter [facility] 10-05-2023 History of Presen t illness [...] harming myself has occurred to me. Never [place] Depression Scale Total 11 Feeling nervous, anxious [...] issues Sleep: no sleep concerns, feels rested [place] since delivery: Not resumed Emotional support: Yes [...] Javid Starr MD documented in this encounter [facility] 09-27-2023 History of Presen t illness Narrative Received Anora results Scan on 09/27/2023 1:31 PM by Provider, External, PALorraineC: Anora documented in this encounter [facility] 09-19-2023 Note [facility] Medical Records Department [address] [place] [address] Discharge Summary 09/19/23 1908 MR#: [id number] Acct: [id number] Name: ALBERTO WHITAKER Rep #: [id number] : 1990 33 From: Javid Starr MD PCP: Care Physician,No Primary Status:ADM IN Location: [place] [id number] Providers Date of Admission: 09/18/23 Primary Care [...] elsewhere classified Medications at Discharge Home Medications iejwvhfi-qfl-Hc-FA 1 mg tablet 1 tab PO DAILY [...] 09/19/2023 with routine pain control measures with smki-atv-fwqyhfl medications and follow-up in the office in [...] % (Auto) 63.7, Lymph % (Auto) 29.1, Orange % (Auto) 5.2, Eos % (Auto) 1.3, [...] % (Auto) 64.5, Lymph % (Auto) 28.6, Orange % (Auto) 5.0, Eos % (Auto) 1.0, [...] 84.0 H, Lymph % (Auto) 10.6 L, Orange % (Auto) 4.6, Eos % (Auto) 0.1, Baso % (Auto) 0.2, Absolute Neuts (auto) 11.0 H, Absolute Lymphs (auto) 1.38, Nucleated RBC % 0, PT Cancelled, INR Cancelled, APTT Cancelled, Fibrinogen Cancelled D/C Instructions May shower in (days): 1 May resume sexual activity in: 4 weeks Please Follow Up With: Javid Starr MD When: Follow up w (more content not included)... [facility] 09-19-2023 History of Presen t illness Narrative Patient delivered IUFD via suction D&C by Dr. Fatima on 09/19/23 at [facility]. See OB history. Marcy Oconnell RN documented in this encounter [facility] 09-16-2023 Telephone encounter Note I spoke [...] testing of the fetus. Javid Starr MD [facility] Work Phone: 09-16-2023 Miscellaneous Notes I [...] Ramón Snyder APRN.CNP documented in this encounter [facility] 09-16-2023 Telephone encounter Note IUFD noted on anatomy ultrasound today. Discussed with patient likely would need induced, but would be hearing from our office after RR reviews. Please call patient before end of day with plan as she is expecting call. Ramón Snyder APRN.CNP [facility] 09-16-2023 Instructions Mandie Silva LPN - 09/16/2023 2:33 PM EDT SEQUENTIAL SCREENINGS The [facility] offers sequential screenings for women who [...] It will require an appointment with our office technician. This is not an ultrasound performed [...] the above symptoms, contact our office at [phone] and ask to speak with a nurse. After hours, you can call doctors registry at [phone] OR call [facility] at [phone] and ask to have the doctor operations support manager paged. If you consider this an emergency, dial 9-1-8 or go to your nearest emergency department. NEED HELP? Are you dealing with a violent or abusive relationship? Are you a victim of rape or sexual assult? Call [facility] ([place]) 24 hour Crisis Hotline: 300.795.4306 or 976-924-8468. MANUAL Your Guide to a Healthy manual is now on-line. Visit [email or web address] to download your free copy documented in this encounter [facility] 09-16-2023 Progress note Formatting of t his note might be different from the original. Alberto presented today for her anatomy ultrasound and no heartbeat was detected on the baby. No bleeding or leakage of fluid. No pain. ASSESSMENT/PLAN: 1. IUFD at 20 weeks or more of gestation - ICD9: [id number], ICD10: O36.4XX0 - Reviewed with Alberto and her that there is no heartbeat on ultrasound - Likely will need induced. Will consult with physician. - To notify with any heavy bleeding, fever, chills in the interim. - Emotional support provided and Uvqaxp-Ad-Ybz kit provided. Ramón Snyder APRN.LEIGH ANN [facility] 09-16-2023 Miscellaneous Notes Alberto presented today for her anatomy ultrasound and no heartbeat was detected on the baby. No bleeding or leakage of fluid. No pain. ASSESSMENT/PLAN: 1. IUFD at 20 weeks or more of gestation - ICD9: [id number], ICD10: O36.4XX0 - Reviewed with Alberto and her that there is no heartbeat on ultrasound - Likely will need induced. Will consult with physician. - To notify with any heavy bleeding, fever, chills in the interim. - Emotional support provided and Fodwtw-Vb-Nox kit provided. Ramón Snyder APRN.RETAIL ADMINISTRATIVE ASSISTANT documented in this encounter [facility] 08-19-2023 Instructions Mandie Silva LPN - 08/19/2023 8:50 AM EDT SEQUENTIAL SCREENINGS The [facility] offers sequential screenings for women who [...] It will require an appointment with our office technician. This is not an ultrasound performed [...] the above symptoms, contact our office at [phone] and ask to speak with a nurse. After hours, you can call doctors registry at [phone] OR call [facility] at [phone] and ask to have the doctor operations support manager paged. If you consider this an emergency, dial 4-9-7 or go to your nearest emergency department. NEED HELP? Are you dealing with a violent or abusive relationship? Are you a victim of rape or sexual assult? Call [facility] ([place]) 24 hour Crisis Hotline: 196.947.3588 or 213-948-5255. MANUAL Your Guide to a Healthy manual is now on-line. Visit [email or web address] to download your free copy documented in this encounter [facility] 08-19-2023 Miscellaneous Notes EH - S: [...] weeks or sooner as needed. Ramón Snyder APRN.RETAIL ADMINISTRATIVE ASSISTANT documented in this encounter [facility] 08-19-2023 Progress note Formatting of t [...] weeks or sooner as needed. Ramón Snyder APRN.RETAIL ADMINISTRATIVE ASSISTANT [facility] 07-28-2023 Progress note Formatting of t [...] - RTO 4 wks Aparna Fatima DO [facility] 07-28-2023 Miscellaneous Notes SW- pt doing [...] Aparna Fatima DO documented in this encounter [facility] 07-22-2023 Instructions Amanda Carrillo MA - 07/22/2023 10:35 AM EDT SEQUENTIAL SCREENINGS The [facility] offers sequential screenings for women who [...] It will require an appointment with our office technician. This is not an ultrasound performed [...] the above symptoms, contact our office at [phone] and ask to speak with a nurse. After hours, you can call doctors registry at [phone] OR call [facility] at [phone] and ask to have the doctor operations support manager paged. If you consider this an emergency, dial 9-1-8 or go to your nearest emergency department. NEED HELP? Are you dealing with a violent or abusive relationship? Are you a victim of rape or sexual assult? Call [facility] ([place]) 24 hour Crisis Hotline: 331.751.7986 or 442-127-6595. MANUAL Your Guide to a Healthy manual is now on-line. Visit [email or web address] [email or web address] to download your free copy documented in this encounter [facility] 06-24-2023 Telephone encounter Note 1st risk assessment form submitted June 24, 2023. BRANDON Stanley, RN OB Clinical Navigator [phone] [facility] 06-24-2023 Miscellaneous Notes 1st risk assessment form submitted June 24, 2023. BRANDON Stanley, RN OB Clinical Navigator [phone] documented in this encounter [facility] 06-23-2023 Instructions Amanda Carrillo MA - 06/23/2023 8:17 AM EDT Please select the following link to access the [facility] Your Guide to a Healthy . [email or web address] documented in this encounter [facility] 06-23-2023 History of Presen t illness Narrative OB point of care ultrasound was performed. See imaging tab for details. Jennifer Cardenas MA Kiln Loader offered: Patient declines. INITIAL OB ASSESSMENT HPI: [...] experience? 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 HPV Herpes simplex virus (HSV) infection HSV-1 PAST SURGICAL HISTORY Procedure Laterality Date DELIVERY ONLY 2016 MYRINGOTOMY Bilateral x2 age 7 and 14 Current Outpatient Medications Medication Sig Dispense Refill VIT 68-LRLY-KZGQG-DHA ORAL Take by mouth. acetaminophen (TYLENOL) 325 mg cap Take by mouth. multivit with calcium,iron,min (YTDXDNNDDYRM-BP-SXFD-MINERALS ORAL) Take by mouth once daily. (Patient [...] Your guide to a health and the Play Reader. Discussed aneuploidy screening, nuchal translucency/first trimester early [...] hemoglobin electrophoresis. Patient: uncertain Reviewed midwifery and director of estate services that are available. 2) Patient offered [...] calculate rate of success using pre-labor factors: http://www.bs.rust.edu/mfmu/vag .html N/A. Follow up in 4 weeks or sooner casey. Noemi Aiken APRN.RETAIL ADMINISTRATIVE ASSISTANT documented in this encounter [facility] 06-21-2023 Telephone encounter Note Patient given message [facility] 06-21-2023 Miscellaneous Notes Patient given message Left messsage for patient to return phone call ----- Message from Alexandra Pérez MD sent at 06/21/2023 11:36 AM EDT ----- Good rise in hcg levels Keep new OB appt Alexandra Pérez MD documented in this encounter [facility] 06-21-2023 Telephone encounter Note Left messsage for patient to return phone call ----- Message from Alexandra Pérez MD sent at 06/21/2023 11:36 AM EDT ----- Good rise in hcg levels Keep new OB appt Alexandra Pérez MD [facility] 06-16-2023 Telephone encounter Note Intake completed. [facility] 06-16-2023 Miscellaneous Notes Intake completed. Left message for patient to return phone call. Patient has an appointment with Noemi Aiken for NOB appointment. I called to do nurse intake documented in this encounter [facility] 06-16-2023 Telephone encounter Note Left message for patient to return phone call. Patient has an appointment with Noemi Aiken for NOB appointment. I called to do nurse intake [facility] 06-13-2023 Telephone encounter Note Patient notified. Leave note in inbasket to watch for 4 and 4/24 hcg quant results. Marcy Oconnell RN [facility] 06-13-2023 Miscellaneous Notes Patient notified. Leave note in inbasket to watch for 06/12 and 4/24 hcg quant results. Marcy Oconnell RN Could be related to intercourse, [...] Marcy Oconnell RN documented in this encounter [facility] 06-13-2023 Telephone encounter Note Could be related to intercourse, but would recommend serial HCGs. Order filed [facility] Work Phone: 06-13-2023 Telephone encounter Note [...] for 06/23/23. Please advise. Marcy Oconnell RN [facility] 02-04-2023 History of Presen t illness [...] any new exercise. documented in this encounter [facility] 01-05-2023 History of Presen t illness Narrative [...] findings and pain. 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
== END 2025-02-10 23:19 | disposition home or self-care (01) | DRG 560 ==
PROVIDERS: Admitting Provider Obstetrics & Gynecology; Referring Provider Obstetrics & Gynecology; Visit Provider Obstetrics & Gynecology
DX: O69.81X0 Labor and delivery complicated by cord around neck, without compression, not applicable or unspecified (principal); Z37.0 Single live birth; O34.211 Maternal care for low transverse scar from previous cesarean delivery; O77.0 Labor and delivery complicated by meconium in amniotic fluid; Z3A.39 39 weeks gestation of pregnancy; Z87.59 Personal history of other complications of pregnancy, childbirth and the puerperium
CPT/HCPCS: 59025; 59050; 84112; 85025; 86780; 86850; 86900; 86901; 99221; G0378